=== PATIENT | male | born 1950 | race Caucasian/White ===

== ENCOUNTER → 2017-02-28 | Outpatient (CLI) | payer OTHER, MEDICARE | LOC: MW.CHPS 08:00 | PROVIDERS: ATTEND Physician Assistant | DX: G56.03 Carpal tunnel syndrome, bilateral upper limbs (principal); Z98.890 Other specified postprocedural states | CPT/HCPCS: G0463 ==

== ENCOUNTER 2017-12-06 16:01 | Inpatient (IN) | payer MEDICARE, OTHER ==
[2017-12-06] MEDS ORDERED: Sodium Chloride 0.9% 2.5 ML Syringe FLUSH PRN (16:11)
[2017-12-06] MEDS ORDERED: Sodium Chloride 0.9% 10 ML Syringe FLUSH PRN (16:11)
--- NOTE | 2017-12-06 16:16 | EDM.PDOC ---
ED HPI GENERAL MEDICAL PROBLEM - General Chief Complaint: Respiratory Problem Stated Complaint: SOB Time Seen by Provider: 12/06/17 16:10 Source of Information: Reports: Patient History Limitations: Reports: No Limitations - History of Present Illness INITIAL COMMENTS - FREE TEXT/NARRATIVE: HISTORY AND PHYSICAL: History of present illness: Patient is a 67-year-old male who is brought to the emergency room by EMS with complaints of shortness of breath x 4 days. States he has chronic shortness of breath but has been worse over the past 24 hours. He does not use home oxygen. Denies any chest pain, abdominal pain, nausea, vomiting or diarrhea. Denies any fever or chills. States he is eating and drinking without difficulty. Has no bowel or bladder concerns or complaints. Has not received the 2017 - 2018 influenza vaccine. Patient reports he has a history of diabetes and does assess his blood sugars routinely which have been running in the 200s. History of hypertension, elevated cholesterol, COPD, and sleep apnea. Review of systems: As per history of present illness and below otherwise all systems reviewed and negative. Past medical history: As per history of present illness and as reviewed below otherwise noncontributory. Surgical history: As per history of present illness and as reviewed below otherwise noncontributory. Social history: No reported history of drug or alcohol abuse. Family history: As per history of present illness and as reviewed below otherwise noncontributory. Physical exam: Gen.: Well-developed and well-nourished 67-year-old male. Alert and oriented. Able to speak in short sentences prior to becoming short of breath. Appears nontoxic and in no acute distress. HEENT: Atraumatic, normocephalic, pupils reactive, negative for conjunctival pallor or scleral icterus, mucous membranes moist, throat clear, neck supple, nontender, trachea midline. Lungs: Fine expiratory wheezing to the posterior bases bilaterally, breath sounds equal bilaterally, chest nontender. Does become short of breath when he came full sentences. Heart: S1S2, regular rate and rhythm Abdomen: Soft, obese, nondistended, nontender. Negative for masses or hepatosplenomegaly. Negative for costovertebral tenderness. Pelvis: Stable nontender. Genitourinary: Deferred. Rectal: Deferred. Extremities: Atraumatic, negative for cords or calf pain. +2 pitting edema to his lower extremities bilaterally. Neurovascular unremarkable. Neuro: Awake, alert, oriented. Cranial nerves II through XII unremarkable. Cerebellum unremarkable. Motor and sensory unremarkable throughout. Exam nonfocal. On interviewing the patient he does have a difficult time finding his words. Poor historian. He is unsure of which medications he takes. States he [facility]. He denies hitting his head or any loss of consciousness recently. Due to his current state they would like to get a head CT to rule out any intracranial findings. Labs and chest x- ray will be done at this time. I did inform the patient to anticipate possible admission as he does not appear well enough to go home. Patient is agreeable and voices understanding. Dr. Farias was consult on this case. He agreed to admit this patient as an inpatient with telemetry. He has been down to see the patient. Diagnostics: CBC, CMP, troponin, BNP and PT, influenza, head CT, chest x-ray, EKG, blood cultures Therapeutics: Levaquin Impression: #1 Dyspnea #2 Influenza A #3 hypoxemia Plan: Inpatient admission with telemetry Definitive disposition and diagnosis as appropriate pending reevaluation and review of above. Duration: Day(s): Location: Reports: Chest - Related Data Allergies Allergy/AdvReac Type Severity Reaction Status Date / Time colestipol Allergy Other Verified 12/06/17 16:01 fluvastatin Allergy Other Verified 12/06/17 16:01 ibuprofen Allergy Other Verified 12/06/17 16:01 lovastatin Allergy Other Verified 12/06/17 16:01 simvastatin Allergy Other Verified 12/06/17 16:01 Home Meds: Home Meds Amoxicillin 500 mg PO 02/20/16 [History] Enalapril Maleate 10 mg PO 02/20/16 [History] Ezetimibe [Zetia] 10 mg PO DAILY 02/20/16 [History] Furosemide 40 mg PO 02/20/16 [History] Gabapentin [Neurontin] 800 mg PO 02/20/16 [History] Insulin Glargine,Hum.Rec.Anlog [Lantus Solostar] 100 unit SQ 02/20/16 [History] Methocarbamol 500 mg PO 02/20/16 [History] glipiZIDE [Glucotrol] 10 mg PO 02/20/16 [History] metFORMIN [Glucophage XR] mg PO 02/20/16 [History] Past Medical History HEENT History: Reports: None Cardiovascular History: Reports: Hypertension Respiratory History: Reports: COPD, Sleep Apnea Gastrointestinal History: Reports: None Genitourinary History: Reports: Renal Disease Other Genitourinary History: Renal insufficiency Musculoskeletal History: Reports: None Neurological History: Reports: Neuropathy, Diabetic Psychiatric History: Reports: None Endocrine/Metabolic History: Reports: Diabetes, Type II, Obesity/BMI 30+ Hematologic History: Reports: None Immunologic History: Reports: None Oncologic (Cancer) History: Reports: None Dermatologic History: Reports: None - Past Surgical History Head Surgeries/Procedures: Reports: None HEENT Surgical History: Reports: None Cardiovascular Surgical History: Reports: None Respiratory Surgical History: Reports: None GI Surgical History: Reports: None Male Surgical History: Reports: None Neurological Surgical History: Reports: None Musculoskeletal Surgical History: Reports: None Oncologic Surgical History: Reports: None Dermatological Surgical History: Reports: None Social & Family History - Family History Family Medical History: Noncontributory - Tobacco Use Smoking Status *Q: Never Smoker - Caffeine Use Caffeine Use: Reports: None - Recreational Drug Use Recreational Drug Use: No ED ROS GENERAL - Review of Systems Review Of Systems: ROS reveals no pertinent complaints other than HPI. ED EXAM, GENERAL - Physical Exam Exam: See Below (See dictation) Course - Vital Signs Last Recorded V/S: Last Vital Signs Temp 99.2 F 12/06/17 16:02 Pulse 87 12/06/17 18:07 Resp 22 H 12/06/17 18:07 BP 133/61 12/06/17 18:07 Pulse Ox 95 12/06/17 18:07 - Orders/Labs/Meds Orders: Active Orders 24 hr Category Date Time Status Admission Status [Patient Status] [ADT] Stat ADT 12/06/17 19:00 Ordered EKG Documentation Completion [RC] STAT Care 12/06/17 16:11 Active Chest 2V [CR] Stat Exams 12/06/17 16:11 Taken Head wo Cont [CT] Stat Exams 12/06/17 16:16 Taken CULTURE BLOOD [BC] Stat Lab 12/06/17 16:55 Received CULTURE BLOOD [BC] Stat Lab 12/06/17 17:01 Received Levofloxacin/Dextrose 5%-Water [Levaquin in D5W 750 MG/ Med 12/06/17 18:44 Active 150 ML] 750 mg Premix Bag 1 bag IV ONETIME Sodium Chloride 0.9% [Saline Flush] Med 12/06/17 16:11 Active 10 ml FLUSH ASDIRECTED PRN Sodium Chloride 0.9% [Saline Flush] Med 12/06/17 16:11 Active 2.5 ml FLUSH ASDIRECTED PRN Blood Culture x2 Reflex Set [OM.PC] Stat Oth 12/06/17 16:22 Ordered Saline Lock Insert [OM.PC] Stat Oth 12/06/17 16:11 Ordered Medication Orders Levofloxacin/Dextrose 750 mg/ (Premix) 150 mls @ 100 mls/hr IV ONETIME ONE Stop: 12/06/17 20:13 Sodium Chloride (Saline Flush) 10 ml FLUSH ASDIRECTED PRN PRN Reason: Keep Vein Open Sodium Chloride (Saline Flush) 2.5 ml FLUSH ASDIRECTED PRN PRN Reason: Keep Vein Open Labs: Laboratory Tests 12/06/17 12/06/17 12/06/17 Range/Units 16:20 16:20 16:20 WBC 3.14 L (4.0-11.0) K/uL RBC 4.87 (4.50-5.90) M/uL Hgb 13.3 (13.0-17.0) g/dL Hct 40.1 (38.0-50.0) % MCV 82.3 (80.0-98.0) fL MCH 27.3 (27.0-32.0) pg MCHC 33.2 (31.0-37.0) g/dL RDW Std Deviation 46.0 (28.0-62.0) fl RDW Coeff of Rhea 15 (11.0-15.0) % Plt Count 99 L (150-400) K/uL MPV 10.90 (7.40-12.00) fL Neut % (Auto) 65.3 (48.0-80.0) % Lymph % (Auto) 24.5 (16.0-40.0) % [place] % (Auto) 10.2 (0.0-15.0) % Eos % (Auto) 0.0 (0.0-7.0) % Baso % (Auto) 0.0 (0.0-1.5) % Neut # (Auto) 2.1 (1.4-5.7) K/uL Lymph # (Auto) 0.8 (0.6-2.4) K/uL [place] # (Auto) 0.3 (0.0-0.8) K/uL Eos # (Auto) 0.0 (0.0-0.7) K/uL Baso # (Auto) 0.0 (0.0-0.1) K/uL Nucleated RBC % 0.0 /100WBC Nucleated RBCs # 0 K/uL ABG pH (7.35-7.45) ABG pCO2 (35-45) mmHG ABG pO2 (75-100) mmHG ABG HCO3 (22-26) mEq/L ABG Total CO2 ABG Base Excess (-2.0-2.0) Lactate (0.20-2.00) mmol/L Sodium 141 (136-146) mmol/L Potassium 4.0 (3.5-5.1) mmol/L Chloride 109 (98-110) mmol/L Carbon Dioxide 22 (21-31) mmol/L BUN 23 (6.0-23.0) mg/dL Creatinine 1.7 H (0.6-1.5) mg/dL Est Cr Clr Drug Dosing TNP Estimated GFR (MDRD) 40.2 ml/min Glucose 92 (60-110) mg/dL Calcium 9.1 (8.8-10.8) mg/dL Total Bilirubin 0.4 (0.1-1.5) mg/dL AST 22 (5-40) IU/L ALT 21 (8-54) IU/L Alkaline Phosphatase 40 (40-150) Troponin I < 0.10 (0.0-0.29) NG/ML B-Natriuretic Peptide 126 H (<100) PG/ML Total Protein 7.1 (6.0-8.0) g/dL Albumin 3.7 (3.4-4.8) g/dL Globulin 3.4 (2.0-3.5) g/dL Albumin/Globulin Ratio 1.1 L (1.3-2.8) 12/06/17 12/06/17 Range/Units 16:20 16:45 WBC (4.0-11.0) K/uL RBC (4.50-5.90) M/uL Hgb (13.0-17.0) g/dL Hct (38.0-50.0) % MCV (80.0-98.0) fL MCH (27.0-32.0) pg MCHC (31.0-37.0) g/dL RDW Std Deviation (28.0-62.0) fl RDW Coeff of Rhea (11.0-15.0) % Plt Count (150-400) K/uL MPV (7.40-12.00) fL Neut % (Auto) (48.0-80.0) % Lymph % (Auto) (16.0-40.0) % [place] % (Auto) (0.0-15.0) % Eos % (Auto) (0.0-7.0) % Baso % (Auto) (0.0-1.5) % Neut # (Auto) (1.4-5.7) K/uL Lymph # (Auto) (0.6-2.4) K/uL [place] # (Auto) (0.0-0.8) K/uL Eos # (Auto) (0.0-0.7) K/uL Baso # (Auto) (0.0-0.1) K/uL Nucleated RBC % /100WBC Nucleated RBCs # K/uL ABG pH 7.465 H (7.35-7.45) ABG pCO2 31 L (35-45) mmHG ABG pO2 56 L (75-100) mmHG ABG HCO3 22 (22-26) mEq/L ABG Total CO2 23 ABG Base Excess 0 (-2.0-2.0) Lactate 0.9 (0.20-2.00) mmol/L Sodium (136-146) mmol/L Potassium (3.5-5.1) mmol/L Chloride (98-110) mmol/L Carbon Dioxide (21-31) mmol/L BUN (6.0-23.0) mg/dL Creatinine (0.6-1.5) mg/dL Est Cr Clr Drug Dosing Estimated GFR (MDRD) ml/min Glucose (60-110) mg/dL Calcium (8.8-10.8) mg/dL Total Bilirubin (0.1-1.5) mg/dL AST (5-40) IU/L ALT (8-54) IU/L Alkaline Phosphatase (40-150) Troponin I (0.0-0.29) NG/ML B-Natriuretic Peptide (<100) PG/ML Total Protein (6.0-8.0) g/dL Albumin (3.4-4.8) g/dL Globulin (2.0-3.5) g/dL Albumin/Globulin Ratio (1.3-2.8) Meds: Medications Generic Name Dose Route Start Last Admin Trade Name Freq PRN Reason Stop Dose Admin Levofloxacin/Dextrose 750 mg/ 150 mls @ 100 mls/hr 12/06/17 18:44 Premix IV 12/06/17 20:13 ONETIME ONE Sodium Chloride 10 ml 12/06/17 16:11 Saline Flush FLUSH ASDIRECTED PRN Keep Vein Open Sodium Chloride 2.5 ml 12/06/17 16:11 Saline Flush FLUSH ASDIRECTED PRN Keep Vein Open Departure - Departure Time of Disposition: 19:02 Disposition: Admitted As Inpatient 64 Clinical Impression: Influenza A, Hypoxemia Dyspnea Qualifiers: Dyspnea type: shortness of breath Qualified Code(s): R06.02 - Shortness of breath; R06.00 - Dyspnea, unspecified; R06.01 - Orthopnea - Discharge Information Forms: ED Department Discharge - My Orders Last 24 Hours: My Active Orders 12/06/17 16:11 EKG Documentation Completion [RC] STAT Chest 2V [CR] Stat Sodium Chloride 0.9% [Saline Flush] 10 ml FLUSH ASDIRECTED PRN Sodium Chloride 0.9% [Saline Flush] 2.5 ml FLUSH ASDIRECTED PRN Saline Lock Insert [OM.PC] Stat 12/06/17 16:16 Head wo Cont [CT] Stat 12/06/17 16:22 Blood Culture x2 Reflex Set [OM.PC] Stat 12/06/17 16:55 CULTURE BLOOD [BC] Stat 12/06/17 17:01 CULTURE BLOOD [BC] Stat 12/06/17 18:44 Levofloxacin/Dextrose 5%-Water [Levaquin in D5W 750 MG/150 ML] 750 mg Premix Bag 1 bag IV ONETIME 12/06/17 19:00 Admission Status [Patient Status] [ADT] Stat - Assessment/Plan Last 24 Hours: My Active Orders 12/06/17 16:11 EKG Documentation Completion [RC] STAT Chest 2V [CR] Stat Sodium Chloride 0.9% [Saline Flush] 10 ml FLUSH ASDIRECTED PRN Sodium Chloride 0.9% [Saline Flush] 2.5 ml FLUSH ASDIRECTED PRN Saline Lock Insert [OM.PC] Stat 12/06/17 16:16 Head wo Cont [CT] Stat 12/06/17 16:22 Blood Culture x2 Reflex Set [OM.PC] Stat 12/06/17 16:55 CULTURE BLOOD [BC] Stat 12/06/17 17:01 CULTURE BLOOD [BC] Stat 12/06/17 18:44 Levofloxacin/Dextrose 5%-Water [Levaquin in D5W 750 MG/150 ML] 750 mg Premix Bag 1 bag IV ONETIME 12/06/17 19:00 Admission Status [Patient Status] [ADT] Stat
[2017-12-06 16:48] LABS: CHLORIDE,CL 109 mmol/L (98-110); SODIUM,NA 141 mmol/L (136-146)
[2017-12-06] MEDS ORDERED: Levofloxacin/Dextrose 5%-Water 750 MG in Premix Bag 1 BAG IV ONE (18:44)
[2017-12-06] MEDS ORDERED: Ondansetron 4 MG/2 ML SDV IVPUSH PRN (19:01)
--- NOTE | 2017-12-06 19:11 | PCM.HP ---
H&P History of Present Illness - General Admit Problem/Dx: Admission Diagnosis/Problem Admission Diagnosis/Problem Influenza due to influenza A virus - History of Present Illness Initial Comments - Free Text/Narative: 67 yo male with pmh of DM who presents with three day history of shortness of breath, productive cough, fevers, chills, and myalgias. CXR performed in ED showed no focal consolidation, He is positive for influenza A. - Related Data Allergies/Adverse Reactions: Allergies Allergy/AdvReac Type Severity Reaction Status Date / Time colestipol Allergy Other Verified 12/06/17 16:01 fluvastatin Allergy Other Verified 12/06/17 16:01 ibuprofen Allergy Other Verified 12/06/17 16:01 lovastatin Allergy Other Verified 12/06/17 16:01 simvastatin Allergy Other Verified 12/06/17 16:01 Home Medications: Home Meds Amoxicillin 500 mg PO 02/20/16 [History] Enalapril Maleate 10 mg PO 02/20/16 [History] Ezetimibe [Zetia] 10 mg PO DAILY 02/20/16 [History] Furosemide 40 mg PO 02/20/16 [History] Gabapentin [Neurontin] 800 mg PO 02/20/16 [History] Insulin Glargine,Hum.Rec.Anlog [Lantus Solostar] 100 unit SQ 02/20/16 [History] Methocarbamol 500 mg PO 02/20/16 [History] glipiZIDE [Glucotrol] 10 mg PO 02/20/16 [History] metFORMIN [Glucophage XR] mg PO 02/20/16 [History] Past Medical History HEENT History: Reports: None Cardiovascular History: Reports: Hypertension Respiratory History: Reports: COPD, Sleep Apnea Gastrointestinal History: Reports: None Genitourinary History: Reports: Renal Disease Other Genitourinary History: Renal insufficiency Musculoskeletal History: Reports: None Neurological History: Reports: Neuropathy, Diabetic Psychiatric History: Reports: None Endocrine/Metabolic History: Reports: Diabetes, Type II, Obesity/BMI 30+ Hematologic History: Reports: None Immunologic History: Reports: None Oncologic (Cancer) History: Reports: None Dermatologic History: Reports: None - Past Surgical History Head Surgeries/Procedures: Reports: None HEENT Surgical History: Reports: None Cardiovascular Surgical History: Reports: None Respiratory Surgical History: Reports: None GI Surgical History: Reports: None Male Surgical History: Reports: None Neurological Surgical History: Reports: None Musculoskeletal Surgical History: Reports: None Oncologic Surgical History: Reports: None Dermatological Surgical History: Reports: None Social & Family History - Family History Family Medical History: Noncontributory - Tobacco Use Smoking Status *Q: Never Smoker - Caffeine Use Caffeine Use: Reports: None - Recreational Drug Use Recreational Drug Use: No H&P Review of Systems - Review of Systems: Review Of Systems: ROS reveals no pertinent complaints other than HPI. Exam - Exam Exam: See Below - Vital Signs Vital Signs: Last Vital Signs Temp 37.3 C 12/06/17 16:02 Pulse 87 12/06/17 18:07 Resp 22 H 12/06/17 18:07 BP 133/61 12/06/17 18:07 Pulse Ox 95 12/06/17 18:07 Weight: 151.5 kg - Exam General: Alert, Oriented. No: Mild Distress HEENT: Mucosa Moist & [place] Neck: Supple Lungs: Normal Respiratory Effort, Rhonchi (bilateral). No: Crackles, Stridor, Wheezing Cardiovascular: Regular Rate, Regular Rhythm GI/Abdominal Exam: Soft, Non-Tender. No: Guarding, Rigid, Rebound Extremities: Non-Tender Skin: Warm, Dry, Intact Neurological: No: Focal Deficit - Patient Data Lab Results Last 24 hrs: Laboratory Results - last 24 hr 12/06/17 12/06/17 12/06/17 Range/Units 16:20 16:20 16:20 WBC 3.14 L (4.0-11.0) K/uL RBC 4.87 (4.50-5.90) M/uL Hgb 13.3 (13.0-17.0) g/dL Hct 40.1 (38.0-50.0) % MCV 82.3 (80.0-98.0) fL MCH 27.3 (27.0-32.0) pg MCHC 33.2 (31.0-37.0) g/dL RDW Std Deviation 46.0 (28.0-62.0) fl RDW Coeff of Rhea 15 (11.0-15.0) % Plt Count 99 L (150-400) K/uL MPV 10.90 (7.40-12.00) fL Neut % (Auto) 65.3 (48.0-80.0) % Lymph % (Auto) 24.5 (16.0-40.0) % [place] % (Auto) 10.2 (0.0-15.0) % Eos % (Auto) 0.0 (0.0-7.0) % Baso % (Auto) 0.0 (0.0-1.5) % Neut # (Auto) 2.1 (1.4-5.7) K/uL Lymph # (Auto) 0.8 (0.6-2.4) K/uL [place] # (Auto) 0.3 (0.0-0.8) K/uL Eos # (Auto) 0.0 (0.0-0.7) K/uL Baso # (Auto) 0.0 (0.0-0.1) K/uL Nucleated RBC % 0.0 /100WBC Nucleated RBCs # 0 K/uL ABG pH (7.35-7.45) ABG pCO2 (35-45) mmHG ABG pO2 (75-100) mmHG ABG HCO3 (22-26) mEq/L ABG Total CO2 ABG Base Excess (-2.0-2.0) Lactate (0.20-2.00) mmol/L Sodium 141 (136-146) mmol/L Potassium 4.0 (3.5-5.1) mmol/L Chloride 109 (98-110) mmol/L Carbon Dioxide 22 (21-31) mmol/L BUN 23 (6.0-23.0) mg/dL Creatinine 1.7 H (0.6-1.5) mg/dL Est Cr Clr Drug Dosing TNP Estimated GFR (MDRD) 40.2 ml/min Glucose 92 (60-110) mg/dL Calcium 9.1 (8.8-10.8) mg/dL Total Bilirubin 0.4 (0.1-1.5) mg/dL AST 22 (5-40) IU/L ALT 21 (8-54) IU/L Alkaline Phosphatase 40 (40-150) Troponin I < 0.10 (0.0-0.29) NG/ML B-Natriuretic Peptide 126 H (<100) PG/ML Total Protein 7.1 (6.0-8.0) g/dL Albumin 3.7 (3.4-4.8) g/dL Globulin 3.4 (2.0-3.5) g/dL Albumin/Globulin Ratio 1.1 L (1.3-2.8) 12/06/17 12/06/17 Range/Units 16:20 16:45 WBC (4.0-11.0) K/uL RBC (4.50-5.90) M/uL Hgb (13.0-17.0) g/dL Hct (38.0-50.0) % MCV (80.0-98.0) fL MCH (27.0-32.0) pg MCHC (31.0-37.0) g/dL RDW Std Deviation (28.0-62.0) fl RDW Coeff of Rhea (11.0-15.0) % Plt Count (150-400) K/uL MPV (7.40-12.00) fL Neut % (Auto) (48.0-80.0) % Lymph % (Auto) (16.0-40.0) % [place] % (Auto) (0.0-15.0) % Eos % (Auto) (0.0-7.0) % Baso % (Auto) (0.0-1.5) % Neut # (Auto) (1.4-5.7) K/uL Lymph # (Auto) (0.6-2.4) K/uL [place] # (Auto) (0.0-0.8) K/uL Eos # (Auto) (0.0-0.7) K/uL Baso # (Auto) (0.0-0.1) K/uL Nucleated RBC % /100WBC Nucleated RBCs # K/uL ABG pH 7.465 H (7.35-7.45) ABG pCO2 31 L (35-45) mmHG ABG pO2 56 L (75-100) mmHG ABG HCO3 22 (22-26) mEq/L ABG Total CO2 23 ABG Base Excess 0 (-2.0-2.0) Lactate 0.9 (0.20-2.00) mmol/L Sodium (136-146) mmol/L Potassium (3.5-5.1) mmol/L Chloride (98-110) mmol/L Carbon Dioxide (21-31) mmol/L BUN (6.0-23.0) mg/dL Creatinine (0.6-1.5) mg/dL Est Cr Clr Drug Dosing Estimated GFR (MDRD) ml/min Glucose (60-110) mg/dL Calcium (8.8-10.8) mg/dL Total Bilirubin (0.1-1.5) mg/dL AST (5-40) IU/L ALT (8-54) IU/L Alkaline Phosphatase (40-150) Troponin I (0.0-0.29) NG/ML B-Natriuretic Peptide (<100) PG/ML Total Protein (6.0-8.0) g/dL Albumin (3.4-4.8) g/dL Globulin (2.0-3.5) g/dL Albumin/Globulin Ratio (1.3-2.8) Result Diagrams: 12/06/17 16:20 12/06/17 16:20 Angus Results Last 24 hrs: Microbiology 12/06/17 16:30 Influenza Type A Antigen Screen - Final Nasopharyngeal Swab Positive Influenza A Ag Influenza Type B Antigen Screen - Final NEGATIVE INFLUENZA B VIRUS AG *Q Meaningful Use (ADM) - VTE *Q VTE Criteria *Q: - Stroke *Q Stroke Criteria *Q: - AMI *Q AMI Criteria *Q: Problem List Initiated/Reviewed/Updated: Yes Orders Last 24hrs: Active Orders 24 hr Category Date Time Status Admission Status [Patient Status] [ADT] Stat ADT 12/06/17 19:00 Ordered Antiembolic Devices [RC] PER UNIT ROUTINE Care 12/06/17 19:03 Ordered Blood Glucose Check, Bedside [RC] TIDMEALS Care 12/06/17 19:01 Ordered Cardiac Monitoring [RC] CONTINUOUS Care 12/06/17 19:02 Ordered EKG Documentation Completion [RC] STAT Care 12/06/17 16:11 Active Intake and Output [RC] QSHIFT Care 12/06/17 19:01 Ordered Oxygen Therapy [RC] PRN Care 12/06/17 19:01 Ordered Pulse Oximetry [RC] CONTINUOUS Care 12/06/17 19:02 Ordered RT Aerosol Therapy [RC] ASDIRECTED Care 12/06/17 19:03 Ordered Up ad Zenaida [RC] ASDIRECTED Care 12/06/17 19:01 Ordered VTE/DVT Education [RC] PER UNIT ROUTINE Care 12/06/17 19:01 Ordered Vital Signs [RC] Q4H Care 12/06/17 19:01 Ordered [employer] Diet [DIET] Diet 12/06/17 Breakfast Ordered Chest 2V [CR] Stat Exams 12/06/17 16:11 Taken Head wo Cont [CT] Stat Exams 12/06/17 16:16 Taken BASIC METABOLIC PANEL,BMP [CHEM] AM Lab 12/07/17 05:11 Ordered CBC WITH AUTO DIFF [HEME] AM Lab 12/07/17 05:11 Ordered CULTURE BLOOD [BC] Stat Lab 12/06/17 16:55 Received CULTURE BLOOD [BC] Stat Lab 12/06/17 17:01 Received CULTURE SPUTUM + SMEAR [RM] Stat Lab 12/06/17 19:01 Uncollected Acetaminophen [Tylenol] Med 12/06/17 19:01 Ordered 650 mg PO Q4H PRN Albuterol/Ipratropium [DuoNeb 3.0-0.5 MG/3 ML] Med 12/06/17 19:01 Ordered 3 ml NEB Q4HRRT PRN Enoxaparin [Lovenox] Med 12/07/17 09:00 Ordered 40 mg SUBCUT DAILY Insulin Glarg,Human.Rec.Analog [LantUS Solostar] Med 12/06/17 21:00 Ordered 70 units SUBCUT BEDTIME Levofloxacin/Dextrose 5%-Water [Levaquin in D5W 750 MG/ Med 12/06/17 18:44 Active 150 ML] 750 mg Premix Bag 1 bag IV ONETIME Levofloxacin/Dextrose 5%-Water [Levaquin in D5W 750 MG/ Med 12/07/17 19:15 Ordered 150 ML] 750 mg Premix Bag 1 bag IV Q24H Ondansetron [Zofran] Med 12/06/17 19:01 Ordered 4 mg IVPUSH Q4H PRN Oseltamivir [Tamiflu] Med 12/06/17 21:00 Ordered 30 mg PO BID Sodium Chloride 0.9% @ 125 MLS/HR (1,000ml) Med 12/06/17 19:15 Ordered Sodium Chloride 0.9% [Normal Saline] 1,000 ml IV ASDIRECTED Sodium Chloride 0.9% [Saline Flush] Med 12/06/17 16:11 Active 10 ml FLUSH ASDIRECTED PRN Sodium Chloride 0.9% [Saline Flush] Med 12/06/17 16:11 Active 2.5 ml FLUSH ASDIRECTED PRN Blood Culture x2 Reflex Set [OM.PC] Stat Oth 12/06/17 16:22 Ordered Saline Lock Insert [OM.PC] Stat Oth 12/06/17 16:11 Ordered Sequential Compression Device [OM.PC] Per Unit Routine Oth 12/06/17 19:02 Ordered Resuscitation Status Routine Resus Stat 12/06/17 19:01 Ordered Medication Orders Acetaminophen (Tylenol) 650 mg PO Q4H PRN PRN Reason: Pain (Mild 1-3)/fever Albuterol/Ipratropium (Duoneb 3.0-0.5 Mg/3 Ml) 3 ml NEB Q4HRRT PRN PRN Reason: Shortness Of Breath/wheezing Enoxaparin Sodium (Lovenox) 40 mg SUBCUT DAILY LULU Levofloxacin/Dextrose 750 mg/ (Premix) 150 mls @ 100 mls/hr IV ONETIME ONE Stop: 12/06/17 20:13 Levofloxacin/Dextrose 750 mg/ (Premix) 150 mls @ 100 mls/hr IV Q24H LULU Sodium Chloride (Normal Saline) 1,000 mls @ 125 mls/hr IV ASDIRECTED LULU Insulin Glargine (Lantus Solostar) 70 units SUBCUT BEDTIME LULU Ondansetron HCl (Zofran) 4 mg IVPUSH Q4H PRN PRN Reason: Nausea Oseltamivir Phosphate (Tamiflu) 30 mg PO BID LULU Sodium Chloride (Saline Flush) 10 ml FLUSH ASDIRECTED PRN PRN Reason: Keep Vein Open Sodium Chloride (Saline Flush) 2.5 ml FLUSH ASDIRECTED PRN PRN Reason: Keep Vein Open Assessment/Plan Comment:: 67 yo male admitted for influenza/pneumonia: Pneumonia: treating with levaquin and tamiflu, cultures pending, will place on pulse oximitry overnight. maintaining sats of 95% on 3 liters NC. DM: continue lantus 70 units qhs and ssi.
[2017-12-06] MEDS: Albuterol/Ipratropium 3.0-0.5 MG/3 ML Neb Soln NEB PRN (19:20)
[2017-12-06] MEDS: Insulin Glargine,Human Rec. Analog 100 Units/ML 3 ML Pen SUBCUT SCH (21:05)
[2017-12-06] MEDS: Oseltamivir 30 MG Cap PO SCH (21:05)
[2017-12-06] MEDS: Sodium Chloride 0.9% 1,000 ML IV SCH (21:06)
[2017-12-06] MEDS: Acetaminophen 325 MG Tab PO PRN (22:30)
[2017-12-07] MEDS: Acetaminophen 325 MG Tab PO PRN ×2 (02:30→20:32)
[2017-12-07] MEDS: Sodium Chloride 0.9% 1,000 ML IV SCH (06:17)
[2017-12-07] MEDS: Insulin Aspart 100 Units/ML 3 ML Pen SUBCUT SCH ×3 (06:33→16:44)
--- NOTE | 2017-12-07 08:09 | PCM.PN ---
- General Info Date of Service: 12/07/17 Admission Dx/Problem (Free Text): Admission Diagnosis/Problem Admission Diagnosis/Problem Influenza due to influenza A virus Subjective Update: Feeling a little improved today, but not much. Breathing is somewhat improving as well as generalized weakness and myalgias. No chest pain. Scant SOB. Coughing , but not very productive Off oxygen this morning. Starting to urinate, which he hadn't in over a day at home. drinking and eating ok. Functional Status: Reports: Pain Controlled, Tolerating Diet, Ambulating, Urinating - Review of Systems General: Reports: Weakness, Malaise. Denies: Fever HEENT: Reports: No Symptoms. Denies: Headaches, Sore Throat, Visual Changes Pulmonary: Reports: Shortness of Breath, Cough. Denies: Sputum, Wheezing Cardiovascular: Reports: No Symptoms. Denies: Chest Pain, Palpitations, Lightheadedness Gastrointestinal: Reports: No Symptoms. Denies: Abdominal Pain, Diarrhea, Melena, Nausea, Vomiting Genitourinary: Reports: No Symptoms. Denies: Dysuria, Frequency, Burning Musculoskeletal: Reports: No Symptoms. Denies: Neck Pain Neurological: Reports: No Symptoms. Denies: Confusion, Tremors Psychiatric: Reports: No Symptoms. Denies: Confusion - Patient Data Vitals - Most Recent: Last Vital Signs Temp 99.5 F 12/07/17 04:00 Pulse 72 12/07/17 04:00 Resp 20 12/07/17 04:00 BP 129/68 12/07/17 04:00 Pulse Ox 96 12/07/17 04:00 Weight - Most Recent: 151.5 kg I&O - Last 24 Hours: Intake & Output 12/06/17 12/07/17 12/07/17 22:59 06:59 14:59 Intake Total 1021 Output Total 250 Balance 771 Lab Results Last 24 Hours: Laboratory Results - last 24 hr 12/06/17 12/06/17 12/07/17 Range/Units 20:55 22:10 05:03 WBC 2.53 L (4.0-11.0) K/uL RBC 4.40 L (4.50-5.90) M/uL Hgb 11.9 L (13.0-17.0) g/dL Hct 36.3 L (38.0-50.0) % MCV 82.5 (80.0-98.0) fL MCH 27.0 (27.0-32.0) pg MCHC 32.8 (31.0-37.0) g/dL RDW Std Deviation 46.1 (28.0-62.0) fl RDW Coeff of Rhea 15 (11.0-15.0) % Plt Count 82 L (150-400) K/uL MPV 10.60 (7.40-12.00) fL Add Manual Diff YES Neutrophils % (Manual) 57 (48.0-80.0) % Lymphocytes % (Manual) 30 (16.0-40.0) % Monocytes % (Manual) 12 (0.0-15.0) % Basophils % (Manual) 1 (0.0-1.5) % Nucleated RBC % 0.0 /100WBC Absolute Seg Neuts 1.4 (1.4-5.7) Lymphocytes # (Manual) 0.8 (0.6-2.4) Monocytes # (Manual) 0.3 (0.0-0.8) Basophils # (Manual) 0.0 (0.0-0.1) Nucleated RBCs # 0 K/uL Lactate 0.6 (0.20-2.00) mmol/L Sodium (136-146) mmol/L Potassium (3.5-5.1) mmol/L Chloride (98-110) mmol/L Carbon Dioxide (21-31) mmol/L BUN (6.0-23.0) mg/dL Creatinine (0.6-1.5) mg/dL Est Cr Clr Drug Dosing mL/min Estimated GFR (MDRD) ml/min Glucose (60-110) mg/dL POC Glucose 106 (60-110) mg/dL Calcium (8.8-10.8) mg/dL 12/07/17 Range/Units 05:03 WBC (4.0-11.0) K/uL RBC (4.50-5.90) M/uL Hgb (13.0-17.0) g/dL Hct (38.0-50.0) % MCV (80.0-98.0) fL MCH (27.0-32.0) pg MCHC (31.0-37.0) g/dL RDW Std Deviation (28.0-62.0) fl RDW Coeff of Rhea (11.0-15.0) % Plt Count (150-400) K/uL MPV (7.40-12.00) fL Add Manual Diff Neutrophils % (Manual) (48.0-80.0) % Lymphocytes % (Manual) (16.0-40.0) % Monocytes % (Manual) (0.0-15.0) % Basophils % (Manual) (0.0-1.5) % Nucleated RBC % /100WBC Absolute Seg Neuts (1.4-5.7) Lymphocytes # (Manual) (0.6-2.4) Monocytes # (Manual) (0.0-0.8) Basophils # (Manual) (0.0-0.1) Nucleated RBCs # K/uL Lactate (0.20-2.00) mmol/L Sodium 141 (136-146) mmol/L Potassium 3.8 (3.5-5.1) mmol/L Chloride 111 H (98-110) mmol/L Carbon Dioxide 23 (21-31) mmol/L BUN 25 H (6.0-23.0) mg/dL Creatinine 1.6 H (0.6-1.5) mg/dL Est Cr Clr Drug Dosing 47.83 mL/min Estimated GFR (MDRD) 43.1 ml/min Glucose 126 H (60-110) mg/dL POC Glucose (60-110) mg/dL Calcium 7.9 L (8.8-10.8) mg/dL Med Orders - Current: Current Medications Acetaminophen (Tylenol) 650 mg PO Q4H PRN PRN Reason: Pain (Mild 1-3)/fever Last Admin: 12/07/17 02:30 Dose: 650 mg Albuterol/Ipratropium (Duoneb 3.0-0.5 Mg/3 Ml) 3 ml NEB Q4HRRT PRN PRN Reason: Shortness Of Breath/wheezing Last Admin: 12/06/17 19:20 Dose: 3 ml Enoxaparin Sodium (Lovenox) 40 mg SUBCUT DAILY [facility] Levofloxacin/Dextrose 750 mg/ (Premix) 150 mls @ 100 mls/hr IV Q24H [facility] Sodium Chloride (Normal Saline) 1,000 mls @ 125 mls/hr IV ASDIRECTED [facility] Last Admin: 12/07/17 06:17 Dose: 125 mls/hr Insulin Aspart (Novolog) 0 unit SUBCUT TIDAC [facility] PRN Reason: Protocol Last Admin: 12/07/17 06:33 Dose: Not Given Insulin Glargine (Lantus Solostar) 70 units SUBCUT BEDTIME [facility] Last Admin: 12/06/17 21:05 Dose: 70 units Ondansetron HCl (Zofran) 4 mg IVPUSH Q4H PRN PRN Reason: Nausea Oseltamivir Phosphate (Tamiflu) 30 mg PO BID [facility] Last Admin: 12/06/17 21:05 Dose: 30 mg Sodium Chloride (Saline Flush) 10 ml FLUSH ASDIRECTED PRN PRN Reason: Keep Vein Open Sodium Chloride (Saline Flush) 2.5 ml FLUSH ASDIRECTED PRN PRN Reason: Keep Vein Open Discontinued Medications Levofloxacin/Dextrose 750 mg/ (Premix) 150 mls @ 100 mls/hr IV ONETIME ONE Stop: 12/06/17 20:13 Last Admin: 12/06/17 19:10 Dose: 100 mls/hr - Exam General: Alert, Oriented, Cooperative, No Acute Distress Lungs: Rhonchi (throughout) Cardiovascular: Regular Rate, Regular Rhythm GI/Abdominal Exam: Normal Bowel Sounds, Soft, Non-Tender, No Organomegaly, No Distention, No Abnormal Bruit, No Mass, Pelvis Stable Extremities: Normal Inspection, Normal Range of Motion, Pedal Edema (+1 pitting edema to bilateral lower legs, reports they are at baseline.) Wound/Incisions: Other (old sebaceous cyst noted to back. No drainage, old crusty scab noted. No erythema or fluctuance.) Neurological: No New Focal Deficit Psy/Mental Status: Alert, Normal Affect, Normal Mood - Problem List & Annotations (1) Influenza A SNOMED Code(s): 539814667 Code(s): J10.1 - FLU DUE TO OTH IDENT INFLUENZA VIRUS W OTH RESP MANIFEST Status: Acute Current Visit: Yes (2) Dyspnea SNOMED Code(s): 587794582 Code(s): R06.00 - DYSPNEA, UNSPECIFIED Status: Acute Current Visit: Yes Qualifiers: Dyspnea type: shortness of breath Qualified Code(s): R06.02 - Shortness of breath; R06.00 - Dyspnea, unspecified; R06.01 - Orthopnea (3) Hypoxemia SNOMED Code(s): 141888161 Code(s): R09.02 - HYPOXEMIA Status: Acute Current Visit: Yes (4) Chest congestion SNOMED Code(s): 51895621 Code(s): R09.89 - OTH SYMPTOMS AND SIGNS INVOLVING THE CIRC AND RESP SYSTEMS Status: Acute Current Visit: No - Problem List Review Problem List Initiated/Reviewed/Updated: Yes - Plan Plan:: 67 yo male admitted for influenza/pneumonia: 1.Pneumonia/Influenza: Slight improvement. Continue Levaquin and Tamiflu. Blood cultures pending, Weaned off oxygen this morning. Has LAILA and uses CPAP at night. Thrombocytopenia noted, possibly due to influenza, will monitor closely. No bleeding. 2. DM: stable. continue Lantus 70 units qhs and Novolog ssi. Hold PO medications 3. HTN: Continue Metoprolol today. Hold Torsemide due to dehydration. 4. COPD: Continue Home inhalers. Duonebs PRN. 5. Sebaceous cyst to back: No infection noted. will monitor. Open and now scabbed and healing. VTE prophylaxis: Lovenox, monitor platelets.
[2017-12-07] MEDS: Enoxaparin 40 MG/0.4 ML Syringe SUBCUT SCH (08:10)
[2017-12-07] MEDS: Oseltamivir 30 MG Cap PO SCH ×2 (08:10→20:32)
[2017-12-07] MEDS ORDERED: METHOCARBAMOL 500 MG PO PRN (12:00)
[2017-12-07] MEDS: Metoprolol Tartrate 50 MG Tab PO SCH (12:22)
[2017-12-07] MEDS: Ezetimibe 10 MG Tab PO SCH (12:23)
[2017-12-07] MEDS: SYMBICORT 160/4.5 INH SCH ×2 (12:44→20:33)
--- NOTE | 2017-12-07 15:54 | CT ---
EXAM DATE: 12/06/17 PATIENT'S AGE: 67 Patient: VASILE SHAVER Facility: [place], [place] Site . Site : 1950 Study: CT Head [id number]/24/2018 5:38:13 PM Ordering Physician: Doctor Rawls Final Report: INDICATIONS: General pain. TECHNIQUE: CT head without contrast. COMPARISON: None FINDINGS: No mass effect or midline shift. No hydrocephalus. No CT evidence of acute hemorrhage or infarction. No abnormal extra-axial fluid collection. Intracranial atherosclerosis. Bone windows show no acute abnormality. Mucosal thickening and mild cortical thickening of the bilateral maxillary sinuses consistent with chronic sinusitis. Mild mucosal thickening of the ethmoid and sphenoid sinuses. Orbits are unremarkable. IMPRESSION: No acute intracranial abnormality. Chronic bilateral maxillary sinusitis. Dictated by Alberto Rivers MD @ 12/06/2017 6:24:48 PM Dictated by: Alberto Rivers MD @ 12/06/2017 18:25:00 (Electronic Signature) Report Signed by Proxy. BRITTANY
--- NOTE | 2017-12-07 15:56 | CR ---
EXAM DATE: 12/06/17 PATIENT'S AGE: 67 Patient: VASILE SHAVER Facility: [place], [place] Site . Site : 1950 Study: XRay Chest [id number]/24/2018 5:42:08 PM Ordering Physician: Doctor Rawls Final Report: INDICATION: Shortness of breath, chest pain TECHNIQUE: Chest radiograph 2 views COMPARISON: None FINDINGS: Study limited by patient body habitus. Lungs are grossly clear. Heart and mediastinal contours are within normal limits. No blunting of costophrenic sulci or pneumothorax. Bilateral AC joint degenerative changes. No acute displaced rib fracture deformity. Mild degree of multilevel thoracic spine degenerative disk disease. Mild compression abnormality mid thoracic spine, age indeterminate. IMPRESSION: 1. No acute cardiopulmonary disease is seen. 2. Mid thoracic spine compression abnormality, age indeterminate. Dictated by Kamari Estrada MD @ 12/06/2017 6:23:33 PM Dictated by: Kamari Estrada MD @ 12/06/2017 18:23:40 (Electronic Signature) Report Signed by Proxy. [facility]
[2017-12-07] MEDS ORDERED: Levofloxacin/Dextrose 5%-Water 750 MG in Premix Bag 1 BAG IV SCH (19:15)
[2017-12-07] MEDS: Insulin Glargine,Human Rec. Analog 100 Units/ML 3 ML Pen SUBCUT SCH (20:34)
[2017-12-07] MEDS: Albuterol/Ipratropium 3.0-0.5 MG/3 ML Neb Soln NEB PRN (20:43)
[2017-12-07] MEDS ORDERED: Gabapentin 800 MG Tab PO SCH (21:00)
[2017-12-07] MEDS ORDERED: PRAVASTATIN 10 MG PO SCH (21:00)
[2017-12-08] MEDS: Metoprolol Tartrate 50 MG Tab PO SCH (00:24)
[2017-12-08] MEDS: Insulin Aspart 100 Units/ML 3 ML Pen SUBCUT SCH (06:40)
[2017-12-08] MEDS ORDERED: Omeprazole 20 MG Cap.CR PO SCH (07:30)
[2017-12-08] MEDS ORDERED: Calcium Carbonate 500 MG Tab.Chew PO ONE (08:03)
[2017-12-08 08:42] VITALS: BP 139/44
[2017-12-08] MEDS: Enoxaparin 40 MG/0.4 ML Syringe SUBCUT SCH (08:56)
[2017-12-08] MEDS ORDERED: COENZYME Q10 PO SCH (09:00)
[2017-12-08] MEDS ORDERED: Calcitriol 0.25 MCG Cap PO SCH (09:00)
[2017-12-08] MEDS ORDERED: Fish Oil/Omega-3 Fatty Acids 1 Gm Cap PO SCH (09:00)
[2017-12-08] MEDS: Oseltamivir 30 MG Cap PO SCH (09:03)
[2017-12-08] MEDS: Ezetimibe 10 MG Tab PO SCH (09:03)
[2017-12-08] MEDS: SYMBICORT 160/4.5 INH SCH (09:05)
[2017-12-08] MEDS ORDERED: Levofloxacin 250 MG Tab PO ONE (11:00)
--- NOTE | 2017-12-08 11:23 | PCM.DCSUM1 ---
Discharge Summary - Hospital Course Brief History: 67 yo male with pmh of DM who presents with three day history of shortness of breath, productive cough, fevers, chills, and myalgias. CXR performed in ED showed no focal consolidation, He is positive for influenza A. - Discharge Data Discharge Date: 12/08/17 Discharge Disposition: Home, Self-Care 01 Condition: Good - Discharge Diagnosis/Problem(s) (1) Influenza A SNOMED Code(s): 008844872 ICD Code: J10.1 - FLU DUE TO OTH IDENT INFLUENZA VIRUS W OTH RESP MANIFEST Status: Acute (2) Dyspnea SNOMED Code(s): 623240050 ICD Code: R06.00 - DYSPNEA, UNSPECIFIED Status: Acute Qualifiers: Dyspnea type: shortness of breath Qualified Code(s): R06.02 - Shortness of breath; R06.00 - Dyspnea, unspecified; R06.01 - Orthopnea (3) Hypoxemia SNOMED Code(s): 066661975 ICD Code: R09.02 - HYPOXEMIA Status: Acute (4) Chest congestion SNOMED Code(s): 61326960 ICD Code: R09.89 - OTH SYMPTOMS AND SIGNS INVOLVING THE CIRC AND RESP SYSTEMS Status: Acute - Patient Instructions Diet: Heart Healthy Diet, Drink 8-10+ Glasses/Day, Diabetic Diet Activity: No Strenuous Activities, Rest and Relax Today Showering/Bathing: May Shower Notify Provider of: Fever, Increased Pain, Swelling and Redness, Drainage, Nausea and/or Vomiting - Discharge Plan Prescriptions/Med Rec: Levofloxacin [Levaquin] 750 mg PO DAILY #4 tab Oseltamivir [Tamiflu] 30 mg PO BID #7 cap Home Medications: Home Meds Ezetimibe [Zetia] 10 mg PO DAILY 02/20/16 [History] Gabapentin [Neurontin] 800 mg PO BEDTIME 02/20/16 [History] Insulin Glargine,Hum.Rec.Anlog [Lantus Solostar] 76 unit SQ BEDTIME 02/20/16 [ History] Methocarbamol 500 mg PO BEDTIME PRN 02/20/16 [History] glipiZIDE [Glucotrol] 20 mg PO DAILY 02/20/16 [History] Budesonide/Formoterol [Symbicort 160-4.5 MCG] 2 inh IH BID 01/25/18 [History] Calcitriol 0.25 mcg PO MOWEFR@0900 12/07/17 [History] Fish Oil/[place]-3 Fatty Acids [Fish Oil 1,000 MG] 400 mg PO DAILY 12/07/17 [ History] Metoprolol Tartrate [Lopressor] 50 mg PO Q12H 12/07/17 [History] Omeprazole 20 mg PO ACBREAKFAST 12/07/17 [History] Potassium Chloride [Klor-Con 10] 10 meq PO DAILY 12/07/17 [History] Pravastatin Sodium 5 mg PO BEDTIME 12/07/17 [History] Torsemide 20 mg PO DAILY 12/07/17 [History] Ubidecarenone [Coenzyme Q-10] 50 mg PO DAILY 12/07/17 [History] Levofloxacin [Levaquin] 750 mg PO DAILY #4 tab 12/08/17 [Rx] Oseltamivir [Tamiflu] 30 mg PO BID #7 cap 12/08/17 [Rx] Patient Handouts: Influenza, Adult, [id number], Oseltamivir capsules, Levofloxacin tablets Referrals: Donovan Doran MD [Ordering Only Provider] - 12/15/17 1:00 pm - Discharge Summary/Plan Comment DC Time >30 min.: No Discharge Summary/Plan Comment: Discharge Diagnoses: Pneumonia Influenza A DM type 2 HTN COPD Martínez was admitted and treated with Tamiflu and Influenza A, along with supportive care for symptoms. He was also treated for pneumonia with Levaquin due to his Hx COPD and cough. He did well over his 2 night stay. Today he is feeling much stronger and is up per self in his room. He continues to have cough and sinus congestion, but reports things are loosening up and he is feeling much better and ready to go home. He is eager to go home because his is also sick. He is to continue Levaquin and Tamiflu for 4 more days. He was encouraged to stay out of the public until after the weekend. He is to stay up on fluids and eating to keep his strength. He verbalizes understanding. He is to return to ED or clinic if concerns should arise. He will be scheduled to see PCP in 1 week for follow up. - General Info Date of Service: 12/08/17 Admission Dx/Problem (Free Text: Admission Diagnosis/Problem Admission Diagnosis/Problem Influenza due to influenza A virus Subjective Update: Sitting up in chair, feeling better today. No chest pain, scnat SOB. sinus congestion and coughing intermittently. Reports he wants to go home,"the boss lady needs me there." Functional Status: Reports: Pain Controlled, Tolerating Diet, Ambulating, Urinating - Review of Systems General: Denies: Fever HEENT: Reports: Sinus Congestion. Denies: Headaches, Sore Throat Pulmonary: Reports: Shortness of Breath (intermittently), Cough. Denies: Sputum , Wheezing Cardiovascular: Reports: No Symptoms. Denies: Chest Pain, Palpitations, Lightheadedness Gastrointestinal: Reports: No Symptoms. Denies: Abdominal Pain, Nausea, Vomiting Genitourinary: Reports: No Symptoms. Denies: Dysuria, Frequency, Burning Neurological: Reports: No Symptoms. Denies: Confusion Psychiatric: Reports: No Symptoms. Denies: Confusion - Patient Data Vitals - Most Recent: Last Vital Signs Temp 97.6 F 12/08/17 08:00 Pulse 60 12/08/17 08:00 Resp 20 12/08/17 08:00 BP 139/44 L 12/08/17 08:00 Pulse Ox 96 12/08/17 08:00 Weight - Most Recent: 150 kg I&O - Last 24 hours: Intake & Output 12/07/17 12/08/17 12/08/17 22:59 06:59 14:59 Intake Total 950 600 Output Total 600 350 Balance 350 250 Lab Results - Last 24 hrs: Laboratory Results - last 24 hr 12/07/17 12/07/17 12/08/17 Range/Units 16:30 20:20 04:16 WBC 2.34 L (4.0-11.0) K/uL RBC 4.57 (4.50-5.90) M/uL Hgb 12.5 L (13.0-17.0) g/dL Hct 37.7 L (38.0-50.0) % MCV 82.5 (80.0-98.0) fL MCH 27.4 (27.0-32.0) pg MCHC 33.2 (31.0-37.0) g/dL RDW Std Deviation 46.3 (28.0-62.0) fl RDW Coeff of Rhea 15 (11.0-15.0) % Plt Count 86 L (150-400) K/uL MPV 10.90 (7.40-12.00) fL Add Manual Diff YES Neutrophils % (Manual) 37 L (48.0-80.0) % Lymphocytes % (Manual) 40 (16.0-40.0) % Monocytes % (Manual) 21 H (0.0-15.0) % Eosinophils % (Manual) 1 (0.0-7.0) % Basophils % (Manual) 1 (0.0-1.5) % Nucleated RBC % 0.0 /100WBC Absolute Seg Neuts 0.9 L (1.4-5.7) Lymphocytes # (Manual) 0.9 (0.6-2.4) Monocytes # (Manual) 0.5 (0.0-0.8) Eosinophils # (Manual) 0.0 (0.0-0.7) Basophils # (Manual) 0.0 (0.0-0.1) Nucleated RBCs # 0 K/uL Sodium (136-146) mmol/L Potassium (3.5-5.1) mmol/L Chloride (98-110) mmol/L Carbon Dioxide (21-31) mmol/L BUN (6.0-23.0) mg/dL Creatinine (0.6-1.5) mg/dL Est Cr Clr Drug Dosing mL/min Estimated GFR (MDRD) ml/min Glucose (60-110) mg/dL POC Glucose 121 H 162 H (60-110) mg/dL Calcium (8.8-10.8) mg/dL 12/08/17 12/08/17 Range/Units 04:16 06:26 WBC (4.0-11.0) K/uL RBC (4.50-5.90) M/uL Hgb (13.0-17.0) g/dL Hct (38.0-50.0) % MCV (80.0-98.0) fL MCH (27.0-32.0) pg MCHC (31.0-37.0) g/dL RDW Std Deviation (28.0-62.0) fl RDW Coeff of Rhea (11.0-15.0) % Plt Count (150-400) K/uL MPV (7.40-12.00) fL Add Manual Diff Neutrophils % (Manual) (48.0-80.0) % Lymphocytes % (Manual) (16.0-40.0) % Monocytes % (Manual) (0.0-15.0) % Eosinophils % (Manual) (0.0-7.0) % Basophils % (Manual) (0.0-1.5) % Nucleated RBC % /100WBC Absolute Seg Neuts (1.4-5.7) Lymphocytes # (Manual) (0.6-2.4) Monocytes # (Manual) (0.0-0.8) Eosinophils # (Manual) (0.0-0.7) Basophils # (Manual) (0.0-0.1) Nucleated RBCs # K/uL Sodium 142 (136-146) mmol/L Potassium 4.2 (3.5-5.1) mmol/L Chloride 111 H (98-110) mmol/L Carbon Dioxide 24 (21-31) mmol/L BUN 28 H (6.0-23.0) mg/dL Creatinine 1.4 (0.6-1.5) mg/dL Est Cr Clr Drug Dosing 54.66 mL/min Estimated GFR (MDRD) 50.2 ml/min Glucose 136 H (60-110) mg/dL POC Glucose 201 H (60-110) mg/dL Calcium 7.9 L (8.8-10.8) mg/dL Med Orders - Current: Current Medications Discontinued Medications Acetaminophen (Tylenol) 650 mg PO Q4H PRN PRN Reason: Pain (Mild 1-3)/fever Last Admin: 12/07/17 20:32 Dose: 650 mg Albuterol/Ipratropium (Duoneb 3.0-0.5 Mg/3 Ml) 3 ml NEB Q4HRRT PRN PRN Reason: Shortness Of Breath/wheezing Last Admin: 12/07/17 20:43 Dose: 3 ml Calcitriol (Rocaltrol) 0.25 mcg PO MOWEFR@0900 [facility] Last Admin: 12/08/17 09:03 Dose: 0.25 mcg Calcium Carbonate/Glycine (Tums) 1,000 mg PO ONETIME ONE Stop: 12/08/17 08:04 Last Admin: 12/08/17 09:03 Dose: 1,000 mg Ezetimibe (Zetia) 10 mg PO DAILY [facility] Last Admin: 12/08/17 09:03 Dose: 10 mg Enoxaparin Sodium (Lovenox) 40 mg SUBCUT DAILY [facility] Last Admin: 12/08/17 08:56 Dose: Not Given Fish Oil (Fish Oil) 1 gm PO DAILY [facility] Last Admin: 12/08/17 09:03 Dose: 1 gm Gabapentin (Neurontin) 800 mg PO BEDTIME [facility] Last Admin: 12/07/17 20:32 Dose: 800 mg Levofloxacin/Dextrose 750 mg/ (Premix) 150 mls @ 100 mls/hr IV ONETIME ONE Stop: 12/06/17 20:13 Last Admin: 12/06/17 19:10 Dose: 100 mls/hr Levofloxacin/Dextrose 750 mg/ (Premix) 150 mls @ 100 mls/hr IV Q24H [facility] Last Infusion: 12/07/17 20:05 Dose: Infused Sodium Chloride (Normal Saline) 1,000 mls @ 125 mls/hr IV ASDIRECTED [facility] Last Admin: 12/07/17 06:17 Dose: 125 mls/hr Insulin Aspart (Novolog) 0 unit SUBCUT TIDAC [facility] PRN Reason: Protocol Last Admin: 12/08/17 06:40 Dose: 2 units Insulin Glargine (Lantus Solostar) 70 units SUBCUT BEDTIME [facility] Last Admin: 12/07/17 20:34 Dose: 70 units Levofloxacin (Levaquin) 750 mg PO ONETIME ONE Stop: 12/08/17 11:01 Last Admin: 12/08/17 10:30 Dose: 750 mg Metoprolol Tartrate (Lopressor) 50 mg PO Q12H [facility] Last Admin: 12/08/17 00:24 Dose: 50 mg Omeprazole (Omeprazole) 20 mg PO ACBREAKFAST [facility] Last Admin: 12/08/17 06:40 Dose: 20 mg Ondansetron HCl (Zofran) 4 mg IVPUSH Q4H PRN PRN Reason: Nausea Oseltamivir Phosphate (Tamiflu) 30 mg PO BID [facility] Last Admin: 12/08/17 09:03 Dose: 30 mg Symbicort 160/4.5 2 each INH BID [facility] Last Admin: 12/08/17 09:05 Dose: Not Given Methocarbamol 500 Mg 1 each PO BEDTIME PRN PRN Reason: MUSCLE RELAXANT Pravastatin 10 Mg 0.5 each PO BEDTIME [facility] Last Admin: 12/07/17 20:38 Dose: Not Given Coenzyme Q10 1 each PO DAILY [facility] Last Admin: 12/08/17 09:05 Dose: Not Given Sodium Chloride (Saline Flush) 10 ml FLUSH ASDIRECTED PRN PRN Reason: Keep Vein Open Sodium Chloride (Saline Flush) 2.5 ml FLUSH ASDIRECTED PRN PRN Reason: Keep Vein Open - Exam General: Reports: Alert, Oriented, Cooperative, No Acute Distress Lungs: Reports: Normal Respiratory Effort, Rhonchi (scattered but improved with cough. ) Cardiovascular: Reports: Regular Rhythm GI/Abdominal Exam: Normal Bowel Sounds, Soft, Non-Tender, No Organomegaly, No Distention, No Abnormal Bruit, No Mass, Pelvis Stable Back Exam: Reports: Normal Inspection, Full Range of Motion Extremities: Pedal Edema (+1 pitting, reports this is baseline.) Skin: Reports: Other (helaing scabbed sebaceous cyst. no drainage or erythema) Wound/Incisions: Reports: Healing Well. Denies: Erythema Neurological: Reports: No New Focal Deficit Psy/Mental Status: Reports: Alert, Normal Affect, Normal Mood *Q Meaningful Use (DIS) - VTE *Q VTE Criteria *Q: - Stroke *Q Stroke Criteria *Q: - AMI *Q AMI Criteria *Q:
== END 2017-12-08 10:55 | disposition home or self-care (01) | DRG 195 ==
LOC: MW.ED 16:01 → MW.MS 19:17
PROVIDERS: ADMIT Internal Medicine; ATTEND Internal Medicine
DX: J09.X2 Influenza due to identified novel influenza A virus with other respiratory manifestations (principal); J09.X1 Influenza due to identified novel influenza A virus with pneumonia; R06.00 Dyspnea, unspecified; R06.01 Orthopnea; R09.02 Hypoxemia; R09.89 Other specified symptoms and signs involving the circulatory and respiratory systems; E78.00 Pure hypercholesterolemia, unspecified; E11.40 Type 2 diabetes mellitus with diabetic neuropathy, unspecified; I10 Essential (primary) hypertension; J44.9 Chronic obstructive pulmonary disease, unspecified; L72.3 Sebaceous cyst; Z88.8 Allergy status to other drugs, medicaments and biological substances; Z79.899 Other long term (current) drug therapy; Z79.4 Long term (current) use of insulin
CPT/HCPCS: 36415; 36600; 70450; 71046; 80053; 82803; 83605; 83880; 84484; 85025; 87040 ×2; 87804 ×2; 96365; 99285; J1956; 80048; 82962; 93005; 94640; 99284; A9270-GY; J1815-GY; J7040

== ENCOUNTER 2019-01-04 14:53 | Emergency (ER) | payer OTHER ==
[2019-01-04] MEDS ORDERED: Sodium Chloride 0.9% 10 ML Syringe FLUSH PRN (14:55)
[2019-01-04] MEDS ORDERED: Sodium Chloride 0.9% 2.5 ML Syringe FLUSH PRN (14:55)
--- NOTE | 2019-01-04 15:23 | EDM.PDOC ---
ED HPI GENERAL MEDICAL PROBLEM - General Chief Complaint: Skin Complaint Stated Complaint: swollen leg Time Seen by Provider: 01/04/19 15:19 Source of Information: Reports: Patient History Limitations: Reports: No Limitations - History of Present Illness INITIAL COMMENTS - FREE TEXT/NARRATIVE: HISTORY AND PHYSICAL: History of present illness: Patient is a 68-year-old male who presents to the ED today from the [place] [facility] for right leg swelling and erythema. Patient did have a venous Doppler ultrasound performed on December 24, 2018 which showed no evidence of DVT. Since then, patient has been treated for cellulitis first with Bactrim for 8 days without improvement and switch to clindamycin and continues to become more swollen and erythematous. Patient states the past few days blisters have started to form and weep. Patient denies any trauma or injury to the area. He states he is able to feel the whole leg but it feels painful and swollen. Patient does have a history of type 2 diabetes, COPD, congestive heart failure, chronic kidney disease (subjective end stage), obstructive sleep apnea. Review of systems: As per history of present illness and below otherwise all systems reviewed and negative. Past medical history: As per history of present illness and as reviewed below otherwise noncontributory. Surgical history: As per history of present illness and as reviewed below otherwise noncontributory. Social history: See social history for further information Family history: As per history of present illness and as reviewed below otherwise noncontributory. Physical exam: General: Patient is alert, oriented, and in no acute distress. He is sitting comfortably on exam table. HEENT: Atraumatic, normocephalic, pupils equal and reactive bilaterally, negative for conjunctival pallor or scleral icterus, mucous membranes moist, TMs normal bilaterally, throat clear, neck supple, nontender, trachea midline. No drooling or trismus noted. No meningeal signs. No hot potato voice noted. Lungs: Clear to auscultation, breath sounds equal bilaterally, chest nontender. Heart: S1S2, regular rate and rhythm without overt murmur Abdomen: Morbidly obese, soft, nondistended, nontender. Negative for masses or hepatosplenomegaly. Negative for costovertebral tenderness. Pelvis: Stable nontender. Genitourinary: Deferred. Rectal: Deferred. Skin: Intact, warm, dry. No lesions or rashes noted. Extremities: 3+ pitting edema of the left leg to the knee. 4+ pitting edema of the right leg to the knee. There is a generalized erythema of the right foot calf and up to the knee. There is a marked off area with a marker of the redness. Patient does have a blister on the right pena which is weeping. Dorsalis pedis and posterior tibial pulses were found using a Doppler. Patient does have full range of motion of extremities bilaterally. Patient does have full sensation bilaterally patient is able to move his toes bilaterally. Otherwise, atraumatic. Neurovascular unremarkable. Neuro: Awake, alert, oriented. Cranial nerves II through XII unremarkable. Cerebellum unremarkable. Motor and sensory unremarkable throughout. Exam nonfocal. Notes: Lab work is unremarkable with the exception of a slightly elevated BUN at 33, creatinine at 2.0 Venous duplex ultrasound shows no somnolent graphic evidence of DVT in the right lower extremity but study was limited due to body habitus. Our facility is currently at maximum capacity and unable to take any patients at this time. Dr Kamari Alfonso at [facility] was consulted on this patient and is agreeable to accepting this patient. He feels it may be appropriate if the patient does want to arrive via private vehicle. Patient is aware of this option and is discussing this amongst them selves. No antibiotics have been initated at this time, as he wants to drive himself. The family is agreeable to arriving at [facility] by private vehicle. A copy of reports was given to patient to transfer. Supportive care measures were reviewed and discussed. is driving and they offer no further questions or concerns at this time. Diagnostics: CBC, CMP, blood cultures 2, venous Doppler ultrasound right leg Therapeutics: None Impression: Failed outpatient treatment of cellulitis in a diabetic patient Plan: 1. Please go directly to [facility] ER for admission. Dr Kamari Alfonso, ER physician, has accepted U and is aware of your case. 2. If at any time your symptoms worsen or new symptoms develop, please present to the nearest emergency room for reevaluation. Definitive disposition and diagnosis as appropriate pending reevaluation and review of above. Right foot/calf Pain Score (Numeric/FACES): 8 - Related Data Allergies Allergy/AdvReac Type Severity Reaction Status Date / Time colestipol Allergy Other Verified 01/04/19 15:26 fluvastatin Allergy Other Verified 01/04/19 15:26 ibuprofen Allergy Other Verified 01/04/19 15:26 lovastatin Allergy Other Verified 01/04/19 15:26 simvastatin Allergy Other Verified 01/04/19 15:26 Home Meds: Home Meds Ezetimibe [Zetia] 10 mg PO DAILY 02/20/16 [History] Gabapentin [Neurontin] 800 mg PO BEDTIME 02/20/16 [History] Insulin Glargine,Hum.Rec.Anlog [Lantus Solostar] 76 unit SQ BEDTIME 02/20/16 [ History] Methocarbamol 500 mg PO BEDTIME PRN 02/20/16 [History] glipiZIDE [Glucotrol] 20 mg PO DAILY 02/20/16 [History] Calcitriol 0.25 mcg PO MOWEFR@0900 12/07/17 [History] Fish Oil/[place]-3 Fatty Acids [Fish Oil 1,000 MG] 400 mg PO DAILY 12/07/17 [ History] Metoprolol Tartrate [Lopressor] 50 mg PO Q12H 12/07/17 [History] Omeprazole 20 mg PO ACBREAKFAST 12/07/17 [History] Potassium Chloride [Klor-Con 10] 10 meq PO DAILY 12/07/17 [History] Pravastatin Sodium 5 mg PO BEDTIME 12/07/17 [History] levoFLOXacin [Levaquin] 750 mg PO DAILY #4 tab 12/08/17 [Rx] Past Medical History HEENT History: Reports: None Cardiovascular History: Reports: Heart Failure, Hypertension Respiratory History: Reports: COPD, Sleep Apnea Gastrointestinal History: Reports: None Genitourinary History: Reports: Renal Disease Other Genitourinary History: Renal insufficiency Musculoskeletal History: Reports: None Neurological History: Reports: Neuropathy, Diabetic Psychiatric History: Reports: None Endocrine/Metabolic History: Reports: Diabetes, Type II, Obesity/BMI 30+ Hematologic History: Reports: None Immunologic History: Reports: None Oncologic (Cancer) History: Reports: None Dermatologic History: Reports: None - Infectious Disease History Infectious Disease History: Reports: Influenza - Past Surgical History Head Surgeries/Procedures: Reports: None HEENT Surgical History: Reports: None Cardiovascular Surgical History: Reports: None Respiratory Surgical History: Reports: None GI Surgical History: Reports: None Male Surgical History: Reports: None Neurological Surgical History: Reports: None Musculoskeletal Surgical History: Reports: Carpal Tunnel Oncologic Surgical History: Reports: None Dermatological Surgical History: Reports: None Social & Family History - Family History Family Medical History: Noncontributory - Caffeine Use Caffeine Use: Reports: None ED ROS GENERAL - Review of Systems Review Of Systems: ROS reveals no pertinent complaints other than HPI. ED EXAM, SKIN/RASH Exam: See Below (See dictation) Course - Vital Signs Last Recorded V/S: Last Vital Signs Temp 97.6 F 01/04/19 17:34 Pulse 70 01/04/19 17:34 Resp 17 01/04/19 17:34 BP 114/40 L 01/04/19 17:34 Pulse Ox 95 01/04/19 17:34 - Orders/Labs/Meds Orders: Active Orders 24 hr Category Date Time Status Tibia Fibula Rt [CR] Stat Exams 01/04/19 15:48 Taken CULTURE BLOOD [BC] Stat Lab 01/04/19 15:08 Received CULTURE BLOOD [BC] Stat Lab 01/04/19 15:08 Received Sodium Chloride 0.9% [Saline Flush] Med 01/04/19 14:55 Active 10 ml FLUSH ASDIRECTED PRN Sodium Chloride 0.9% [Saline Flush] Med 01/04/19 14:55 Active 2.5 ml FLUSH ASDIRECTED PRN Blood Culture x2 Reflex Set [OM.PC] Stat Oth 01/04/19 14:55 Ordered Saline Lock Insert [OM.PC] Stat Oth 01/04/19 14:55 Ordered Medication Orders Sodium Chloride (Saline Flush) 10 ml FLUSH ASDIRECTED PRN PRN Reason: Keep Vein Open Sodium Chloride (Saline Flush) 2.5 ml FLUSH ASDIRECTED PRN PRN Reason: Keep Vein Open Labs: Laboratory Tests 01/04/19 01/04/19 Range/Units 15:08 15:08 WBC 5.62 (4.0-11.0) K/uL RBC 4.54 (4.50-5.90) M/uL Hgb 12.6 L (13.0-17.0) g/dL Hct 37.8 L (38.0-50.0) % MCV 83.3 (80.0-98.0) fL MCH 27.8 (27.0-32.0) pg MCHC 33.3 (31.0-37.0) g/dL RDW Std Deviation 42.0 (28.0-62.0) fl RDW Coeff of Rhea 14 (11.0-15.0) % Plt Count 202 (150-400) K/uL MPV 10.00 (7.40-12.00) fL Neut % (Auto) 46.8 L (48.0-80.0) % Lymph % (Auto) 41.5 H (16.0-40.0) % [place] % (Auto) 9.4 (0.0-15.0) % Eos % (Auto) 1.8 (0.0-7.0) % Baso % (Auto) 0.5 (0.0-1.5) % Neut # (Auto) 2.6 (1.4-5.7) K/uL Lymph # (Auto) 2.3 (0.6-2.4) K/uL [place] # (Auto) 0.5 (0.0-0.8) K/uL Eos # (Auto) 0.1 (0.0-0.7) K/uL Baso # (Auto) 0.0 (0.0-0.1) K/uL Nucleated RBC % 0.0 /100WBC Nucleated RBCs # 0 K/uL Sodium 137 (136-148) mmol/L Potassium 4.2 (3.5-5.1) mmol/L Chloride 100 (98-107) mmol/L Carbon Dioxide 29.8 (21.0-32.0) mmol/L BUN 33 H (7.0-18.0) mg/dL Creatinine 2.0 H (0.8-1.3) mg/dL Est Cr Clr Drug Dosing 35.49 mL/min Estimated GFR (MDRD) 33.2 ml/min Glucose 197 H (74-106) mg/dL Calcium 9.0 (8.5-10.1) mg/dL Total Bilirubin 0.2 (0.2-1.0) mg/dL AST 17 (15-37) IU/L ALT 19 (14-63) IU/L Alkaline Phosphatase 62 (46-116) U/L Total Protein 7.8 (6.4-8.2) g/dL Albumin 3.1 L (3.4-5.0) g/dL Globulin 4.7 H (2.6-4.0) g/dL Albumin/Globulin Ratio 0.7 L (0.9-1.6) Meds: Medications Generic Name Dose Route Start Last Admin Trade Name Sylvainq PRN Reason Stop Dose Admin Sodium Chloride 10 ml 01/04/19 14:55 Saline Flush FLUSH ASDIRECTED PRN Keep Vein Open Sodium Chloride 2.5 ml 01/04/19 14:55 Saline Flush FLUSH ASDIRECTED PRN Keep Vein Open Departure - Departure Time of Disposition: 17:47 Disposition: DC/Tfer to [facility] 02 Clinical Impression: Cellulitis Qualifiers: Site of cellulitis: extremity Site of cellulitis of extremity: lower extremity Laterality: right Qualified Code(s): L03.115 - Cellulitis of right lower limb - Discharge Information Referrals: PCP,Unknown [Primary Care Provider] - Forms: ED Department Discharge Additional Instructions: The following information is given to patients seen in the emergency department who are being discharged to home. This information is to outline your options for follow-up care. We provide all patients seen in our emergency department with a follow-up referral. The need for follow-up, as well as the timing and circumstances, are variable depending upon the specifics of your emergency department visit. If you don't have a primary care physician on staff, we will provide you with a referral. We always advise you to contact your personal physician following an emergency department visit to inform them of the circumstance of the visit and for follow-up with them and/or the need for any referrals to a consulting specialist. The emergency department will also refer you to a specialist when appropriate. This referral assures that you have the opportunity for follow-up care with a specialist. All of these measure are taken in an effort to provide you with optimal care, which includes your follow-up. Under all circumstances we always encourage you to contact your private physician who remains a resource for coordinating your care. When calling for follow-up care, please make the office aware that this follow-up is from your recent emergency room visit. If for any reason you are refused follow-up, please contact the [facility] Emergency Department at and asked to speak to the emergency department charge nurse. [facility] Primary [facility] [address] [place] [phone] [address] [id number] 1. Please go directly to [facility] in [place] ER for admission. Dr Kamari Alfonso, ER physician, has accepted U and is aware of your case. 2. If at any time your symptoms worsen or new symptoms develop, please present to the nearest emergency room for reevaluation. - My Orders Last 24 Hours: My Active Orders 01/04/19 14:55 Sodium Chloride 0.9% [Saline Flush] 10 ml FLUSH ASDIRECTED PRN Sodium Chloride 0.9% [Saline Flush] 2.5 ml FLUSH ASDIRECTED PRN Blood Culture x2 Reflex Set [OM.PC] Stat Saline Lock Insert [OM.PC] Stat 01/04/19 15:08 CULTURE BLOOD [BC] Stat CULTURE BLOOD [BC] Stat 01/04/19 15:48 Tibia Fibula Rt [CR] Stat - Assessment/Plan Last 24 Hours: My Active Orders 01/04/19 14:55 Sodium Chloride 0.9% [Saline Flush] 10 ml FLUSH ASDIRECTED PRN Sodium Chloride 0.9% [Saline Flush] 2.5 ml FLUSH ASDIRECTED PRN Blood Culture x2 Reflex Set [OM.PC] Stat Saline Lock Insert [OM.PC] Stat 01/04/19 15:08 CULTURE BLOOD [BC] Stat CULTURE BLOOD [BC] Stat 01/04/19 15:48 Tibia Fibula Rt [CR] Stat
--- NOTE | 2019-01-04 17:32 | US ---
INDICATION: Right calf swelling and redness TECHNIQUE: Ultrasound venous duplex lower right extremity. Compression venous exam was performed using avalos-scale, color Doppler, and spectral Doppler imaging. COMPARISON: 12/24/18 FINDINGS: The study is limited due to patient`s body habitus. There is limited grayscale visualization and evaluation of some of the venous structures. The visualized portions of the right common femoral vein, superficial femoral vein and popliteal vein are patent, appear compressible, demonstrating color flow, flow variability and augmentation. Evaluation of the posterior tibial and peroneal veins is limited, however the visualized portions of the veins appear patent on color Doppler evaluation. There is soft tissue edema in the right calf. IMPRESSION: Limited study. No definite sonographic evidence of a deep venous thrombosis in the right lower extremity. Dictated by Nico Pratt MD @ 01/04/2019 5:25:43 PM Dictated by: Nico Pratt MD @ 01/04/2019 17:30:18 (Electronically Signed)
[2019-01-04 17:35] VITALS: BP 114/40
--- NOTE | 2019-01-04 18:23 | CR ---
Indication: Red and swollen. No known injury. Technique: Two views of the right lower leg were obtained Comparison: None Findings: Soft tissue swelling is identified. No acute fracture or subluxation is identified. Mild degenerative changes are identified at the level of the knee and ankle. Impression: No acute fracture. Dictated by Cely Atwood MD @ Jan 04 2019 5:13PM Signed by Dr. Cely Atwood @ Jan 04 2019 6:22PM
== END 2019-01-04 18:18 ==
LOC: MW.ED 14:53
DX: L03.115 Cellulitis of right lower limb (principal); E11.9 Type 2 diabetes mellitus without complications; I11.0 Hypertensive heart disease with heart failure; I50.9 Heart failure, unspecified; Z88.8 Allergy status to other drugs, medicaments and biological substances; Z79.4 Long term (current) use of insulin; Z79.899 Other long term (current) drug therapy; J44.9 Chronic obstructive pulmonary disease, unspecified
CPT/HCPCS: 36415; 73590-26-RT; 73590-RT; 80053; 85025; 87040; 93971-26-RT; 93971-RT; 99285; 99285-25

== ENCOUNTER 2019-01-16 15:56 | Inpatient (IN) | payer OTHER, MEDICARE ==
[2019-01-16] MEDS ORDERED: Sodium Chloride 0.9% 2.5 ML Syringe FLUSH PRN ×2 (16:22→17:48)
[2019-01-16] MEDS ORDERED: Sodium Chloride 0.9% 10 ML Syringe FLUSH PRN ×2 (16:22→17:48)
[2019-01-16] MEDS ORDERED: Morphine 10 MG/ML Syringe IVPUSH PRN (17:48)
[2019-01-16] MEDS ORDERED: Ondansetron 4 MG/2 ML SDV IVPUSH PRN (17:48)
[2019-01-16] MEDS ORDERED: Sodium Chloride 0.9% 10 ML SDV IV PRN (17:48)
[2019-01-16] MEDS ORDERED: Vancomycin 2 GM in Sodium Chloride 0.9% 500 ML IV ONE (18:00)
--- NOTE | 2019-01-16 18:07 | PCM.HP ---
H&P History of Present Illness - General Date of Service: 01/16/19 Admit Problem/Dx: Admission Diagnosis/Problem Admission Diagnosis/Problem Cellulitis Source of Information: Patient, Significant Other History Limitations: Reports: No Limitations - History of Present Illness Initial Comments - Free Text/Narative: This is a 68-year-old male that is presenting with left lower extremity cellulitis. Patient was recently discharged from [place] secondary to cellulitis of his right foot. Patient states that while in [place] he was placed on IV antibiotics for about 4-5 days and then was subsequently discharged home with 10 days of oral antibiotics. He still had a total of 3 days of oral antibiotics left. He however started to notice over the course of the past couple of days that his left foot on the medial side started to become red and erythematous and progressively the erythema progressed and started to notice lower leg edema as well. Patient became concerned as he had just had the infection on his right side came into the ER for reassessment due to failure of outpatient therapy on oral antibiotics. Patient states that he did have some chills overnight. Patient has a significant past medical history for type 2 diabetes and hypertension which the patient states is under adequate control. Patient is denying any other symptoms. Patient denies any nausea/vomiting, diarrhea, constipation, fevers, shortness of breath, chest discomfort/pain. left elbow, left foot Pain Score (Numeric/FACES): 8 - Related Data Allergies/Adverse Reactions: Allergies Allergy/AdvReac Type Severity Reaction Status Date / Time colestipol Allergy Other Verified 01/16/19 16:19 fluvastatin Allergy Other Verified 01/16/19 16:19 ibuprofen Allergy Other Verified 01/16/19 16:19 lovastatin Allergy Other Verified 01/16/19 16:19 simvastatin Allergy Other Verified 01/16/19 16:19 Home Medications: Home Meds Ezetimibe [Zetia] 10 mg PO DAILY 02/20/16 [History] Gabapentin [Neurontin] 400 mg PO BID 02/20/16 [History] Insulin Glargine,Hum.Rec.Anlog [Lantus Solostar] 65 unit SQ BEDTIME 02/20/16 [ History] glipiZIDE [Glucotrol] 20 mg PO DAILY 02/20/16 [History] Calcitriol 0.25 mcg PO MOWEFR@0900 12/07/17 [History] Metoprolol Tartrate [Lopressor] 50 mg PO BID 12/07/17 [History] Omeprazole 20 mg PO ACBREAKFAST 12/07/17 [History] Potassium Chloride [Klor-Con 10] 10 meq PO DAILY 12/07/17 [History] Amoxicillin/Potassium Clav [Augmentin 875-125 Tablet] 1 tab PO BID 01/16/19 [ History] Diclofenac Gel 1 applic TOP 01/16/19 [History] Doxycycline [Vibramycin] 100 mg PO BID 01/16/19 [History] Torsemide 40 mg PO BID 01/16/19 [History] Past Medical History HEENT History: Reports: None Cardiovascular History: Reports: High Cholesterol, Hypertension Respiratory History: Reports: COPD, Sleep Apnea Gastrointestinal History: Reports: None Genitourinary History: Reports: Renal Disease Other Genitourinary History: Renal insufficiency Musculoskeletal History: Reports: Arthritis Neurological History: Reports: Neuropathy, Diabetic Psychiatric History: Reports: None Endocrine/Metabolic History: Reports: Diabetes, Type II, Obesity/BMI 30+ Hematologic History: Reports: None Immunologic History: Reports: None Oncologic (Cancer) History: Reports: None Dermatologic History: Reports: None - Infectious Disease History Infectious Disease History: Reports: Measles, Mumps - Past Surgical History Head Surgeries/Procedures: Reports: None HEENT Surgical History: Reports: None Cardiovascular Surgical History: Reports: None Respiratory Surgical History: Reports: None GI Surgical History: Reports: None Male Surgical History: Reports: None Neurological Surgical History: Reports: None Musculoskeletal Surgical History: Reports: Carpal Tunnel, Hip Replacement Oncologic Surgical History: Reports: None Dermatological Surgical History: Reports: None Social & Family History - Family History Family Medical History: Noncontributory - Tobacco Use Smoking Status *Q: Never Smoker Second Hand Smoke Exposure: No - Caffeine Use Caffeine Use: Reports: Coffee, Tea - Recreational Drug Use Recreational Drug Use: No H&P Review of Systems - Review of Systems: Review Of Systems: ROS reveals no pertinent complaints other than HPI. Exam - Exam Exam: See Below - Vital Signs Vital Signs: Last Vital Signs Temp 37.0 C 01/16/19 16:16 Pulse 86 01/16/19 16:16 Resp 20 01/16/19 16:16 BP 152/79 H 01/16/19 16:16 Pulse Ox 96 01/16/19 16:16 Weight: 149.685 kg - Exam General: Alert, Oriented, Cooperative Lungs: Clear to Auscultation, Normal Respiratory Effort Cardiovascular: Regular Rate, Regular Rhythm GI/Abdominal Exam: Normal Bowel Sounds, Soft, Non-Tender Extremities: Other (Left foot is indurated with erythema without any signs of bruising or abscess formation. There is pitting edema of the bilateral extremities extending upwards up to about the mid tibia, pain on palpation of the left foot over the site of the cellulitic infection) - Patient Data Lab Results Last 24 hrs: Laboratory Results - last 24 hr 01/16/19 Range/Units 13:10 Sodium 140 (136-148) mmol/L Potassium 3.7 (3.5-5.1) mmol/L Chloride 103 (98-107) mmol/L Carbon Dioxide 31.1 (21.0-32.0) mmol/L BUN 31 H (7.0-18.0) mg/dL Creatinine 1.8 H (0.8-1.3) mg/dL Est Cr Clr Drug Dosing 39.43 mL/min Estimated GFR (MDRD) 37.5 ml/min Glucose 202 H (74-106) mg/dL Calcium 8.9 (8.5-10.1) mg/dL Total Bilirubin 0.6 (0.2-1.0) mg/dL AST 17 (15-37) IU/L ALT 26 (14-63) IU/L Alkaline Phosphatase 51 (46-116) U/L Total Protein 7.3 (6.4-8.2) g/dL Albumin 3.3 L (3.4-5.0) g/dL Globulin 4.0 (2.6-4.0) g/dL Albumin/Globulin Ratio 0.8 L (0.9-1.6) Result Diagrams: 01/16/19 13:10 Problem List Initiated/Reviewed/Updated: Yes Orders Last 24hrs: Active Orders 24 hr Category Date Time Status Patient Status [ADT] Stat ADT 01/16/19 16:30 Active Blood Glucose Check, Bedside [] QIDACANDBED Care 01/16/19 17:48 Ordered Height and Weight [RC] DAILY Care 01/16/19 17:48 Ordered Intake and Output [RC] QSHIFT Care 01/16/19 17:49 Ordered Oxygen Therapy [RC] PRN Care 01/16/19 17:48 Ordered Telemetry Monitoring [Cardiac Monitoring] [RC] . Care 01/16/19 17:59 Ordered DIRECTED Up With Assistance [RC] ASDIRECTED Care 01/16/19 17:48 Ordered VTE/DVT Education [RC] PER UNIT ROUTINE Care 01/16/19 17:48 Ordered Vital Signs [RC] Q4H Care 01/16/19 17:48 Ordered PT Evaluation and Treatment [CONS] Routine Cons 01/16/19 17:48 Ordered ADA Diabetic [[place] [employer] Diet] [DIET Diet 01/16/19 Dinner Active ] B-TYPE NATRIURETIC PEPTIDE,BNP [CHEM] Routine Lab 01/16/19 17:48 Ordered C-REACTIVE PROTEIN [CHEM] AM Lab 01/17/19 05:11 Ordered C-REACTIVE PROTEIN [CHEM] AM Lab 01/18/19 05:11 Ordered C-REACTIVE PROTEIN [CHEM] AM Lab 01/19/19 05:11 Ordered CBC WITH AUTO DIFF [HEME] AM Lab 01/17/19 05:11 Ordered COMPREHENSIVE METABOLIC PN,CMP [CHEM] AM Lab 01/17/19 05:11 Ordered CULTURE BLOOD [BC] Stat Lab 01/16/19 17:51 Ordered CULTURE BLOOD [BC] Stat Lab 01/16/19 17:51 Ordered GLYCOSYLATED HEMOGLOBIN,HGBA1C [CHEM] Routine Lab 01/16/19 17:48 Ordered LACTIC ACID,WHOLE BLOOD [BG] Stat Lab 01/16/19 17:53 Ordered TROPONIN I [CHEM] Routine Lab 01/16/19 17:48 Ordered TSH [CHEM] Stat Lab 01/16/19 17:54 Ordered UA W/MICROSCOPIC [URIN] Routine Lab 01/16/19 17:48 Ordered Heparin Sodium Med 01/16/19 18:00 Ordered 5,000 units SUBCUT Q8H Insulin Aspart [NovoLOG] Med 01/17/19 07:30 Ordered See Protocol SUBCUT TIDAC Morphine Med 01/16/19 17:48 Ordered 2 mg IVPUSH Q2H PRN Ondansetron [Zofran] Med 01/16/19 17:48 Ordered 4 mg IVPUSH Q4H PRN Pharmacy to Dose - Vancomycin Med 01/16/19 18:00 Ordered 1 dose .XX ASDIRECTED Piperacillin/Tazobactam [Piperacil-Tazobact] 3.375 gm Med 01/16/19 18:00 Ordered Sodium Chloride 0.9% [Normal Saline] 50 ml IV Q6H Sodium Chloride 0.9% [Normal Saline] Med 01/16/19 17:48 Ordered 10 ml IV ASDIRECTED PRN Sodium Chloride 0.9% [Saline Flush] Med 01/16/19 16:22 Active 10 ml FLUSH ASDIRECTED PRN Sodium Chloride 0.9% [Saline Flush] Med 01/16/19 17:48 Ordered 10 ml FLUSH ASDIRECTED PRN Sodium Chloride 0.9% [Saline Flush] Med 01/16/19 16:22 Active 2.5 ml FLUSH ASDIRECTED PRN Sodium Chloride 0.9% [Saline Flush] Med 01/16/19 17:48 Ordered 2.5 ml FLUSH ASDIRECTED PRN Blood Culture x2 Reflex Set [OM.PC] Stat Ot 01/16/19 17:48 Ordered Peripheral IV Insertion Adult [OM.PC] Routine Ot 01/16/19 17:48 Ordered Saline Lock Insert [OM.PC] Routine Ot 01/16/19 17:48 Ordered Saline Lock Insert [OM.PC] Stat Ot 01/16/19 16:22 Ordered Medication Orders Heparin Sodium (Porcine) (Heparin Sodium) 5,000 units SUBCUT Q8H [facility] Piperacillin Sod/Tazobactam (Sod 3.375 gm/ Sodium Chloride) 50 mls @ 100 mls/ hr IV Q6H [facility] Insulin Aspart (Novolog) 0 unit SUBCUT TIDAC [facility]; Protocol Morphine Sulfate (Morphine) 2 mg IVPUSH Q2H PRN PRN Reason: Pain (severe 7-10) Stop: 01/17/19 17:49 Ondansetron HCl (Zofran) 4 mg IVPUSH Q4H PRN PRN Reason: Nausea/Vomiting Sodium Chloride (Saline Flush) 10 ml FLUSH ASDIRECTED PRN PRN Reason: Keep Vein Open Sodium Chloride (Saline Flush) 2.5 ml FLUSH ASDIRECTED PRN PRN Reason: Keep Vein Open Sodium Chloride (Saline Flush) 10 ml FLUSH ASDIRECTED PRN PRN Reason: Keep Vein Open Sodium Chloride (Saline Flush) 2.5 ml FLUSH ASDIRECTED PRN PRN Reason: Keep Vein Open Sodium Chloride (Normal Saline) 10 ml IV ASDIRECTED PRN PRN Reason: IV Use Vancomycin HCl (Pharmacy To Dose - Vancomycin) 1 dose .XX ASDIRECTED [facility] Assessment/Plan Comment:: This is a 68-year-old male that was recently admitted for IV antibiotics of the right foot cellulitis, patient was on oral antibiotics for outpatient therapy however has now developed cellulitic-type infection of the left foot as such the patient has failed outpatient therapy and is being admitted for IV antibiotics. -Patient to be placed on IV Zosyn and vancomycin renally dosed. -Patient does not appear to have a leukocytosis, does have an elevated CRP. Shall get CRP trended to ensure that they are appropriately coming down, shall continue to monitor for leukocytosis, shall get a lactic acid level as well. -Patient also had blood cultures drawn. -Due to bilateral lower lower extremity edema, as well as the clinical history of hypertension and type 2 diabetes shall obtain a BNP and a troponin as well as place the patient on telemetry. -If it does not appear that the patient is fluid retaining then shall start the patient as well on maintenance IV fluids. -Patient's creatinine is mildly elevated at 1.8 previous creatinines have been lower, this however may be an acute kidney injury in nature versus chronic kidney disease. Continue to monitor the patient's creatinine. If the patient does not appear to be fluid retaining or if the patient has an elevated lactic acid level shall be more aggressive with the IV fluids. -For the patient's type 2 diabetes-patient on insulin sliding scale with 4 times a day glucose checks and diabetic diet. FEN: Currently patient is not on any IV fluids, sodium and potassium are within normal limits, patient is currently on an [place] diabetic Association diet DVT prophylaxis with heparin 5000 Units q8hrs
[2019-01-16 18:29] LABS: HEMOGLOBIN A1C 7.7 % (4.5-6.2)
[2019-01-16] MEDS: Heparin Sodium 5,000 Units/ML Vial SUBCUT SCH (18:33)
[2019-01-16] MEDS: Piperacillin/Tazobactam 3.375 GM in Sodium Chloride 0.9% 50 ML IV SCH ×2 (18:34→23:57)
[2019-01-16] MEDS: Sodium Chloride 0.9% 1,000 ML IV SCH (20:12)
[2019-01-17] MEDS: Heparin Sodium 5,000 Units/ML Vial SUBCUT SCH ×3 (01:25→17:43)
[2019-01-17] MEDS: Piperacillin/Tazobactam 3.375 GM in Sodium Chloride 0.9% 50 ML IV SCH ×3 (05:07→17:35)
[2019-01-17] MEDS: Vancomycin 1.5 GM in Sodium Chloride 0.9% 500 ML IV SCH ×2 (06:09→18:24)
[2019-01-17] MEDS: Insulin Aspart 100 Units/ML 3 ML Pen SUBCUT SCH ×4 (08:49→22:02)
[2019-01-17] MEDS: Potassium Chloride 20 MEQ Tab.ER PO SCH ×2 (09:56→20:34)
--- NOTE | 2019-01-17 11:36 | PCM.PN ---
- General Info Date of Service: 01/17/19 Subjective Update: Patient is feeling better today than on admission, pain has improved and the cellulitis infection does appear to be improving as well. - Patient Data Vitals - Most Recent: Last Vital Signs Temp 36.4 C 01/17/19 08:00 Pulse 68 01/17/19 08:00 Resp 17 01/17/19 08:00 BP 130/63 01/17/19 08:00 Pulse Ox 97 01/17/19 08:00 Weight - Most Recent: 149.685 kg I&O - Last 24 Hours: Intake & Output 01/16/19 01/17/19 01/17/19 22:59 06:59 14:59 Intake Total 50 600 Output Total 550 Balance 50 50 Lab Results Last 24 Hours: Laboratory Results - last 24 hr 01/16/19 01/16/19 01/16/19 Range/Units 13:10 13:10 13:10 WBC (4.0-11.0) K/uL RBC (4.50-5.90) M/uL Hgb (13.0-17.0) g/dL Hct (38.0-50.0) % MCV (80.0-98.0) fL MCH (27.0-32.0) pg MCHC (31.0-37.0) g/dL RDW Std Deviation (28.0-62.0) fl RDW Coeff of Rhea (11.0-15.0) % Plt Count (150-400) K/uL MPV (7.40-12.00) fL Add Manual Diff Neutrophils % (Manual) (48.0-80.0) % Lymphocytes % (Manual) (16.0-40.0) % Monocytes % (Manual) (0.0-15.0) % Eosinophils % (Manual) (0.0-7.0) % Nucleated RBC % /100WBC Absolute Seg Neuts (1.4-5.7) Lymphocytes # (Manual) (0.6-2.4) Monocytes # (Manual) (0.0-0.8) Eosinophils # (Manual) (0.0-0.7) Nucleated RBCs # K/uL Lactate (0.20-2.00) mmol/L Sodium 140 (136-148) mmol/L Potassium 3.7 (3.5-5.1) mmol/L Chloride 103 (98-107) mmol/L Carbon Dioxide 31.1 (21.0-32.0) mmol/L BUN 31 H (7.0-18.0) mg/dL Creatinine 1.8 H (0.8-1.3) mg/dL Est Cr Clr Drug Dosing 39.43 mL/min Estimated GFR (MDRD) 37.5 ml/min Glucose 202 H (74-106) mg/dL POC Glucose (60-110) mg/dL Hemoglobin A1c (4.5-6.2) % Calcium 8.9 (8.5-10.1) mg/dL Magnesium (1.8-2.4) mg/dL Total Bilirubin 0.6 (0.2-1.0) mg/dL AST 17 (15-37) IU/L ALT 26 (14-63) IU/L Alkaline Phosphatase 51 (46-116) U/L Troponin I < 0.050 (0.000-0.056) ng/mL C-Reactive Protein (0.00-0.90) mg/dL B-Natriuretic Peptide 72 (<100) PG/ML Total Protein 7.3 (6.4-8.2) g/dL Albumin 3.3 L (3.4-5.0) g/dL Globulin 4.0 (2.6-4.0) g/dL Albumin/Globulin Ratio 0.8 L (0.9-1.6) Free T4 (0.76-1.46) ng/dL TSH 3rd Generation 5.13 H (0.36-3.74) uIU/mL Urine Color Urine Appearance Urine pH (5.0-8.0) Ur Specific Barnum (1.001-1.035) Urine Protein (NEGATIVE) mg/dL Urine Glucose (UA) (NEGATIVE) mg/dL Urine Ketones (NEGATIVE) mg/dL Urine Occult Blood (NEGATIVE) Urine Nitrite (NEGATIVE) Urine Bilirubin (NEGATIVE) Urine Urobilinogen (<2.0) EU/dL Ur Leukocyte Esterase (NEGATIVE) Urine RBC (0-2/HPF) Urine WBC (0-5/HPF) Ur Epithelial Cells (NONE-FEW) Urine Bacteria (NEGATIVE) 01/16/19 01/16/19 01/16/19 Range/Units 13:10 18:05 18:44 WBC (4.0-11.0) K/uL RBC (4.50-5.90) M/uL Hgb (13.0-17.0) g/dL Hct (38.0-50.0) % MCV (80.0-98.0) fL MCH (27.0-32.0) pg MCHC (31.0-37.0) g/dL RDW Std Deviation (28.0-62.0) fl RDW Coeff of Rhea (11.0-15.0) % Plt Count (150-400) K/uL MPV (7.40-12.00) fL Add Manual Diff Neutrophils % (Manual) (48.0-80.0) % Lymphocytes % (Manual) (16.0-40.0) % Monocytes % (Manual) (0.0-15.0) % Eosinophils % (Manual) (0.0-7.0) % Nucleated RBC % /100WBC Absolute Seg Neuts (1.4-5.7) Lymphocytes # (Manual) (0.6-2.4) Monocytes # (Manual) (0.0-0.8) Eosinophils # (Manual) (0.0-0.7) Nucleated RBCs # K/uL Lactate 0.9 (0.20-2.00) mmol/L Sodium (136-148) mmol/L Potassium (3.5-5.1) mmol/L Chloride (98-107) mmol/L Carbon Dioxide (21.0-32.0) mmol/L BUN (7.0-18.0) mg/dL Creatinine (0.8-1.3) mg/dL Est Cr Clr Drug Dosing mL/min Estimated GFR (MDRD) ml/min Glucose (74-106) mg/dL POC Glucose (60-110) mg/dL Hemoglobin A1c 7.7 H (4.5-6.2) % Calcium (8.5-10.1) mg/dL Magnesium (1.8-2.4) mg/dL Total Bilirubin (0.2-1.0) mg/dL AST (15-37) IU/L ALT (14-63) IU/L Alkaline Phosphatase (46-116) U/L Troponin I (0.000-0.056) ng/mL C-Reactive Protein (0.00-0.90) mg/dL B-Natriuretic Peptide (<100) PG/ML Total Protein (6.4-8.2) g/dL Albumin (3.4-5.0) g/dL Globulin (2.6-4.0) g/dL Albumin/Globulin Ratio (0.9-1.6) Free T4 (0.76-1.46) ng/dL TSH 3rd Generation (0.36-3.74) uIU/mL Urine Color YELLOW Urine Appearance CLEAR Urine pH 6.5 (5.0-8.0) Ur Specific Barnum 1.010 (1.001-1.035) Urine Protein TRACE H (NEGATIVE) mg/dL Urine Glucose (UA) NEGATIVE (NEGATIVE) mg/dL Urine Ketones NEGATIVE (NEGATIVE) mg/dL Urine Occult Blood TRACE-INTACT H (NEGATIVE) Urine Nitrite NEGATIVE (NEGATIVE) Urine Bilirubin NEGATIVE (NEGATIVE) Urine Urobilinogen 0.2 (<2.0) EU/dL Ur Leukocyte Esterase NEGATIVE (NEGATIVE) Urine RBC 0-2 (0-2/HPF) Urine WBC 0-1 (0-5/HPF) Ur Epithelial Cells RARE (NONE-FEW) Urine Bacteria RARE (NEGATIVE) 01/16/19 01/17/19 01/17/19 Range/Units 21:28 05:18 05:18 WBC 3.58 L (4.0-11.0) K/uL RBC 3.86 L (4.50-5.90) M/uL Hgb 10.6 L (13.0-17.0) g/dL Hct 32.1 L (38.0-50.0) % MCV 83.2 (80.0-98.0) fL MCH 27.5 (27.0-32.0) pg MCHC 33.0 (31.0-37.0) g/dL RDW Std Deviation 43.4 (28.0-62.0) fl RDW Coeff of Rhea 14 (11.0-15.0) % Plt Count 100 L (150-400) K/uL MPV 10.80 (7.40-12.00) fL Add Manual Diff YES Neutrophils % (Manual) 59 (48.0-80.0) % Lymphocytes % (Manual) 29 (16.0-40.0) % Monocytes % (Manual) 11 (0.0-15.0) % Eosinophils % (Manual) 1 (0.0-7.0) % Nucleated RBC % 0.0 /100WBC Absolute Seg Neuts 2.1 (1.4-5.7) Lymphocytes # (Manual) 1.0 (0.6-2.4) Monocytes # (Manual) 0.4 (0.0-0.8) Eosinophils # (Manual) 0.0 (0.0-0.7) Nucleated RBCs # 0 K/uL Lactate (0.20-2.00) mmol/L Sodium 141 (136-148) mmol/L Potassium 3.2 L (3.5-5.1) mmol/L Chloride 106 (98-107) mmol/L Carbon Dioxide 30.4 (21.0-32.0) mmol/L BUN 27 H (7.0-18.0) mg/dL Creatinine 1.7 H (0.8-1.3) mg/dL Est Cr Clr Drug Dosing 41.75 mL/min Estimated GFR (MDRD) 40.0 ml/min Glucose 205 H (74-106) mg/dL POC Glucose 232 H (60-110) mg/dL Hemoglobin A1c (4.5-6.2) % Calcium 8.5 (8.5-10.1) mg/dL Magnesium (1.8-2.4) mg/dL Total Bilirubin 0.6 (0.2-1.0) mg/dL AST 13 L (15-37) IU/L ALT 20 (14-63) IU/L Alkaline Phosphatase 46 (46-116) U/L Troponin I (0.000-0.056) ng/mL C-Reactive Protein 16.10 H (0.00-0.90) mg/dL B-Natriuretic Peptide (<100) PG/ML Total Protein 6.5 (6.4-8.2) g/dL Albumin 2.4 L (3.4-5.0) g/dL Globulin 4.1 H (2.6-4.0) g/dL Albumin/Globulin Ratio 0.6 L (0.9-1.6) Free T4 1.02 (0.76-1.46) ng/dL TSH 3rd Generation (0.36-3.74) uIU/mL Urine Color Urine Appearance Urine pH (5.0-8.0) Ur Specific Barnum (1.001-1.035) Urine Protein (NEGATIVE) mg/dL Urine Glucose (UA) (NEGATIVE) mg/dL Urine Ketones (NEGATIVE) mg/dL Urine Occult Blood (NEGATIVE) Urine Nitrite (NEGATIVE) Urine Bilirubin (NEGATIVE) Urine Urobilinogen (<2.0) EU/dL Ur Leukocyte Esterase (NEGATIVE) Urine RBC (0-2/HPF) Urine WBC (0-5/HPF) Ur Epithelial Cells (NONE-FEW) Urine Bacteria (NEGATIVE) 01/17/19 01/17/19 Range/Units 05:43 06:08 WBC (4.0-11.0) K/uL RBC (4.50-5.90) M/uL Hgb (13.0-17.0) g/dL Hct (38.0-50.0) % MCV (80.0-98.0) fL MCH (27.0-32.0) pg MCHC (31.0-37.0) g/dL RDW Std Deviation (28.0-62.0) fl RDW Coeff of Rhea (11.0-15.0) % Plt Count (150-400) K/uL MPV (7.40-12.00) fL Add Manual Diff Neutrophils % (Manual) (48.0-80.0) % Lymphocytes % (Manual) (16.0-40.0) % Monocytes % (Manual) (0.0-15.0) % Eosinophils % (Manual) (0.0-7.0) % Nucleated RBC % /100WBC Absolute Seg Neuts (1.4-5.7) Lymphocytes # (Manual) (0.6-2.4) Monocytes # (Manual) (0.0-0.8) Eosinophils # (Manual) (0.0-0.7) Nucleated RBCs # K/uL Lactate (0.20-2.00) mmol/L Sodium (136-148) mmol/L Potassium (3.5-5.1) mmol/L Chloride (98-107) mmol/L Carbon Dioxide (21.0-32.0) mmol/L BUN (7.0-18.0) mg/dL Creatinine (0.8-1.3) mg/dL Est Cr Clr Drug Dosing mL/min Estimated GFR (MDRD) ml/min Glucose (74-106) mg/dL POC Glucose 207 H (60-110) mg/dL Hemoglobin A1c (4.5-6.2) % Calcium (8.5-10.1) mg/dL Magnesium 2.2 (1.8-2.4) mg/dL Total Bilirubin (0.2-1.0) mg/dL AST (15-37) IU/L ALT (14-63) IU/L Alkaline Phosphatase (46-116) U/L Troponin I (0.000-0.056) ng/mL C-Reactive Protein (0.00-0.90) mg/dL B-Natriuretic Peptide (<100) PG/ML Total Protein (6.4-8.2) g/dL Albumin (3.4-5.0) g/dL Globulin (2.6-4.0) g/dL Albumin/Globulin Ratio (0.9-1.6) Free T4 (0.76-1.46) ng/dL TSH 3rd Generation (0.36-3.74) uIU/mL Urine Color Urine Appearance Urine pH (5.0-8.0) Ur Specific Barnum (1.001-1.035) Urine Protein (NEGATIVE) mg/dL Urine Glucose (UA) (NEGATIVE) mg/dL Urine Ketones (NEGATIVE) mg/dL Urine Occult Blood (NEGATIVE) Urine Nitrite (NEGATIVE) Urine Bilirubin (NEGATIVE) Urine Urobilinogen (<2.0) EU/dL Ur Leukocyte Esterase (NEGATIVE) Urine RBC (0-2/HPF) Urine WBC (0-5/HPF) Ur Epithelial Cells (NONE-FEW) Urine Bacteria (NEGATIVE) Med Orders - Current: Current Medications Heparin Sodium (Porcine) (Heparin Sodium) 5,000 units SUBCUT Q8H [facility] Last Admin: 01/17/19 10:37 Dose: 5,000 units Piperacillin Sod/Tazobactam (Sod 3.375 gm/ Sodium Chloride) 50 mls @ 100 mls/ hr IV Q6H [facility] Last Admin: 01/17/19 05:07 Dose: 100 mls/hr Vancomycin HCl 1.5 gm/ Sodium (Chloride) 500 mls @ 333.333 mls/hr IV Q12H [facility] Last Admin: 01/17/19 06:09 Dose: 333.333 mls/hr Sodium Chloride (Normal Saline) 1,000 mls @ 75 mls/hr IV ASDIRECTED [facility] Last Admin: 01/16/19 20:12 Dose: 75 mls/hr Insulin Aspart (Novolog) 0 unit SUBCUT TIDAC [facility]; Protocol Last Admin: 01/17/19 08:49 Dose: 2 units Morphine Sulfate (Morphine) 2 mg IVPUSH Q2H PRN PRN Reason: Pain (severe 7-10) Stop: 01/17/19 17:49 Ondansetron HCl (Zofran) 4 mg IVPUSH Q4H PRN PRN Reason: Nausea/Vomiting Potassium Chloride (Klor-Con M20) 40 meq PO BID [facility] Last Admin: 01/17/19 09:56 Dose: 40 meq Sodium Chloride (Saline Flush) 10 ml FLUSH ASDIRECTED PRN PRN Reason: Keep Vein Open Sodium Chloride (Saline Flush) 2.5 ml FLUSH ASDIRECTED PRN PRN Reason: Keep Vein Open Sodium Chloride (Saline Flush) 10 ml FLUSH ASDIRECTED PRN PRN Reason: Keep Vein Open Sodium Chloride (Saline Flush) 2.5 ml FLUSH ASDIRECTED PRN PRN Reason: Keep Vein Open Sodium Chloride (Normal Saline) 10 ml IV ASDIRECTED PRN PRN Reason: IV Use Vancomycin HCl (Pharmacy To Dose - Vancomycin) 1 dose .XX ASDIRECTED [facility] Discontinued Medications Vancomycin HCl 2 gm/ Sodium (Chloride) 500 mls @ 333.333 mls/hr IV ONETIME ONE Stop: 01/16/19 19:29 Last Admin: 01/16/19 20:11 Dose: 333.333 mls/hr - Exam General: Alert, Oriented, Cooperative Lungs: Clear to Auscultation, Normal Respiratory Effort Cardiovascular: Regular Rate, Regular Rhythm Extremities: Pedal Edema, Leg Pain, Increased Warmth, Redness - Problem List Review Problem List Initiated/Reviewed/Updated: Yes - My Orders Last 24 Hours: My Active Orders 01/16/19 17:48 Blood Glucose Check, Bedside [RC] QIDACANDBED Height and Weight [RC] DAILY Oxygen Therapy [RC] PRN Up With Assistance [RC] ASDIRECTED VTE/DVT Education [RC] PER UNIT ROUTINE Vital Signs [RC] Q4H PT Evaluation and Treatment [CONS] Routine Morphine 2 mg IVPUSH Q2H PRN Ondansetron [Zofran] 4 mg IVPUSH Q4H PRN Sodium Chloride 0.9% [Normal Saline] 10 ml IV ASDIRECTED PRN Sodium Chloride 0.9% [Saline Flush] 10 ml FLUSH ASDIRECTED PRN Sodium Chloride 0.9% [Saline Flush] 2.5 ml FLUSH ASDIRECTED PRN Blood Culture x2 Reflex Set [OM.PC] Stat Peripheral IV Insertion Adult [OM.PC] Routine Saline Lock Insert [OM.PC] Routine 01/16/19 17:49 Intake and Output [RC] Q12H 01/16/19 17:59 Telemetry Monitoring [Cardiac Monitoring] [RC] Q8H 01/16/19 18:00 Heparin Sodium 5,000 units SUBCUT Q8H Pharmacy to Dose - Vancomycin 1 dose .XX ASDIRECTED Piperacillin/Tazobactam [Piperacil-Tazobact] 3.375 gm Sodium Chloride 0.9% [ Normal Saline] 50 ml IV Q6H 01/16/19 18:31 CULTURE BLOOD [BC] Stat 01/16/19 18:44 CULTURE BLOOD [BC] Stat 01/16/19 19:15 Sodium Chloride 0.9% [Normal Saline] 1,000 ml IV ASDIRECTED 01/16/19 Dinner ADA Diabetic [[employer] Diet] [DIET] 01/17/19 07:30 Insulin Aspart [NovoLOG] See Protocol SUBCUT TIDAC 01/17/19 09:00 Potassium Chloride [Klor-Con M20] 40 meq PO BID 01/18/19 05:11 C-REACTIVE PROTEIN [CHEM] AM 01/19/19 05:11 C-REACTIVE PROTEIN [CHEM] AM - Plan Plan:: This is a 68-year-old male that was recently admitted for IV antibiotics of the right foot cellulitis, patient was on oral antibiotics for outpatient therapy however has now developed cellulitic-type infection of the left foot as such the patient has failed outpatient therapy and is being admitted for IV antibiotics. -Patient to be placed on IV Zosyn and vancomycin renally dosed. -Patient continues to not have a leukocytosis, does have an elevated CRP. -Patient also had blood cultures drawn. -Due to bilateral lower lower extremity edema, shall get bilateral venous Dopplers to ensure no DVT -Patient's creatinine is mildly is mildly improved -For the patient's type 2 diabetes-patient on insulin sliding scale with 4 times a day glucose checks and diabetic diet. FEN: Currently patient is on 75cc/hr normal saline IV fluids, potassium was mildly low and has been replaced , patient is currently on an [employer] diet DVT prophylaxis with heparin 5000 Units q8hrs
--- NOTE | 2019-01-17 12:49 | US ---
INDICATION: Bilateral edema COMPARISON: Right lower extremity ultrasound January 04, 2019 TECHNIQUE: A compression venous ultrasound exam was performed of both lower extremities using avalos scale imaging, color Doppler and spectral Doppler analysis. FINDINGS: Sonographic imaging of the lower extremities demonstrates normal compressibility and color Doppler venous blood flow within the common femoral, deep femoral, and proximal greater saphenous veins. Within the thighs the femoral veins are patent and compressible. At a lower level the popliteal and posterior tibial veins also show normal compressibility and color Doppler venous blood flow. IMPRESSION: Normal venous ultrasound exam. No evidence of deep vein thrombosis within either the left or right lower extremity. Dictated by Murphy Laura MD @ Jan 17 2019 12:46PM Signed by Dr. Murphy Laura @ Jan 17 2019 12:48PM
[2019-01-17] MEDS: Sodium Chloride 0.9% 1,000 ML IV SCH (16:38)
[2019-01-17] MEDS ORDERED: Morphine 2 MG/ML Syringe IVPUSH PRN (20:08)
[2019-01-18] MEDS: Piperacillin/Tazobactam 3.375 GM in Sodium Chloride 0.9% 50 ML IV SCH ×4 (00:20→17:23)
[2019-01-18] MEDS: Heparin Sodium 5,000 Units/ML Vial SUBCUT SCH ×3 (02:15→17:23)
[2019-01-18] MEDS: Vancomycin 1.5 GM in Sodium Chloride 0.9% 500 ML IV SCH ×2 (06:12→18:53)
[2019-01-18] MEDS: Insulin Aspart 100 Units/ML 3 ML Pen SUBCUT SCH ×4 (07:27→21:15)
[2019-01-18] MEDS: Potassium Chloride 20 MEQ Tab.ER PO SCH ×2 (08:51→21:14)
[2019-01-18] MEDS ORDERED: Torsemide 20 MG Tab PO SCH (10:15)
[2019-01-18] MEDS: Metoprolol Tartrate 50 MG Tab PO SCH ×2 (10:54→17:24)
--- NOTE | 2019-01-18 12:19 | PCM.PN ---
- General Info Date of Service: 01/18/19 Subjective Update: Patient's cellulitis appears to be improving, pain is also improving. Patient was upset by overnight nursing staff who stated that patient was not taking his oral antibiotics when he was outpatient and that is why he was in the hospital rather than the fact that he simply failed his outpatient antibiotic treatment. - Patient Data Vitals - Most Recent: Last Vital Signs Temp 36.3 C 01/18/19 11:29 Pulse 72 01/18/19 11:29 Resp 16 01/18/19 11:29 BP 129/59 L 01/18/19 11:29 Pulse Ox 98 01/18/19 11:29 Weight - Most Recent: 154.3 kg I&O - Last 24 Hours: Intake & Output 01/17/19 01/18/19 01/18/19 22:59 06:59 14:59 Intake Total 3109 2270 Output Total 450 1100 Balance 2659 1170 Lab Results Last 24 Hours: Laboratory Results - last 24 hr 01/17/19 01/17/19 01/17/19 Range/Units 12:13 17:41 21:26 WBC (4.0-11.0) K/uL RBC (4.50-5.90) M/uL Hgb (13.0-17.0) g/dL Hct (38.0-50.0) % MCV (80.0-98.0) fL MCH (27.0-32.0) pg MCHC (31.0-37.0) g/dL RDW Std Deviation (28.0-62.0) fl RDW Coeff of Rhea (11.0-15.0) % Plt Count (150-400) K/uL MPV (7.40-12.00) fL Neut % (Auto) (48.0-80.0) % Lymph % (Auto) (16.0-40.0) % [place] % (Auto) (0.0-15.0) % Eos % (Auto) (0.0-7.0) % Baso % (Auto) (0.0-1.5) % Neut # (Auto) (1.4-5.7) K/uL Lymph # (Auto) (0.6-2.4) K/uL [place] # (Auto) (0.0-0.8) K/uL Eos # (Auto) (0.0-0.7) K/uL Baso # (Auto) (0.0-0.1) K/uL Nucleated RBC % /100WBC Nucleated RBCs # K/uL Sodium (136-148) mmol/L Potassium (3.5-5.1) mmol/L Chloride (98-107) mmol/L Carbon Dioxide (21.0-32.0) mmol/L BUN (7.0-18.0) mg/dL Creatinine (0.8-1.3) mg/dL Est Cr Clr Drug Dosing mL/min Estimated GFR (MDRD) ml/min Glucose (74-106) mg/dL POC Glucose 187 H 164 H 199 H (60-110) mg/dL Calcium (8.5-10.1) mg/dL C-Reactive Protein (0.00-0.90) mg/dL 01/18/19 01/18/19 01/18/19 Range/Units 05:43 06:00 09:14 WBC 3.09 L (4.0-11.0) K/uL RBC 4.05 L (4.50-5.90) M/uL Hgb 11.0 L (13.0-17.0) g/dL Hct 33.8 L (38.0-50.0) % MCV 83.5 (80.0-98.0) fL MCH 27.2 (27.0-32.0) pg MCHC 32.5 (31.0-37.0) g/dL RDW Std Deviation 42.9 (28.0-62.0) fl RDW Coeff of Rhea 14 (11.0-15.0) % Plt Count 109 L (150-400) K/uL MPV 10.50 (7.40-12.00) fL Neut % (Auto) 47.0 L (48.0-80.0) % Lymph % (Auto) 37.2 (16.0-40.0) % [place] % (Auto) 13.3 (0.0-15.0) % Eos % (Auto) 1.9 (0.0-7.0) % Baso % (Auto) 0.6 (0.0-1.5) % Neut # (Auto) 1.5 (1.4-5.7) K/uL Lymph # (Auto) 1.2 (0.6-2.4) K/uL [place] # (Auto) 0.4 (0.0-0.8) K/uL Eos # (Auto) 0.1 (0.0-0.7) K/uL Baso # (Auto) 0.0 (0.0-0.1) K/uL Nucleated RBC % 0.0 /100WBC Nucleated RBCs # 0 K/uL Sodium (136-148) mmol/L Potassium (3.5-5.1) mmol/L Chloride (98-107) mmol/L Carbon Dioxide (21.0-32.0) mmol/L BUN (7.0-18.0) mg/dL Creatinine (0.8-1.3) mg/dL Est Cr Clr Drug Dosing mL/min Estimated GFR (MDRD) ml/min Glucose (74-106) mg/dL POC Glucose 187 H (60-110) mg/dL Calcium (8.5-10.1) mg/dL C-Reactive Protein 11.50 H (0.00-0.90) mg/dL 01/18/19 Range/Units 09:14 WBC (4.0-11.0) K/uL RBC (4.50-5.90) M/uL Hgb (13.0-17.0) g/dL Hct (38.0-50.0) % MCV (80.0-98.0) fL MCH (27.0-32.0) pg MCHC (31.0-37.0) g/dL RDW Std Deviation (28.0-62.0) fl RDW Coeff of Rhea (11.0-15.0) % Plt Count (150-400) K/uL MPV (7.40-12.00) fL Neut % (Auto) (48.0-80.0) % Lymph % (Auto) (16.0-40.0) % [place] % (Auto) (0.0-15.0) % Eos % (Auto) (0.0-7.0) % Baso % (Auto) (0.0-1.5) % Neut # (Auto) (1.4-5.7) K/uL Lymph # (Auto) (0.6-2.4) K/uL [place] # (Auto) (0.0-0.8) K/uL Eos # (Auto) (0.0-0.7) K/uL Baso # (Auto) (0.0-0.1) K/uL Nucleated RBC % /100WBC Nucleated RBCs # K/uL Sodium 143 (136-148) mmol/L Potassium 4.4 (3.5-5.1) mmol/L Chloride 108 H (98-107) mmol/L Carbon Dioxide 26.5 (21.0-32.0) mmol/L BUN 21 H (7.0-18.0) mg/dL Creatinine 1.6 H (0.8-1.3) mg/dL Est Cr Clr Drug Dosing 44.36 mL/min Estimated GFR (MDRD) 42.9 ml/min Glucose 239 H (74-106) mg/dL POC Glucose (60-110) mg/dL Calcium 8.3 L (8.5-10.1) mg/dL C-Reactive Protein (0.00-0.90) mg/dL Angus Results Last 24 Hours: Microbiology 01/16/19 18:44 Aerobic Blood Culture - Preliminary Blood - Venous - Lab Draw NO GROWTH AFTER 1 DAY Anaerobic Blood Culture - Preliminary NO GROWTH AFTER 1 DAY 01/16/19 18:31 Aerobic Blood Culture - Preliminary Blood - Venous NO GROWTH AFTER 1 DAY Anaerobic Blood Culture - Preliminary NO GROWTH AFTER 1 DAY Med Orders - Current: Current Medications Gabapentin (Neurontin) 400 mg PO BID [facility] Heparin Sodium (Porcine) (Heparin Sodium) 5,000 units SUBCUT Q8H [facility] Last Admin: 01/18/19 10:56 Dose: 5,000 units Piperacillin Sod/Tazobactam (Sod 3.375 gm/ Sodium Chloride) 50 mls @ 100 mls/ hr IV Q6H [facility] Last Admin: 01/18/19 11:16 Dose: 100 mls/hr Vancomycin HCl 1.5 gm/ Sodium (Chloride) 500 mls @ 333.333 mls/hr IV Q12H [facility] Last Admin: 01/18/19 06:12 Dose: 333.333 mls/hr Sodium Chloride (Normal Saline) 1,000 mls @ 75 mls/hr IV ASDIRECTED [facility] Last Admin: 01/17/19 16:38 Dose: 75 mls/hr Insulin Aspart (Novolog) 0 unit SUBCUT QIDACANDBED [facility]; Protocol Last Admin: 01/18/19 07:27 Dose: 1 unit Insulin Glargine (Lantus Solostar) 15 units SUBCUT BEDTIME [facility] Metoprolol Tartrate (Lopressor) 50 mg PO BIDMEALS [facility] Last Admin: 01/18/19 10:54 Dose: 50 mg Morphine Sulfate (Morphine) 2 mg IVPUSH Q2H PRN PRN Reason: Severe Pain (7-10) Last Admin: 01/17/19 20:34 Dose: 2 mg Ondansetron HCl (Zofran) 4 mg IVPUSH Q4H PRN PRN Reason: Nausea/Vomiting Potassium Chloride (Klor-Con M20) 40 meq PO BID [facility] Last Admin: 01/18/19 08:51 Dose: 40 meq Sodium Chloride (Saline Flush) 10 ml FLUSH ASDIRECTED PRN PRN Reason: Keep Vein Open Sodium Chloride (Saline Flush) 2.5 ml FLUSH ASDIRECTED PRN PRN Reason: Keep Vein Open Sodium Chloride (Saline Flush) 10 ml FLUSH ASDIRECTED PRN PRN Reason: Keep Vein Open Sodium Chloride (Saline Flush) 2.5 ml FLUSH ASDIRECTED PRN PRN Reason: Keep Vein Open Sodium Chloride (Normal Saline) 10 ml IV ASDIRECTED PRN PRN Reason: IV Use Torsemide (Demadex) 40 mg PO BID [facility] Last Admin: 01/18/19 10:54 Dose: 40 mg Vancomycin HCl (Pharmacy To Dose - Vancomycin) 1 dose .XX ASDIRECTED [facility] Discontinued Medications Vancomycin HCl 2 gm/ Sodium (Chloride) 500 mls @ 333.333 mls/hr IV ONETIME ONE Stop: 01/16/19 19:29 Last Admin: 01/16/19 20:11 Dose: 333.333 mls/hr Insulin Aspart (Novolog) 0 unit SUBCUT TIDAC [facility]; Protocol Last Admin: 01/17/19 17:49 Dose: 1 units Morphine Sulfate (Morphine) 2 mg IVPUSH Q2H PRN PRN Reason: Pain (severe 7-10) Stop: 01/17/19 17:49 - Exam General: Alert, Oriented, Cooperative Lungs: Normal Respiratory Effort Cardiovascular: Regular Rate, Regular Rhythm Extremities: Other (The cellulitic infection does appear to be improving, less erythema, less edema of the bilateral lower extremities.) - Problem List Review Problem List Initiated/Reviewed/Updated: Yes - My Orders Last 24 Hours: My Active Orders 01/18/19 10:15 Metoprolol Tartrate [Lopressor] 50 mg PO BIDMEALS Torsemide [Demadex] 40 mg PO BID 01/18/19 21:00 Gabapentin [Neurontin] 400 mg PO BID Insulin Glarg,Human.Rec.Analog [LantUS Solostar] 15 units SUBCUT BEDTIME 01/19/19 05:11 C-REACTIVE PROTEIN [CHEM] AM - Plan Plan:: This is a 68-year-old male that was recently admitted for IV antibiotics of the right foot cellulitis, patient was on oral antibiotics for outpatient therapy however has now developed cellulitic-type infection of the left foot as such the patient has failed outpatient therapy and is being admitted for IV antibiotics. -Patient to be placed on IV Zosyn and vancomycin renally dosed. -Patient continues to not have a leukocytosis, does have an elevated CRP which currently is trending downwards. -Patient also had blood cultures drawn. -Due to bilateral lower lower extremity edema, shall get bilateral venous Dopplers to ensure no DVT -Patient's creatinine continues to improve -For the patient's type 2 diabetes-patient on insulin sliding scale with 4 times a day glucose checks and diabetic diet. Levemir 15 units at bedtime FEN: Currently patient is not on any IV fluids, potassium has been replaced , patient is currently on an [employer] diet DVT prophylaxis with heparin 5000 Units q8hrs
[2019-01-18] MEDS: Torsemide 20 MG Tab PO SCH (18:23)
[2019-01-18] MEDS: Insulin Glargine,Human Rec. Analog 100 Units/ML 3 ML Pen SUBCUT SCH (21:17)
[2019-01-18] MEDS: Gabapentin 800 MG Tab PO SCH (21:19)
[2019-01-19] MEDS: Piperacillin/Tazobactam 3.375 GM in Sodium Chloride 0.9% 50 ML IV SCH ×5 (00:10→23:06)
[2019-01-19] MEDS: Heparin Sodium 5,000 Units/ML Vial SUBCUT SCH ×3 (01:56→17:04)
[2019-01-19] MEDS: Torsemide 20 MG Tab PO SCH (06:47)
[2019-01-19] MEDS: Vancomycin 1.5 GM in Sodium Chloride 0.9% 500 ML IV SCH (06:50)
[2019-01-19] MEDS: Insulin Aspart 100 Units/ML 3 ML Pen SUBCUT SCH ×4 (08:28→21:04)
[2019-01-19] MEDS: Metoprolol Tartrate 50 MG Tab PO SCH ×2 (08:30→17:04)
[2019-01-19] MEDS: Gabapentin 800 MG Tab PO SCH ×2 (08:30→21:02)
[2019-01-19] MEDS: Potassium Chloride 20 MEQ Tab.ER PO SCH ×2 (08:31→21:02)
--- NOTE | 2019-01-19 12:21 | PCM.PN ---
- General Info Date of Service: 01/19/19 - Review of Systems Systems Review Comment:: feeling better, swelling has improved - Patient Data Vitals - Most Recent: Last Vital Signs Temp 36.1 C 01/19/19 08:00 Pulse 60 01/19/19 08:30 Resp 18 01/19/19 08:00 BP 126/59 L 01/19/19 08:30 Pulse Ox 98 01/19/19 08:00 Weight - Most Recent: 150.774 kg I&O - Last 24 Hours: Intake & Output 01/18/19 01/19/19 01/19/19 22:59 06:59 14:59 Intake Total 500 870 50 Output Total 2655 Balance 500 -1785 50 Lab Results Last 24 Hours: Laboratory Results - last 24 hr 01/18/19 01/18/19 01/18/19 Range/Units 17:02 17:57 21:04 WBC (4.0-11.0) K/uL RBC (4.50-5.90) M/uL Hgb (13.0-17.0) g/dL Hct (38.0-50.0) % MCV (80.0-98.0) fL MCH (27.0-32.0) pg MCHC (31.0-37.0) g/dL RDW Std Deviation (28.0-62.0) fl RDW Coeff of Rhea (11.0-15.0) % Plt Count (150-400) K/uL MPV (7.40-12.00) fL Neut % (Auto) (48.0-80.0) % Lymph % (Auto) (16.0-40.0) % [place] % (Auto) (0.0-15.0) % Eos % (Auto) (0.0-7.0) % Baso % (Auto) (0.0-1.5) % Neut # (Auto) (1.4-5.7) K/uL Lymph # (Auto) (0.6-2.4) K/uL [place] # (Auto) (0.0-0.8) K/uL Eos # (Auto) (0.0-0.7) K/uL Baso # (Auto) (0.0-0.1) K/uL Nucleated RBC % /100WBC Nucleated RBCs # K/uL Sodium (136-148) mmol/L Potassium (3.5-5.1) mmol/L Chloride (98-107) mmol/L Carbon Dioxide (21.0-32.0) mmol/L BUN (7.0-18.0) mg/dL Creatinine (0.8-1.3) mg/dL Est Cr Clr Drug Dosing mL/min Estimated GFR (MDRD) ml/min Glucose (74-106) mg/dL POC Glucose 166 H 205 H (60-110) mg/dL Calcium (8.5-10.1) mg/dL Total Bilirubin (0.2-1.0) mg/dL AST (15-37) IU/L ALT (14-63) IU/L Alkaline Phosphatase (46-116) U/L C-Reactive Protein (0.00-0.90) mg/dL Total Protein (6.4-8.2) g/dL Albumin (3.4-5.0) g/dL Globulin (2.6-4.0) g/dL Albumin/Globulin Ratio (0.9-1.6) Vancomycin Trough 19.3 H (5.0-10.0) ug/mL 01/19/19 01/19/19 01/19/19 Range/Units 05:19 05:19 05:19 WBC 3.91 L (4.0-11.0) K/uL RBC 3.94 L (4.50-5.90) M/uL Hgb 10.8 L (13.0-17.0) g/dL Hct 32.7 L (38.0-50.0) % MCV 83.0 (80.0-98.0) fL MCH 27.4 (27.0-32.0) pg MCHC 33.0 (31.0-37.0) g/dL RDW Std Deviation 42.9 (28.0-62.0) fl RDW Coeff of Rhea 14 (11.0-15.0) % Plt Count 129 L (150-400) K/uL MPV 11.70 (7.40-12.00) fL Neut % (Auto) 38.7 L (48.0-80.0) % Lymph % (Auto) 44.2 H (16.0-40.0) % [place] % (Auto) 14.3 (0.0-15.0) % Eos % (Auto) 2.3 (0.0-7.0) % Baso % (Auto) 0.5 (0.0-1.5) % Neut # (Auto) 1.5 (1.4-5.7) K/uL Lymph # (Auto) 1.7 (0.6-2.4) K/uL [place] # (Auto) 0.6 (0.0-0.8) K/uL Eos # (Auto) 0.1 (0.0-0.7) K/uL Baso # (Auto) 0.0 (0.0-0.1) K/uL Nucleated RBC % 0.0 /100WBC Nucleated RBCs # 0 K/uL Sodium 142 (136-148) mmol/L Potassium 4.1 (3.5-5.1) mmol/L Chloride 106 (98-107) mmol/L Carbon Dioxide 27.0 (21.0-32.0) mmol/L BUN 25 H (7.0-18.0) mg/dL Creatinine 2.0 H (0.8-1.3) mg/dL Est Cr Clr Drug Dosing 35.49 mL/min Estimated GFR (MDRD) 33.2 ml/min Glucose 198 H (74-106) mg/dL POC Glucose (60-110) mg/dL Calcium 8.9 (8.5-10.1) mg/dL Total Bilirubin 0.3 (0.2-1.0) mg/dL AST 18 (15-37) IU/L ALT 25 (14-63) IU/L Alkaline Phosphatase 46 (46-116) U/L C-Reactive Protein 6.70 H (0.00-0.90) mg/dL Total Protein 6.9 (6.4-8.2) g/dL Albumin 2.6 L (3.4-5.0) g/dL Globulin 4.3 H (2.6-4.0) g/dL Albumin/Globulin Ratio 0.6 L (0.9-1.6) Vancomycin Trough (5.0-10.0) ug/mL 01/19/19 01/19/19 Range/Units 06:29 11:44 WBC (4.0-11.0) K/uL RBC (4.50-5.90) M/uL Hgb (13.0-17.0) g/dL Hct (38.0-50.0) % MCV (80.0-98.0) fL MCH (27.0-32.0) pg MCHC (31.0-37.0) g/dL RDW Std Deviation (28.0-62.0) fl RDW Coeff of Rhea (11.0-15.0) % Plt Count (150-400) K/uL MPV (7.40-12.00) fL Neut % (Auto) (48.0-80.0) % Lymph % (Auto) (16.0-40.0) % [place] % (Auto) (0.0-15.0) % Eos % (Auto) (0.0-7.0) % Baso % (Auto) (0.0-1.5) % Neut # (Auto) (1.4-5.7) K/uL Lymph # (Auto) (0.6-2.4) K/uL [place] # (Auto) (0.0-0.8) K/uL Eos # (Auto) (0.0-0.7) K/uL Baso # (Auto) (0.0-0.1) K/uL Nucleated RBC % /100WBC Nucleated RBCs # K/uL Sodium (136-148) mmol/L Potassium (3.5-5.1) mmol/L Chloride (98-107) mmol/L Carbon Dioxide (21.0-32.0) mmol/L BUN (7.0-18.0) mg/dL Creatinine (0.8-1.3) mg/dL Est Cr Clr Drug Dosing mL/min Estimated GFR (MDRD) ml/min Glucose (74-106) mg/dL POC Glucose 169 H 180 H (60-110) mg/dL Calcium (8.5-10.1) mg/dL Total Bilirubin (0.2-1.0) mg/dL AST (15-37) IU/L ALT (14-63) IU/L Alkaline Phosphatase (46-116) U/L C-Reactive Protein (0.00-0.90) mg/dL Total Protein (6.4-8.2) g/dL Albumin (3.4-5.0) g/dL Globulin (2.6-4.0) g/dL Albumin/Globulin Ratio (0.9-1.6) Vancomycin Trough (5.0-10.0) ug/mL Angus Results Last 24 Hours: Microbiology 01/16/19 18:44 Aerobic Blood Culture - Preliminary Blood - Venous - Lab Draw NO GROWTH AFTER 2 DAYS Anaerobic Blood Culture - Preliminary NO GROWTH AFTER 2 DAYS 01/16/19 18:31 Aerobic Blood Culture - Preliminary Blood - Venous NO GROWTH AFTER 2 DAYS Anaerobic Blood Culture - Preliminary NO GROWTH AFTER 2 DAYS Med Orders - Current: Current Medications Gabapentin (Neurontin) 400 mg PO BID [facility] Last Admin: 01/19/19 08:30 Dose: 400 mg Heparin Sodium (Porcine) (Heparin Sodium) 5,000 units SUBCUT Q8H [facility] Last Admin: 01/19/19 10:22 Dose: 5,000 units Piperacillin Sod/Tazobactam (Sod 3.375 gm/ Sodium Chloride) 50 mls @ 100 mls/ hr IV Q6H [facility] Last Admin: 01/19/19 12:05 Dose: 100 mls/hr Vancomycin HCl 2 gm/ Sodium (Chloride) 500 mls @ 250 mls/hr IV Q24H [facility] Insulin Aspart (Novolog) 0 unit SUBCUT QIDACANDBED [facility]; Protocol Last Admin: 01/19/19 08:28 Dose: 1 unit Insulin Glargine (Lantus Solostar) 15 units SUBCUT BEDTIME [facility] Last Admin: 01/18/19 21:17 Dose: 15 units Metoprolol Tartrate (Lopressor) 50 mg PO BIDMEALS [facility] Last Admin: 01/19/19 08:30 Dose: 50 mg Morphine Sulfate (Morphine) 2 mg IVPUSH Q2H PRN PRN Reason: Severe Pain (7-10) Last Admin: 01/17/19 20:34 Dose: 2 mg Ondansetron HCl (Zofran) 4 mg IVPUSH Q4H PRN PRN Reason: Nausea/Vomiting Potassium Chloride (Klor-Con M20) 40 meq PO BID [facility] Last Admin: 01/19/19 08:31 Dose: 40 meq Sodium Chloride (Saline Flush) 10 ml FLUSH ASDIRECTED PRN PRN Reason: Keep Vein Open Sodium Chloride (Saline Flush) 2.5 ml FLUSH ASDIRECTED PRN PRN Reason: Keep Vein Open Sodium Chloride (Saline Flush) 10 ml FLUSH ASDIRECTED PRN PRN Reason: Keep Vein Open Sodium Chloride (Saline Flush) 2.5 ml FLUSH ASDIRECTED PRN PRN Reason: Keep Vein Open Sodium Chloride (Normal Saline) 10 ml IV ASDIRECTED PRN PRN Reason: IV Use Torsemide (Demadex) 40 mg PO DAILY [facility] Vancomycin HCl (Pharmacy To Dose - Vancomycin) 1 dose .XX ASDIRECTED [facility] Discontinued Medications Vancomycin HCl 2 gm/ Sodium (Chloride) 500 mls @ 333.333 mls/hr IV ONETIME ONE Stop: 01/16/19 19:29 Last Admin: 01/16/19 20:11 Dose: 333.333 mls/hr Vancomycin HCl 1.5 gm/ Sodium (Chloride) 500 mls @ 333.333 mls/hr IV Q12H [facility] Last Admin: 01/19/19 06:50 Dose: 333.333 mls/hr Sodium Chloride (Normal Saline) 1,000 mls @ 75 mls/hr IV ASDIRECTED [facility] Last Admin: 01/17/19 16:38 Dose: 75 mls/hr Insulin Aspart (Novolog) 0 unit SUBCUT TIDAC [facility]; Protocol Last Admin: 01/17/19 17:49 Dose: 1 units Morphine Sulfate (Morphine) 2 mg IVPUSH Q2H PRN PRN Reason: Pain (severe 7-10) Stop: 01/17/19 17:49 Torsemide (Demadex) 40 mg PO BID [facility] Last Admin: 01/18/19 10:54 Dose: 40 mg Torsemide (Demadex) 40 mg PO BID@0700,1500 [facility] Last Admin: 01/19/19 06:47 Dose: 40 mg - Exam General: Alert, Oriented Lungs: Clear to Auscultation, Normal Respiratory Effort Cardiovascular: Regular Rate, Regular Rhythm GI/Abdominal Exam: Soft, Non-Tender Extremities: Pedal Edema (+2 with patchy erythema of legs and feet bilaterally that have improved) - Problem List Review Problem List Initiated/Reviewed/Updated: Yes - My Orders Last 24 Hours: My Active Orders 01/20/19 05:11 BASIC METABOLIC PANEL,BMP [CHEM] AM CBC WITH AUTO DIFF [HEME] AM 01/20/19 07:00 Vancomycin 2 gm Sodium Chloride 0.9% [Normal Saline] 500 ml IV Q24H 01/20/19 09:00 Torsemide [Demadex] 40 mg PO DAILY 01/22/19 06:00 VANCOMYCIN TROUGH [CHEM] Routine - Plan Plan:: This is a 68-year-old male admitted for bilateral leg cellulitiss. Will continue Zosyn and vancomycin. DM: on lantus 15 units and ssi which is a decrease from his home regiment Leg edema: his home does of torsemide was restarted yesterday, Creatinine has increased so will decrease diuretics to daily dosing.
[2019-01-19] MEDS: Insulin Glargine,Human Rec. Analog 100 Units/ML 3 ML Pen SUBCUT SCH (21:03)
[2019-01-20] MEDS: Heparin Sodium 5,000 Units/ML Vial SUBCUT SCH ×3 (01:27→17:40)
[2019-01-20] MEDS: Piperacillin/Tazobactam 3.375 GM in Sodium Chloride 0.9% 50 ML IV SCH ×4 (05:33→23:25)
[2019-01-20] MEDS: Vancomycin 2 GM in Sodium Chloride 0.9% 500 ML IV SCH (06:08)
[2019-01-20] MEDS: Insulin Aspart 100 Units/ML 3 ML Pen SUBCUT SCH ×4 (06:49→21:12)
[2019-01-20] MEDS ORDERED: Vancomycin 2 GM in Sodium Chloride 0.9% 500 ML IV SCH (08:00)
[2019-01-20] MEDS: Torsemide 20 MG Tab PO SCH (08:46)
[2019-01-20] MEDS: Gabapentin 800 MG Tab PO SCH ×2 (08:46→21:08)
[2019-01-20] MEDS: Potassium Chloride 20 MEQ Tab.ER PO SCH ×2 (08:46→21:09)
[2019-01-20] MEDS: Metoprolol Tartrate 50 MG Tab PO SCH ×2 (08:47→16:23)
--- NOTE | 2019-01-20 10:41 | PCM.PN ---
- General Info Date of Service: 01/20/19 - Review of Systems Systems Review Comment:: leg swelling and redness improving - Patient Data Vitals - Most Recent: Last Vital Signs Temp 36.4 C 01/20/19 08:00 Pulse 60 01/20/19 08:47 Resp 17 01/20/19 08:00 BP 148/67 H 01/20/19 08:47 Pulse Ox 96 01/20/19 08:00 Weight - Most Recent: 150.593 kg I&O - Last 24 Hours: Intake & Output 01/19/19 01/20/19 01/20/19 21:59 06:59 14:59 Intake Total Output Total Balance Lab Results Last 24 Hours: Laboratory Results - last 24 hr 01/19/19 01/19/19 01/19/19 Range/Units 05:19 05:19 11:44 WBC 3.91 L (4.0-11.0) K/uL RBC 3.94 L (4.50-5.90) M/uL Hgb 10.8 L (13.0-17.0) g/dL Hct 32.7 L (38.0-50.0) % MCV 83.0 (80.0-98.0) fL MCH 27.4 (27.0-32.0) pg MCHC 33.0 (31.0-37.0) g/dL RDW Std Deviation 42.9 (28.0-62.0) fl RDW Coeff of Rhea 14 (11.0-15.0) % Plt Count 129 L (150-400) K/uL MPV 11.70 (7.40-12.00) fL Neut % (Auto) 38.7 L (48.0-80.0) % Lymph % (Auto) 44.2 H (16.0-40.0) % [place] % (Auto) 14.3 (0.0-15.0) % Eos % (Auto) 2.3 (0.0-7.0) % Baso % (Auto) 0.5 (0.0-1.5) % Neut # (Auto) 1.5 (1.4-5.7) K/uL Lymph # (Auto) 1.7 (0.6-2.4) K/uL [place] # (Auto) 0.6 (0.0-0.8) K/uL Eos # (Auto) 0.1 (0.0-0.7) K/uL Baso # (Auto) 0.0 (0.0-0.1) K/uL Nucleated RBC % 0.0 /100WBC Nucleated RBCs # 0 K/uL Sodium 142 (136-148) mmol/L Potassium 4.1 (3.5-5.1) mmol/L Chloride 106 (98-107) mmol/L Carbon Dioxide 27.0 (21.0-32.0) mmol/L BUN 25 H (7.0-18.0) mg/dL Creatinine 2.0 H (0.8-1.3) mg/dL Est Cr Clr Drug Dosing 35.49 mL/min Estimated GFR (MDRD) 33.2 ml/min Glucose 198 H (74-106) mg/dL POC Glucose 180 H (60-110) mg/dL Calcium 8.9 (8.5-10.1) mg/dL Total Bilirubin 0.3 (0.2-1.0) mg/dL AST 18 (15-37) IU/L ALT 25 (14-63) IU/L Alkaline Phosphatase 46 (46-116) U/L Total Protein 6.9 (6.4-8.2) g/dL Albumin 2.6 L (3.4-5.0) g/dL Globulin 4.3 H (2.6-4.0) g/dL Albumin/Globulin Ratio 0.6 L (0.9-1.6) 01/19/19 01/19/19 01/20/19 Range/Units 16:53 21:02 05:12 WBC 3.87 L (4.0-11.0) K/uL RBC 3.91 L (4.50-5.90) M/uL Hgb 10.8 L (13.0-17.0) g/dL Hct 32.3 L (38.0-50.0) % MCV 82.6 (80.0-98.0) fL MCH 27.6 (27.0-32.0) pg MCHC 33.4 (31.0-37.0) g/dL RDW Std Deviation 42.4 (28.0-62.0) fl RDW Coeff of Rhea 14 (11.0-15.0) % Plt Count 129 L (150-400) K/uL MPV 10.70 (7.40-12.00) fL Neut % (Auto) 39.7 L (48.0-80.0) % Lymph % (Auto) 46.8 H (16.0-40.0) % [place] % (Auto) 10.1 (0.0-15.0) % Eos % (Auto) 3.1 (0.0-7.0) % Baso % (Auto) 0.3 (0.0-1.5) % Neut # (Auto) 1.5 (1.4-5.7) K/uL Lymph # (Auto) 1.8 (0.6-2.4) K/uL [place] # (Auto) 0.4 (0.0-0.8) K/uL Eos # (Auto) 0.1 (0.0-0.7) K/uL Baso # (Auto) 0.0 (0.0-0.1) K/uL Nucleated RBC % 0.0 /100WBC Nucleated RBCs # 0 K/uL Sodium (136-148) mmol/L Potassium (3.5-5.1) mmol/L Chloride (98-107) mmol/L Carbon Dioxide (21.0-32.0) mmol/L BUN (7.0-18.0) mg/dL Creatinine (0.8-1.3) mg/dL Est Cr Clr Drug Dosing mL/min Estimated GFR (MDRD) ml/min Glucose (74-106) mg/dL POC Glucose 211 H 220 H (60-110) mg/dL Calcium (8.5-10.1) mg/dL Total Bilirubin (0.2-1.0) mg/dL AST (15-37) IU/L ALT (14-63) IU/L Alkaline Phosphatase (46-116) U/L Total Protein (6.4-8.2) g/dL Albumin (3.4-5.0) g/dL Globulin (2.6-4.0) g/dL Albumin/Globulin Ratio (0.9-1.6) 01/20/19 01/20/19 Range/Units 05:12 05:13 WBC (4.0-11.0) K/uL RBC (4.50-5.90) M/uL Hgb (13.0-17.0) g/dL Hct (38.0-50.0) % MCV (80.0-98.0) fL MCH (27.0-32.0) pg MCHC (31.0-37.0) g/dL RDW Std Deviation (28.0-62.0) fl RDW Coeff of Rhea (11.0-15.0) % Plt Count (150-400) K/uL MPV (7.40-12.00) fL Neut % (Auto) (48.0-80.0) % Lymph % (Auto) (16.0-40.0) % [place] % (Auto) (0.0-15.0) % Eos % (Auto) (0.0-7.0) % Baso % (Auto) (0.0-1.5) % Neut # (Auto) (1.4-5.7) K/uL Lymph # (Auto) (0.6-2.4) K/uL [place] # (Auto) (0.0-0.8) K/uL Eos # (Auto) (0.0-0.7) K/uL Baso # (Auto) (0.0-0.1) K/uL Nucleated RBC % /100WBC Nucleated RBCs # K/uL Sodium 140 (136-148) mmol/L Potassium 4.1 (3.5-5.1) mmol/L Chloride 106 (98-107) mmol/L Carbon Dioxide 26.8 (21.0-32.0) mmol/L BUN 28 H (7.0-18.0) mg/dL Creatinine 1.9 H (0.8-1.3) mg/dL Est Cr Clr Drug Dosing 37.35 mL/min Estimated GFR (MDRD) 35.2 ml/min Glucose 205 H (74-106) mg/dL POC Glucose 184 H (60-110) mg/dL Calcium 8.8 (8.5-10.1) mg/dL Total Bilirubin (0.2-1.0) mg/dL AST (15-37) IU/L ALT (14-63) IU/L Alkaline Phosphatase (46-116) U/L Total Protein (6.4-8.2) g/dL Albumin (3.4-5.0) g/dL Globulin (2.6-4.0) g/dL Albumin/Globulin Ratio (0.9-1.6) Angus Results Last 24 Hours: Microbiology 01/16/19 18:44 Aerobic Blood Culture - Preliminary Blood - Venous - Lab Draw NO GROWTH AFTER 3 DAYS Anaerobic Blood Culture - Preliminary NO GROWTH AFTER 3 DAYS 01/16/19 18:31 Aerobic Blood Culture - Preliminary Blood - Venous NO GROWTH AFTER 3 DAYS Anaerobic Blood Culture - Preliminary NO GROWTH AFTER 3 DAYS Med Orders - Current: Current Medications Gabapentin (Neurontin) 400 mg PO BID [facility] Last Admin: 01/20/19 08:46 Dose: 400 mg Heparin Sodium (Porcine) (Heparin Sodium) 5,000 units SUBCUT Q8H [facility] Last Admin: 01/20/19 01:27 Dose: 5,000 units Piperacillin Sod/Tazobactam (Sod 3.375 gm/ Sodium Chloride) 50 mls @ 100 mls/ hr IV Q6H [facility] Last Admin: 01/20/19 05:33 Dose: 100 mls/hr Vancomycin HCl 2 gm/ Sodium (Chloride) 500 mls @ 250 mls/hr IV Q24H [facility] Last Admin: 01/20/19 06:08 Dose: 250 mls/hr Insulin Aspart (Novolog) 0 unit SUBCUT QIDACANDBED [facility]; Protocol Last Admin: 01/20/19 06:49 Dose: 1 unit Insulin Glargine (Lantus Solostar) 15 units SUBCUT BEDTIME [facility] Last Admin: 01/19/19 21:03 Dose: 15 units Metoprolol Tartrate (Lopressor) 50 mg PO BIDMEALS [facility] Last Admin: 01/20/19 08:47 Dose: 50 mg Morphine Sulfate (Morphine) 2 mg IVPUSH Q2H PRN PRN Reason: Severe Pain (7-10) Last Admin: 01/17/19 20:34 Dose: 2 mg Ondansetron HCl (Zofran) 4 mg IVPUSH Q4H PRN PRN Reason: Nausea/Vomiting Potassium Chloride (Klor-Con M20) 40 meq PO BID [facility] Last Admin: 01/20/19 08:46 Dose: 40 meq Sodium Chloride (Saline Flush) 10 ml FLUSH ASDIRECTED PRN PRN Reason: Keep Vein Open Sodium Chloride (Saline Flush) 2.5 ml FLUSH ASDIRECTED PRN PRN Reason: Keep Vein Open Sodium Chloride (Saline Flush) 10 ml FLUSH ASDIRECTED PRN PRN Reason: Keep Vein Open Sodium Chloride (Saline Flush) 2.5 ml FLUSH ASDIRECTED PRN PRN Reason: Keep Vein Open Sodium Chloride (Normal Saline) 10 ml IV ASDIRECTED PRN PRN Reason: IV Use Torsemide (Demadex) 40 mg PO DAILY [facility] Last Admin: 01/20/19 08:46 Dose: 40 mg Vancomycin HCl (Pharmacy To Dose - Vancomycin) 1 dose .XX ASDIRECTED [facility] Discontinued Medications Vancomycin HCl 2 gm/ Sodium (Chloride) 500 mls @ 333.333 mls/hr IV ONETIME ONE Stop: 01/16/19 19:29 Last Admin: 01/16/19 20:11 Dose: 333.333 mls/hr Vancomycin HCl 1.5 gm/ Sodium (Chloride) 500 mls @ 333.333 mls/hr IV Q12H [facility] Last Admin: 01/19/19 06:50 Dose: 333.333 mls/hr Sodium Chloride (Normal Saline) 1,000 mls @ 75 mls/hr IV ASDIRECTED [facility] Last Admin: 01/17/19 16:38 Dose: 75 mls/hr Insulin Aspart (Novolog) 0 unit SUBCUT TIDAC [facility]; Protocol Last Admin: 01/17/19 17:49 Dose: 1 units Morphine Sulfate (Morphine) 2 mg IVPUSH Q2H PRN PRN Reason: Pain (severe 7-10) Stop: 01/17/19 17:49 Torsemide (Demadex) 40 mg PO BID [facility] Last Admin: 01/18/19 10:54 Dose: 40 mg Torsemide (Demadex) 40 mg PO BID@0700,1500 [facility] Last Admin: 01/19/19 06:47 Dose: 40 mg - Exam General: Alert, Oriented Neck: Supple Lungs: Clear to Auscultation, Normal Respiratory Effort Cardiovascular: Regular Rate, Regular Rhythm GI/Abdominal Exam: Soft, Non-Tender Extremities: Non-Tender, Other (+2 edema, patchy erythema over dorsum of left fot and shins bilaterally) - Problem List Review Problem List Initiated/Reviewed/Updated: Yes - My Orders Last 24 Hours: My Active Orders 01/20/19 07:00 Vancomycin 2 gm Sodium Chloride 0.9% [Normal Saline] 500 ml IV Q24H 01/20/19 09:00 Torsemide [Demadex] 40 mg PO DAILY 01/20/19 10:14 Communication Order [RC] ROUTINE 01/22/19 06:00 VANCOMYCIN TROUGH [CHEM] Routine - Plan Plan:: This is a 68-year-old male admitted for bilateral leg cellulitis. Will continue Zosyn and vancomycin. DM: on lantus 15 units and ssi which is a decrease from his home regiment Leg edema: on daily torsemide Dispo: likely discharge home tomorrow.
[2019-01-20] MEDS: Insulin Glargine,Human Rec. Analog 100 Units/ML 3 ML Pen SUBCUT SCH (21:11)
[2019-01-21] MEDS: Heparin Sodium 5,000 Units/ML Vial SUBCUT SCH ×2 (01:47→10:35)
[2019-01-21] MEDS: Piperacillin/Tazobactam 3.375 GM in Sodium Chloride 0.9% 50 ML IV SCH (05:12)
[2019-01-21] MEDS: Vancomycin 2 GM in Sodium Chloride 0.9% 500 ML IV SCH (06:34)
[2019-01-21] MEDS: Insulin Aspart 100 Units/ML 3 ML Pen SUBCUT SCH (06:35)
[2019-01-21] MEDS: Metoprolol Tartrate 50 MG Tab PO SCH (07:10)
[2019-01-21 07:59] VITALS: BP 134/62
[2019-01-21] MEDS: Torsemide 20 MG Tab PO SCH (08:11)
[2019-01-21] MEDS: Potassium Chloride 20 MEQ Tab.ER PO SCH (08:12)
[2019-01-21] MEDS: Gabapentin 800 MG Tab PO SCH (08:12)
--- NOTE | 2019-01-21 10:13 | PCM.DCSUM1 ---
Discharge Summary - Hospital Course Brief History: This is a 68-year-old male that is presenting with left lower extremity cellulitis. Patient was recently discharged from [facility] secondary to cellulitis of his right foot. Patient states that while in [place] he was placed on IV antibiotics for about 4-5 days and then was subsequently discharged home with 10 days of oral antibiotics. He still had a total of 3 days of oral antibiotics left. He however started to notice over the course of the past couple of days that his left foot on the medial side started to become red and erythematous and progressively the erythema progressed and started to notice lower leg edema as well. Patient became concerned as he had just had the infection on his right side came into the ER for reassessment due to failure of outpatient therapy on oral antibiotics. Patient states that he did have some chills overnight. Patient has a significant past medical history for type 2 diabetes and hypertension which the patient states is under adequate control. Patient is denying any other symptoms. Patient denies any nausea/vomiting, diarrhea, constipation, fevers, shortness of breath, chest discomfort/pain. Diagnosis: Stroke: No - Discharge Data Discharge Date: 01/21/19 Discharge Disposition: Home, Self-Care 01 Condition: Stable - Patient Summary/Data Consults: Consultations 01/16/19 17:48 PT Evaluation and Treatment [CONS] Routine - Patient Instructions Diet: Diabetic Diet Activity: As Tolerated, Elevate Extremity, Rest and Relax Today Showering/Bathing: May Shower Notify Provider of: Fever, Increased Pain, Swelling and Redness, Drainage, Nausea and/or Vomiting - Discharge Plan *PRESCRIPTION DRUG MONITORING PROGRAM REVIEWED*: Not Applicable *COPY OF PRESCRIPTION DRUG MONITORING REPORT IN PATIENT AICHA: Not Applicable Prescriptions/Med Rec: Sulfamethoxazole/Trimethoprim [Bactrim Ds Tablet] 1 each PO BID #10 tablet Home Medications: Home Meds Ezetimibe [Zetia] 10 mg PO BEDTIME 02/20/16 [History] Gabapentin [Neurontin] 400 mg PO BID 02/20/16 [History] Insulin Glargine,Hum.Rec.Anlog [Lantus Solostar] 65 unit SQ BEDTIME 02/20/16 [ History] glipiZIDE [Glucotrol] 20 mg PO DAILY 02/20/16 [History] Calcitriol 0.25 mcg PO MOWEFR@0900 12/07/17 [History] Metoprolol Tartrate [Lopressor] 50 mg PO BID 12/07/17 [History] Omeprazole 20 mg PO ACBREAKFAST 12/07/17 [History] Potassium Chloride [Klor-Con 10] 10 meq PO DAILY 12/07/17 [History] Aspirin 81 mg PO BID 01/16/19 [History] Diclofenac Gel 1 applic TOP 01/16/19 [History] Methocarbamol 500 mg PO BEDTIME PRN 01/16/19 [History] Torsemide 40 mg PO BID 01/16/19 [History] Sulfamethoxazole/Trimethoprim [Bactrim Ds Tablet] 1 each PO BID #10 tablet 01/21 [Rx] Oxygen Therapy Mode: Room Air Patient Handouts: Cellulitis, Adult, [id number], Sulfamethoxazole; Trimethoprim, [id number] tablets Referrals: [facility] [Outside] Murphy Suarez MD [Primary Care Provider] - 01/29/19 2:00 pm - Discharge Summary/Plan Comment DC Time >30 min.: No Discharge Summary/Plan Comment: Discharge Diagnoses: Left Lower leg cellulitis DM Type 2 Obesity Murphy was admitted for left lower leg cellulitis that failed inpatient and outpatient management. He was recently discharged from [facility] in [place] with Doxycycline and Augmentin. He returned to us with what he reports is worsening redness. He was placed on Vancomycin and Zosyn. He was never febrile and no leukocytosis. He improved and will be discharged today. Some erythema and color changes could be due to venous stasis changes. He is to follow up with PCP, the [facility] in the next week. he will be discharged home on Bactrim DS twice daily for another 5 days. he is to return to the ED or clinic if concerns should arise. - General Info Date of Service: 01/21/19 Admission Dx/Problem (Free Text: Admission Diagnosis/Problem Admission Diagnosis/Problem Cellulitis Subjective Update: Sitting on edge of bed, feeling better. redness continues to improve. No chest pain or SOB. Functional Status: Reports: Pain Controlled, Tolerating Diet, Ambulating, Urinating - Review of Systems General: Reports: No Symptoms. Denies: Fever, Weakness, Fatigue HEENT: Reports: No Symptoms. Denies: Headaches, Sinus Congestion, Visual Changes Pulmonary: Reports: No Symptoms. Denies: Shortness of Breath, Cough Cardiovascular: Reports: No Symptoms. Denies: Chest Pain Genitourinary: Reports: No Symptoms. Denies: Dysuria, Frequency Musculoskeletal: Reports: No Symptoms Skin: Reports: Other (smal amouht of erythema to L lower leg.) Neurological: Reports: No Symptoms. Denies: Confusion, Gait Disturbance - Patient Data Vitals - Most Recent: Last Vital Signs Temp 98.2 F 01/21/19 07:10 Pulse 57 L 01/21/19 07:10 Resp 14 01/21/19 07:10 BP 134/62 01/21/19 07:10 Pulse Ox 98 01/21/19 07:10 Weight - Most Recent: 152.77 kg I&O - Last 24 hours: Intake & Output 01/20/19 01/21/19 01/21/19 22:59 06:59 14:59 Intake Total 1190 500 Output Total 2200 950 Balance -1010 -450 Lab Results - Last 24 hrs: Laboratory Results - last 24 hr 01/20/19 01/20/19 01/20/19 Range/Units 10:43 15:28 20:04 WBC (4.0-11.0) K/uL RBC (4.50-5.90) M/uL Hgb (13.0-17.0) g/dL Hct (38.0-50.0) % MCV (80.0-98.0) fL MCH (27.0-32.0) pg MCHC (31.0-37.0) g/dL RDW Std Deviation (28.0-62.0) fl RDW Coeff of Rhea (11.0-15.0) % Plt Count (150-400) K/uL MPV (7.40-12.00) fL Neut % (Auto) (48.0-80.0) % Lymph % (Auto) (16.0-40.0) % [place] % (Auto) (0.0-15.0) % Eos % (Auto) (0.0-7.0) % Baso % (Auto) (0.0-1.5) % Neut # (Auto) (1.4-5.7) K/uL Lymph # (Auto) (0.6-2.4) K/uL [place] # (Auto) (0.0-0.8) K/uL Eos # (Auto) (0.0-0.7) K/uL Baso # (Auto) (0.0-0.1) K/uL Nucleated RBC % /100WBC Nucleated RBCs # K/uL Sodium (136-148) mmol/L Potassium (3.5-5.1) mmol/L Chloride (98-107) mmol/L Carbon Dioxide (21.0-32.0) mmol/L BUN (7.0-18.0) mg/dL Creatinine (0.8-1.3) mg/dL Est Cr Clr Drug Dosing mL/min Estimated GFR (MDRD) ml/min Glucose (74-106) mg/dL POC Glucose 212 H 200 H 184 H (60-110) mg/dL Calcium (8.5-10.1) mg/dL 01/21/19 01/21/19 01/21/19 Range/Units 06:14 08:23 08:23 WBC 3.74 L (4.0-11.0) K/uL RBC 4.30 L (4.50-5.90) M/uL Hgb 11.9 L (13.0-17.0) g/dL Hct 35.8 L (38.0-50.0) % MCV 83.3 (80.0-98.0) fL MCH 27.7 (27.0-32.0) pg MCHC 33.2 (31.0-37.0) g/dL RDW Std Deviation 42.4 (28.0-62.0) fl RDW Coeff of Rhea 14 (11.0-15.0) % Plt Count 143 L (150-400) K/uL MPV 10.40 (7.40-12.00) fL Neut % (Auto) 43.1 L (48.0-80.0) % Lymph % (Auto) 44.1 H (16.0-40.0) % [place] % (Auto) 9.4 (0.0-15.0) % Eos % (Auto) 2.9 (0.0-7.0) % Baso % (Auto) 0.5 (0.0-1.5) % Neut # (Auto) 1.6 (1.4-5.7) K/uL Lymph # (Auto) 1.7 (0.6-2.4) K/uL [place] # (Auto) 0.4 (0.0-0.8) K/uL Eos # (Auto) 0.1 (0.0-0.7) K/uL Baso # (Auto) 0.0 (0.0-0.1) K/uL Nucleated RBC % 0.0 /100WBC Nucleated RBCs # 0 K/uL Sodium 139 (136-148) mmol/L Potassium 4.8 (3.5-5.1) mmol/L Chloride 106 (98-107) mmol/L Carbon Dioxide 25.9 (21.0-32.0) mmol/L BUN 29 H (7.0-18.0) mg/dL Creatinine 1.9 H (0.8-1.3) mg/dL Est Cr Clr Drug Dosing 37.35 mL/min Estimated GFR (MDRD) 35.2 ml/min Glucose 229 H (74-106) mg/dL POC Glucose 262 H (60-110) mg/dL Calcium 9.5 (8.5-10.1) mg/dL CORINE Results - Last 24 hrs: Microbiology 01/16/19 18:44 Aerobic Blood Culture - Preliminary Blood - Venous - Lab Draw NO GROWTH AFTER 4 DAYS Anaerobic Blood Culture - Preliminary NO GROWTH AFTER 4 DAYS 01/16/19 18:31 Aerobic Blood Culture - Preliminary Blood - Venous NO GROWTH AFTER 4 DAYS Anaerobic Blood Culture - Preliminary NO GROWTH AFTER 4 DAYS Med Orders - Current: Current Medications Gabapentin (Neurontin) 400 mg PO BID [facility] Last Admin: 01/21/19 08:12 Dose: 400 mg Heparin Sodium (Porcine) (Heparin Sodium) 5,000 units SUBCUT Q8H [facility] Last Admin: 01/21/19 01:47 Dose: 5,000 units Piperacillin Sod/Tazobactam (Sod 3.375 gm/ Sodium Chloride) 50 mls @ 100 mls/ hr IV Q6H [facility] Last Admin: 01/21/19 05:12 Dose: 100 mls/hr Vancomycin HCl 2 gm/ Sodium (Chloride) 500 mls @ 250 mls/hr IV Q24H [facility] Last Admin: 01/21/19 06:34 Dose: 250 mls/hr Insulin Aspart (Novolog) 0 unit SUBCUT QIDACANDBED [facility]; Protocol Last Admin: 01/21/19 06:35 Dose: 3 unit Insulin Glargine (Lantus Solostar) 15 units SUBCUT BEDTIME [facility] Last Admin: 01/20/19 21:11 Dose: 15 units Metoprolol Tartrate (Lopressor) 50 mg PO BIDMEALS [facility] Last Admin: 01/21/19 07:10 Dose: 50 mg Morphine Sulfate (Morphine) 2 mg IVPUSH Q2H PRN PRN Reason: Severe Pain (7-10) Last Admin: 01/17/19 20:34 Dose: 2 mg Ondansetron HCl (Zofran) 4 mg IVPUSH Q4H PRN PRN Reason: Nausea/Vomiting Potassium Chloride (Klor-Con M20) 40 meq PO BID [facility] Last Admin: 01/21/19 08:12 Dose: 40 meq Sodium Chloride (Saline Flush) 10 ml FLUSH ASDIRECTED PRN PRN Reason: Keep Vein Open Sodium Chloride (Saline Flush) 2.5 ml FLUSH ASDIRECTED PRN PRN Reason: Keep Vein Open Sodium Chloride (Saline Flush) 10 ml FLUSH ASDIRECTED PRN PRN Reason: Keep Vein Open Sodium Chloride (Saline Flush) 2.5 ml FLUSH ASDIRECTED PRN PRN Reason: Keep Vein Open Sodium Chloride (Normal Saline) 10 ml IV ASDIRECTED PRN PRN Reason: IV Use Torsemide (Demadex) 40 mg PO DAILY [facility] Last Admin: 01/21/19 08:11 Dose: 40 mg Vancomycin HCl (Pharmacy To Dose - Vancomycin) 1 dose .XX ASDIRECTED [facility] Discontinued Medications Vancomycin HCl 2 gm/ Sodium (Chloride) 500 mls @ 333.333 mls/hr IV ONETIME ONE Stop: 01/16/19 19:29 Last Admin: 01/16/19 20:11 Dose: 333.333 mls/hr Vancomycin HCl 1.5 gm/ Sodium (Chloride) 500 mls @ 333.333 mls/hr IV Q12H [facility] Last Admin: 01/19/19 06:50 Dose: 333.333 mls/hr Sodium Chloride (Normal Saline) 1,000 mls @ 75 mls/hr IV ASDIRECTED [facility] Last Admin: 01/17/19 16:38 Dose: 75 mls/hr Insulin Aspart (Novolog) 0 unit SUBCUT TIDAC [facility]; Protocol Last Admin: 01/17/19 17:49 Dose: 1 units Morphine Sulfate (Morphine) 2 mg IVPUSH Q2H PRN PRN Reason: Pain (severe 7-10) Stop: 01/17/19 17:49 Torsemide (Demadex) 40 mg PO BID [facility] Last Admin: 01/18/19 10:54 Dose: 40 mg Torsemide (Demadex) 40 mg PO BID@0700,1500 [facility] Last Admin: 01/19/19 06:47 Dose: 40 mg - Exam General: Reports: Alert, Oriented, Cooperative Neck: Reports: Supple Lungs: Reports: Clear to Auscultation, Normal Respiratory Effort Cardiovascular: Reports: Regular Rate, Regular Rhythm GI/Abdominal Exam: Normal Bowel Sounds, Soft, Non-Tender Extremities: Normal Inspection, Normal Range of Motion, Non-Tender, Pedal Edema (+1 pitting to LLE) Wound/Incisions: Reports: No Drainage, Erythema Improving Neurological: Reports: No New Focal Deficit Psy/Mental Status: Reports: Alert, Normal Affect, Normal Mood
== END 2019-01-21 11:25 | disposition home or self-care (01) | DRG 603 ==
LOC: MW.ED 15:56 → MW.MS 17:21 → UNDODISIN 01-21 11:25
PROVIDERS: ADMIT Internal Medicine; ATTEND Internal Medicine
DX: L03.116 Cellulitis of left lower limb (principal); Z68.42 Body mass index [BMI] 45.0-49.9, adult; N17.9 Acute kidney failure, unspecified; E11.9 Type 2 diabetes mellitus without complications; I10 Essential (primary) hypertension; E66.9 Obesity, unspecified; I87.8 Other specified disorders of veins; E78.00 Pure hypercholesterolemia, unspecified; J44.9 Chronic obstructive pulmonary disease, unspecified; G47.30 Sleep apnea, unspecified; M19.90 Unspecified osteoarthritis, unspecified site; E11.40 Type 2 diabetes mellitus with diabetic neuropathy, unspecified; L03.115 Cellulitis of right lower limb; R60.0 Localized edema; Z96.649 Presence of unspecified artificial hip joint; Z79.82 Long term (current) use of aspirin; Z79.4 Long term (current) use of insulin; Z88.8 Allergy status to other drugs, medicaments and biological substances; Z79.899 Other long term (current) drug therapy
CPT/HCPCS: 36415; 80048; 80053; 80202; 81001; 82962; 83036; 83605; 83735; 83880; 84439; 84443; 84484; 85025; 86140; 87040; 93970; 93970-26; 97161-GP; 97530-GP; 99284; A9270-GY; J1644; J1815-GY; J2270; J2543; J3370; J7040; J7050

== ENCOUNTER 2019-11-11 15:40 | Emergency (ER) | payer MEDICARE, OTHER ==
--- NOTE | 2019-11-11 16:32 | EDM.PDOC ---
ED HPI GENERAL MEDICAL PROBLEM - General Chief Complaint: Lower Extremity Injury/Pain Stated Complaint: LFT FOOT SWELLING Time Seen by Provider: 11/11/19 15:41 Source of Information: Reports: Patient History Limitations: Reports: No Limitations - History of Present Illness INITIAL COMMENTS - FREE TEXT/NARRATIVE: HISTORY AND PHYSICAL: History of present illness: Patient is a 69-year-old male who presents to the ED today with concern of left foot swelling and pain x5 days. Patient states that starting yesterday it became more painful to walk on the foot so has been limited on walking. Patient denies any trauma or injury to the foot. Patient states he does have lower leg swelling at his baseline in which she wears compression stockings which does help. Patient states that the compression stockings have not been helping his left foot which is continued to be swollen. Patient states he has a history of hypertension, diabetes on insulin, obesity, and hyperlipidemia. Patient denies fever, chills, chest pain, shortness of breath, or cough. Denies headache, neck stiff ness, change in vision, syncope, or near syncope. Denies nausea, vomiting, abdominal pain, diarrhea, constipation, or dysuria. Has not noted any blood in urine or stool. Patient has been eating and drinking appropriately. Review of systems: As per history of present illness and below otherwise all systems reviewed and negative. Past medical history: As per history of present illness and as reviewed below otherwise noncontributory. Surgical history: As per history of present illness and as reviewed below otherwise noncontributory. Social history: See social history for further information Family history: As per history of present illness and as reviewed below otherwise noncontributory. Physical exam: Physical exam is limited due to body habitus. General: Patient is alert, oriented, and in no acute distress. Patient sitting comfortably on exam table. HEENT: Atraumatic, normocephalic, pupils equal and reactive bilaterally, negative for conjunctival pallor or scleral icterus, mucous membranes moist, TMs normal bilaterally, throat clear, neck supple, nontender, trachea midline. No drooling or trismus noted. No meningeal signs. No hot potato voice noted. Lungs: Clear to auscultation, breath sounds equal bilaterally, chest nontender. Heart: S1S2, regular rate and rhythm without overt murmur Abdomen: Obese, Soft, nondistended, nontender. Negative for masses or hepatosplenomegaly. Negative for costovertebral tenderness. Pelvis: Stable nontender. Genitourinary: Deferred. Rectal: Deferred. Skin: Intact, warm, dry. No lesions or rashes noted. Extremities: Atraumatic, negative for cords or calf pain. Neurovascular unremarkable. Bilateral 2+ pitting edema of lower extremities to the knees. Patient does have mild to moderate pain with palpation over the generalized dorsum of the left foot with mild/slight erythema over the dorsum of the foot without warmth of the extremity. Dorsalis pedis and posterior tibial pulses are intact Via Doppler of the LLE. Neuro: Awake, alert, oriented. Cranial nerves II through XII unremarkable. Cerebellum unremarkable. Motor and sensory unremarkable throughout. Exam nonfocal. Notes: Discussed importance for follow-up with primary care provider. Voices understanding and is agreeable to plan of care. Denies any further questions or concerns at this time. Diagnostics: CBC, CMP, UA, foot x-ray, lower extremity venous ultrasound, CXR, BNP, EKG Therapeutics: Rocephin Prescription: Bactrim DS Impression: Cellulitis, left foot Plan: 1. Take medication as prescribed. Use Tylenol as directed for pain and discomfort. Monitor for signs of spreading infection as discussed. Return to the ED in 24-48 hours for reevaluation as discussed. 2. Follow-up with your primary care provider as discussed. Return to the ED as needed and as discussed. Definitive disposition and diagnosis as appropriate pending reevaluation and review of above. L foot Pain Score (Numeric/FACES): 8 - Related Data Allergies Allergy/AdvReac Type Severity Reaction Status Date / Time colestipol Allergy Other Verified 11/11/19 16:05 fluvastatin Allergy Other Verified 11/11/19 16:05 ibuprofen Allergy Other Verified 11/11/19 16:05 lovastatin Allergy Other Verified 11/11/19 16:05 simvastatin Allergy Other Verified 11/11/19 16:05 Home Meds: Home Meds Ezetimibe [Zetia] 10 mg PO BEDTIME 02/20/16 [History] Gabapentin [Neurontin] 400 mg PO BID 02/20/16 [History] Insulin Glargine,Hum.Rec.Anlog [Lantus Solostar] 65 unit SQ BEDTIME 02/20/16 [ History] glipiZIDE [Glucotrol] 20 mg PO DAILY 02/20/16 [History] Metoprolol Tartrate [Lopressor] 50 mg PO BID 12/07/17 [History] Omeprazole 20 mg PO ACBREAKFAST 12/07/17 [History] Potassium Chloride [Klor-Con 10] 10 meq PO DAILY 12/07/17 [History] calcitrioL [Calcitriol] 0.25 mcg PO MOWEFR@0900 12/07/17 [History] Aspirin 81 mg PO BID 01/16/19 [History] Diclofenac Gel 1 applic TOP ASDIRECTED 01/16/19 [History] Methocarbamol 500 mg PO BEDTIME PRN 01/16/19 [History] Torsemide 40 mg PO BID 01/16/19 [History] Sulfamethoxazole/Trimethoprim [Bactrim Ds Tablet] 1 each PO BID #10 tablet 01/21 [Rx] Past Medical History HEENT History: Reports: None Cardiovascular History: Reports: High Cholesterol, Hypertension Respiratory History: Reports: COPD, Sleep Apnea Gastrointestinal History: Reports: None Genitourinary History: Reports: Renal Disease Other Genitourinary History: Renal insufficiency Musculoskeletal History: Reports: Arthritis Neurological History: Reports: Neuropathy, Diabetic Psychiatric History: Reports: None Endocrine/Metabolic History: Reports: Diabetes, Type II, Obesity/BMI 30+ Hematologic History: Reports: None Immunologic History: Reports: None Oncologic (Cancer) History: Reports: None Dermatologic History: Reports: None - Infectious Disease History Infectious Disease History: Reports: Chicken Pox, Measles, Mumps - Past Surgical History Head Surgeries/Procedures: Reports: None HEENT Surgical History: Reports: None Cardiovascular Surgical History: Reports: None Respiratory Surgical History: Reports: None GI Surgical History: Reports: None Male Surgical History: Reports: None Neurological Surgical History: Reports: None Musculoskeletal Surgical History: Reports: Carpal Tunnel, Hip Replacement Oncologic Surgical History: Reports: None Dermatological Surgical History: Reports: None Social & Family History - Family History Family Medical History: Noncontributory - Tobacco Use Smoking Status *Q: Never Smoker Second Hand Smoke Exposure: No - Caffeine Use Caffeine Use: Reports: Coffee - Recreational Drug Use Recreational Drug Use: No Review of Systems - Review of Systems Review Of Systems: Comprehensive ROS is negative, except as noted in HPI. ED EXAM, GENERAL - Physical Exam Exam: See Below (see dictation) Course - Vital Signs Last Recorded V/S: Last Vital Signs Temp 96.4 F 11/11/19 16:06 Pulse 75 11/11/19 16:06 Resp 18 11/11/19 16:06 BP 147/68 H 11/11/19 16:06 Pulse Ox 98 11/11/19 16:06 - Orders/Labs/Meds Orders: Active Orders 24 hr Category Date Time Status Communication Order [RC] STAT Care 11/11/19 16:30 Active EKG Documentation Completion [RC] STAT Care 11/11/19 16:20 Active cefTRIAXone [Rocephin] Med 11/11/19 18:06 Once 1 gm IM ONETIME ONE Labs: Laboratory Tests 11/11/19 11/11/19 11/11/19 Range/Units 17:00 17:00 17:00 WBC 6.15 (4.0-11.0) K/uL RBC 4.74 (4.50-5.90) M/uL Hgb 13.0 (13.0-17.0) g/dL Hct 39.2 (38.0-50.0) % MCV 82.7 (80.0-98.0) fL MCH 27.4 (27.0-32.0) pg MCHC 33.2 (31.0-37.0) g/dL RDW Std Deviation 44.9 (28.0-62.0) fl RDW Coeff of Rhea 15 (11.0-15.0) % Plt Count 135 L (150-400) K/uL MPV 10.90 (7.40-12.00) fL Neut % (Auto) 62.1 (48.0-80.0) % Lymph % (Auto) 18.5 (16.0-40.0) % [place] % (Auto) 18.4 H (0.0-15.0) % Eos % (Auto) 0.8 (0.0-7.0) % Baso % (Auto) 0.2 (0.0-1.5) % Neut # (Auto) 3.8 (1.4-5.7) K/uL Lymph # (Auto) 1.1 (0.6-2.4) K/uL [place] # (Auto) 1.1 H (0.0-0.8) K/uL Eos # (Auto) 0.1 (0.0-0.7) K/uL Baso # (Auto) 0.0 (0.0-0.1) K/uL Nucleated RBC % 0.0 /100WBC Nucleated RBCs # 0 K/uL Sodium 141 (136-148) mmol/L Potassium 3.9 (3.5-5.1) mmol/L Chloride 105 (98-107) mmol/L Carbon Dioxide 30.4 (21.0-32.0) mmol/L BUN 21 H (7.0-18.0) mg/dL Creatinine 1.7 H (0.8-1.3) mg/dL Est Cr Clr Drug Dosing 41.15 mL/min Estimated GFR (MDRD) 39.9 ml/min Glucose 172 H (74-106) mg/dL Uric Acid 8.8 H (2.6-7.2) mg/dL Calcium 8.9 (8.5-10.1) mg/dL Total Bilirubin 0.6 (0.2-1.0) mg/dL AST 17 (15-37) IU/L ALT 25 (14-63) IU/L Alkaline Phosphatase 51 (46-116) U/L B-Natriuretic Peptide 65 (<100) PG/ML Total Protein 8.1 (6.4-8.2) g/dL Albumin 3.5 (3.4-5.0) g/dL Globulin 4.6 H (2.6-4.0) g/dL Albumin/Globulin Ratio 0.8 L (0.9-1.6) Urine Color Urine Appearance Urine pH (5.0-8.0) Ur Specific [place] (1.001-1.035) Urine Protein (NEGATIVE) mg/dL Urine Glucose (UA) (NEGATIVE) mg/dL Urine Ketones (NEGATIVE) mg/dL Urine Occult Blood (NEGATIVE) Urine Nitrite (NEGATIVE) Urine Bilirubin (NEGATIVE) Urine Urobilinogen (<2.0) EU/dL Ur Leukocyte Esterase (NEGATIVE) Urine RBC (0-2/HPF) Urine WBC (0-5/HPF) Ur Epithelial Cells (NONE-FEW) Urine Bacteria (NEGATIVE) 11/11/19 Range/Units 17:05 WBC (4.0-11.0) K/uL RBC (4.50-5.90) M/uL Hgb (13.0-17.0) g/dL Hct (38.0-50.0) % MCV (80.0-98.0) fL MCH (27.0-32.0) pg MCHC (31.0-37.0) g/dL RDW Std Deviation (28.0-62.0) fl RDW Coeff of Rhea (11.0-15.0) % Plt Count (150-400) K/uL MPV (7.40-12.00) fL Neut % (Auto) (48.0-80.0) % Lymph % (Auto) (16.0-40.0) % [place] % (Auto) (0.0-15.0) % Eos % (Auto) (0.0-7.0) % Baso % (Auto) (0.0-1.5) % Neut # (Auto) (1.4-5.7) K/uL Lymph # (Auto) (0.6-2.4) K/uL [place] # (Auto) (0.0-0.8) K/uL Eos # (Auto) (0.0-0.7) K/uL Baso # (Auto) (0.0-0.1) K/uL Nucleated RBC % /100WBC Nucleated RBCs # K/uL Sodium (136-148) mmol/L Potassium (3.5-5.1) mmol/L Chloride (98-107) mmol/L Carbon Dioxide (21.0-32.0) mmol/L BUN (7.0-18.0) mg/dL Creatinine (0.8-1.3) mg/dL Est Cr Clr Drug Dosing mL/min Estimated GFR (MDRD) ml/min Glucose (74-106) mg/dL Uric Acid (2.6-7.2) mg/dL Calcium (8.5-10.1) mg/dL Total Bilirubin (0.2-1.0) mg/dL AST (15-37) IU/L ALT (14-63) IU/L Alkaline Phosphatase (46-116) U/L B-Natriuretic Peptide (<100) PG/ML Total Protein (6.4-8.2) g/dL Albumin (3.4-5.0) g/dL Globulin (2.6-4.0) g/dL Albumin/Globulin Ratio (0.9-1.6) Urine Color YELLOW Urine Appearance CLEAR Urine pH 5.5 (5.0-8.0) Ur Specific [place] 1.010 (1.001-1.035) Urine Protein NEGATIVE (NEGATIVE) mg/dL Urine Glucose (UA) NEGATIVE (NEGATIVE) mg/dL Urine Ketones NEGATIVE (NEGATIVE) mg/dL Urine Occult Blood TRACE-INTACT H (NEGATIVE) Urine Nitrite NEGATIVE (NEGATIVE) Urine Bilirubin NEGATIVE (NEGATIVE) Urine Urobilinogen 0.2 (<2.0) EU/dL Ur Leukocyte Esterase NEGATIVE (NEGATIVE) Urine RBC 1-2 (0-2/HPF) Urine WBC 0-1 (0-5/HPF) Ur Epithelial Cells NOT SEEN (NONE-FEW) Urine Bacteria RARE (NEGATIVE) Departure - Departure Time of Disposition: 18:11 Disposition: Home, Self-Care 01 Clinical Impression: Cellulitis of foot - Discharge Information Referrals: Donovan Doran MD [Primary Care Provider] - Forms: ED Department Discharge Additional Instructions: The following information is given to patients seen in the emergency department who are being discharged to home. This information is to outline your options for follow-up care. We provide all patients seen in our emergency department with a follow-up referral. The need for follow-up, as well as the timing and circumstances, are variable depending upon the specifics of your emergency department visit. If you don't have a primary care physician on staff, we will provide you with a referral. We always advise you to contact your personal physician following an emergency department visit to inform them of the circumstance of the visit and for follow-up with them and/or the need for any referrals to a consulting specialist. The emergency department will also refer you to a specialist when appropriate. This referral assures that you have the opportunity for follow-up care with a specialist. All of these measure are taken in an effort to provide you with optimal care, which includes your follow-up. Under all circumstances we always encourage you to contact your private physician who remains a resource for coordinating your care. When calling for follow-up care, please make the office aware that this follow-up is from your recent emergency room visit. If for any reason you are refused follow-up, please contact the [facility] Emergency Department at and asked to speak to the emergency department charge nurse. [facility] [address] [place] [address] [facility] [address] [place] [address] 1. Take medication as prescribed. Use Tylenol as directed for pain and discomfort. Monitor for signs of spreading infection as discussed. Return to the ED in 24-48 hours for reevaluation as discussed. 2. Follow-up with your primary care provider as discussed. Return to the ED as needed and as discussed. Sepsis Event Note - Evaluation Sepsis Screening Result: No Definite Risk - Focused Exam Vital Signs: Vital Signs Temp Pulse Resp BP Pulse Ox 11/11/19 16:06 96.4 F 75 18 147/68 H 98 Date Exam was Performed: 11/11/19 Time Exam was Performed: 18:07 - My Orders Last 24 Hours: My Active Orders 11/11/19 16:20 EKG Documentation Completion [RC] STAT 11/11/19 16:30 Communication Order [RC] STAT 11/11/19 18:06 cefTRIAXone [Rocephin] 1 gm IM ONETIME ONE - Assessment/Plan Last 24 Hours: My Active Orders 11/11/19 16:20 EKG Documentation Completion [RC] STAT 11/11/19 16:30 Communication Order [RC] STAT 11/11/19 18:06 cefTRIAXone [Rocephin] 1 gm IM ONETIME ONE
--- NOTE | 2019-11-11 17:02 | US ---
INDICATION: Pain in the left foot. COMPARISON: Ultrasound of the both lower extremities from 01/17/2019. FINDINGS: Ultrasound of the venous drainage of the left lower extremity shows no evidence of deep venous thrombosis. There is normal antegrade flow from the posterior tibial and popliteal veins superiorly through the common femoral vein. There is normal augmentation and compressibility of these veins. There has been no interval change. IMPRESSION: No evidence of deep venous thrombosis on ultrasound examination of the left lower extremity. Dictated by Tiago Cooper MD @ Nov 11 2019 4:57PM Signed by Dr. Tiago Cooper @ Nov 11 2019 5:01PM
--- NOTE | 2019-11-11 17:07 | CR ---
Indication: Lower extremity edema. Technique: A single AP portable view of the chest. Comparison: December 06, 2017. Findings: The heart is enlarged. The lungs are clear. No infiltrate, pleural effusion, or pneumothorax is identified. Impression: Stable cardiomegaly Dictated by Cely Atwood MD @ Nov 11 2019 5:05PM Signed by Dr. Cely Atwood @ Nov 11 2019 5:05PM
--- NOTE | 2019-11-11 17:20 | CR ---
INDICATION: Pain, lower extremity edema TECHNIQUE: Two views left foot COMPARISON: None FINDINGS: Bones: Alignment is normal. No acute fractures. Dorsal calcaneal spur. Remote healed mid 2nd metatarsal fracture. Joint spaces: Unremarkable. Soft tissues: Diffuse soft tissue edema. IMPRESSION: Diffuse soft tissue edema. Dorsal calcaneal spur. Dictated by Murphy Pradhan MD @ 11/11/2019 5:17:40 PM Dictated by: Murphy Pradhan MD @ 11/11/2019 17:17:47 (Electronically Signed)
[2019-11-11 17:55] LABS: CARBON DIOXIDE,CO2 30.4 mmol/L (21.0-32.0); POTASSIUM,K 3.9 mmol/L (3.5-5.1)
[2019-11-11] MEDS: cefTRIAXone 1 GM Vial IM ONE (18:16)
[2019-11-11] MEDS: Lidocaine 1% PF 2 ML SDV INJECT ONE (18:16)
[2019-11-11 19:51] VITALS: BP 159/68; PULSE 80
== END 2019-11-11 18:45 | disposition home or self-care (01) ==
LOC: MW.ED 15:40
DX: L03.116 Cellulitis of left lower limb (principal); I10 Essential (primary) hypertension; E11.40 Type 2 diabetes mellitus with diabetic neuropathy, unspecified; E78.00 Pure hypercholesterolemia, unspecified; J44.9 Chronic obstructive pulmonary disease, unspecified; M19.90 Unspecified osteoarthritis, unspecified site; E66.9 Obesity, unspecified; Z68.42 Body mass index [BMI] 45.0-49.9, adult; Z88.8 Allergy status to other drugs, medicaments and biological substances; Z79.4 Long term (current) use of insulin; Z79.82 Long term (current) use of aspirin; Z79.899 Other long term (current) drug therapy
CPT/HCPCS: 36415; 71045; 73620; 80053; 81001; 83880; 84550; 85025; 93005; 93971; 96372; 99283; J0696; J2001; 99284

== ENCOUNTER 2019-11-17 12:22 | Emergency (ER) | payer OTHER, MEDICARE ==
--- NOTE | 2019-11-17 14:33 | EDM.PDOC ---
ED HPI GENERAL MEDICAL PROBLEM - General Chief Complaint: General Stated Complaint: CELLULITIS Time Seen by Provider: 11/17/19 14:28 Source of Information: Reports: Patient History Limitations: Reports: No Limitations - History of Present Illness INITIAL COMMENTS - FREE TEXT/NARRATIVE: Patient is a 69-year-old male who was recently seen here and started on Bactrim approximately a week ago for a left foot cellulitis. Patient states this is improved somewhat but now is complaining of having pain on his left elbow and wrist area which is swollen red and very sensitive to light touch. Injury has not had similar symptoms in the past. Patient has no history of gout but on my assessment that is what this appears to be. Patient is on oxycodone for back pain and took 2 of these this morning. He has no cough or any chest pain or respiratory symptoms. Has not been nauseous or vomiting. Onset: Gradual Duration: Getting Worse Location: Reports: Upper Extremity, Left, Lower Extremity, Left Quality: Reports: Ache, Throbbing Severity: Severe Improves with: Reports: None Worsens with: Reports: Movement Associated Symptoms: Reports: No Other Symptoms. Denies: Fever/Chills l HAND Pain Score (Numeric/FACES): 8 - Related Data Allergies Allergy/AdvReac Type Severity Reaction Status Date / Time colestipol Allergy Other Verified 11/17/19 14:02 fluvastatin Allergy Other Verified 11/17/19 14:02 ibuprofen Allergy Other Verified 11/17/19 14:02 lovastatin Allergy Other Verified 11/17/19 14:02 simvastatin Allergy Other Verified 11/17/19 14:02 Home Meds: Home Meds Ezetimibe [Zetia] 10 mg PO BEDTIME 02/20/16 [History] Gabapentin [Neurontin] 400 mg PO BID 02/20/16 [History] Insulin Glargine,Hum.Rec.Anlog [Lantus Solostar] 65 unit SQ BEDTIME 02/20/16 [ History] glipiZIDE [Glucotrol] 20 mg PO DAILY 02/20/16 [History] Metoprolol Tartrate [Lopressor] 50 mg PO BID 12/07/17 [History] Omeprazole 20 mg PO ACBREAKFAST 12/07/17 [History] Potassium Chloride [Klor-Con 10] 10 meq PO DAILY 12/07/17 [History] calcitrioL [Calcitriol] 0.25 mcg PO MOWEFR@0900 12/07/17 [History] Aspirin 81 mg PO BID 01/16/19 [History] Diclofenac Gel 1 applic TOP ASDIRECTED 01/16/19 [History] Methocarbamol 500 mg PO BEDTIME PRN 01/16/19 [History] Torsemide 40 mg PO BID 01/16/19 [History] Sulfamethoxazole/Trimethoprim [Bactrim Ds Tablet] 1 each PO BID #10 tablet 01/21 [Rx] cephALEXin [Keflex] 500 mg PO Q8H 10 Days #30 cap 11/11/19 [Rx] Past Medical History HEENT History: Reports: None Cardiovascular History: Reports: High Cholesterol, Hypertension Respiratory History: Reports: COPD, Sleep Apnea Gastrointestinal History: Reports: None Genitourinary History: Reports: Renal Disease Other Genitourinary History: Renal insufficiency Musculoskeletal History: Reports: Arthritis Neurological History: Reports: Neuropathy, Diabetic Psychiatric History: Reports: None Endocrine/Metabolic History: Reports: Diabetes, Type II, Obesity/BMI 30+ Hematologic History: Reports: None Immunologic History: Reports: None Oncologic (Cancer) History: Reports: None Dermatologic History: Reports: None - Infectious Disease History Infectious Disease History: Reports: Chicken Pox, Measles, Mumps - Past Surgical History Head Surgeries/Procedures: Reports: None HEENT Surgical History: Reports: None Cardiovascular Surgical History: Reports: None Respiratory Surgical History: Reports: None GI Surgical History: Reports: None Male Surgical History: Reports: None Neurological Surgical History: Reports: None Musculoskeletal Surgical History: Reports: Carpal Tunnel, Hip Replacement Oncologic Surgical History: Reports: None Dermatological Surgical History: Reports: None Social & Family History - Family History Family Medical History: Noncontributory - Tobacco Use Smoking Status *Q: Never Smoker Second Hand Smoke Exposure: No - Caffeine Use Caffeine Use: Reports: None - Recreational Drug Use Recreational Drug Use: No ED ROS GENERAL - Review of Systems Review Of Systems: Comprehensive ROS is negative, except as noted in HPI. ED EXAM, GENERAL - Physical Exam Exam: See Below Exam Limited By: No Limitations General Appearance: Alert, No Apparent Distress Head: Atraumatic Neck: Normal Inspection Respiratory/Chest: No Respiratory Distress, Lungs Clear, Normal Breath Sounds Cardiovascular: Regular Rate, Rhythm, No JVD GI/Abdominal: Normal Bowel Sounds, Soft, Non-Tender Extremities: Increased Warmth, Redness Neurological: Alert, Oriented Psychiatric: Normal Affect Skin Exam: Warm, Dry Lymphatic: No Adenopathy Course - Vital Signs Last Recorded V/S: Last Vital Signs Temp 37.0 C 11/17/19 16:44 Pulse 85 11/17/19 16:44 Resp 30 H 11/17/19 16:44 BP 134/61 11/17/19 16:44 Pulse Ox 96 11/17/19 16:44 - Orders/Labs/Meds Orders: Active Orders 24 hr Category Date Time Status CRP, HIGH SENSITIVITY [REF] Stat Lab 11/17/19 14:56 Received LYME, TOTAL AB TEST/REFLEX [REF] Stat Lab 11/17/19 14:56 Received Labs: Laboratory Tests 11/17/19 11/17/19 11/17/19 Range/Units 14:56 14:56 14:56 WBC 4.84 (4.0-11.0) K/uL RBC 4.55 (4.50-5.90) M/uL Hgb 12.4 L (13.0-17.0) g/dL Hct 36.9 L (38.0-50.0) % MCV 81.1 (80.0-98.0) fL MCH 27.3 (27.0-32.0) pg MCHC 33.6 (31.0-37.0) g/dL RDW Std Deviation 41.6 (28.0-62.0) fl RDW Coeff of Rhea 14 (11.0-15.0) % Plt Count 176 (150-400) K/uL MPV 10.10 (7.40-12.00) fL Neut % (Auto) 56.4 (48.0-80.0) % Lymph % (Auto) 23.6 (16.0-40.0) % [place] % (Auto) 18.6 H (0.0-15.0) % Eos % (Auto) 1.2 (0.0-7.0) % Baso % (Auto) 0.2 (0.0-1.5) % Neut # (Auto) 2.7 (1.4-5.7) K/uL Lymph # (Auto) 1.1 (0.6-2.4) K/uL [place] # (Auto) 0.9 H (0.0-0.8) K/uL Eos # (Auto) 0.1 (0.0-0.7) K/uL Baso # (Auto) 0.0 (0.0-0.1) K/uL Nucleated RBC % 0.0 /100WBC Nucleated RBCs # 0 K/uL ESR 82 H (0-19) mm/hr Sodium 140 (136-148) mmol/L Potassium 3.1 L (3.5-5.1) mmol/L Chloride 100 (98-107) mmol/L Carbon Dioxide 31.7 (21.0-32.0) mmol/L BUN 21 H (7.0-18.0) mg/dL Creatinine 1.6 H (0.8-1.3) mg/dL Est Cr Clr Drug Dosing 43.72 mL/min Estimated GFR (MDRD) 42.8 ml/min Glucose 117 H (74-106) mg/dL Uric Acid 9.8 H (2.6-7.2) mg/dL Calcium 9.0 (8.5-10.1) mg/dL Total Bilirubin 0.3 (0.2-1.0) mg/dL AST 24 (15-37) IU/L ALT 42 (14-63) IU/L Alkaline Phosphatase 59 (46-116) U/L Total Protein 8.1 (6.4-8.2) g/dL Albumin 2.9 L (3.4-5.0) g/dL Globulin 5.2 H (2.6-4.0) g/dL Albumin/Globulin Ratio 0.6 L (0.9-1.6) Meds: Medications Discontinued Medications Generic Name Dose Route Start Last Admin Trade Name Rosalie PRN Reason Stop Dose Admin Indomethacin 25 mg 11/17/19 17:22 11/17/19 17:44 Indocin PO 11/17/19 17:23 25 mg ONETIME ONE Administration - Re-Assessments/Exams Free Text/Narrative Re-Assessment/Exam: 11/17/19 18:08 Patient's white blood cell count is unremarkable. His uric acid level is elevated as is his sed rate. I believe his symptoms on his left upper extremity are secondary to gout and have started him on indomethacin. Patient is given dietary recommendations by me. I am recommending follow-up with his PCP this week for recheck. He may return to ER anytime if he is doing worse. Patient's left lower extremity looks better and is only mildly tender and I am not impressed with its being cellulitis. Departure - Departure Time of Disposition: 18:10 Disposition: Home, Self-Care 01 Condition: Good Clinical Impression: Gout attack - Discharge Information Referrals: PCP,Not In Area [Primary Care Provider] - Forms: ED Department Discharge Additional Instructions: Indomethacin with meals. Follow-up with PCP this week for recheck return to ER if worse. The following information is given to patients seen in the emergency department who are being discharged to home. This information is to outline your options for follow-up care. We provide all patients seen in our emergency department with a follow-up referral. The need for follow-up, as well as the timing and circumstances, are variable depending upon the specifics of your emergency department visit. If you don't have a primary care physician on staff, we will provide you with a referral. We always advise you to contact your personal physician following an emergency department visit to inform them of the circumstance of the visit and for follow-up with them and/or the need for any referrals to a consulting specialist. The emergency department will also refer you to a specialist when appropriate. This referral assures that you have the opportunity for follow-up care with a specialist. All of these measure are taken in an effort to provide you with optimal care, which includes your follow-up. Under all circumstances we always encourage you to contact your private physician who remains a resource for coordinating your care. When calling for follow-up care, please make the office aware that this follow-up is from your recent emergency room visit. If for any reason you are refused follow-up, please contact the [facility] Emergency Department at and asked to speak to the emergency department charge nurse. Sepsis Event Note - Evaluation Sepsis Screening Result: No Definite Risk - Focused Exam Vital Signs: Vital Signs Temp Pulse Resp BP Pulse Ox 11/17/19 16:44 37.0 C 85 30 H 134/61 96 11/17/19 14:58 76 15 126/68 96 11/17/19 14:03 37.9 C 92 18 145/66 H 96 11/17/19 13:43 37.3 C 96 145/66 H 95 Date Exam was Performed: 11/17/19 Time Exam was Performed: 18:05 - My Orders Last 24 Hours: My Active Orders 11/17/19 14:56 CRP, HIGH SENSITIVITY [REF] Stat LYME, TOTAL AB TEST/REFLEX [REF] Stat - Assessment/Plan Last 24 Hours: My Active Orders 11/17/19 14:56 CRP, HIGH SENSITIVITY [REF] Stat LYME, TOTAL AB TEST/REFLEX [REF] Stat
[2019-11-17 15:34] LABS: CARBON DIOXIDE,CO2 31.7 mmol/L (21.0-32.0); POTASSIUM,K 3.1 mmol/L (3.5-5.1)
[2019-11-17] MEDS ORDERED: Indomethacin 25 MG Cap PO ONE (17:22)
[2019-11-17 18:25] VITALS: BP 144/62; PULSE 68
== END 2019-11-17 18:26 | disposition home or self-care (01) ==
LOC: MW.ED 12:22
DX: M10.9 Gout, unspecified (principal); I10 Essential (primary) hypertension; E78.00 Pure hypercholesterolemia, unspecified; J44.9 Chronic obstructive pulmonary disease, unspecified; E11.40 Type 2 diabetes mellitus with diabetic neuropathy, unspecified; E66.9 Obesity, unspecified; Z68.41 Body mass index [BMI] 40.0-44.9, adult; Z88.6 Allergy status to analgesic agent; Z88.8 Allergy status to other drugs, medicaments and biological substances; Z79.4 Long term (current) use of insulin; Z79.82 Long term (current) use of aspirin; Z79.899 Other long term (current) drug therapy
CPT/HCPCS: 80053; 84550; 85025; 85652; 86141; 86618; 99283; A9270; 36415

== ENCOUNTER 2020-01-06 13:35 | Emergency (ER) | payer OTHER, MEDICARE ==
[2020-01-06] MEDS ORDERED: Cephalexin 500 MG Cap PO ONE (15:25)
--- NOTE | 2020-01-06 15:26 | EDM.PDOC ---
ED HPI GENERAL MEDICAL PROBLEM - General Chief Complaint: Skin Complaint Stated Complaint: CELLULITIS Time Seen by Provider: 01/06/20 14:57 - History of Present Illness INITIAL COMMENTS - FREE TEXT/NARRATIVE: 69-year-old male history of diabetes hypertension from home, to ED for left foot pain. The pain is similar to previous episode of cellulitis. Denies fever. Some pain when bearing weight. Pain located in the dorsum of the foot. denies Calf and denies digit pain. No chest pain no shortness of breath. No other associated symptoms. Left Foot Pain Score (Numeric/FACES): 6 - Related Data Allergies Allergy/AdvReac Type Severity Reaction Status Date / Time colestipol Allergy Other Verified 01/06/20 14:24 fluvastatin Allergy Other Verified 01/06/20 14:24 ibuprofen Allergy Other Verified 01/06/20 14:24 lovastatin Allergy Other Verified 01/06/20 14:24 simvastatin Allergy Other Verified 01/06/20 14:24 Home Meds: Home Meds Ezetimibe [Zetia] 10 mg PO BEDTIME 02/20/16 [History] Gabapentin [Neurontin] 400 mg PO BID 02/20/16 [History] Insulin Glargine,Hum.Rec.Anlog [Lantus Solostar] 60 unit SQ BEDTIME 02/20/16 [ History] Metoprolol Tartrate [Lopressor] 50 mg PO BID 12/07/17 [History] Omeprazole 20 mg PO ACBREAKFAST 12/07/17 [History] Potassium Chloride [Klor-Con 10] 10 meq PO DAILY 12/07/17 [History] calcitrioL [Calcitriol] 0.25 mcg PO MOWEFR@0900 12/07/17 [History] Aspirin 81 mg PO BID 01/16/19 [History] Torsemide 20 mg PO TID PRN 01/16/19 [History] methocarbamoL [Methocarbamol] 500 mg PO BEDTIME PRN 01/16/19 [History] Liraglutide [Victoza] 2.8 mg SQ DAILY 01/06/20 [History] Pravastatin Sodium 5 mg PO ASDIRECTED 01/06/20 [History] cephALEXin [Keflex] 500 mg PO Q8H 7 Days #28 cap 01/06/20 [Rx] Past Medical History HEENT History: Reports: None, Impaired Vision Cardiovascular History: Reports: High Cholesterol, Hypertension Respiratory History: Reports: COPD, Sleep Apnea Gastrointestinal History: Reports: None Genitourinary History: Reports: Renal Disease Other Genitourinary History: Renal insufficiency Musculoskeletal History: Reports: Arthritis Neurological History: Reports: Neuropathy, Diabetic Psychiatric History: Reports: None Endocrine/Metabolic History: Reports: Diabetes, Type II, Obesity/BMI 30+ Hematologic History: Reports: None Immunologic History: Reports: None Oncologic (Cancer) History: Reports: None Dermatologic History: Reports: Cellulitis - Infectious Disease History Infectious Disease History: Reports: Chicken Pox, Measles, Mumps - Past Surgical History Head Surgeries/Procedures: Reports: None HEENT Surgical History: Reports: None Cardiovascular Surgical History: Reports: None Respiratory Surgical History: Reports: None GI Surgical History: Reports: None Male Surgical History: Reports: None Neurological Surgical History: Reports: None Musculoskeletal Surgical History: Reports: Carpal Tunnel, Hip Replacement Oncologic Surgical History: Reports: None Dermatological Surgical History: Reports: None Social & Family History - Family History Family Medical History: Noncontributory - Tobacco Use Smoking Status *Q: Never Smoker Second Hand Smoke Exposure: No - Caffeine Use Caffeine Use: Reports: Coffee - Recreational Drug Use Recreational Drug Use: No ED ROS GENERAL - Review of Systems Review Of Systems: See Below Constitutional: Reports: No Symptoms HEENT: Reports: No Symptoms Respiratory: Reports: No Symptoms Cardiovascular: Reports: No Symptoms Endocrine: Reports: No Symptoms GI/Abdominal: Reports: No Symptoms : Reports: No Symptoms Musculoskeletal: Reports: Foot Pain Skin: Reports: No Symptoms Neurological: Reports: No Symptoms Psychiatric: Reports: No Symptoms Hematologic/Lymphatic: Reports: No Symptoms Immunologic: Reports: No Symptoms ED EXAM, SKIN/RASH Exam: See Below Text/Narrative:: Small area of erythema in the dorsum of the left foot. Perhaps 3 to 4 cm in diameter, tenderness to palpation no fluctuance. Patient of bilateral feet did not reveal any other areas of erythema. His calves were nontender. No swelling was noted. Exam Limited By: No Limitations General Appearance: Alert, WD/WN Neck: Normal Inspection Respiratory/Chest: No Respiratory Distress Cardiovascular: Regular Rate, Rhythm Peripheral Pulses: 2+: Dorsalis Pedis (L), Dorsalis Pedis (R), 4+: Posterior Tibial (R) GI/Abdominal: Normal Bowel Sounds, Soft, Non-Tender Course - Vital Signs Last Recorded V/S: Last Vital Signs Temp 97.5 F 01/06/20 14:36 Pulse 81 01/06/20 14:36 Resp 18 01/06/20 14:36 BP 100/67 01/06/20 14:36 Pulse Ox 95 01/06/20 14:36 - Orders/Labs/Meds Orders: Active Orders 24 hr Category Date Time Status Blood Glucose Check, Bedside [RC] ONETIME Care 01/06/20 15:12 Active Labs: Laboratory Tests 01/06/20 Range/Units 15:22 POC Glucose 137 H (60-110) mg/dL Meds: Medications Discontinued Medications Generic Name Dose Route Start Last Admin Trade Name Freq PRN Reason Stop Dose Admin Cephalexin 500 mg 01/06/20 15:25 Keflex PO 01/06/20 15:26 ONETIME ONE - Re-Assessments/Exams Free Text/Narrative Re-Assessment/Exam: 01/06/20 15:31 Appears to be simple cellulitis. No signs of systemic involvement. Small area. I discussed return precautions with the patient. We will try Keflex and he will follow-up with his regular doctor. Departure - Departure Time of Disposition: 15:33 Disposition: Home, Self-Care 01 Clinical Impression: Cellulitis Qualifiers: Site of cellulitis: extremity Site of cellulitis of extremity: lower extremity Laterality: right Qualified Code(s): L03.115 - Cellulitis of right lower limb - Discharge Information *PRESCRIPTION DRUG MONITORING PROGRAM REVIEWED*: Not Applicable *COPY OF PRESCRIPTION DRUG MONITORING REPORT IN PATIENT AICHA: Not Applicable Prescriptions: cephALEXin [Keflex] 500 mg PO Q8H 7 Days #28 cap Instructions: Cellulitis, Adult, [id number] Referrals: [facility] [Primary Care Provider] - Forms: ED Department Discharge Additional Instructions: Follow-up with your regular doctor return to ER if you develop worsening redness worsening fever worsening pain or any concerns. The following information is given to patients seen in the emergency department who are being discharged to home. This information is to outline your options for follow-up care. We provide all patients seen in our emergency department with a follow-up referral. The need for follow-up, as well as the timing and circumstances, are variable depending upon the specifics of your emergency department visit. If you don't have a primary care physician on staff, we will provide you with a referral. We always advise you to contact your personal physician following an emergency department visit to inform them of the circumstance of the visit and for follow-up with them and/or the need for any referrals to a consulting specialist. The emergency department will also refer you to a specialist when appropriate. This referral assures that you have the opportunity for follow-up care with a specialist. All of these measure are taken in an effort to provide you with optimal care, which includes your follow-up. Under all circumstances we always encourage you to contact your private physician who remains a resource for coordinating your care. When calling for follow-up care, please make the office aware that this follow-up is from your recent emergency room visit. If for any reason you are refused follow-up, please contact the [facility] Emergency Department at and asked to speak to the emergency department charge nurse. Sepsis Event Note - Evaluation Sepsis Screening Result: No Definite Risk - Focused Exam Vital Signs: Vital Signs Temp Pulse Resp BP Pulse Ox 01/06/20 14:36 97.5 F 81 18 100/67 95 Date Exam was Performed: 01/06/20 Time Exam was Performed: 15:33 - My Orders Last 24 Hours: My Active Orders 01/06/20 15:12 Blood Glucose Check, Bedside [RC] ONETIME - Assessment/Plan Last 24 Hours: My Active Orders 01/06/20 15:12 Blood Glucose Check, Bedside [RC] ONETIME
[2020-01-06 15:54] VITALS: BP 141/61; PULSE 78
== END 2020-01-06 15:53 | disposition home or self-care (01) ==
LOC: MW.ED 13:35
DX: L03.116 Cellulitis of left lower limb (principal); I10 Essential (primary) hypertension; E11.40 Type 2 diabetes mellitus with diabetic neuropathy, unspecified; E78.00 Pure hypercholesterolemia, unspecified; J44.9 Chronic obstructive pulmonary disease, unspecified; M19.90 Unspecified osteoarthritis, unspecified site; E66.9 Obesity, unspecified; Z68.41 Body mass index [BMI] 40.0-44.9, adult; Z88.8 Allergy status to other drugs, medicaments and biological substances; Z79.899 Other long term (current) drug therapy; Z79.82 Long term (current) use of aspirin; Z79.4 Long term (current) use of insulin
CPT/HCPCS: 82962; 99283; A9270

== ENCOUNTER 2021-01-17 19:50 | Observation (INO) | payer MEDICARE ==
[2021-01-17] MEDS ORDERED: Sodium Chloride 0.9% 10 ML Syringe FLUSH PRN (20:04)
[2021-01-17] MEDS ORDERED: Sodium Chloride 0.9% 2.5 ML Syringe FLUSH PRN (20:04)
--- NOTE | 2021-01-17 20:09 | EDM.PDOC ---
<Michael Betancourt - Last Filed: 01/18/21 05:55> ED HPI GENERAL MEDICAL PROBLEM - General Chief Complaint: Abdominal Pain Stated Complaint: STLOWER LT ABDOMINAL PAIN Time Seen by Provider: 01/17/21 20:08 - History of Present Illness INITIAL COMMENTS - FREE TEXT/NARRATIVE: Patient was signed out to me by Kia Castellanos pending CT results at 10 PM I did reevaluate the patient and patient was requiring assist with 2 person for movement. The patient did urinate on himself given the weakness. On my evaluation the patient was normotensive and not hypoxic and was complaining of left lower quadrant abdominal pain. He states that he has been weak since receiving the second Covid shot approximately 1 week ago. He denies any fevers, chills, chest pain, shortness of breath, nausea or vomiting. On my exam the patient had clear lung sounds and mild tenderness to palpation throughout the abdomen. No rebound or guarding. Labs reviewed CBC was unremarkable. CMP reveals mild elevation in creatinine of 1.8 and BUN of 30 which is unchanged from prior. Hyperglycemia at 138. Hypoalbuminemia at 3.1. Urinalysis was negative. Covid was negative. The radiological images were viewed by myself along with reading the report from the radiologist. CT abdomen pelvis with IV contrast does not reveal any acute intra-abdominal pathology. Given that the patient's labs all appear normal and his abdomen CT does not reveal any abnormalities. There was some suggestion of left pleural effusion. Given the patient's history of heart failure I will obtain a BNP and a troponin. He is not complaining of any shortness of breath, exertional dyspnea, orthopnea or chest pain however his weakness is unexplained. Laboratory: Troponin is negative. BNP is not elevated. At this time it is uncertain as to what is causing the patient's weakness however this could be deconditioning secondary to second Covid shot. Given the patient is unable to ambulate without assistance and given that his is walking with a cane I do not believe the patient is safe for discharge. Therefore I did discuss with him at this time admission for physical therapy and Occupational Therapy evaluation for debility. They were amenable to this plan. I contacted Dr. Treviño who accepted the patient. Time: 2022 Twelve-lead EKG interpreted by myself. Normal sinus rhythm at a rate of 91beats per minute. Left axis. DC interval is 206 ms. QRS duration is [address] segments are normal without elevations or depressions. No T wave inversions there are Q waves in leads III, aVF. Hypertrophy not noted. No changes demonstrated from prior EKG dated 11/11/2019. Interpretation: Sinus rhythm Time: 014 Twelve-lead EKG interpreted by myself. Normal sinus rhythm at a rate of 87 beats per minute. Left axis. DC interval is 213 ms. QRS duration is [address] segments are normal without elevations or depressions. No T wave inversions Q waves in leads III, DEBRA F. Hypertrophy not noted. No changes demonstrated from prior EKG dated 11/11/2019. Interpretation: Normal sinus rhythm DISPOSITION: The patient was admitted to the hospital in stable condition CONDITION: Fair PROCEDURES: None FINAL IMPRESSION(S)/DIAGNOSES: 01. acute debility 2. Acute abdominal pain, unknown etiology Michael Betancourt M.D. - Related Data Allergies Allergy/AdvReac Type Severity Reaction Status Date / Time colestipol Allergy Other Verified 01/17/21 20:17 fluvastatin Allergy Other Verified 01/17/21 20:17 ibuprofen Allergy Other Verified 01/17/21 20:17 lovastatin Allergy Other Verified 01/17/21 20:17 simvastatin Allergy Other Verified 01/17/21 20:17 Home Meds: Home Meds Insulin Glargine,Hum.Rec.Anlog [Lantus Solostar] 30 unit SQ BEDTIME 02/20/16 [History] Metoprolol Tartrate [Lopressor] 50 mg PO BID 12/07/17 [History] Potassium Chloride [Klor-Con 10] 10 meq PO DAILY 12/07/17 [History] calcitrioL [Calcitriol] 0.25 mcg PO MOWEFR@0900 12/07/17 [History] Aspirin 81 mg PO BID 01/16/19 [History] Torsemide 20 - 40 mg PO DAILY 01/16/19 [History] Pravastatin Sodium 5 mg PO Q2D 01/06/20 [History] Diclofenac Sodium [Voltaren 1% Gel] 4 gm TOP QID PRN 01/19/21 [History] Ezetimibe [Zetia] 10 mg PO DAILY 01/19/21 [History] Gabapentin [Neurontin] 800 mg PO BEDTIME 01/19/21 [History] Pantoprazole [ProTONIX] 40 mg PO DAILY 01/19/21 [History] Semaglutide [Ozempic] 0.5 mg SQ WEEKLY 01/19/21 [History] ED ROS GENERAL - Review of Systems Review Of Systems: See Below ED EXAM, GI/ABD - Physical Exam Exam: See Below Departure - Departure Time of Disposition: 02:51 Disposition: Refer to Observation Condition: Fair Clinical Impression: Abdominal pain - Discharge Information <Aretha Castellanos Sukhdev - Last Filed: 01/20/21 19:51> ED HPI GENERAL MEDICAL PROBLEM - General Source of Information: Reports: Patient History Limitations: Reports: No Limitations - History of Present Illness INITIAL COMMENTS - FREE TEXT/NARRATIVE: HISTORY AND PHYSICAL: History of present illness: Patient is a 70-year-old male who presents to the emergency room with complaints of left lower abdominal pain x 1 week. He states he has some leftover oxycodone and has been taking this for the pain but has not seemed to help. He does feel slightly constipated although he did have a bowel movement 2 days ago. Past medical history of type 2 diabetes, hypertension, CKD, and COPD. Patient denies any fever, chills, headache, change in vision, syncope or near syncope. Denies any chest pain, back pain, shortness of breath or cough. Denies any abdominal pain, nausea, vomiting, diarrhea, dysuria, or blood in urine or stool. He denies any testicular pain, redness or swelling. Patient has been eating and drinking appropriately. Review of systems: As per history of present illness and below otherwise all systems reviewed and negative. Past medical history: As per history of present illness and as reviewed below otherwise n oncontributory. Surgical history: As per history of present illness and as reviewed below otherwise noncontributory. Social history: See social history for further information Family history: As per history of present illness and as reviewed below otherwise noncontributory. Physical exam: General: Well developed and well nourished 70 year old male. Alert and orientated x 3. Nontoxic in appearance and in no acute distress. Vital signs are stable and have been reviewed by me. Nursing notes were reviewed. Accompanied by . HEENT: Atraumatic, normocephalic, pupils equal and reactive bilaterally, negative for conjunctival pallor or scleral icterus, mucous membranes moist, neck supple, nontender, trachea midline. No drooling or trismus noted. No meningeal signs. No hot potato voice noted. Lungs: Clear to auscultation bilaterally. No wheezes, rales, or rhonchi. Chest nontender. Normal work of breathing, no accessory muscles used. Heart: S1S2, regular rate and rhythm without overt murmur, gallops, or rubs. No JVD. Abdomen: Soft, obese, RUQ hernia, LUQ/LLQ tenderness with palpation. Healing midline scar noted through umbilicus. Normoactive bowel sounds. Negative for costovertebral tenderness. Pelvis: Stable nontender. Skin: Intact, warm, dry. No lesions or rashes noted. Hematologic: No petechiae or purpra. Mucosa appropriate color and normal nail bed color and refill. Extremities: Atraumatic, moves all extremities per self without difficulty or deficits, negative for cords or calf pain. +1 pitting edema bilateral lower extremities. Neurovascular unremarkable. Neuro: Awake, alert, oriented. Cranial nerves II through XII unremarkable. Cerebellum unremarkable. Motor and sensory unremarkable throughout. Exam nonfocal. Psychiatric: Mood and affect are appropriate. Normal thought process. Answering questions appropriately. Notes: *This patient was seen and evaluated during the 2019 SARS-CoV-2 novel coronavirus pandemic period. Community viral transmission is ongoing at time of this encounter and the emergency department is operating under pandemic response procedures. Patient does have a large right upper quadrant hernia which he is aware of and does plan on getting surgically repaired, although this is not set up yet. States the pain to the left lower quadrant and somewhat left upper quadrant is new and has been ongoing for approximately 1 week. Does have a history of diabetes and states this has been well managed and has no concerns. Labs/Imagining results pending. Report given to Dr Betancourt, will disposition/treat patient accordingly. Patient currently in stable condition. Diagnostics: CBC, CMP, Lipase, UA, CT abdomen and pelvis Therapeutics: IV fluid Definitive disposition and diagnosis as appropriate pending reevaluation and review of above. Left Upper Abdomen Pain Score (Numeric/FACES): 5 Left Lower Abdomen Pain Score (Numeric/FACES): 0 Past Medical History HEENT History: Reports: None, Impaired Vision Cardiovascular History: Reports: High Cholesterol, Hypertension Respiratory History: Reports: COPD, Sleep Apnea Gastrointestinal History: Reports: None Genitourinary History: Reports: Renal Disease Other Genitourinary History: Renal insufficiency Musculoskeletal History: Reports: Arthritis Neurological History: Reports: Neuropathy, Diabetic Psychiatric History: Reports: None Endocrine/Metabolic History: Reports: Diabetes, Type II, Obesity/BMI 30+ Hematologic History: Reports: None Immunologic History: Reports: None Oncologic (Cancer) History: Reports: None Dermatologic History: Reports: Cellulitis - Infectious Disease History Infectious Disease History: Reports: Chicken Pox, Measles, Mumps - Past Surgical History Head Surgeries/Procedures: Reports: None HEENT Surgical History: Reports: None Cardiovascular Surgical History: Reports: None Respiratory Surgical History: Reports: None GI Surgical History: Reports: None Male Surgical History: Reports: None Neurological Surgical History: Reports: None Musculoskeletal Surgical History: Reports: Carpal Tunnel, Hip Replacement Oncologic Surgical History: Reports: None Dermatological Surgical History: Reports: None Social & Family History - Family History Family Medical History: No Pertinent Family History - Caffeine Use Caffeine Use: Reports: Coffee Course - Vital Signs Last Recorded V/S: Last Vital Signs Temp 97.3 F 01/20/21 11:08 Pulse 76 01/20/21 11:08 Resp 18 01/20/21 11:08 BP 143/71 H 01/20/21 11:08 Pulse Ox 97 01/20/21 11:08 - Orders/Labs/Meds Orders: Medication Orders Acetaminophen (Tylenol) 650 mg PO Q6H PRN PRN Reason: Pain Last Admin: 01/18/21 19:43 Dose: 650 mg Documented by: Admin: 01/18/21 10:49 Dose: 650 mg Documented by: ZAMZAM Albuterol/Ipratropium (Duoneb 3.0-0.5 Mg/3 Ml) 3 ml NEB Q4HRRT PRN PRN Reason: SOB/wheezing Bismuth Subsalicylate (Pepto Bismol) 30 ml PO Q4H PRN PRN Reason: Indigestion, Abdominal Pain Last Admin: 01/19/21 15:56 Dose: 30 ml Documented by: Admin: 01/19/21 12:17 Dose: 30 ml Documented by: KATIA Cosigned by: ZAMZAM Dextrose/Water (Dextrose 50% In Water) 50 ml IV ASDIRECTED PRN PRN Reason: Hypoglycemia Enoxaparin Sodium (Enoxaparin 40 Mg/0.4 Ml Syringe) 40 mg SUBCUT Q24H [facility] Last Admin: 01/19/21 12:22 Dose: 40 mg Documented by: KATIA Cosigned by: ZAMZAM Glucagon (Glucagen) 1 mg IM ASDIRECTED PRN PRN Reason: Hypoglycemia Insulin Aspart (Novolog) 0 unit SUBCUT TIDAC [facility]; Protocol Last Admin: 01/20/21 08:28 Dose: Not Given Documented by: Admin: 01/19/21 17:21 Dose: Not Given Documented by: Admin: 01/19/21 12:16 Dose: Not Given Documented by: Admin: 01/19/21 08:13 Dose: Not Given Documented by: Admin: 01/18/21 19:35 Dose: Not Given Documented by: Admin: 01/18/21 11:44 Dose: Not Given Documented by: ZAMZAM Insulin Glargine (Lantus Solostar) 60 units SUBCUT BEDTIME [facility] Last Admin: 01/18/21 23:16 Dose: 40 units Documented by: JORGE Metoprolol Tartrate (Metoprolol Tartrate 50 Mg Tab) 50 mg PO BID [facility] Last Admin: 01/20/21 09:28 Dose: 50 mg Documented by: JESSICA Cosigned by: RUEL Admin: 01/19/21 21:34 Dose: 50 mg Documented by: Admin: 01/19/21 08:12 Dose: 50 mg Documented by: KATIA Cosigned by: ZAMZAM Admin: 01/18/21 22:01 Dose: 50 mg Documented by: Admin: 01/18/21 08:29 Dose: 50 mg Documented by: ZAMZAM Omeprazole (Omeprazole 20 Mg Cap.Cr) 20 mg PO ACBREAKFAST [facility] Last Admin: 01/19/21 08:14 Dose: 20 mg Documented by: KATIA Cosigned by: ZAMZAM Methocarbamol 500 Mg 1 each PO BEDTIME PRN PRN Reason: Muscle Spasm Polyethylene Glycol (Miralax) 17 gm PO BEDTIME [facility] Last Admin: 01/19/21 21:34 Dose: 17 gm Documented by: Admin: 01/18/21 22:00 Dose: 17 gm Documented by: JORGE Potassium Chloride (Klor-Con 10) 10 meq PO BEDTIME [facility] Last Admin: 01/19/21 21:34 Dose: 10 meq Documented by: Admin: 01/18/21 22:01 Dose: 10 meq Documented by: JORGE Sodium Chloride (Saline Flush) 10 ml FLUSH ASDIRECTED PRN PRN Reason: Keep Vein Open Sodium Chloride (Saline Flush) 2.5 ml FLUSH ASDIRECTED PRN PRN Reason: Keep Vein Open Torsemide (Demadex) 20 mg PO TID PRN PRN Reason: Edema Last Admin: 01/18/21 10:49 Dose: 20 mg Documented by: ZAMZAM Labs: Laboratory Tests 01/17/21 01/17/21 01/17/21 Range/Units 21:00 21:00 21:50 WBC 6.30 (4.0-11.0) K/uL RBC 4.77 (4.50-5.90) M/uL Hgb 13.0 (13.0-17.0) g/dL Hct 38.2 (38.0-50.0) % MCV 80.1 (80.0-98.0) fL MCH 27.3 (27.0-32.0) pg MCHC 34.0 (31.0-37.0) g/dL RDW Std Deviation 42.0 (28.0-62.0) fl RDW Coeff of Rhea 14 (11.0-15.0) % Plt Count 105 L (150-400) K/uL MPV 11.40 (7.40-12.00) fL Add Manual Diff YES Neutrophils % (Manual) 50 (48.0-80.0) % Lymphocytes % (Manual) 30 (16.0-40.0) % Monocytes % (Manual) 20 H (0.0-15.0) % Nucleated RBC % 0.0 /100WBC Absolute Seg Neuts 3.2 (1.4-5.7) Lymphocytes # (Manual) 1.9 (0.6-2.4) Monocytes # (Manual) 1.3 H (0.0-0.8) Nucleated RBCs # 0 K/uL Sodium 139 (136-148) mmol/L Potassium 3.6 (3.5-5.1) mmol/L Chloride 102 (98-107) mmol/L Carbon Dioxide 29.9 (21.0-32.0) mmol/L BUN 30 H (7.0-18.0) mg/dL Creatinine 1.8 H (0.8-1.3) mg/dL Est Cr Clr Drug Dosing 38.30 mL/min Estimated GFR (MDRD) 37.3 ml/min Glucose 138 H (74-106) mg/dL POC Glucose (60-110) mg/dL Calcium 9.5 (8.5-10.1) mg/dL Total Bilirubin 0.8 (0.2-1.0) mg/dL AST 22 (15-37) IU/L ALT 45 (14-63) IU/L Alkaline Phosphatase 50 (46-116) U/L Troponin I (0.000-0.056) ng/mL B-Natriuretic Peptide (<100) PG/ML Total Protein 8.1 (6.4-8.2) g/dL Albumin 3.1 L (3.4-5.0) g/dL Globulin 5.0 H (2.6-4.0) g/dL Albumin/Globulin Ratio 0.6 L (0.9-1.6) Lipase 147 (73-393) U/L Urine Color YELLOW Urine Appearance CLEAR Urine pH 5.0 (5.0-8.0) Ur Specific [place] 1.015 (1.001-1.035) Urine Protein NEGATIVE (NEGATIVE) mg/dL Urine Glucose (UA) NEGATIVE (NEGATIVE) mg/dL Urine Ketones NEGATIVE (NEGATIVE) mg/dL Urine Occult Blood NEGATIVE (NEGATIVE) Urine Nitrite NEGATIVE (NEGATIVE) Urine Bilirubin NEGATIVE (NEGATIVE) Urine Urobilinogen 0.2 (<2.0) EU/dL Ur Leukocyte Esterase NEGATIVE (NEGATIVE) SARS-CoV-2 RNA (YONNY) (NEGATIVE) 01/18/21 01/18/21 01/18/21 Range/Units 01:25 01:27 01:42 WBC (4.0-11.0) K/uL RBC (4.50-5.90) M/uL Hgb (13.0-17.0) g/dL Hct (38.0-50.0) % MCV (80.0-98.0) fL MCH (27.0-32.0) pg MCHC (31.0-37.0) g/dL RDW Std Deviation (28.0-62.0) fl RDW Coeff of Rhea (11.0-15.0) % Plt Count (150-400) K/uL MPV (7.40-12.00) fL Add Manual Diff Neutrophils % (Manual) (48.0-80.0) % Lymphocytes % (Manual) (16.0-40.0) % Monocytes % (Manual) (0.0-15.0) % Nucleated RBC % /100WBC Absolute Seg Neuts (1.4-5.7) Lymphocytes # (Manual) (0.6-2.4) Monocytes # (Manual) (0.0-0.8) Nucleated RBCs # K/uL Sodium (136-148) mmol/L Potassium (3.5-5.1) mmol/L Chloride (98-107) mmol/L Carbon Dioxide (21.0-32.0) mmol/L BUN (7.0-18.0) mg/dL Creatinine (0.8-1.3) mg/dL Est Cr Clr Drug Dosing mL/min Estimated GFR (MDRD) ml/min Glucose (74-106) mg/dL POC Glucose 100 (60-110) mg/dL Calcium (8.5-10.1) mg/dL Total Bilirubin (0.2-1.0) mg/dL AST (15-37) IU/L ALT (14-63) IU/L Alkaline Phosphatase (46-116) U/L Troponin I < 0.050 (0.000-0.056) ng/mL B-Natriuretic Peptide (<100) PG/ML Total Protein (6.4-8.2) g/dL Albumin (3.4-5.0) g/dL Globulin (2.6-4.0) g/dL Albumin/Globulin Ratio (0.9-1.6) Lipase (73-393) U/L Urine Color Urine Appearance Urine pH (5.0-8.0) Ur Specific [place] (1.001-1.035) Urine Protein (NEGATIVE) mg/dL Urine Glucose (UA) (NEGATIVE) mg/dL Urine Ketones (NEGATIVE) mg/dL Urine Occult Blood (NEGATIVE) Urine Nitrite (NEGATIVE) Urine Bilirubin (NEGATIVE) Urine Urobilinogen (<2.0) EU/dL Ur Leukocyte Esterase (NEGATIVE) SARS-CoV-2 RNA (YONNY) NEGATIVE (NEGATIVE) 01/18/21 Range/Units 01:42 WBC (4.0-11.0) K/uL RBC (4.50-5.90) M/uL Hgb (13.0-17.0) g/dL Hct (38.0-50.0) % MCV (80.0-98.0) fL MCH (27.0-32.0) pg MCHC (31.0-37.0) g/dL RDW Std Deviation (28.0-62.0) fl RDW Coeff of Rhea (11.0-15.0) % Plt Count (150-400) K/uL MPV (7.40-12.00) fL Add Manual Diff Neutrophils % (Manual) (48.0-80.0) % Lymphocytes % (Manual) (16.0-40.0) % Monocytes % (Manual) (0.0-15.0) % Nucleated RBC % /100WBC Absolute Seg Neuts (1.4-5.7) Lymphocytes # (Manual) (0.6-2.4) Monocytes # (Manual) (0.0-0.8) Nucleated RBCs # K/uL Sodium (136-148) mmol/L Potassium (3.5-5.1) mmol/L Chloride (98-107) mmol/L Carbon Dioxide (21.0-32.0) mmol/L BUN (7.0-18.0) mg/dL Creatinine (0.8-1.3) mg/dL Est Cr Clr Drug Dosing mL/min Estimated GFR (MDRD) ml/min Glucose (74-106) mg/dL POC Glucose (60-110) mg/dL Calcium (8.5-10.1) mg/dL Total Bilirubin (0.2-1.0) mg/dL AST (15-37) IU/L ALT (14-63) IU/L Alkaline Phosphatase (46-116) U/L Troponin I (0.000-0.056) ng/mL B-Natriuretic Peptide 59 (<100) PG/ML Total Protein (6.4-8.2) g/dL Albumin (3.4-5.0) g/dL Globulin (2.6-4.0) g/dL Albumin/Globulin Ratio (0.9-1.6) Lipase (73-393) U/L Urine Color Urine Appearance Urine pH (5.0-8.0) Ur Specific [place] (1.001-1.035) Urine Protein (NEGATIVE) mg/dL Urine Glucose (UA) (NEGATIVE) mg/dL Urine Ketones (NEGATIVE) mg/dL Urine Occult Blood (NEGATIVE) Urine Nitrite (NEGATIVE) Urine Bilirubin (NEGATIVE) Urine Urobilinogen (<2.0) EU/dL Ur Leukocyte Esterase (NEGATIVE) SARS-CoV-2 RNA (YONNY) (NEGATIVE) Meds: Medications Generic Name Dose Route Start Last Admin Trade Name Freq PRN Reason Stop Dose Admin Acetaminophen 650 mg 01/18/21 04:45 01/18/21 19:43 Tylenol PO 650 mg Q6H PRN Administration Pain Albuterol/Ipratropium 3 ml 01/18/21 09:45 Duoneb 3.0-0.5 Mg/3 Ml NEB Q4HRRT PRN SOB/wheezing Bismuth Subsalicylate 30 ml 01/18/21 20:46 01/19/21 15:56 Pepto Bismol PO 30 ml Q4H PRN Administration Indigestion, Abdominal Pain Dextrose/Water 50 ml 01/18/21 09:43 Dextrose 50% In Water IV ASDIRECTED PRN Hypoglycemia Enoxaparin Sodium 40 mg 01/19/21 11:30 01/19/21 12:22 Enoxaparin 40 Mg/0.4 Ml Syringe SUBCUT 40 mg Q24H [facility] Administration Glucagon 1 mg 01/18/21 09:43 Glucagen IM ASDIRECTED PRN Hypoglycemia Insulin Aspart 0 unit 01/18/21 11:30 01/20/21 08:28 Novolog SUBCUT Not Given TIDAC [facility] Protocol Insulin Glargine 60 units 01/18/21 21:00 01/18/21 23:16 Lantus Solostar SUBCUT 40 units BEDTIME [facility] Administration Metoprolol Tartrate 50 mg 01/18/21 09:00 01/20/21 09:28 Metoprolol Tartrate 50 Mg Tab PO 50 mg BID [facility] Administration Omeprazole 20 mg 01/19/21 07:30 01/19/21 08:14 Omeprazole 20 Mg Cap.Cr PO 20 mg ACBREAKFAST [facility] Administration Methocarbamol 500 Mg 1 each 01/18/21 21:00 PO BEDTIME PRN Muscle Spasm Polyethylene Glycol 17 gm 01/18/21 21:00 01/19/21 21:34 Miralax PO 17 gm BEDTIME [facility] Administration Potassium Chloride 10 meq 01/18/21 21:00 01/19/21 21:34 Klor-Con 10 PO 10 meq BEDTIME [facility] Administration Sodium Chloride 10 ml 01/17/21 20:04 Saline Flush FLUSH ASDIRECTED PRN Keep Vein Open Sodium Chloride 2.5 ml 01/17/21 20:04 Saline Flush FLUSH ASDIRECTED PRN Keep Vein Open Torsemide 20 mg 01/18/21 08:00 01/18/21 10:49 Demadex PO 20 mg TID PRN Administration Edema Discontinued Medications Generic Name Dose Route Start Last Admin Trade Name Freq PRN Reason Stop Dose Admin Aspirin 81 mg 01/18/21 21:00 01/18/21 22:03 Aspirin 81 Mg Tab.Chew PO 81 mg BID [facility] Administration Calcium Carbonate/Glycine 1,000 mg 01/18/21 21:00 01/18/21 22:08 Tums PO 01/18/21 21:01 1,000 mg ONETIME ONE Administration Enoxaparin Sodium 30 mg 01/18/21 08:00 Lovenox SUBCUT Q24H [facility] Sodium Chloride 1,000 mls @ 100 mls/hr 01/17/21 21:09 01/17/21 23:05 Normal Saline IV 01/18/21 07:08 999 mls/hr STAT ONE Infusion Magnesium Sulfate 2 gm in 50 mls @ 50 mls/hr 01/18/21 08:02 01/18/21 08:29 Magnesium Sulfate In Water 2 Gm/50 Ml IV 01/18/21 09:01 50 mls/hr ONETIME ONE Administration Sodium Chloride 1,000 mls @ 999 mls/hr 01/18/21 11:49 01/18/21 12:15 Normal Saline IV 01/18/21 12:49 999 mls/hr .Bolus ONE Administration Iopamidol 50 ml 01/17/21 23:56 01/17/21 23:57 Isovue-300 (61%) IVPUSH 01/17/21 23:57 50 ml ONETIME STA Administration Morphine Sulfate 4 mg 01/18/21 02:11 01/18/21 03:28 Morphine IVPUSH 01/18/21 02:12 Not Given ONETIME ONE Ondansetron HCl 4 mg 01/18/21 18:57 01/18/21 19:43 Zofran IVPUSH 01/18/21 18:58 4 mg ONETIME ONE Administration Potassium Chloride 40 meq 01/18/21 08:04 01/18/21 08:29 Klor-Con M20 PO 01/18/21 08:05 40 meq ONETIME ONE Administration Potassium Chloride 40 meq 01/19/21 08:06 01/19/21 08:19 Potassium Chloride 20 Meq Tab.Er PO 01/19/21 08:07 40 meq ONETIME ONE Administration
[2021-01-17] MEDS ORDERED: Sodium Chloride 0.9% 1,000 ML IV ONE (21:09)
[2021-01-17 21:27] LABS: CARBON DIOXIDE,CO2 29.9 mmol/L (21.0-32.0); POTASSIUM,K 3.6 mmol/L (3.5-5.1)
[2021-01-17] MEDS ORDERED: Iopamidol 612 MG/ML 50 ML SDV IVPUSH STA (23:56)
--- NOTE | 2021-01-18 01:04 | CT ---
INDICATION: Left-sided abdominal pain. CT ABDOMEN AND PELVIS WITH CONTRAST TECHNIQUE: Multidetector CT imaging was performed through the abdomen and pelvis following intravenous contrast administration using 50 mL Isovue 300. Coronal and sagittal reconstructions were generated. COMPARISON: None. FINDINGS: Lower chest: Small left pleural effusion. Atelectasis and/or infiltrate in the left lung base, most pronounced in the left lower lobe. Pneumonia is not excluded. Liver: Unremarkable aside from a small cyst in the anterior liver on image 37 of series 201. Gallbladder and bile ducts: No gallbladder wall thickening or calcified gallstones. No biliary dilation identified. Pancreas: Unremarkable. Spleen: Borderline splenic enlargement. Adrenals: No nodules or masses. Kidneys, ureters, and urinary bladder: No renal masses or hydronephrosis. No bladder mass or definite wall thickening. Gastrointestinal tract: Postoperative changes involving the proximal stomach. Normal caliber bowel without wall thickening. The appendix is normal. Abdominal wall: Wide-mouthed epigastric ventral hernia to the right of midline containing small bowel without strangulation or obstruction. Small umbilical hernia containing fat and a small amount of fluid. Vascular structures: Normal caliber abdominal aorta with mild atherosclerotic calcifications. Peritoneum: No free air, abscess, or significant free fluid. Lymph nodes: No pathologically enlarged nodes identified. Reproductive organs: Mild prostatomegaly. Bones: Advanced multilevel spondylosis. Bilateral hip prostheses. IMPRESSION: 1. No acute abnormality identified. No cause for the patient`s symptoms is demonstrated. 2. Nonacute findings as detailed above. VASILE THORNTON MD [employer] Dictated by Martínez Thornton MD @ 01/18/2021 1:01:36 AM Dictated by: Martínez Thornton MD @ 01/18/2021 01:02:59 (Electronically Signed)
[2021-01-18] MEDS ORDERED: Morphine 4 MG/ML Syringe IVPUSH ONE (02:11)
[2021-01-18 06:46] LABS: CARBON DIOXIDE,CO2 26.7 mmol/L (21.0-32.0)
[2021-01-18] MEDS ORDERED: PRAVASTATIN SODIUM 5 MG PO SCH (08:00)
[2021-01-18] MEDS ORDERED: Enoxaparin 30 MG/0.3 ML Syringe SUBCUT SCH (08:00)
[2021-01-18] MEDS ORDERED: Torsemide 20 MG Tab PO PRN (08:00)
[2021-01-18] MEDS ORDERED: Magnesium Sulfate/Water 2 GM/50 ML BAG IV ONE (08:02)
[2021-01-18] MEDS ORDERED: Potassium Chloride 20 MEQ Tab.ER PO ONE (08:04)
--- NOTE | 2021-01-18 08:06 | PCM.HP.2 ---
<Cuca Goodt - Last Filed: 01/18/21 21:02> H&P History of Present Illness - General Date of Service: 01/18/21 Admit Problem/Dx: Admission Diagnosis/Problem Admission Diagnosis/Problem Debility - History of Present Illness Initial Comments - Free Text/Narative: 70-year-old male with past medical history of diabetes, hypertension, CKD, COPD, right upper quadrant hernia admitted for left lower abdominal pain, generalized fatigue for 1 week. Prior to admission patient attempted to treat the pain with some leftover oxycodone which did not resolve symptoms. Patient has a past medical history of type 2 diabetes, hypertension, CKD, and COPD. Patient states that all the symptoms started after he received a second Covid vaccination which was on January 11. Patient states prior to Covid vaccinations he had no symptoms. Examination patient denied fever, chills, nausea, vomiting, chest pain, shortness of breath. Still has left lower quadrant abdominal pain which has improved since presentation in the ED. patient states he has been eating and drinking normally and has no recent changes to medications. CT abdomen/pelvis was negative, troponin negative, ALT 28, AST 17, alk phos 45, BNP 59, UA negative. Potassium low at 3.0, magnesium low 1.5, creatinine elevated 1.7, platelet low at 88. Potassium magnesium replaced, fluids given for elevated creatinine, CBC monitored for any further changes in hemoglobin or platelet counts. Left Upper Abdomen Pain Score (Numeric/FACES): 5 - Related Data Allergies/Adverse Reactions: Allergies Allergy/AdvReac Type Severity Reaction Status Date / Time colestipol Allergy Other Verified 01/17/21 20:17 fluvastatin Allergy Other Verified 01/17/21 20:17 ibuprofen Allergy Other Verified 01/17/21 20:17 lovastatin Allergy Other Verified 01/17/21 20:17 simvastatin Allergy Other Verified 01/17/21 20:17 Home Medications: Home Meds Insulin Glargine,Hum.Rec.Anlog [Lantus Solostar] 30 unit SQ BEDTIME 02/20/16 [History] Metoprolol Tartrate [Lopressor] 50 mg PO BID 12/07/17 [History] Potassium Chloride [Klor-Con 10] 10 meq PO DAILY 12/07/17 [History] calcitrioL [Calcitriol] 0.25 mcg PO MOWEFR@0900 12/07/17 [History] Aspirin 81 mg PO BID 01/16/19 [History] Torsemide 20 - 40 mg PO DAILY 01/16/19 [History] Pravastatin Sodium 5 mg PO Q2D 01/06/20 [History] Diclofenac Sodium [Voltaren 1% Gel] 4 gm TOP QID PRN 01/19/21 [History] Ezetimibe [Zetia] 10 mg PO DAILY 01/19/21 [History] Gabapentin [Neurontin] 800 mg PO BEDTIME 01/19/21 [History] Pantoprazole [ProTONIX] 40 mg PO DAILY 01/19/21 [History] Semaglutide [Ozempic] 0.5 mg SQ WEEKLY 01/19/21 [History] Past Medical History HEENT History: Reports: None, Impaired Vision Cardiovascular History: Reports: High Cholesterol, Hypertension Respiratory History: Reports: COPD, Sleep Apnea Gastrointestinal History: Reports: None Genitourinary History: Reports: Renal Disease Other Genitourinary History: Renal insufficiency Musculoskeletal History: Reports: Arthritis Neurological History: Reports: Neuropathy, Diabetic Psychiatric History: Reports: None Endocrine/Metabolic History: Reports: Diabetes, Type II, Obesity/BMI 30+ Hematologic History: Reports: None Immunologic History: Reports: None Oncologic (Cancer) History: Reports: None Dermatologic History: Reports: Cellulitis - Infectious Disease History Infectious Disease History: Reports: Chicken Pox, Measles, Mumps - Past Surgical History Head Surgeries/Procedures: Reports: None HEENT Surgical History: Reports: None Cardiovascular Surgical History: Reports: None Respiratory Surgical History: Reports: None GI Surgical History: Reports: None Male Surgical History: Reports: None Neurological Surgical History: Reports: None Musculoskeletal Surgical History: Reports: Carpal Tunnel, Hip Replacement Oncologic Surgical History: Reports: None Dermatological Surgical History: Reports: None Social & Family History - Family History Family Medical History: No Pertinent Family History - Tobacco Use Tobacco Use Status *Q: Never Tobacco User - Caffeine Use Caffeine Use: Reports: None - Recreational Drug Use Recreational Drug Use: No H&P Review of Systems - Review of Systems: Review Of Systems: See Below General: Denies: Fever, Chills Cardiovascular: Denies: Chest Pain, Palpitations Gastrointestinal: Reports: Abdominal Pain, Nausea. Denies: Vomiting Neurological: Denies: Confusion, Dizziness Exam - Exam Exam: See Below - Vital Signs Vital Signs: Last Vital Signs Temp 98.6 F 01/18/21 04:00 Pulse 85 01/18/21 04:00 Resp 18 01/18/21 04:00 BP 162/73 H 01/18/21 04:00 Pulse Ox 96 01/18/21 04:43 Weight: 125.01 kg - Exam Quality Assessment: No: Supplemental Oxygen General: Alert, Oriented Lungs: Clear to Auscultation, Normal Respiratory Effort Cardiovascular: Regular Rate GI/Abdominal Exam: Normal Bowel Sounds, Soft Psychiatric: Alert - Patient Data Lab Results Last 24 hrs: Laboratory Results - last 24 hr 01/17/21 01/17/21 01/17/21 Range/Units 21:00 21:00 21:50 WBC 6.30 (4.0-11.0) K/uL RBC 4.77 (4.50-5.90) M/uL Hgb 13.0 (13.0-17.0) g/dL Hct 38.2 (38.0-50.0) % MCV 80.1 (80.0-98.0) fL MCH 27.3 (27.0-32.0) pg MCHC 34.0 (31.0-37.0) g/dL RDW Std Deviation 42.0 (28.0-62.0) fl RDW Coeff of Rhea 14 (11.0-15.0) % Plt Count 105 L (150-400) K/uL MPV 11.40 (7.40-12.00) fL Add Manual Diff YES Neutrophils % (Manual) 50 (48.0-80.0) % Lymphocytes % (Manual) 30 (16.0-40.0) % Monocytes % (Manual) 20 H (0.0-15.0) % Nucleated RBC % 0.0 /100WBC Absolute Seg Neuts 3.2 (1.4-5.7) Lymphocytes # (Manual) 1.9 (0.6-2.4) Monocytes # (Manual) 1.3 H (0.0-0.8) Nucleated RBCs # 0 K/uL Sodium 139 (136-148) mmol/L Potassium 3.6 (3.5-5.1) mmol/L Chloride 102 (98-107) mmol/L Carbon Dioxide 29.9 (21.0-32.0) mmol/L BUN 30 H (7.0-18.0) mg/dL Creatinine 1.8 H (0.8-1.3) mg/dL Est Cr Clr Drug Dosing 38.30 mL/min Estimated GFR (MDRD) 37.3 ml/min Glucose 138 H (74-106) mg/dL POC Glucose (60-110) mg/dL Calcium 9.5 (8.5-10.1) mg/dL Phosphorus (2.6-4.7) mg/dL Magnesium (1.8-2.4) mg/dL Total Bilirubin 0.8 (0.2-1.0) mg/dL AST 22 (15-37) IU/L ALT 45 (14-63) IU/L Alkaline Phosphatase 50 (46-116) U/L Creatine Kinase (26-308) U/L Troponin I (0.000-0.056) ng/mL B-Natriuretic Peptide (<100) PG/ML Total Protein 8.1 (6.4-8.2) g/dL Albumin 3.1 L (3.4-5.0) g/dL Globulin 5.0 H (2.6-4.0) g/dL Albumin/Globulin Ratio 0.6 L (0.9-1.6) Lipase 147 (73-393) U/L Urine Color YELLOW Urine Appearance CLEAR Urine pH 5.0 (5.0-8.0) Ur Specific [place] 1.015 (1.001-1.035) Urine Protein NEGATIVE (NEGATIVE) mg/dL Urine Glucose (UA) NEGATIVE (NEGATIVE) mg/dL Urine Ketones NEGATIVE (NEGATIVE) mg/dL Urine Occult Blood NEGATIVE (NEGATIVE) Urine Nitrite NEGATIVE (NEGATIVE) Urine Bilirubin NEGATIVE (NEGATIVE) Urine Urobilinogen 0.2 (<2.0) EU/dL Ur Leukocyte Esterase NEGATIVE (NEGATIVE) SARS-CoV-2 RNA (YONNY) (NEGATIVE) 01/18/21 01/18/21 01/18/21 Range/Units 01:25 01:27 01:42 WBC (4.0-11.0) K/uL RBC (4.50-5.90) M/uL Hgb (13.0-17.0) g/dL Hct (38.0-50.0) % MCV (80.0-98.0) fL MCH (27.0-32.0) pg MCHC (31.0-37.0) g/dL RDW Std Deviation (28.0-62.0) fl RDW Coeff of Rhea (11.0-15.0) % Plt Count (150-400) K/uL MPV (7.40-12.00) fL Add Manual Diff Neutrophils % (Manual) (48.0-80.0) % Lymphocytes % (Manual) (16.0-40.0) % Monocytes % (Manual) (0.0-15.0) % Nucleated RBC % /100WBC Absolute Seg Neuts (1.4-5.7) Lymphocytes # (Manual) (0.6-2.4) Monocytes # (Manual) (0.0-0.8) Nucleated RBCs # K/uL Sodium (136-148) mmol/L Potassium (3.5-5.1) mmol/L Chloride (98-107) mmol/L Carbon Dioxide (21.0-32.0) mmol/L BUN (7.0-18.0) mg/dL Creatinine (0.8-1.3) mg/dL Est Cr Clr Drug Dosing mL/min Estimated GFR (MDRD) ml/min Glucose (74-106) mg/dL POC Glucose 100 (60-110) mg/dL Calcium (8.5-10.1) mg/dL Phosphorus (2.6-4.7) mg/dL Magnesium (1.8-2.4) mg/dL Total Bilirubin (0.2-1.0) mg/dL AST (15-37) IU/L ALT (14-63) IU/L Alkaline Phosphatase (46-116) U/L Creatine Kinase (26-308) U/L Troponin I < 0.050 (0.000-0.056) ng/mL B-Natriuretic Peptide (<100) PG/ML Total Protein (6.4-8.2) g/dL Albumin (3.4-5.0) g/dL Globulin (2.6-4.0) g/dL Albumin/Globulin Ratio (0.9-1.6) Lipase (73-393) U/L Urine Color Urine Appearance Urine pH (5.0-8.0) Ur Specific [place] (1.001-1.035) Urine Protein (NEGATIVE) mg/dL Urine Glucose (UA) (NEGATIVE) mg/dL Urine Ketones (NEGATIVE) mg/dL Urine Occult Blood (NEGATIVE) Urine Nitrite (NEGATIVE) Urine Bilirubin (NEGATIVE) Urine Urobilinogen (<2.0) EU/dL Ur Leukocyte Esterase (NEGATIVE) SARS-CoV-2 RNA (YONNY) NEGATIVE (NEGATIVE) 01/18/21 01/18/21 01/18/21 Range/Units 01:42 06:05 06:05 WBC 5.98 (4.0-11.0) K/uL RBC 4.34 L (4.50-5.90) M/uL Hgb 11.5 L (13.0-17.0) g/dL Hct 34.8 L (38.0-50.0) % MCV 80.2 (80.0-98.0) fL MCH 26.5 L (27.0-32.0) pg MCHC 33.0 (31.0-37.0) g/dL RDW Std Deviation 42.4 (28.0-62.0) fl RDW Coeff of Rhea 14 (11.0-15.0) % Plt Count 88 L (150-400) K/uL MPV 10.60 (7.40-12.00) fL Add Manual Diff YES Neutrophils % (Manual) 40 L (48.0-80.0) % Lymphocytes % (Manual) 26 (16.0-40.0) % Monocytes % (Manual) 34 H (0.0-15.0) % Nucleated RBC % 0.0 /100WBC Absolute Seg Neuts 2.4 (1.4-5.7) Lymphocytes # (Manual) 1.6 (0.6-2.4) Monocytes # (Manual) 2.0 H (0.0-0.8) Nucleated RBCs # 0 K/uL Sodium 140 (136-148) mmol/L Potassium 3.0 L (3.5-5.1) mmol/L Chloride 104 (98-107) mmol/L Carbon Dioxide 26.7 (21.0-32.0) mmol/L BUN 29 H (7.0-18.0) mg/dL Creatinine 1.7 H (0.8-1.3) mg/dL Est Cr Clr Drug Dosing 40.56 mL/min Estimated GFR (MDRD) 39.8 ml/min Glucose 125 H (74-106) mg/dL POC Glucose (60-110) mg/dL Calcium 8.9 (8.5-10.1) mg/dL Phosphorus 3.6 (2.6-4.7) mg/dL Magnesium 1.5 L (1.8-2.4) mg/dL Total Bilirubin 0.8 (0.2-1.0) mg/dL AST 17 (15-37) IU/L ALT 28 (14-63) IU/L Alkaline Phosphatase 45 L (46-116) U/L Creatine Kinase 53 (26-308) U/L Troponin I (0.000-0.056) ng/mL B-Natriuretic Peptide 59 (<100) PG/ML Total Protein 6.9 (6.4-8.2) g/dL Albumin 2.5 L (3.4-5.0) g/dL Globulin 4.4 H (2.6-4.0) g/dL Albumin/Globulin Ratio 0.6 L (0.9-1.6) Lipase (73-393) U/L Urine Color Urine Appearance Urine pH (5.0-8.0) Ur Specific [place] (1.001-1.035) Urine Protein (NEGATIVE) mg/dL Urine Glucose (UA) (NEGATIVE) mg/dL Urine Ketones (NEGATIVE) mg/dL Urine Occult Blood (NEGATIVE) Urine Nitrite (NEGATIVE) Urine Bilirubin (NEGATIVE) Urine Urobilinogen (<2.0) EU/dL Ur Leukocyte Esterase (NEGATIVE) SARS-CoV-2 RNA (YNONY) (NEGATIVE) 01/18/21 Range/Units 06:16 WBC (4.0-11.0) K/uL RBC (4.50-5.90) M/uL Hgb (13.0-17.0) g/dL Hct (38.0-50.0) % MCV (80.0-98.0) fL MCH (27.0-32.0) pg MCHC (31.0-37.0) g/dL RDW Std Deviation (28.0-62.0) fl RDW Coeff of Rhea (11.0-15.0) % Plt Count (150-400) K/uL MPV (7.40-12.00) fL Add Manual Diff Neutrophils % (Manual) (48.0-80.0) % Lymphocytes % (Manual) (16.0-40.0) % Monocytes % (Manual) (0.0-15.0) % Nucleated RBC % /100WBC Absolute Seg Neuts (1.4-5.7) Lymphocytes # (Manual) (0.6-2.4) Monocytes # (Manual) (0.0-0.8) Nucleated RBCs # K/uL Sodium (136-148) mmol/L Potassium (3.5-5.1) mmol/L Chloride (98-107) mmol/L Carbon Dioxide (21.0-32.0) mmol/L BUN (7.0-18.0) mg/dL Creatinine (0.8-1.3) mg/dL Est Cr Clr Drug Dosing mL/min Estimated GFR (MDRD) ml/min Glucose (74-106) mg/dL POC Glucose 124 H (60-110) mg/dL Calcium (8.5-10.1) mg/dL Phosphorus (2.6-4.7) mg/dL Magnesium (1.8-2.4) mg/dL Total Bilirubin (0.2-1.0) mg/dL AST (15-37) IU/L ALT (14-63) IU/L Alkaline Phosphatase (46-116) U/L Creatine Kinase (26-308) U/L Troponin I (0.000-0.056) ng/mL B-Natriuretic Peptide (<100) PG/ML Total Protein (6.4-8.2) g/dL Albumin (3.4-5.0) g/dL Globulin (2.6-4.0) g/dL Albumin/Globulin Ratio (0.9-1.6) Lipase (73-393) U/L Urine Color Urine Appearance Urine pH (5.0-8.0) Ur Specific [place] (1.001-1.035) Urine Protein (NEGATIVE) mg/dL Urine Glucose (UA) (NEGATIVE) mg/dL Urine Ketones (NEGATIVE) mg/dL Urine Occult Blood (NEGATIVE) Urine Nitrite (NEGATIVE) Urine Bilirubin (NEGATIVE) Urine Urobilinogen (<2.0) EU/dL Ur Leukocyte Esterase (NEGATIVE) SARS-CoV-2 RNA (YONNY) (NEGATIVE) Result Diagrams: 01/18/21 06:05 01/18/21 06:05 Sepsis Event Note - Evaluation Sepsis Screening Result: No Definite Risk - Focused Exam Vital Signs: Vital Signs Temp Pulse Resp BP Pulse Ox Pulse Ox 01/18/21 04:43 96 01/18/21 04:00 98.6 F 85 18 162/73 H 96 01/18/21 03:25 98.3 F 82 18 129/58 L 98 01/18/21 02:00 81 18 123/63 96 01/18/21 00:30 98.7 F 84 18 121/48 L 96 01/17/21 23:00 89 18 116/50 L 97 01/17/21 20:17 98 F 91 20 129/60 96 - Problem List (1) Weakness generalized SNOMED Code(s): 37468397 ICD Code: R53.1 - WEAKNESS Status: Acute Current Visit: Yes (2) Hypertension SNOMED Code(s): 34316440 ICD Code: I10 - ESSENTIAL (PRIMARY) HYPERTENSION Status: Acute Current Visit: Yes (3) Abdominal pain SNOMED Code(s): 58746484 ICD Code: R10.9 - UNSPECIFIED ABDOMINAL PAIN Status: Acute Current Visit: Yes Problem List Initiated/Reviewed/Updated: Yes Orders Last 24hrs: Active Orders 24 hr Category Date Time Status Admission Status [Patient Status] [ADT] Stat ADT 01/18/21 02:51 Active Antiembolic Devices [RC] PER UNIT ROUTINE Care 01/18/21 04:44 Active Blood Glucose Check, Bedside [RC] TIDAC Care 01/18/21 06:00 Active EKG 12 Lead [EKG Documentation Completion] [RC] STAT Care 01/18/21 01:30 Active EKG Documentation Completion [RC] STAT Care 01/17/21 20:30 Active Oxygen Therapy Adult [Oxygen Therapy] [RC] ASDIRECTED Care 01/18/21 04:43 Active Vital Signs [RC] Q4H Care 01/18/21 08:00 Active PT Evaluation and Treatment [CONS] Routine Cons 01/18/21 04:45 Active Heart Healthy Diet [DIET] Diet 01/18/21 Breakfast Active Acetaminophen [TylenoL] Med 01/18/21 04:45 Active 650 mg PO Q6H PRN Magnesium Sulfate 2 GM ONETIME Med 01/18/21 08:02 Ordered Magnesium Sulfate/Water [Magnesium Sulfate in Water 2 GM/50 ML] 2 gm in 50 ml IV ONETIME Methocarbamol Med 01/18/21 08:00 Ordered 500 mg PO BEDTIME PRN Metoprolol Tartrate [Lopressor] Med 01/18/21 09:00 Ordered 50 mg PO BID Potassium Chloride [Klor-Con 10] Med 01/18/21 09:00 Ordered 10 meq PO DAILY Potassium Chloride [Klor-Con M20] Med 01/18/21 08:04 Once 40 meq PO ONETIME ONE Pravastatin Sodium [Pravastatin Sodium] Med 01/18/21 08:00 Ordered 5 mg PO ASDIRECTED Sodium Chloride 0.9% [Saline Flush] Med 01/17/21 20:04 Active 10 ml FLUSH ASDIRECTED PRN Sodium Chloride 0.9% [Saline Flush] Med 01/17/21 20:04 Active 2.5 ml FLUSH ASDIRECTED PRN Torsemide [Demadex] Med 01/18/21 08:00 Ordered 20 mg PO TID PRN Saline Lock Insert [OM.PC] Stat Oth 01/17/21 20:04 Ordered Sequential Compression Device [OM.PC] Routine Oth 01/18/21 04:44 Ordered Medication Orders Acetaminophen (Tylenol) 650 mg PO Q6H PRN PRN Reason: Pain Magnesium Sulfate (Magnesium Sulfate In Water 2 Gm/50 Ml) 2 gm in 50 mls @ 50 mls/hr IV ONETIME ONE Stop: 01/18/21 09:01 Metoprolol Tartrate (Lopressor) 50 mg PO BID LULU Non-Formulary Medication (Methocarbamol) 500 mg PO BEDTIME PRN PRN Reason: Muscle Spasm Non-Formulary Medication (Pravastatin Sodium [Pravastatin Sodium]) 5 mg PO ASDIRECTED LULU Potassium Chloride (Klor-Con 10) 10 meq PO DAILY LULU Potassium Chloride (Klor-Con M20) 40 meq PO ONETIME ONE Stop: 01/18/21 08:05 Sodium Chloride (Saline Flush) 10 ml FLUSH ASDIRECTED PRN PRN Reason: Keep Vein Open Sodium Chloride (Saline Flush) 2.5 ml FLUSH ASDIRECTED PRN PRN Reason: Keep Vein Open Torsemide (Demadex) 20 mg PO TID PRN PRN Reason: Edema Assessment/Plan Comment:: Abdominal pain CT abdomen pelvis was negative, liver enzymes normal limit, negative troponin, UA negative, BNP 59. Will monitor patient for any increasing signs of abdominal pain. Patient does state that this morning his abdominal pa in is better than when on admission. Patient also started on 20 mg omeprazole, Pepto-Bismol as needed, as patient states history of heartburn, indigestion, bloating. MiraLAX scheduled nightly as patient has not had a bowel movement in over 3 days. Generalized weakness PT evaluation (patient able to walk comfortably with the assistance of a walker, PT will continue working with patient for ambulation and strengthening.) Patient weakness may also be secondary to mild dehydration and/or electrolyte depletion. IV fluids given, potassium and magnesium replaced. Heart healthy diet, antiembolic devices. <Osiel Treviño - Last Filed: 01/20/21 13:14> H&P History of Present Illness - General Admit Problem/Dx: Admission Diagnosis/Problem Admission Diagnosis/Problem Debility Exam - Vital Signs Vital Signs: Last Vital Signs Temp 36.3 C 01/20/21 11:08 Pulse 76 01/20/21 11:08 Resp 18 01/20/21 11:08 BP 143/71 H 01/20/21 11:08 Pulse Ox 97 01/20/21 11:08 - Patient Data Lab Results Last 24 hrs: Laboratory Results - last 24 hr 01/19/21 01/19/21 01/20/21 Range/Units 17:07 21:30 04:44 WBC 5.74 (4.0-11.0) K/uL RBC 3.82 L (4.50-5.90) M/uL Hgb 10.3 L (13.0-17.0) g/dL Hct 30.7 L (38.0-50.0) % MCV 80.4 (80.0-98.0) fL MCH 27.0 (27.0-32.0) pg MCHC 33.6 (31.0-37.0) g/dL RDW Std Deviation 42.4 (28.0-62.0) fl RDW Coeff of Rhea 14 (11.0-15.0) % Plt Count 144 L (150-400) K/uL MPV 10.70 (7.40-12.00) fL Neut % (Auto) 48.6 (48.0-80.0) % Lymph % (Auto) 26.7 (16.0-40.0) % [place] % (Auto) 24.2 H (0.0-15.0) % Eos % (Auto) 0.3 (0.0-7.0) % Baso % (Auto) 0.2 (0.0-1.5) % Neut # (Auto) 2.8 (1.4-5.7) K/uL Lymph # (Auto) 1.5 (0.6-2.4) K/uL [place] # (Auto) 1.4 H (0.0-0.8) K/uL Eos # (Auto) 0.0 (0.0-0.7) K/uL Baso # (Auto) 0.0 (0.0-0.1) K/uL Nucleated RBC % 0.0 /100WBC Nucleated RBCs # 0 K/uL Smear Path Review Sodium (136-148) mmol/L Potassium (3.5-5.1) mmol/L Chloride (98-107) mmol/L Carbon Dioxide (21.0-32.0) mmol/L BUN (7.0-18.0) mg/dL Creatinine (0.8-1.3) mg/dL Est Cr Clr Drug Dosing mL/min Estimated GFR (MDRD) ml/min Glucose (74-106) mg/dL POC Glucose 94 143 H (60-110) mg/dL Calcium (8.5-10.1) mg/dL Magnesium (1.8-2.4) mg/dL Iron (50-175) ug/dL TIBC (250-450) ug/dL % Saturation (20-55) % Transferrin Ferritin (26-388) ng/mL 01/20/21 01/20/21 01/20/21 Range/Units 04:44 04:44 06:18 WBC (4.0-11.0) K/uL RBC (4.50-5.90) M/uL Hgb (13.0-17.0) g/dL Hct (38.0-50.0) % MCV (80.0-98.0) fL MCH (27.0-32.0) pg MCHC (31.0-37.0) g/dL RDW Std Deviation (28.0-62.0) fl RDW Coeff of Rhea (11.0-15.0) % Plt Count (150-400) K/uL MPV (7.40-12.00) fL Neut % (Auto) (48.0-80.0) % Lymph % (Auto) (16.0-40.0) % [place] % (Auto) (0.0-15.0) % Eos % (Auto) (0.0-7.0) % Baso % (Auto) (0.0-1.5) % Neut # (Auto) (1.4-5.7) K/uL Lymph # (Auto) (0.6-2.4) K/uL [place] # (Auto) (0.0-0.8) K/uL Eos # (Auto) (0.0-0.7) K/uL Baso # (Auto) (0.0-0.1) K/uL Nucleated RBC % /100WBC Nucleated RBCs # K/uL Smear Path Review SENT TO PATHOLOGY Sodium 137 (136-148) mmol/L Potassium 3.1 L (3.5-5.1) mmol/L Chloride 103 (98-107) mmol/L Carbon Dioxide 26.5 (21.0-32.0) mmol/L BUN 24 H (7.0-18.0) mg/dL Creatinine 1.6 H (0.8-1.3) mg/dL Est Cr Clr Drug Dosing 43.09 mL/min Estimated GFR (MDRD) 42.7 ml/min Glucose 133 H (74-106) mg/dL POC Glucose 118 H (60-110) mg/dL Calcium 8.2 L (8.5-10.1) mg/dL Magnesium 2.0 (1.8-2.4) mg/dL Iron (50-175) ug/dL TIBC (250-450) ug/dL % Saturation (20-55) % Transferrin Ferritin (26-388) ng/mL 01/20/21 Range/Units 08:07 WBC (4.0-11.0) K/uL RBC (4.50-5.90) M/uL Hgb (13.0-17.0) g/dL Hct (38.0-50.0) % MCV (80.0-98.0) fL MCH (27.0-32.0) pg MCHC (31.0-37.0) g/dL RDW Std Deviation (28.0-62.0) fl RDW Coeff of Rhea (11.0-15.0) % Plt Count (150-400) K/uL MPV (7.40-12.00) fL Neut % (Auto) (48.0-80.0) % Lymph % (Auto) (16.0-40.0) % [place] % (Auto) (0.0-15.0) % Eos % (Auto) (0.0-7.0) % Baso % (Auto) (0.0-1.5) % Neut # (Auto) (1.4-5.7) K/uL Lymph # (Auto) (0.6-2.4) K/uL [place] # (Auto) (0.0-0.8) K/uL Eos # (Auto) (0.0-0.7) K/uL Baso # (Auto) (0.0-0.1) K/uL Nucleated RBC % /100WBC Nucleated RBCs # K/uL Smear Path Review Sodium (136-148) mmol/L Potassium (3.5-5.1) mmol/L Chloride (98-107) mmol/L Carbon Dioxide (21.0-32.0) mmol/L BUN (7.0-18.0) mg/dL Creatinine (0.8-1.3) mg/dL Est Cr Clr Drug Dosing mL/min Estimated GFR (MDRD) ml/min Glucose (74-106) mg/dL POC Glucose (60-110) mg/dL Calcium (8.5-10.1) mg/dL Magnesium (1.8-2.4) mg/dL Iron 23 L (50-175) ug/dL TIBC 122 L (250-450) ug/dL % Saturation 18.85 L (20-55) % Transferrin 85.4 Ferritin 709 H (26-388) ng/mL Result Diagrams: 01/20/21 04:44 01/20/21 04:44 Sepsis Event Note - Focused Exam Vital Signs: Vital Signs Temp Pulse Pulse Resp BP BP Pulse Ox 01/20/21 11:08 36.3 C 76 18 143/71 H 97 01/20/21 09:28 76 131/61 01/20/21 08:01 36.7 C 76 18 131/61 96 01/20/21 04:59 36.7 C 68 18 143/67 H 95 - Problem List (1) Abdominal pain SNOMED Code(s): 87157272 ICD Code: R10.9 - UNSPECIFIED ABDOMINAL PAIN Status: Acute Current Visit: Yes (2) Diabetes type 2, controlled SNOMED Code(s): 68978914, 492503021 ICD Code: E11.9 - TYPE 2 DIABETES MELLITUS WITHOUT COMPLICATIONS Status: Acute Current Visit: Yes (3) Hypertension SNOMED Code(s): 35257634 ICD Code: I10 - ESSENTIAL (PRIMARY) HYPERTENSION Status: Acute Current Visit: Yes (4) Weakness generalized SNOMED Code(s): 06602312 ICD Code: R53.1 - WEAKNESS Status: Acute Current Visit: Yes Orders Last 24hrs: Active Orders 24 hr Category Date Time Status Ready for Discharge [RC] PER UNIT ROUTINE Care 01/20/21 10:25 Active Occult Blood Diagnostic GI [OCCULT BLOOD DIAGNOSTIC] [ Lab 01/20/21 08:52 Received OP] Routine Calcium Carbonate [Tums] Med 01/19/21 18:35 Active 1,000 mg PO Q6H PRN Dextrose 50% in Water Med 01/19/21 17:20 Active 50 ml IV ASDIRECTED PRN Glucagon,Human Recombinant [GlucaGen] Med 01/19/21 17:20 Active 1 mg IM ASDIRECTED PRN Insulin Glarg,Human.Rec.Analog [LantUS Solostar] Med 01/19/21 21:00 Active 30 units SUBCUT BEDTIME Pantoprazole [ProTONIX] Med 01/20/21 09:00 Active 40 mg PO DAILY Medication Orders Acetaminophen (Tylenol) 650 mg PO Q6H PRN PRN Reason: Pain Last Admin: 01/18/21 19:43 Dose: 650 mg Documented by: Admin: 01/18/21 10:49 Dose: 650 mg Documented by: ZAMZAM Albuterol/Ipratropium (Duoneb 3.0-0.5 Mg/3 Ml) 3 ml NEB Q4HRRT PRN PRN Reason: SOB/wheezing Bismuth Subsalicylate (Pepto Bismol) 30 ml PO Q4H PRN PRN Reason: Indigestion, Abdominal Pain Last Admin: 01/19/21 15:56 Dose: 30 ml Documented by: Admin: 01/19/21 12:17 Dose: 30 ml Documented by: KATIA Cosigned by: ZAMZAM Dextrose/Water (Dextrose 50% In Water) 50 ml IV ASDIRECTED PRN PRN Reason: Hypoglycemia Enoxaparin Sodium (Enoxaparin 40 Mg/0.4 Ml Syringe) 40 mg SUBCUT Q24H [facility] Last Admin: 01/19/21 12:22 Dose: 40 mg Documented by: KATIA Cosigned by: ZAMZAM Glucagon (Glucagen) 1 mg IM ASDIRECTED PRN PRN Reason: Hypoglycemia Insulin Aspart (Novolog) 0 unit SUBCUT TIDAC [facility]; Protocol Last Admin: 01/20/21 08:28 Dose: Not Given Documented by: Admin: 01/19/21 17:21 Dose: Not Given Documented by: Admin: 01/19/21 12:16 Dose: Not Given Documented by: Admin: 01/19/21 08:13 Dose: Not Given Documented by: Admin: 01/18/21 19:35 Dose: Not Given Documented by: Admin: 01/18/21 11:44 Dose: Not Given Documented by: ZAMZAM Insulin Glargine (Lantus Solostar) 60 units SUBCUT BEDTIME [facility] Last Admin: 01/18/21 23:16 Dose: 40 units Documented by: JORGE Metoprolol Tartrate (Metoprolol Tartrate 50 Mg Tab) 50 mg PO BID [facility] Last Admin: 01/20/21 09:28 Dose: 50 mg Documented by: JESSICA Cosigned by: RUEL Admin: 01/19/21 21:34 Dose: 50 mg Documented by: Admin: 01/19/21 08:12 Dose: 50 mg Documented by: KATIA Cosigned by: ZAMZAM Admin: 01/18/21 22:01 Dose: 50 mg Documented by: Admin: 01/18/21 08:29 Dose: 50 mg Documented by: ZAMZAM Omeprazole (Omeprazole 20 Mg Cap.Cr) 20 mg PO ACBREAKFAST [facility] Last Admin: 01/19/21 08:14 Dose: 20 mg Documented by: KATIA Cosigned by: ZAMZAM Methocarbamol 500 Mg 1 each PO BEDTIME PRN PRN Reason: Muscle Spasm Polyethylene Glycol (Miralax) 17 gm PO BEDTIME [facility] Last Admin: 01/19/21 21:34 Dose: 17 gm Documented by: Admin: 01/18/21 22:00 Dose: 17 gm Documented by: JORGE Potassium Chloride (Klor-Con 10) 10 meq PO BEDTIME [facility] Last Admin: 01/19/21 21:34 Dose: 10 meq Documented by: Admin: 01/18/21 22:01 Dose: 10 meq Documented by: JORGE Sodium Chloride (Saline Flush) 10 ml FLUSH ASDIRECTED PRN PRN Reason: Keep Vein Open Sodium Chloride (Saline Flush) 2.5 ml FLUSH ASDIRECTED PRN PRN Reason: Keep Vein Open Torsemide (Demadex) 20 mg PO TID PRN PRN Reason: Edema Last Admin: 01/18/21 10:49 Dose: 20 mg Documented by: ZAMZAM Assessment/Plan Comment:: I performed a history and physical exam of the patient and discussed management with resident. I have reviewed the residents note and agree with documented findings and plan unless otherwise specified in my note.'
[2021-01-18] MEDS: Metoprolol Tartrate 50 MG Tab PO SCH ×2 (08:29→22:01)
[2021-01-18] MEDS ORDERED: 50% Dextrose in Water 50 ML Syringe IV PRN (09:43)
[2021-01-18] MEDS ORDERED: Glucagon,Human Recombinant 1 MG Vial IM PRN (09:43)
[2021-01-18] MEDS ORDERED: Albuterol/Ipratropium 3.0-0.5 MG/3 ML Neb Soln NEB PRN (09:45)
[2021-01-18] MEDS: Acetaminophen 325 MG Tab PO PRN ×2 (10:49→19:43)
[2021-01-18] MEDS: Insulin Aspart 100 Units/ML 3 ML Pen SUBCUT SCH ×2 (11:44→19:35)
[2021-01-18] MEDS ORDERED: Sodium Chloride 0.9% 1,000 ML IV ONE (11:49)
[2021-01-18] MEDS ORDERED: Ondansetron 4 MG/2 ML SDV IVPUSH ONE (18:57)
[2021-01-18] MEDS ORDERED: Calcium Carbonate 500 MG Tab.Chew PO ONE (21:00)
[2021-01-18] MEDS ORDERED: Insulin Glargine,Human Rec. Analog 100 Units/ML 3 ML Pen SUBCUT SCH (21:00)
[2021-01-18] MEDS ORDERED: Aspirin 81 MG Tab.Chew PO SCH (21:00)
[2021-01-18] MEDS: Polyethylene Glycol 3350 Powder 17 GM Packet PO SCH (22:00)
[2021-01-18] MEDS: Potassium Chloride 10 MEQ Tab.ER PO SCH (22:01)
[2021-01-19 07:16] LABS: CARBON DIOXIDE,CO2 25.9 mmol/L (21.0-32.0)
[2021-01-19] MEDS ORDERED: Omeprazole 20 MG Cap.CR PO SCH (07:30)
[2021-01-19] MEDS ORDERED: Potassium Chloride 20 MEQ Tab.ER PO ONE (08:06)
[2021-01-19] MEDS: Metoprolol Tartrate 50 MG Tab PO SCH ×2 (08:12→21:34)
[2021-01-19] MEDS: Insulin Aspart 100 Units/ML 3 ML Pen SUBCUT SCH ×3 (08:13→17:21)
[2021-01-19] MEDS ORDERED: Enoxaparin 40 MG/0.4 ML Syringe SUBCUT SCH (11:30)
[2021-01-19] MEDS: Bismuth Subsalicylate 262 MG/15 ML Susp 236 ML Bottle PO PRN ×2 (12:17→15:56)
--- NOTE | 2021-01-19 17:11 | PCM.PN ---
- General Info Date of Service: 01/19/21 Subjective Update: Patient states abdominal pain is significantly better after bowel movement. Patient also states that he gets relief with Tums and Pepto-Bismol for indigestion. Patient states less fatigue, increase strength with ambulation, denies fever, chills not, nausea, vomiting, chest pain, shortness of breath. - Review of Systems General: Denies: Fever Pulmonary: Denies: Shortness of Breath Cardiovascular: Denies: Chest Pain Gastrointestinal: Denies: Abdominal Pain, Nausea, Vomiting Psychiatric: Denies: Confusion - Patient Data Vitals - Most Recent: Last Vital Signs Temp 98 F 01/19/21 12:00 Pulse 84 01/19/21 12:00 Resp 16 01/19/21 12:00 BP 116/46 L 01/19/21 12:00 Pulse Ox 97 01/19/21 12:00 Weight - Most Recent: 275 lb 9.6 oz I&O - Last 24 Hours: Intake & Output 01/19/21 01/19/21 01/19/21 06:59 14:59 22:59 Intake Total 600 Output Total 550 Balance 50 Lab Results Last 24 Hours: Laboratory Results - last 24 hr 01/18/21 01/18/21 01/19/21 Range/Units 18:24 21:37 05:00 WBC 7.01 (4.0-11.0) K/uL RBC 4.03 L (4.50-5.90) M/uL Hgb 10.8 L (13.0-17.0) g/dL Hct 32.3 L (38.0-50.0) % MCV 80.1 (80.0-98.0) fL MCH 26.8 L (27.0-32.0) pg MCHC 33.4 (31.0-37.0) g/dL RDW Std Deviation 42.4 (28.0-62.0) fl RDW Coeff of Rhea 14 (11.0-15.0) % Plt Count 118 L (150-400) K/uL MPV 10.80 (7.40-12.00) fL Add Manual Diff YES Neutrophils % (Manual) 51 (48.0-80.0) % Lymphocytes % (Manual) 36 (16.0-40.0) % Monocytes % (Manual) 13 (0.0-15.0) % Nucleated RBC % 0.0 /100WBC Absolute Seg Neuts 3.6 (1.4-5.7) Lymphocytes # (Manual) 2.5 H (0.6-2.4) Monocytes # (Manual) 0.9 H (0.0-0.8) Nucleated RBCs # 0 K/uL Sodium (136-148) mmol/L Potassium (3.5-5.1) mmol/L Chloride (98-107) mmol/L Carbon Dioxide (21.0-32.0) mmol/L BUN (7.0-18.0) mg/dL Creatinine (0.8-1.3) mg/dL Est Cr Clr Drug Dosing mL/min Estimated GFR (MDRD) ml/min Glucose (74-106) mg/dL POC Glucose 111 H 128 H (60-110) mg/dL Calcium (8.5-10.1) mg/dL Magnesium (1.8-2.4) mg/dL Total Bilirubin (0.2-1.0) mg/dL AST (15-37) IU/L ALT (14-63) IU/L Alkaline Phosphatase (46-116) U/L Total Protein (6.4-8.2) g/dL Albumin (3.4-5.0) g/dL Globulin (2.6-4.0) g/dL Albumin/Globulin Ratio (0.9-1.6) 01/19/21 01/19/21 01/19/21 Range/Units 05:00 05:00 06:30 WBC (4.0-11.0) K/uL RBC (4.50-5.90) M/uL Hgb (13.0-17.0) g/dL Hct (38.0-50.0) % MCV (80.0-98.0) fL MCH (27.0-32.0) pg MCHC (31.0-37.0) g/dL RDW Std Deviation (28.0-62.0) fl RDW Coeff of Rhea (11.0-15.0) % Plt Count (150-400) K/uL MPV (7.40-12.00) fL Add Manual Diff Neutrophils % (Manual) (48.0-80.0) % Lymphocytes % (Manual) (16.0-40.0) % Monocytes % (Manual) (0.0-15.0) % Nucleated RBC % /100WBC Absolute Seg Neuts (1.4-5.7) Lymphocytes # (Manual) (0.6-2.4) Monocytes # (Manual) (0.0-0.8) Nucleated RBCs # K/uL Sodium 139 (136-148) mmol/L Potassium 3.0 L (3.5-5.1) mmol/L Chloride 103 (98-107) mmol/L Carbon Dioxide 25.9 (21.0-32.0) mmol/L BUN 26 H (7.0-18.0) mg/dL Creatinine 1.8 H (0.8-1.3) mg/dL Est Cr Clr Drug Dosing 38.30 mL/min Estimated GFR (MDRD) 37.3 ml/min Glucose 98 (74-106) mg/dL POC Glucose 97 (60-110) mg/dL Calcium 8.3 L (8.5-10.1) mg/dL Magnesium 1.9 (1.8-2.4) mg/dL Total Bilirubin 0.8 (0.2-1.0) mg/dL AST 19 (15-37) IU/L ALT 28 (14-63) IU/L Alkaline Phosphatase 53 (46-116) U/L Total Protein 6.8 (6.4-8.2) g/dL Albumin 2.3 L (3.4-5.0) g/dL Globulin 4.5 H (2.6-4.0) g/dL Albumin/Globulin Ratio 0.5 L (0.9-1.6) 01/19/21 Range/Units 11:56 WBC (4.0-11.0) K/uL RBC (4.50-5.90) M/uL Hgb (13.0-17.0) g/dL Hct (38.0-50.0) % MCV (80.0-98.0) fL MCH (27.0-32.0) pg MCHC (31.0-37.0) g/dL RDW Std Deviation (28.0-62.0) fl RDW Coeff of Rhea (11.0-15.0) % Plt Count (150-400) K/uL MPV (7.40-12.00) fL Add Manual Diff Neutrophils % (Manual) (48.0-80.0) % Lymphocytes % (Manual) (16.0-40.0) % Monocytes % (Manual) (0.0-15.0) % Nucleated RBC % /100WBC Absolute Seg Neuts (1.4-5.7) Lymphocytes # (Manual) (0.6-2.4) Monocytes # (Manual) (0.0-0.8) Nucleated RBCs # K/uL Sodium (136-148) mmol/L Potassium (3.5-5.1) mmol/L Chloride (98-107) mmol/L Carbon Dioxide (21.0-32.0) mmol/L BUN (7.0-18.0) mg/dL Creatinine (0.8-1.3) mg/dL Est Cr Clr Drug Dosing mL/min Estimated GFR (MDRD) ml/min Glucose (74-106) mg/dL POC Glucose 136 H (60-110) mg/dL Calcium (8.5-10.1) mg/dL Magnesium (1.8-2.4) mg/dL Total Bilirubin (0.2-1.0) mg/dL AST (15-37) IU/L ALT (14-63) IU/L Alkaline Phosphatase (46-116) U/L Total Protein (6.4-8.2) g/dL Albumin (3.4-5.0) g/dL Globulin (2.6-4.0) g/dL Albumin/Globulin Ratio (0.9-1.6) Med Orders - Current: Current Medications Acetaminophen (Tylenol) 650 mg PO Q6H PRN PRN Reason: Pain Last Admin: 01/18/21 19:43 Dose: 650 mg Documented by: Albuterol/Ipratropium (Duoneb 3.0-0.5 Mg/3 Ml) 3 ml NEB Q4HRRT PRN PRN Reason: SOB/wheezing Aspirin (Aspirin) 81 mg PO BID [facility] Last Admin: 01/18/21 22:03 Dose: 81 mg Documented by: Bismuth Subsalicylate (Pepto Bismol) 30 ml PO Q4H PRN PRN Reason: Indigestion, Abdominal Pain Last Admin: 01/19/21 15:56 Dose: 30 ml Documented by: Dextrose/Water (Dextrose 50% In Water) 50 ml IV ASDIRECTED PRN PRN Reason: Hypoglycemia Glucagon (Glucagen) 1 mg IM ASDIRECTED PRN PRN Reason: Hypoglycemia Insulin Aspart (Novolog) 0 unit SUBCUT TIDAC [facility]; Protocol Last Admin: 01/19/21 12:16 Dose: Not Given Documented by: Insulin Glargine (Lantus Solostar) 60 units SUBCUT BEDTIME [facility] Last Admin: 01/18/21 23:16 Dose: 40 units Documented by: Metoprolol Tartrate (Lopressor) 50 mg PO BID [facility] Last Admin: 01/19/21 08:12 Dose: 50 mg Documented by: Omeprazole (Omeprazole) 20 mg PO ACBREAKFAST [facility] Last Admin: 01/19/21 08:14 Dose: 20 mg Documented by: Methocarbamol 500 Mg 1 each PO BEDTIME PRN PRN Reason: Muscle Spasm Polyethylene Glycol (Miralax) 17 gm PO BEDTIME [facility] Last Admin: 01/18/21 22:00 Dose: 17 gm Documented by: Potassium Chloride (Klor-Con 10) 10 meq PO BEDTIME [facility] Last Admin: 01/18/21 22:01 Dose: 10 meq Documented by: Sodium Chloride (Saline Flush) 10 ml FLUSH ASDIRECTED PRN PRN Reason: Keep Vein Open Sodium Chloride (Saline Flush) 2.5 ml FLUSH ASDIRECTED PRN PRN Reason: Keep Vein Open Torsemide (Demadex) 20 mg PO TID PRN PRN Reason: Edema Last Admin: 01/18/21 10:49 Dose: 20 mg Documented by: Discontinued Medications Calcium Carbonate/Glycine (Tums) 1,000 mg PO ONETIME ONE Stop: 01/18/21 21:01 Last Admin: 01/18/21 22:08 Dose: 1,000 mg Documented by: Enoxaparin Sodium (Lovenox) 30 mg SUBCUT Q24H [facility] Sodium Chloride (Normal Saline) 1,000 mls @ 100 mls/hr IV STAT ONE Stop: 01/18/21 07:08 Last Infusion: 01/17/21 23:05 Dose: 999 mls/hr Documented by: Magnesium Sulfate (Magnesium Sulfate In Water 2 Gm/50 Ml) 2 gm in 50 mls @ 50 mls/hr IV ONETIME ONE Stop: 01/18/21 09:01 Last Admin: 01/18/21 08:29 Dose: 50 mls/hr Documented by: Sodium Chloride (Normal Saline) 1,000 mls @ 999 mls/hr IV .Bolus ONE Stop: 01/18/21 12:49 Last Admin: 01/18/21 12:15 Dose: 999 mls/hr Documented by: Iopamidol (Isovue-300 (61%)) 50 ml IVPUSH ONETIME STA Stop: 01/17/21 23:57 Last Admin: 01/17/21 23:57 Dose: 50 ml Documented by: Morphine Sulfate (Morphine) 4 mg IVPUSH ONETIME ONE Stop: 01/18/21 02:12 Last Admin: 01/18/21 03:28 Dose: Not Given Documented by: Ondansetron HCl (Zofran) 4 mg IVPUSH ONETIME ONE Stop: 01/18/21 18:58 Last Admin: 01/18/21 19:43 Dose: 4 mg Documented by: Potassium Chloride (Klor-Con M20) 40 meq PO ONETIME ONE Stop: 01/18/21 08:05 Last Admin: 01/18/21 08:29 Dose: 40 meq Documented by: - Exam Quality Assessment: No: Supplemental Oxygen General: Alert, Oriented Lungs: Clear to Auscultation, Normal Respiratory Effort Cardiovascular: Regular Rate GI/Abdominal Exam: Soft, Non-Tender Psy/Mental Status: Alert - Patient Data Lab Results Last 24 hrs: Laboratory Results - last 24 hr 01/18/21 01/18/21 01/19/21 Range/Units 18:24 21:37 05:00 WBC 7.01 (4.0-11.0) K/uL RBC 4.03 L (4.50-5.90) M/uL Hgb 10.8 L (13.0-17.0) g/dL Hct 32.3 L (38.0-50.0) % MCV 80.1 (80.0-98.0) fL MCH 26.8 L (27.0-32.0) pg MCHC 33.4 (31.0-37.0) g/dL RDW Std Deviation 42.4 (28.0-62.0) fl RDW Coeff of Rhea 14 (11.0-15.0) % Plt Count 118 L (150-400) K/uL MPV 10.80 (7.40-12.00) fL Add Manual Diff YES Neutrophils % (Manual) 51 (48.0-80.0) % Lymphocytes % (Manual) 36 (16.0-40.0) % Monocytes % (Manual) 13 (0.0-15.0) % Nucleated RBC % 0.0 /100WBC Absolute Seg Neuts 3.6 (1.4-5.7) Lymphocytes # (Manual) 2.5 H (0.6-2.4) Monocytes # (Manual) 0.9 H (0.0-0.8) Nucleated RBCs # 0 K/uL Sodium (136-148) mmol/L Potassium (3.5-5.1) mmol/L Chloride (98-107) mmol/L Carbon Dioxide (21.0-32.0) mmol/L BUN (7.0-18.0) mg/dL Creatinine (0.8-1.3) mg/dL Est Cr Clr Drug Dosing mL/min Estimated GFR (MDRD) ml/min Glucose (74-106) mg/dL POC Glucose 111 H 128 H (60-110) mg/dL Calcium (8.5-10.1) mg/dL Magnesium (1.8-2.4) mg/dL Total Bilirubin (0.2-1.0) mg/dL AST (15-37) IU/L ALT (14-63) IU/L Alkaline Phosphatase (46-116) U/L Total Protein (6.4-8.2) g/dL Albumin (3.4-5.0) g/dL Globulin (2.6-4.0) g/dL Albumin/Globulin Ratio (0.9-1.6) 01/19/21 01/19/21 01/19/21 Range/Units 05:00 05:00 06:30 WBC (4.0-11.0) K/uL RBC (4.50-5.90) M/uL Hgb (13.0-17.0) g/dL Hct (38.0-50.0) % MCV (80.0-98.0) fL MCH (27.0-32.0) pg MCHC (31.0-37.0) g/dL RDW Std Deviation (28.0-62.0) fl RDW Coeff of Rhea (11.0-15.0) % Plt Count (150-400) K/uL MPV (7.40-12.00) fL Add Manual Diff Neutrophils % (Manual) (48.0-80.0) % Lymphocytes % (Manual) (16.0-40.0) % Monocytes % (Manual) (0.0-15.0) % Nucleated RBC % /100WBC Absolute Seg Neuts (1.4-5.7) Lymphocytes # (Manual) (0.6-2.4) Monocytes # (Manual) (0.0-0.8) Nucleated RBCs # K/uL Sodium 139 (136-148) mmol/L Potassium 3.0 L (3.5-5.1) mmol/L Chloride 103 (98-107) mmol/L Carbon Dioxide 25.9 (21.0-32.0) mmol/L BUN 26 H (7.0-18.0) mg/dL Creatinine 1.8 H (0.8-1.3) mg/dL Est Cr Clr Drug Dosing 38.30 mL/min Estimated GFR (MDRD) 37.3 ml/min Glucose 98 (74-106) mg/dL POC Glucose 97 (60-110) mg/dL Calcium 8.3 L (8.5-10.1) mg/dL Magnesium 1.9 (1.8-2.4) mg/dL Total Bilirubin 0.8 (0.2-1.0) mg/dL AST 19 (15-37) IU/L ALT 28 (14-63) IU/L Alkaline Phosphatase 53 (46-116) U/L Total Protein 6.8 (6.4-8.2) g/dL Albumin 2.3 L (3.4-5.0) g/dL Globulin 4.5 H (2.6-4.0) g/dL Albumin/Globulin Ratio 0.5 L (0.9-1.6) 01/19/21 Range/Units 11:56 WBC (4.0-11.0) K/uL RBC (4.50-5.90) M/uL Hgb (13.0-17.0) g/dL Hct (38.0-50.0) % MCV (80.0-98.0) fL MCH (27.0-32.0) pg MCHC (31.0-37.0) g/dL RDW Std Deviation (28.0-62.0) fl RDW Coeff of Rhea (11.0-15.0) % Plt Count (150-400) K/uL MPV (7.40-12.00) fL Add Manual Diff Neutrophils % (Manual) (48.0-80.0) % Lymphocytes % (Manual) (16.0-40.0) % Monocytes % (Manual) (0.0-15.0) % Nucleated RBC % /100WBC Absolute Seg Neuts (1.4-5.7) Lymphocytes # (Manual) (0.6-2.4) Monocytes # (Manual) (0.0-0.8) Nucleated RBCs # K/uL Sodium (136-148) mmol/L Potassium (3.5-5.1) mmol/L Chloride (98-107) mmol/L Carbon Dioxide (21.0-32.0) mmol/L BUN (7.0-18.0) mg/dL Creatinine (0.8-1.3) mg/dL Est Cr Clr Drug Dosing mL/min Estimated GFR (MDRD) ml/min Glucose (74-106) mg/dL POC Glucose 136 H (60-110) mg/dL Calcium (8.5-10.1) mg/dL Magnesium (1.8-2.4) mg/dL Total Bilirubin (0.2-1.0) mg/dL AST (15-37) IU/L ALT (14-63) IU/L Alkaline Phosphatase (46-116) U/L Total Protein (6.4-8.2) g/dL Albumin (3.4-5.0) g/dL Globulin (2.6-4.0) g/dL Albumin/Globulin Ratio (0.9-1.6) Result Diagrams: 01/19/21 05:00 01/19/21 05:00 Sepsis Event Note - Evaluation Sepsis Screening Result: No Definite Risk - Focused Exam Vital Signs: Vital Signs Temp Pulse Pulse Resp BP BP Pulse Ox 01/19/21 12:00 98 F 84 16 116/46 L 97 01/19/21 08:12 80 130/70 01/19/21 08:00 98.4 F 80 16 130/72 96 - Problem List & Annotations (1) Weakness generalized SNOMED Code(s): 56929586 Code(s): R53.1 - WEAKNESS Status: Acute Current Visit: Yes (2) Hypertension SNOMED Code(s): 80788227 Code(s): I10 - ESSENTIAL (PRIMARY) HYPERTENSION Status: Acute Current Visit: Yes (3) Abdominal pain SNOMED Code(s): 78196252 Code(s): R10.9 - UNSPECIFIED ABDOMINAL PAIN Status: Acute Current Visit: Yes - Problem List Review Problem List Initiated/Reviewed/Updated: Yes - My Orders Last 24 Hours: My Active Orders 01/18/21 20:46 Bismuth Subsalicylate [Pepto Bismol] 30 ml PO Q4H PRN 01/18/21 21:00 Patient's Own Medication [Ptom] 1 each PO BEDTIME PRN Potassium Chloride [Klor-Con 10] 10 meq PO BEDTIME polyethylene glycoL 3350 [MiraLAX] 17 gm PO BEDTIME 01/19/21 11:30 Enoxaparin [Lovenox] 40 mg SUBCUT Q24H 01/19/21 11:36 Occult Blood Diagnostic GI [OCCULT BLOOD DIAGNOSTIC] [OP] Routine 01/20/21 05:11 BASIC METABOLIC PANEL,BMP [CHEM] AM CBC WITH AUTO DIFF [HEME] AM MAGNESIUM [CHEM] AM 01/20/21 09:00 Pantoprazole [ProTONIX] 40 mg PO DAILY - Plan Plan:: Abdominal pain CT abdomen pelvis was negative, liver enzymes normal limit, negative troponin, UA negative, BNP 59. Patient states abdominal pain is better after bowel movement, Tums, and Pepto-Bismol as needed. Resume home dose of Protonix 40 mg, Pepto-Bismol as needed, as patient states history of heartburn, indigestion, bloating. MiraLAX scheduled nightly. Generalized weakness PT evaluation (patient close to baseline, would benefit from the assistance of a front wheel walker on discharge.) Monitor electrolytes and fluid status. Hemoglobin 10.8, no obvious source of bleeding. Occult blood lab ordered. [id number] Sunil p.o, nightly in addition to 40 mEq one time this morning. Recheck BMP in the morning. Heart healthy diet, antiembolic devices.
[2021-01-19] MEDS ORDERED: Glucagon,Human Recombinant 1 MG Vial IM PRN (17:20)
[2021-01-19] MEDS ORDERED: 50% Dextrose in Water 50 ML Syringe IV PRN (17:20)
[2021-01-19] MEDS ORDERED: Calcium Carbonate 500 MG Tab.Chew PO PRN (18:35)
[2021-01-19] MEDS ORDERED: Insulin Glargine,Human Rec. Analog 100 Units/ML 3 ML Pen SUBCUT SCH (21:00)
[2021-01-19] MEDS: Polyethylene Glycol 3350 Powder 17 GM Packet PO SCH (21:34)
[2021-01-19] MEDS: Potassium Chloride 10 MEQ Tab.ER PO SCH (21:34)
[2021-01-20 05:53] LABS: CARBON DIOXIDE,CO2 26.5 mmol/L (21.0-32.0); POTASSIUM,K 3.1 mmol/L (3.5-5.1)
[2021-01-20] MEDS ORDERED: Potassium Chloride 20 MEQ Tab.ER PO ONE (07:34)
[2021-01-20 08:05] VITALS: PULSE 76
[2021-01-20] MEDS: Insulin Aspart 100 Units/ML 3 ML Pen SUBCUT SCH (08:28)
--- NOTE | 2021-01-20 08:48 | PCM.DCSUM1 ---
<Jac Good - Last Filed: 01/20/21 11:34> Discharge Summary - Hospital Course Free Text/Narrative:: 70-year-old male with past medical history of diabetes, hypertension, CKD, COPD, right upper quadrant hernia admitted for left lower abdominal pain, generalized fatigue for 1 week. Prior to admission patient attempted to treat the pain with some leftover oxycodone which did not resolve symptoms. Patient states that all the symptoms started after he received a second Covid vaccination which was on January 11. Patient states prior to Covid vaccinations he had no symptoms. Admission examination patient denied fever, chills, nausea, vomiting, chest pain, shortness of breath. Patient's abdominal pain resolved significantly during the course of admission which was improved with regular bowel movements using MiraLAX, treatment of indigestion with PPI and Pepto-Bismol. Patient was noted to have low potassium during admission with K+ ranges between 3.03.1 while on 50 mEq oral potassium daily. Patient was seen by physical therapy and was noted to have strength comparable to baseline. Patient stated upon discharge that he felt significantly better with improved strength. Physical therapy has advised patient to use front wheel walker at home. I have asked the patient numerous times and patient states that he would not like to use a walker at home due to space restrictions. He is more comfortably using a cane but states that he will obtain a FWW if needed. Patient understands and acknowledges PT recommendations but still denies FWW usage at discharge. Patient to resume all home medications upon discharge, follow-up with primary care provider and discuss low potassium and potassium dosage regimen. Patient understands directions and acknowledges. - Discharge Data Discharge Date: 01/20/21 Discharge Disposition: Home, Self-Care 01 Condition: Stable - Referral to Home Health Primary Care Physician: PCP Not In Area - Discharge Diagnosis/Problem(s) (1) Weakness generalized SNOMED Code(s): 52159462 ICD Code: R53.1 - WEAKNESS Status: Acute (2) Hypertension SNOMED Code(s): 38811681 ICD Code: I10 - ESSENTIAL (PRIMARY) HYPERTENSION Status: Acute (3) Abdominal pain SNOMED Code(s): 41760602 ICD Code: R10.9 - UNSPECIFIED ABDOMINAL PAIN Status: Acute (4) Diabetes type 2, controlled SNOMED Code(s): 34118527, 128948964 ICD Code: E11.9 - TYPE 2 DIABETES MELLITUS WITHOUT COMPLICATIONS Status: Acute - Patient Summary/Data Consults: Consultations 01/18/21 04:45 PT Evaluation and Treatment [CONS] Routine - Discharge Plan Home Medications: Home Meds Insulin Glargine,Hum.Rec.Anlog [Lantus Solostar] 30 unit SQ BEDTIME 02/20/16 [History] Metoprolol Tartrate [Lopressor] 50 mg PO BID 12/07/17 [History] Potassium Chloride [Klor-Con 10] 10 meq PO DAILY 12/07/17 [History] calcitrioL [Calcitriol] 0.25 mcg PO MOWEFR@0900 12/07/17 [History] Aspirin 81 mg PO BID 01/16/19 [History] Torsemide 20 - 40 mg PO DAILY 01/16/19 [History] Pravastatin Sodium 5 mg PO Q2D 01/06/20 [History] Diclofenac Sodium [Voltaren 1% Gel] 4 gm TOP QID PRN 01/19/21 [History] Ezetimibe [Zetia] 10 mg PO DAILY 01/19/21 [History] Gabapentin [Neurontin] 800 mg PO BEDTIME 01/19/21 [History] Pantoprazole [ProTONIX] 40 mg PO DAILY 01/19/21 [History] Semaglutide [Ozempic] 0.5 mg SQ WEEKLY 01/19/21 [History] Patient Handouts: Weakness, Eywm-[id number] Forms: ED Department Discharge Referrals: Donovan Doran MD [Ordering Only Provider] - 01/28/21 12:00 pm (We understand that this is quite a trip for you, but it is important that you are seen by a provider 1-2 weeks after your hospitalization. Any questions or concerns please call the clinic. ) Home,Health Care [Ordering Only Provider] - - Discharge Summary/Plan Comment DC Time >30 min.: Yes - General Info Date of Service: 01/20/21 Subjective Update: Patient states significantly reduced abdominal pain and states that he feels better with increased energy. Patient denies fever, chills, nausea, vomiting, abdominal pain, chest pain, shortness of breath. Patient states he is ready to go home. - Review of Systems General: Denies: Fever Pulmonary: Denies: Shortness of Breath Cardiovascular: Denies: Chest Pain Gastrointestinal: Denies: Abdominal Pain, Nausea, Vomiting Neurological: Denies: Confusion Psychiatric: Denies: Confusion - Patient Data Vitals - Most Recent: Last Vital Signs Temp 98.1 F 01/20/21 08:01 Pulse 76 01/20/21 08:01 Resp 18 01/20/21 08:01 BP 131/61 01/20/21 08:01 Pulse Ox 96 01/20/21 08:01 Weight - Most Recent: 125.01 kg I&O - Last 24 hours: Intake & Output 01/19/21 01/20/21 01/20/21 22:59 06:59 14:59 Intake Total 1190 450 Output Total 550 350 Balance 640 100 Lab Results - Last 24 hrs: Laboratory Results - last 24 hr 01/19/21 01/19/21 01/19/21 Range/Units 11:56 17:07 21:30 WBC (4.0-11.0) K/uL RBC (4.50-5.90) M/uL Hgb (13.0-17.0) g/dL Hct (38.0-50.0) % MCV (80.0-98.0) fL MCH (27.0-32.0) pg MCHC (31.0-37.0) g/dL RDW Std Deviation (28.0-62.0) fl RDW Coeff of Rhea (11.0-15.0) % Plt Count (150-400) K/uL MPV (7.40-12.00) fL Neut % (Auto) (48.0-80.0) % Lymph % (Auto) (16.0-40.0) % Leon % (Auto) (0.0-15.0) % Eos % (Auto) (0.0-7.0) % Baso % (Auto) (0.0-1.5) % Neut # (Auto) (1.4-5.7) K/uL Lymph # (Auto) (0.6-2.4) K/uL Leon # (Auto) (0.0-0.8) K/uL Eos # (Auto) (0.0-0.7) K/uL Baso # (Auto) (0.0-0.1) K/uL Nucleated RBC % /100WBC Nucleated RBCs # K/uL Smear Path Review Sodium (136-148) mmol/L Potassium (3.5-5.1) mmol/L Chloride (98-107) mmol/L Carbon Dioxide (21.0-32.0) mmol/L BUN (7.0-18.0) mg/dL Creatinine (0.8-1.3) mg/dL Est Cr Clr Drug Dosing mL/min Estimated GFR (MDRD) ml/min Glucose (74-106) mg/dL POC Glucose 136 H 94 143 H (60-110) mg/dL Calcium (8.5-10.1) mg/dL Magnesium (1.8-2.4) mg/dL Iron (50-175) ug/dL TIBC (250-450) ug/dL % Saturation (20-55) % Transferrin Ferritin (26-388) ng/mL 01/20/21 01/20/21 01/20/21 Range/Units 04:44 04:44 04:44 WBC 5.74 (4.0-11.0) K/uL RBC 3.82 L (4.50-5.90) M/uL Hgb 10.3 L (13.0-17.0) g/dL Hct 30.7 L (38.0-50.0) % MCV 80.4 (80.0-98.0) fL MCH 27.0 (27.0-32.0) pg MCHC 33.6 (31.0-37.0) g/dL RDW Std Deviation 42.4 (28.0-62.0) fl RDW Coeff of Rhea 14 (11.0-15.0) % Plt Count 144 L (150-400) K/uL MPV 10.70 (7.40-12.00) fL Neut % (Auto) 48.6 (48.0-80.0) % Lymph % (Auto) 26.7 (16.0-40.0) % Leon % (Auto) 24.2 H (0.0-15.0) % Eos % (Auto) 0.3 (0.0-7.0) % Baso % (Auto) 0.2 (0.0-1.5) % Neut # (Auto) 2.8 (1.4-5.7) K/uL Lymph # (Auto) 1.5 (0.6-2.4) K/uL Leon # (Auto) 1.4 H (0.0-0.8) K/uL Eos # (Auto) 0.0 (0.0-0.7) K/uL Baso # (Auto) 0.0 (0.0-0.1) K/uL Nucleated RBC % 0.0 /100WBC Nucleated RBCs # 0 K/uL Smear Path Review SENT TO PATHOLOGY Sodium 137 (136-148) mmol/L Potassium 3.1 L (3.5-5.1) mmol/L Chloride 103 (98-107) mmol/L Carbon Dioxide 26.5 (21.0-32.0) mmol/L BUN 24 H (7.0-18.0) mg/dL Creatinine 1.6 H (0.8-1.3) mg/dL Est Cr Clr Drug Dosing 43.09 mL/min Estimated GFR (MDRD) 42.7 ml/min Glucose 133 H (74-106) mg/dL POC Glucose (60-110) mg/dL Calcium 8.2 L (8.5-10.1) mg/dL Magnesium 2.0 (1.8-2.4) mg/dL Iron (50-175) ug/dL TIBC (250-450) ug/dL % Saturation (20-55) % Transferrin Ferritin (26-388) ng/mL 01/20/21 01/20/21 Range/Units 06:18 08:07 WBC (4.0-11.0) K/uL RBC (4.50-5.90) M/uL Hgb (13.0-17.0) g/dL Hct (38.0-50.0) % MCV (80.0-98.0) fL MCH (27.0-32.0) pg MCHC (31.0-37.0) g/dL RDW Std Deviation (28.0-62.0) fl RDW Coeff of Rhea (11.0-15.0) % Plt Count (150-400) K/uL MPV (7.40-12.00) fL Neut % (Auto) (48.0-80.0) % Lymph % (Auto) (16.0-40.0) % Leon % (Auto) (0.0-15.0) % Eos % (Auto) (0.0-7.0) % Baso % (Auto) (0.0-1.5) % Neut # (Auto) (1.4-5.7) K/uL Lymph # (Auto) (0.6-2.4) K/uL Leon # (Auto) (0.0-0.8) K/uL Eos # (Auto) (0.0-0.7) K/uL Baso # (Auto) (0.0-0.1) K/uL Nucleated RBC % /100WBC Nucleated RBCs # K/uL Smear Path Review Sodium (136-148) mmol/L Potassium (3.5-5.1) mmol/L Chloride (98-107) mmol/L Carbon Dioxide (21.0-32.0) mmol/L BUN (7.0-18.0) mg/dL Creatinine (0.8-1.3) mg/dL Est Cr Clr Drug Dosing mL/min Estimated GFR (MDRD) ml/min Glucose (74-106) mg/dL POC Glucose 118 H (60-110) mg/dL Calcium (8.5-10.1) mg/dL Magnesium (1.8-2.4) mg/dL Iron 23 L (50-175) ug/dL TIBC 122 L (250-450) ug/dL % Saturation 18.85 L (20-55) % Transferrin 85.4 Ferritin 709 H (26-388) ng/mL Med Orders - Current: Current Medications Acetaminophen (Tylenol) 650 mg PO Q6H PRN PRN Reason: Pain Last Admin: 01/18/21 19:43 Dose: 650 mg Documented by: Albuterol/Ipratropium (Duoneb 3.0-0.5 Mg/3 Ml) 3 ml NEB Q4HRRT PRN PRN Reason: SOB/wheezing Bismuth Subsalicylate (Pepto Bismol) 30 ml PO Q4H PRN PRN Reason: Indigestion, Abdominal Pain Last Admin: 01/19/21 15:56 Dose: 30 ml Documented by: Dextrose/Water (Dextrose 50% In Water) 50 ml IV ASDIRECTED PRN PRN Reason: Hypoglycemia Enoxaparin Sodium (Enoxaparin 40 Mg/0.4 Ml Syringe) 40 mg SUBCUT Q24H [facility] Last Admin: 01/19/21 12:22 Dose: 40 mg Documented by: Glucagon (Glucagen) 1 mg IM ASDIRECTED PRN PRN Reason: Hypoglycemia Insulin Aspart (Novolog) 0 unit SUBCUT TIDAC [facility]; Protocol Last Admin: 01/20/21 08:28 Dose: Not Given Documented by: Insulin Glargine (Lantus Solostar) 60 units SUBCUT BEDTIME [facility] Last Admin: 01/18/21 23:16 Dose: 40 units Documented by: Metoprolol Tartrate (Metoprolol Tartrate 50 Mg Tab) 50 mg PO BID [facility] Last Admin: 01/19/21 21:34 Dose: 50 mg Documented by: Omeprazole (Omeprazole 20 Mg Cap.Cr) 20 mg PO ACBREAKFAST [facility] Last Admin: 01/19/21 08:14 Dose: 20 mg Documented by: Methocarbamol 500 Mg 1 each PO BEDTIME PRN PRN Reason: Muscle Spasm Polyethylene Glycol (Miralax) 17 gm PO BEDTIME [facility] Last Admin: 01/19/21 21:34 Dose: 17 gm Documented by: Potassium Chloride (Klor-Con 10) 10 meq PO BEDTIME [facility] Last Admin: 01/19/21 21:34 Dose: 10 meq Documented by: Sodium Chloride (Saline Flush) 10 ml FLUSH ASDIRECTED PRN PRN Reason: Keep Vein Open Sodium Chloride (Saline Flush) 2.5 ml FLUSH ASDIRECTED PRN PRN Reason: Keep Vein Open Torsemide (Demadex) 20 mg PO TID PRN PRN Reason: Edema Last Admin: 01/18/21 10:49 Dose: 20 mg Documented by: Discontinued Medications Aspirin (Aspirin 81 Mg Tab.Chew) 81 mg PO BID [facility] Last Admin: 01/18/21 22:03 Dose: 81 mg Documented by: Calcium Carbonate/Glycine (Tums) 1,000 mg PO ONETIME ONE Stop: 01/18/21 21:01 Last Admin: 01/18/21 22:08 Dose: 1,000 mg Documented by: Enoxaparin Sodium (Lovenox) 30 mg SUBCUT Q24H [facility] Sodium Chloride (Normal Saline) 1,000 mls @ 100 mls/hr IV STAT ONE Stop: 01/18/21 07:08 Last Infusion: 01/17/21 23:05 Dose: 999 mls/hr Documented by: Magnesium Sulfate (Magnesium Sulfate In Water 2 Gm/50 Ml) 2 gm in 50 mls @ 50 mls/hr IV ONETIME ONE Stop: 01/18/21 09:01 Last Admin: 01/18/21 08:29 Dose: 50 mls/hr Documented by: Sodium Chloride (Normal Saline) 1,000 mls @ 999 mls/hr IV .Bolus ONE Stop: 01/18/21 12:49 Last Admin: 01/18/21 12:15 Dose: 999 mls/hr Documented by: Iopamidol (Isovue-300 (61%)) 50 ml IVPUSH ONETIME STA Stop: 01/17/21 23:57 Last Admin: 01/17/21 23:57 Dose: 50 ml Documented by: Morphine Sulfate (Morphine) 4 mg IVPUSH ONETIME ONE Stop: 01/18/21 02:12 Last Admin: 01/18/21 03:28 Dose: Not Given Documented by: Ondansetron HCl (Zofran) 4 mg IVPUSH ONETIME ONE Stop: 01/18/21 18:58 Last Admin: 01/18/21 19:43 Dose: 4 mg Documented by: Potassium Chloride (Klor-Con M20) 40 meq PO ONETIME ONE Stop: 01/18/21 08:05 Last Admin: 01/18/21 08:29 Dose: 40 meq Documented by: Potassium Chloride (Potassium Chloride 20 Meq Tab.Er) 40 meq PO ONETIME ONE Stop: 01/19/21 08:07 Last Admin: 01/19/21 08:19 Dose: 40 meq Documented by: - Exam General: Reports: Alert, Oriented Lungs: Reports: Clear to Auscultation, Normal Respiratory Effort Cardiovascular: Reports: Regular Rate GI/Abdominal Exam: Normal Bowel Sounds, Soft Psy/Mental Status: Reports: Alert <Vincent Farias - Last Filed: 01/23/21 20:26> Discharge Summary - Referral to Home Health Primary Care Physician: PCP Not In Area - Patient Summary/Data Consults: Consultations 01/18/21 04:45 PT Evaluation and Treatment [CONS] Routine - Patient Data Vitals - Most Recent: Last Vital Signs Temp 36.3 C 01/20/21 11:08 Pulse 76 01/20/21 11:08 Resp 18 01/20/21 11:08 BP 143/71 H 01/20/21 11:08 Pulse Ox 97 01/20/21 11:08 Med Orders - Current: Current Medications Discontinued Medications Acetaminophen (Acetaminophen 325 Mg Tab) 650 mg PO Q6H PRN PRN Reason: Pain Last Admin: 01/18/21 19:43 Dose: 650 mg Documented by: Albuterol/Ipratropium (Albuterol/Ipratropium 3.0-0.5 Mg/3 Ml Neb Soln) 3 ml NEB Q4HRRT PRN PRN Reason: SOB/wheezing Aspirin (Aspirin 81 Mg Tab.Chew) 81 mg PO BID [facility] Last Admin: 01/18/21 22:03 Dose: 81 mg Documented by: Bismuth Subsalicylate (Bismuth Subsalicylate 262 Mg/15 Ml Susp 236 Ml Bottle) 30 ml PO Q4H PRN PRN Reason: Indigestion, Abdominal Pain Last Admin: 01/19/21 15:56 Dose: 30 ml Documented by: Calcium Carbonate/Glycine (Tums) 1,000 mg PO ONETIME ONE Stop: 01/18/21 21:01 Last Admin: 01/18/21 22:08 Dose: 1,000 mg Documented by: Calcium Carbonate/Glycine (Calcium Carbonate 500 Mg Tab.Chew) 1,000 mg PO Q6H PRN PRN Reason: Indigestion Dextrose/Water (50% Dextrose In Water 50 Ml Syringe) 50 ml IV ASDIRECTED PRN PRN Reason: Hypoglycemia Dextrose/Water (50% Dextrose In Water 50 Ml Syringe) 50 ml IV ASDIRECTED PRN PRN Reason: Hypoglycemia Enoxaparin Sodium (Lovenox) 30 mg SUBCUT Q24H [facility] Enoxaparin Sodium (Enoxaparin 40 Mg/0.4 Ml Syringe) 40 mg SUBCUT Q24H [facility] Last Admin: 01/19/21 12:22 Dose: 40 mg Documented by: Glucagon (Glucagon,Human Recombinant 1 Mg Vial) 1 mg IM ASDIRECTED PRN PRN Reason: Hypoglycemia Glucagon (Glucagon,Human Recombinant 1 Mg Vial) 1 mg IM ASDIRECTED PRN PRN Reason: Hypoglycemia Sodium Chloride (Normal Saline) 1,000 mls @ 100 mls/hr IV STAT ONE Stop: 01/18/21 07:08 Last Infusion: 01/17/21 23:05 Dose: 999 mls/hr Documented by: Magnesium Sulfate (Magnesium Sulfate In Water 2 Gm/50 Ml) 2 gm in 50 mls @ 50 mls/hr IV ONETIME ONE Stop: 01/18/21 09:01 Last Admin: 01/18/21 08:29 Dose: 50 mls/hr Documented by: Sodium Chloride (Normal Saline) 1,000 mls @ 999 mls/hr IV .Bolus ONE Stop: 01/18/21 12:49 Last Admin: 01/18/21 12:15 Dose: 999 mls/hr Documented by: Insulin Aspart (Insulin Aspart 100 Units/Ml 3 Ml Pen) 0 unit SUBCUT TIDAC [facility]; Protocol Last Admin: 01/20/21 08:28 Dose: Not Given Documented by: Insulin Glargine (Insulin Glargine,Human Rec. Analog 100 Units/Ml 3 Ml Pen) 60 units SUBCUT BEDTIME [facility] Last Admin: 01/18/21 23:16 Dose: 40 units Documented by: Insulin Glargine (Insulin Glargine,Human Rec. Analog 100 Units/Ml 3 Ml Pen) 30 units SUBCUT BEDTIME [facility] Last Admin: 01/19/21 21:35 Dose: 30 units Documented by: Iopamidol (Isovue-300 (61%)) 50 ml IVPUSH ONETIME STA Stop: 01/17/21 23:57 Last Admin: 01/17/21 23:57 Dose: 50 ml Documented by: Metoprolol Tartrate (Metoprolol Tartrate 50 Mg Tab) 50 mg PO BID [facility] Last Admin: 01/20/21 09:28 Dose: 50 mg Documented by: Morphine Sulfate (Morphine) 4 mg IVPUSH ONETIME ONE Stop: 01/18/21 02:12 Last Admin: 01/18/21 03:28 Dose: Not Given Documented by: Omeprazole (Omeprazole 20 Mg Cap.Cr) 20 mg PO ACBREAKFAST [facility] Last Admin: 01/19/21 08:14 Dose: 20 mg Documented by: Ondansetron HCl (Zofran) 4 mg IVPUSH ONETIME ONE Stop: 01/18/21 18:58 Last Admin: 01/18/21 19:43 Dose: 4 mg Documented by: Pantoprazole Sodium (Pantoprazole 40 Mg Tab.Cr) 40 mg PO DAILY [facility] Last Admin: 01/20/21 09:29 Dose: 40 mg Documented by: Methocarbamol 500 Mg 1 each PO BEDTIME PRN PRN Reason: Muscle Spasm Polyethylene Glycol (Polyethylene Glycol 3350 Powder 17 Gm Packet) 17 gm PO BEDTIME [facility] Last Admin: 01/19/21 21:34 Dose: 17 gm Documented by: Potassium Chloride (Potassium Chloride 10 Meq Tab.Er) 10 meq PO BEDTIME [facility] Last Admin: 01/19/21 21:34 Dose: 10 meq Documented by: Potassium Chloride (Klor-Con M20) 40 meq PO ONETIME ONE Stop: 01/18/21 08:05 Last Admin: 01/18/21 08:29 Dose: 40 meq Documented by: Potassium Chloride (Potassium Chloride 20 Meq Tab.Er) 40 meq PO ONETIME ONE Stop: 01/19/21 08:07 Last Admin: 01/19/21 08:19 Dose: 40 meq Documented by: Potassium Chloride (Potassium Chloride 20 Meq Tab.Er) 40 meq PO ONETIME ONE Stop: 01/20/21 07:35 Last Admin: 01/20/21 08:30 Dose: 40 meq Documented by: Sodium Chloride (Sodium Chloride 0.9% 10 Ml Syringe) 10 ml FLUSH ASDIRECTED PRN PRN Reason: Keep Vein Open Sodium Chloride (Sodium Chloride 0.9% 2.5 Ml Syringe) 2.5 ml FLUSH ASDIRECTED PRN PRN Reason: Keep Vein Open Torsemide (Torsemide 20 Mg Tab) 20 mg PO TID PRN PRN Reason: Edema Last Admin: 01/18/21 10:49 Dose: 20 mg Documented by: - Free Text/Narrative Note: I have seen and evaluated the patient with the resident. I discussed findings and treatment plan with the resident. I agree with the assessment and plan outlined in the resident's note.
[2021-01-20] MEDS ORDERED: Pantoprazole 40 MG Tab.CR PO SCH (09:00)
[2021-01-20] MEDS: Metoprolol Tartrate 50 MG Tab PO SCH (09:28)
[2021-01-20 11:11] VITALS: BP 143/71
== END 2021-01-20 12:30 | disposition home or self-care (01) ==
LOC: MW.ED 19:50 → MW.MS 01-18 02:51
PROVIDERS: ADMIT Student in an Organized Health Care Education/Training Program; ATTEND Student in an Organized Health Care Education/Training Program
DX: R10.32 Left lower quadrant pain (principal); R53.1 Weakness; I12.9 Hypertensive chronic kidney disease with stage 1 through stage 4 chronic kidney disease, or unspecified chronic kidney disease; E11.22 Type 2 diabetes mellitus with diabetic chronic kidney disease; N18.9 Chronic kidney disease, unspecified; E78.00 Pure hypercholesterolemia, unspecified; J44.9 Chronic obstructive pulmonary disease, unspecified; K43.9 Ventral hernia without obstruction or gangrene; K42.9 Umbilical hernia without obstruction or gangrene; E87.6 Hypokalemia; E11.40 Type 2 diabetes mellitus with diabetic neuropathy, unspecified; E66.9 Obesity, unspecified; Z68.39 Body mass index [BMI] 39.0-39.9, adult; G47.30 Sleep apnea, unspecified; Z20.822 Contact with and (suspected) exposure to COVID-19; Z88.8 Allergy status to other drugs, medicaments and biological substances; Z79.4 Long term (current) use of insulin; Z79.82 Long term (current) use of aspirin; Z79.899 Other long term (current) drug therapy; Z98.890 Other specified postprocedural states
CPT/HCPCS: 36415; 74177; 80048; 80053; 81003; 82272; 82550; 82728; 82962; 83550; 83690; 83735; 83880; 84100; 84484; 85025; 88104; 93005; 96372; 96374; 96375; 97116; 97161; 97530; 99285; A9270; G0378; J1650; J1815; J2405; J3475; J7030; Q9967; U0002; 93010; 99284

== ENCOUNTER 2021-05-31 17:05 | Emergency (ER) | payer OTHER, MEDICARE ==
[2021-05-31] MEDS ORDERED: Colchicine 0.6 MG Tab PO ONE (18:06)
--- NOTE | 2021-05-31 18:11 | EDM.PDOC ---
ED HPI GENERAL MEDICAL PROBLEM - General Chief Complaint: Upper Extremity Injury/Pain Stated Complaint: GOUT IN HAND Time Seen by Provider: 05/31/21 17:15 - History of Present Illness INITIAL COMMENTS - FREE TEXT/NARRATIVE: History of present illness: [] The patient has a flareup of his gout. It is in his left hand. Started 2 or 3 days ago usually takes colchicine it works really well. The patient has not had any other medicine that really helped as well. He is out of colchicine and therefore he is here for presentation he has no systemic signs of infection. Review of systems: As per history of present illness and below otherwise all systems reviewed and negative. Past medical history: As per history of present illness and as reviewed below otherwise noncontributory. Surgical history: As per history of present illness and as reviewed below otherwise noncontributory. Social history: No reported history of drug or alcohol abuse. Family history: As per history of present illness and as reviewed below otherwise noncontributory. Physical exam: Constitutional - well developed, well-nourished and in no acute distress HEENT - normocephalic, no evidence of trauma - external nose and mouth normal - no mass in neck and no JVD - mucosae moist EYES - full EOM, PERRL, no icterus - no evidence of inflammation, injection, or drainage Respiratory - no respiratory distress, equal bilateral expansion Musculoskeletal erythema and pain with range of motion the MPJ number one of the left upper chimney minimal tenderness of the ulnar side of the wrist and the metacarpal area of digits 1 2 and 3. No gross deformity of long bones or joints - no tenderness, swelling or edema Neurologic - Alert and oriented times four - CN II-XII grossly intact - motor sensory and coordination symmetrically normal Psychiatric - appropriate mood and affect with normal thought content Hematologic - No petechiae or purpura - mucosa appropriate color and sclera not pale - normal nail bed color and refill Integument - no rash or evidence of trauma - normal turgor Diagnostics: [] Therapeutics: [] Impression: [] Plan: [] Definitive disposition and diagnosis as appropriate pending reevaluation and review of above. - Related Data Allergies Allergy/AdvReac Type Severity Reaction Status Date / Time colestipol Allergy Other Verified 01/17/21 20:17 fluvastatin Allergy Other Verified 01/17/21 20:17 ibuprofen Allergy Other Verified 01/17/21 20:17 lovastatin Allergy Other Verified 01/17/21 20:17 simvastatin Allergy Other Verified 01/17/21 20:17 Home Meds: Home Meds Insulin Glargine,Hum.Rec.Anlog [Lantus Solostar] 30 unit SQ BEDTIME 02/20/16 [History] Metoprolol Tartrate [Lopressor] 50 mg PO BID 12/07/17 [History] Potassium Chloride [Klor-Con 10] 10 meq PO DAILY 12/07/17 [History] calcitrioL [Calcitriol] 0.25 mcg PO MOWEFR@0900 12/07/17 [History] Aspirin 81 mg PO BID 01/16/19 [History] Torsemide 20 - 40 mg PO DAILY 01/16/19 [History] Pravastatin Sodium 5 mg PO Q2D 01/06/20 [History] Diclofenac Sodium [Voltaren 1% Gel] 4 gm TOP QID PRN 01/19/21 [History] Ezetimibe [Zetia] 10 mg PO DAILY 01/19/21 [History] Gabapentin [Neurontin] 800 mg PO BEDTIME 01/19/21 [History] Pantoprazole [ProTONIX] 40 mg PO DAILY 01/19/21 [History] Semaglutide [Ozempic] 0.5 mg SQ WEEKLY 01/19/21 [History] Colchicine 0.6 mg PO Q1H PRN #12 capsule 05/31/21 [Rx] Past Medical History HEENT History: Reports: None, Impaired Vision Cardiovascular History: Reports: High Cholesterol, Hypertension Respiratory History: Reports: COPD, Sleep Apnea Gastrointestinal History: Reports: None Genitourinary History: Reports: Renal Disease Other Genitourinary History: Renal insufficiency Musculoskeletal History: Reports: Arthritis Neurological History: Reports: Neuropathy, Diabetic Psychiatric History: Reports: None Endocrine/Metabolic History: Reports: Diabetes, Type II, Obesity/BMI 30+ Hematologic History: Reports: None Immunologic History: Reports: None Oncologic (Cancer) History: Reports: None Dermatologic History: Reports: Cellulitis - Infectious Disease History Infectious Disease History: Reports: Chicken Pox, Measles, Mumps - Past Surgical History Head Surgeries/Procedures: Reports: None HEENT Surgical History: Reports: None Cardiovascular Surgical History: Reports: None Respiratory Surgical History: Reports: None GI Surgical History: Reports: None Male Surgical History: Reports: None Neurological Surgical History: Reports: None Musculoskeletal Surgical History: Reports: Carpal Tunnel, Hip Replacement Oncologic Surgical History: Reports: None Dermatological Surgical History: Reports: None Social & Family History - Family History Family Medical History: No Pertinent Family History - Caffeine Use Caffeine Use: Reports: None Review of Systems - Review of Systems Review Of Systems: Comprehensive ROS is negative, except as noted in HPI. ED EXAM, GENERAL - Physical Exam Exam: See Below Free Text/Narrative:: My physical exam is in the HPI Course - Orders/Labs/Meds Meds: Medications Discontinued Medications Generic Name Dose Route Start Last Admin Trade Name Freq PRN Reason Stop Dose Admin Colchicine 1.2 mg 05/31/21 18:06 Colchicine 0.6 Mg Tab PO 05/31/21 18:07 ONETIME ONE Departure - Departure Time of Disposition: 18:09 Disposition: Home, Self-Care 01 Condition: Good Clinical Impression: Acute gout - Discharge Information Prescriptions: Colchicine 0.6 mg PO Q1H PRN #12 capsule PRN Reason: Pain (Moderate 4-6) Instructions: Calcium Pyrophosphate Deposition Referrals: PCP,None [Primary Care Provider] - Additional Instructions: Warm compresses. If you feel improved let your doctor reevaluate we may have the wrong diagnosis this time. [facility] - Primary Care [address] [place] [address] [place] [address] The following information is given to patients seen in the emergency department who are being discharged to home. This information is to outline your options for follow-up care. We provide all patients seen in our emergency department with a follow-up referral. The need for follow-up, as well as the timing and circumstances, are variable depending upon the specifics of your emergency department visit. If you don't have a primary care physician on staff, we will provide you with a referral. We always advise you to contact your personal physician following an emergency department visit to inform them of the circumstance of the visit and for follow-up with them and/or the need for any referrals to a consulting specialist. The emergency department will also refer you to a specialist when appropriate. This referral assures that you have the opportunity for follow-up care with a specialist. All of these measure are taken in an effort to provide you with optimal care, which includes your follow-up. Under all circumstances we always encourage you to contact your private physician who remains a resource for coordinating your care. When calling for follow-up care, please make the office aware that this follow-up is from your recent emergency room visit. If for any reason you are refused follow-up, please contact the [facility] Emergency Department at and asked to speak to the emergency department charge nurse.
[2021-05-31 19:16] VITALS: BP 130/84; PULSE 77
== END 2021-05-31 19:17 | disposition home or self-care (01) ==
LOC: MW.ED 17:05
DX: M10.9 Gout, unspecified (principal); E78.00 Pure hypercholesterolemia, unspecified; I10 Essential (primary) hypertension; J44.9 Chronic obstructive pulmonary disease, unspecified; E11.40 Type 2 diabetes mellitus with diabetic neuropathy, unspecified; E66.9 Obesity, unspecified; Z68.36 Body mass index [BMI] 36.0-36.9, adult; Z88.8 Allergy status to other drugs, medicaments and biological substances; Z79.82 Long term (current) use of aspirin; Z79.899 Other long term (current) drug therapy
CPT/HCPCS: 99283; A9270

== ENCOUNTER 2021-09-16 13:26 | Emergency (ER) | payer OTHER, MEDICARE ==
[2021-09-16 13:52] VITALS: BP 155/90; PULSE 94
[2021-09-16] MEDS ORDERED: Colchicine 0.6 MG Tab PO ONE (14:15)
[2021-09-16] MEDS ORDERED: Cephalexin 500 MG Cap PO ONE (14:17)
--- NOTE | 2021-09-16 14:23 | EDM.PDOC ---
ED HPI GENERAL MEDICAL PROBLEM - General Chief Complaint: Lower Extremity Injury/Pain Stated Complaint: GOUT RIGHT FOOT Time Seen by Provider: 09/16/21 13:38 Source of Information: Reports: Patient History Limitations: Reports: No Limitations - History of Present Illness INITIAL COMMENTS - FREE TEXT/NARRATIVE: HISTORY AND PHYSICAL: History of present illness: Patient is a 71-year-old male who presents to the emergency room with complaints of right pena, ankle, and great toe pain. Patient states he is pretty sure it is gout as he has had this in the past. He states he is out of his allopurinol and believes that is why he is having the pain. He denies any injury, trauma or falls. Patient denies any fever, chills, headache, change in vision, syncope or near syncope. Denies any chest pain, back pain, shortness of breath or cough. Denies any abdominal pain, nausea, vomiting, diarrhea, constipation or dysuria. Has not noted any blood in urine or stool. Patient has been eating and drinking appropriately. No recent travel or sick contacts. Review of systems: As per history of present illness and below otherwise all systems reviewed and negative. Past medical history: As per history of present illness and as reviewed below otherwise noncontributory. Surgical history: As per history of present illness and as reviewed below otherwise noncontributory. Social history: See social history for further information Family history: As per history of present illness and as reviewed below otherwise noncontributory. Physical exam: General: Well developed and well nourished. Alert and orientated x 3. Nontoxic in appearance and in no acute distress. Vital signs are stable and have been reviewed by me. Nursing notes were reviewed. HEENT: Atraumatic, normocephalic, pupils equal and reactive bilaterally, negative for conjunctival pallor or scleral icterus, mucous membranes moist, TMs normal bilaterally, throat clear, neck supple, nontender, trachea midline. No drooling or trismus noted. No meningeal signs. No hot potato voice noted. Lungs: Clear to auscultation bilaterally. No wheezes, rales, or rhonchi. Chest nontender. Normal work of breathing, no accessory muscles used. Heart: S1S2, regular rate and rhythm without overt murmur, gallops, or rubs. No JVD. No peripheral edema Abdomen: Soft, nondistended, nontender. Normoactive bowel sounds. Negative for masses or costovertebral tenderness. Skin: Diffuse redness to the right anterior pena with mild warmth to touch. Remaining skin is intact, warm, dry. No lesions or rashes noted. Hematologic: No petechiae or purpra. Mucosa appropriate color and normal nail bed color and refill. Extremities: Atraumatic, moves all extremities per self without difficulty or deficits, no bony tenderness, strong pedal and pretibial pulses bilaterally, negative for cords or calf pain. Neurovascular unremarkable. Neuro: Awake, alert, oriented. Cranial nerves II through XII unremarkable. Cerebellum unremarkable. Motor and sensory unremarkable throughout. Exam nonfocal. Psychiatric: Mood and affect are appropriate. Normal thought process. Answering questions appropriately. Please note that the patient was seen and evaluated during the 2019 SARS-CoV-2 novel coronavirus pandemic period. Community viral transmission is ongoing at time of this encounter and the emergency department is operating under pandemic response procedures. Medical Decision Making: Patient appears to have an early cellulitis of the right anterior pena. I did outline the area with a surgical marker and gave him strong education on return precautions. Will place on Keflex. He does have pain to the right great toe which is spared by the cellulitis. We will give him the colchicine, states he did have this at home but ran out as well. Patient is requesting his allopurinol be refilled, will give him a limited supply until he follows up with his PCP. I have talked with the patient about today's findings, in addition to providing specific details for plan of care. Reassessment at the time of disposition demonstrates that the patient is in no acute distress. The patient is stable for discharge, counseling was provided and we discussed in great detail signs and symptoms that would prompt them to return to the Emergency Department. Medication, follow up and supportive care measures were reviewed and discussed. Voices understanding and is agreeable to plan of care. Denies any further questions or concerns at this time. Diagnostics: None Therapeutics: Colchicine, Keflex Prescription: Keflex Impression: Cellulitis Gout Plan: 1. You were evaluated today on an emergent basis. Your skin appears to have an infection. Please continue to monitor closely. Take the antibiotic as directed. If your redness, swelling, pain worsens - you need to return for further care and possible IV antibiotics. 2. You can alternate Tylenol and ibuprofen as needed for pain and fever management. 3. We encourage you to follow up with your primary care provider and/or recommended specialist in the next few days for re-evaluation and further care/management. 4. If your symptoms should worsen, new symptoms develop or any of the signs and symptoms we discussed should arise please return to the emergency room or call 911 (if needed). Definitive disposition and diagnosis as appropriate pending reevaluation and review of above. right foot Pain Score (Numeric/FACES): 8 - Related Data Allergies Allergy/AdvReac Type Severity Reaction Status Date / Time colestipol Allergy Other Verified 09/16/21 13:48 fluvastatin Allergy Other Verified 09/16/21 13:48 ibuprofen Allergy Other Verified 09/16/21 13:48 lovastatin Allergy Other Verified 09/16/21 13:48 simvastatin Allergy Other Verified 09/16/21 13:48 Home Meds: Home Meds Insulin Glargine,Hum.Rec.Anlog [Lantus Solostar] 30 unit SQ BEDTIME 02/20/16 [History] Metoprolol Tartrate [Lopressor] 50 mg PO BID 12/07/17 [History] Potassium Chloride [Klor-Con 10] 10 meq PO DAILY 12/07/17 [History] calcitrioL [Calcitriol] 0.25 mcg PO MOWEFR@0900 12/07/17 [History] Aspirin 81 mg PO BID 01/16/19 [History] Torsemide 20 - 40 mg PO DAILY 01/16/19 [History] Pravastatin Sodium 5 mg PO Q2D 01/06/20 [History] Diclofenac Sodium [Voltaren 1% Gel] 4 gm TOP QID PRN 01/19/21 [History] Ezetimibe [Zetia] 10 mg PO DAILY 01/19/21 [History] Gabapentin [Neurontin] 800 mg PO BEDTIME 01/19/21 [History] Pantoprazole [ProTONIX] 40 mg PO DAILY 01/19/21 [History] Semaglutide [Ozempic] 0.5 mg SQ WEEKLY 01/19/21 [History] Colchicine 0.6 mg PO Q1H PRN #12 capsule 05/31/21 [Rx] allopurinoL [Zyloprim] 100 mg PO DAILY #30 tab 09/16/21 [Rx] cephALEXin [Keflex] 500 mg PO TID 5 Days #15 cap 09/16/21 [Rx] Past Medical History HEENT History: Reports: Impaired Vision Cardiovascular History: Reports: High Cholesterol, Hypertension Respiratory History: Reports: COPD, Sleep Apnea Gastrointestinal History: Reports: None Genitourinary History: Reports: Renal Disease Other Genitourinary History: Renal insufficiency Musculoskeletal History: Reports: Arthritis Neurological History: Reports: Neuropathy, Diabetic Psychiatric History: Reports: None Endocrine/Metabolic History: Reports: Diabetes, Type II, Obesity/BMI 30+ Hematologic History: Reports: None Immunologic History: Reports: None Oncologic (Cancer) History: Reports: None Dermatologic History: Reports: Cellulitis - Infectious Disease History Infectious Disease History: Reports: Chicken Pox, Measles, Mumps - Past Surgical History Head Surgeries/Procedures: Reports: None HEENT Surgical History: Reports: None Cardiovascular Surgical History: Reports: None Respiratory Surgical History: Reports: None GI Surgical History: Reports: None Male Surgical History: Reports: None Neurological Surgical History: Reports: None Musculoskeletal Surgical History: Reports: Carpal Tunnel, Hip Replacement Oncologic Surgical History: Reports: None Dermatological Surgical History: Reports: None Social & Family History - Family History Family Medical History: No Pertinent Family History - Tobacco Use Tobacco Use Status *Q: Never Tobacco User Second Hand Smoke Exposure: No - Caffeine Use Caffeine Use: Reports: None - Recreational Drug Use Recreational Drug Use: No Review of Systems - Review of Systems Review Of Systems: Comprehensive ROS is negative, except as noted in HPI. ED EXAM, GENERAL - Physical Exam Exam: See Below (See dictation) Course - Vital Signs Last Recorded V/S: Last Vital Signs Temp 98.1 F 09/16/21 13:48 Pulse 94 09/16/21 13:48 Resp 18 09/16/21 13:48 BP 155/90 H 09/16/21 13:48 Pulse Ox 96 09/16/21 13:48 - Orders/Labs/Meds Meds: Medications Discontinued Medications Generic Name Dose Route Start Last Admin Trade Name Rosalie PRN Reason Stop Dose Admin Cephalexin 500 mg 09/16/21 14:17 09/16/21 14:30 Cephalexin 500 Mg Cap PO 09/16/21 14:18 500 mg ONETIME ONE Administration Colchicine 1.8 mg 09/16/21 14:15 09/16/21 14:30 Colchicine 0.6 Mg Tab PO 09/16/21 14:16 1.8 mg ONETIME ONE Administration Departure - Departure Time of Disposition: 14:22 Disposition: Home, Self-Care 01 Clinical Impression: Cellulitis Qualifiers: Site of cellulitis: extremity Site of cellulitis of extremity: lower extremity Laterality: right Qualified Code(s): L03.115 - Cellulitis of right lower limb Gout attack Qualifiers: Gout site: toe Gout etiology: unspecified cause Laterality: right Qualified Code(s): M10.9 - Gout, unspecified - Discharge Information Prescriptions: cephALEXin [Keflex] 500 mg PO TID 5 Days #15 cap allopurinoL [Zyloprim] 100 mg PO DAILY #30 tab Instructions: Cellulitis, Adult, [id number] Referrals: PCP,None [Primary Care Provider] - Forms: ED Department Discharge Additional Instructions: The following information is given to patients seen in the emergency department who are being discharged to home. This information is to outline your options for follow-up care. We provide all patients seen in our emergency department with a follow-up referral. The need for follow-up, as well as the timing and circumstances, are variable depending upon the specifics of your emergency department visit. If you don't have a primary care physician on staff, we will provide you with a referral. We always advise you to contact your personal physician following an emergency department visit to inform them of the circumstance of the visit and for follow-up with them and/or the need for any referrals to a consulting specialist. The emergency department will also refer you to a specialist when appropriate. This referral assures that you have the opportunity for follow-up care with a specialist. All of these measure are taken in an effort to provide you with optimal care, which includes your follow-up. Under all circumstances we always encourage you to contact your private physician who remains a resource for coordinating your care. When calling for follow-up care, please make the office aware that this follow-up is from your recent emergency room visit. If for any reason you are refused follow-up, please contact the [facility] Emergency Department at and asked to speak to the emergency department charge nurse. [facility] [address] [place] [id number] [facility] [address] [place] [address] Thank you for choosing the [facility] emergency department in [place] for your medical needs today. It was a pleasure caring for you. Today you were seen in the emergency department for gout/skin infection Your prescription was electronically sent to: [facility]. You were evaluated today on an emergent basis. Your skin appears to have an infection. Please continue to monitor closely. Take the antibiotic as directed. If your redness, swelling, pain worsens - you need to return for further care and possible IV antibiotics. 2. You can alternate Tylenol and ibuprofen as needed for pain and fever management. 3. We encourage you to follow up with your primary care provider and/or recommended specialist in the next few days for re-evaluation and further care/management. 4. If your symptoms should worsen, new symptoms develop or any of the signs and symptoms we discussed should arise please return to the emergency room or call 911 (if needed). Sepsis Event Note (ED) - Evaluation Sepsis Screening Result: No Definite Risk - Focused Exam Vital Signs: Vital Signs Temp Pulse Resp BP Pulse Ox 09/16/21 13:48 98.1 F 94 18 155/90 H 96
== END 2021-09-16 14:48 | disposition home or self-care (01) ==
LOC: MW.ED 13:26
DX: L03.115 Cellulitis of right lower limb (principal); M10.9 Gout, unspecified; E78.00 Pure hypercholesterolemia, unspecified; I10 Essential (primary) hypertension; J44.9 Chronic obstructive pulmonary disease, unspecified; E11.40 Type 2 diabetes mellitus with diabetic neuropathy, unspecified; E66.9 Obesity, unspecified; Z68.35 Body mass index [BMI] 35.0-35.9, adult; Z88.8 Allergy status to other drugs, medicaments and biological substances; Z79.82 Long term (current) use of aspirin; Z79.899 Other long term (current) drug therapy
CPT/HCPCS: 99283; A9270

== ENCOUNTER 2021-09-16 20:33 | Emergency (ER) | payer OTHER, MEDICARE ==
--- NOTE | 2021-09-16 20:44 | EDM.PDOC ---
ED HPI GENERAL MEDICAL PROBLEM - General Chief Complaint: General Stated Complaint: EMS ARRIVAL Time Seen by Provider: 09/16/21 20:35 Source of Information: Reports: Patient, EMS History Limitations: Reports: No Limitations - History of Present Illness INITIAL COMMENTS - FREE TEXT/NARRATIVE: 71-year-old male presents for follow-up. History from EMS and patient. Patient was seen in the emergency department earlier today due to cellulitis right lower extremity. Patient is not on any blood thinning medications. He tripped in his house and fell although he denies hitting his head or LOC. He did endorse some nausea after the fall and did have one episode of emesis. He denies any pain currently. He was unable to get up on his own. - Related Data Allergies Allergy/AdvReac Type Severity Reaction Status Date / Time colestipol Allergy Other Verified 09/16/21 20:49 fluvastatin Allergy Other Verified 09/16/21 20:49 ibuprofen Allergy Other Verified 09/16/21 20:49 lovastatin Allergy Other Verified 09/16/21 20:49 simvastatin Allergy Other Verified 09/16/21 20:49 Home Meds: Home Meds Insulin Glargine,Hum.Rec.Anlog [Lantus Solostar] 30 unit SQ BEDTIME 02/20/16 [History] Metoprolol Tartrate [Lopressor] 50 mg PO BID 12/07/17 [History] Potassium Chloride [Klor-Con 10] 10 meq PO DAILY 12/07/17 [History] calcitrioL [Calcitriol] 0.25 mcg PO MOWEFR@0900 12/07/17 [History] Aspirin 81 mg PO BID 01/16/19 [History] Torsemide 20 - 40 mg PO DAILY 01/16/19 [History] Pravastatin Sodium 5 mg PO Q2D 01/06/20 [History] Diclofenac Sodium [Voltaren 1% Gel] 4 gm TOP QID PRN 01/19/21 [History] Ezetimibe [Zetia] 10 mg PO DAILY 01/19/21 [History] Gabapentin [Neurontin] 800 mg PO BEDTIME 01/19/21 [History] Pantoprazole [ProTONIX] 40 mg PO DAILY 01/19/21 [History] Semaglutide [Ozempic] 0.5 mg SQ WEEKLY 01/19/21 [History] Colchicine 0.6 mg PO Q1H PRN #12 capsule 07/19/21 [Rx] allopurinoL [Zyloprim] 100 mg PO DAILY #30 tab 09/16/21 [Rx] cephALEXin [Keflex] 500 mg PO TID 5 Days #15 cap 09/16/21 [Rx] Past Medical History HEENT History: Reports: Impaired Vision Cardiovascular History: Reports: High Cholesterol, Hypertension Respiratory History: Reports: COPD, Sleep Apnea Gastrointestinal History: Reports: None Genitourinary History: Reports: Renal Disease Other Genitourinary History: Renal insufficiency Musculoskeletal History: Reports: Arthritis Neurological History: Reports: Neuropathy, Diabetic Psychiatric History: Reports: None Endocrine/Metabolic History: Reports: Diabetes, Type II, Obesity/BMI 30+ Hematologic History: Reports: None Immunologic History: Reports: None Oncologic (Cancer) History: Reports: None Dermatologic History: Reports: Cellulitis - Infectious Disease History Infectious Disease History: Reports: Chicken Pox, Measles, Mumps - Past Surgical History Head Surgeries/Procedures: Reports: None HEENT Surgical History: Reports: None Cardiovascular Surgical History: Reports: None Respiratory Surgical History: Reports: None GI Surgical History: Reports: None Male Surgical History: Reports: None Neurological Surgical History: Reports: None Musculoskeletal Surgical History: Reports: Carpal Tunnel, Hip Replacement Oncologic Surgical History: Reports: None Dermatological Surgical History: Reports: None Social & Family History - Family History Family Medical History: No Pertinent Family History - Caffeine Use Caffeine Use: Reports: None ED ROS GENERAL - Review of Systems Review Of Systems: Comprehensive ROS is negative, except as noted in HPI. ED EXAM, GENERAL - Physical Exam Exam: See Below Exam Limited By: No Limitations General Appearance: Alert, WD/WN, No Apparent Distress Eye Exam: Bilateral Eye: EOMI, PERRL Ears: Hearing Grossly Normal Throat/Mouth: Normal Voice, No Airway Compromise Head: Atraumatic, Normocephalic Neck: Normal Inspection, Non-Tender Respiratory/Chest: No Respiratory Distress, Lungs Clear, Normal Breath Sounds, No Accessory Muscle Use Cardiovascular: Normal Peripheral Pulses, Regular Rate, Rhythm GI/Abdominal: Soft, Non-Tender Back Exam: Normal Inspection Extremities: Normal Inspection, Non-Tender Neurological: Alert, Oriented Psychiatric: Normal Affect, Normal Mood Skin Exam: Warm, Dry, Intact, Normal Color Course - Vital Signs Last Recorded V/S: Last Vital Signs Temp 98.2 F 09/16/21 20:33 Pulse 91 09/16/21 20:52 Resp 19 09/16/21 20:33 BP 141/115 H 09/16/21 20:52 Pulse Ox 92 L 09/16/21 20:52 - Orders/Labs/Meds Meds: Medications Discontinued Medications Generic Name Dose Route Start Last Admin Trade Name Rosalie PRN Reason Stop Dose Admin Ondansetron HCl 4 mg 09/16/21 21:18 09/16/21 21:24 Ondansetron 4 Mg Tab.Dis PO 09/16/21 21:19 4 mg ONETIME ONE Administration - Re-Assessments/Exams Free Text/Narrative Re-Assessment/Exam: 09/16/21 20:[address] C-spine CT. Will ambulate patient if results are negative. 09/16/21 21:[address] and C-spine are normal. Will ambulate patient and anticipate discharge home. Departure - Departure Time of Disposition: 21:54 Disposition: Home, Self-Care 01 Condition: Good Clinical Impression: Fall Qualifiers: Encounter type: initial encounter Qualified Code(s): W19.XXXA - Unspecified fall, initial encounter - Discharge Information Instructions: Fall Prevention in the Home, Adult, [id number] Forms: ED Department Discharge Additional Instructions: Your CT scans are normal. Please continue your antibiotics as prescribed. The following information is given to patients seen in the emergency department who are being discharged to home. This information is to outline your options for follow-up care. We provide all patients seen in our emergency department with a follow-up referral. The need for follow-up, as well as the timing and circumstances, are variable depending upon the specifics of your emergency department visit. If you don't have a primary care physician on staff, we will provide you with a referral. We always advise you to contact your personal physician following an emergency department visit to inform them of the circumstance of the visit and for follow-up with them and/or the need for any referrals to a consulting specialist. The emergency department will also refer you to a specialist when appropriate. This referral assures that you have the opportunity for follow-up care with a specialist. All of these measure are taken in an effort to provide you with opti mal care, which includes your follow-up. Under all circumstances we always encourage you to contact your private physician who remains a resource for coordinating your care. When calling for follow-up care, please make the office aware that this follow-up is from your recent emergency room visit. If for any reason you are refused follow-up, please contact the [facility] Emergency Department at and asked to speak to the emergency department charge nurse. Please follow up with your primary care physician. If you do not have a primary care physician, see below: [facility] [address] [place] [id number] [facility] [address] [place] [address] [facility] [address] [place] [id number] Sepsis Event Note (ED) - Focused Exam Vital Signs: Vital Signs Temp Pulse Resp BP Pulse Ox 09/16/21 20:52 91 141/115 H 92 L 09/16/21 20:33 98.2 F 92 19 141/115 H 95
[2021-09-16] MEDS ORDERED: Ondansetron 4 MG Tab.DIS PO ONE (21:18)
--- NOTE | 2021-09-16 21:47 | CT ---
INDICATION: Pain after fall. COMPARISON: CT of the head from 12/06/2017. TECHNIQUE: CT examination of the head was performed with 3 mm thick axial sections without intravenous contrast. Images were obtained from the vertex of the skull through the skull base, and I examined the images with the brain and bone windows. Please note that all CT scans at this facility use dose modulation, iterative reconstruction, and/or weight-based dosing when appropriate to reduce radiation dose to as low as reasonably achievable. FINDINGS: There is no change in the 10 millimeter rounded dural calcification located along the right high posterior falx consistent with a small meningioma. This produces no mass effect upon the adjacent brain. It is unlikely to be of clinical significance. The brain is otherwise normal in appearance for the patient`s age on today`s study, with no sign of mass lesion, mass effect, hemorrhage, or edema. There is mild dilatation of the ventricles and sulci representing mild, age-appropriate atrophy. The visualized portions of the orbits are normal in appearance. The visualized paranasal sinuses and mastoids are clear. The previously seen air-fluid levels in the maxillary sinuses and the right sphenoid sinus have resolved. The previously seen moderate mucosal thickening in the ethmoids and mild mucosal thickening in the maxillary sinuses have resolved. The osseous structures are normal in their appearance with no sign of abnormality in the skull base or calvarium. IMPRESSION: No sign of closed head injury. 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 Stable mild, age-appropriate atrophy. Resolution of previously seen acute bilateral maxillary and right sphenoid sinusitis, with resolution of chronic sinusitis elsewhere. Please note that all CT scans at this facility use dose modulation, iterative reconstruction, and/or weight-based dosing when appropriate to reduce radiation dose to as low as reasonably achievable. Dictated by Tiago Cooper MD @ 09/16/2021 9:45:56 PM (Electronically Signed)
--- NOTE | 2021-09-16 21:49 | CT ---
INDICATION: Status post fall with neck pain. COMPARISON: COMPARISON DATE TECHNIQUE: CT examination of the cervical spine is performed without contrast using spiral technique. 2 mm thick axial, sagittal and coronal reconstructions were made. Please note that all CT scans at this facility use dose modulation, iterative reconstruction, and/or weight-based dosing when appropriate to reduce radiation dose to as low as reasonably achievable. FINDINGS: : There is no sign of fracture or subluxation. The cervical vertebral bodies and intervertebral discs are normal in height and are in anatomic alignment. There is no sign of prevertebral soft tissue swelling. There is mild right C3-4 facet arthropathy. The airway structures are normal in appearance. The visualized skull base is normal in appearance. The visualized inferior brain is normal in appearance for the patient`s age. The small portion of the visualized right apex is clear. The left apex is not included on today`s study. IMPRESSION: No sign of acute injury to the cervical spine. Nearly normal CT of the cervical spine with no sign of acute injury. Mild right C3-4 facet arthropathy. Please note that all CT scans at this facility use dose modulation, iterative reconstruction, and/or weight-based dosing when appropriate to reduce radiation dose to as low as reasonably achievable. Dictated by Tiago Cooper MD @ 09/16/2021 9:48:49 PM (Electronically Signed)
[2021-09-16 23:38] VITALS: BP 144/77; PULSE 95
== END 2021-09-16 23:40 | disposition home or self-care (01) ==
LOC: MW.ED 20:33
DX: R11.2 Nausea with vomiting, unspecified (principal); L03.115 Cellulitis of right lower limb; I10 Essential (primary) hypertension; J44.9 Chronic obstructive pulmonary disease, unspecified; M19.90 Unspecified osteoarthritis, unspecified site; E11.40 Type 2 diabetes mellitus with diabetic neuropathy, unspecified; E66.9 Obesity, unspecified; Z68.35 Body mass index [BMI] 35.0-35.9, adult; Z88.8 Allergy status to other drugs, medicaments and biological substances; Z88.6 Allergy status to analgesic agent; Z79.4 Long term (current) use of insulin; Z79.82 Long term (current) use of aspirin; Z79.899 Other long term (current) drug therapy; W01.0XXA Fall on same level from slipping, tripping and stumbling without subsequent striking against object, initial encounter; Y92.009 Unspecified place in unspecified non-institutional (private) residence as the place of occurrence of the external cause
CPT/HCPCS: 70450; 72125; 99283; A9270

== ENCOUNTER 2021-10-08 12:52 | Emergency (ER) | payer OTHER, MEDICARE ==
--- NOTE | 2021-10-08 13:23 | EDM.PDOC ---
ED HPI GENERAL MEDICAL PROBLEM - General Chief Complaint: Lower Extremity Injury/Pain Stated Complaint: FOOT PAIN Time Seen by Provider: 10/08/21 12:56 Source of Information: Reports: Patient History Limitations: Reports: No Limitations - History of Present Illness INITIAL COMMENTS - FREE TEXT/NARRATIVE: HISTORY AND PHYSICAL: History of present illness: Patient is a 71-year-old male, with a history of type 2 diabetes, who presents emergency room today with concern of cellulitis of his left foot starting last night. Patient states that he has had frequent cellulitis of his feet and states he also has a history of gout. Patient states starting last night, he noticed some increased pain of his left dorsum of the foot and states that this happened however many times that he has had cellulitis. Patient states that this does not feel like gout but feels more typical of his early cellulitis and states that he came here to the emergency room knowing that he is at a higher risk for infections given his diabetes. Patient states that he does have a forensic manager but states that he has not followed up in quite some time in order to receive further foot care. Patient states he has not taken anything for his symptoms and denies any trauma or injury. Patient denies fever, chills, chest pain, shortness of breath, or cough. Denies headache, neck stiff ness, change in vision, syncope, or near syncope. Denies nausea, vomiting, abdominal pain, diarrhea, constipation, or dysuria. Has not noted any blood in urine or stool. Patient has been eating and drinking appropriately. Review of systems: As per history of present illness and below otherwise all systems reviewed and negative. Past medical history: As per history of present illness and as reviewed below otherwise non contributory. Surgical history: As per history of present illness and as reviewed below otherwise noncontributory. Social history: See social history for further information Family history: As per history of present illness and as reviewed below otherwise noncontributory. Physical exam: General: Patient is alert, oriented, and in no acute distress. Patient sitting comfortably on exam table. Vitals will stable and reviewed by me. HEENT: Atraumatic, normocephalic, pupils equal and reactive bilaterally, negative for conjunctival pallor or scleral icterus, mucous membranes moist, throat clear, neck supple, nontender, trachea midline. No drooling or trismus noted. No meningeal signs. No hot potato voice noted. Lungs: Clear to auscultation, breath sounds equal bilaterally, chest nontender. Heart: S1S2, regular rate and rhythm without overt murmur Abdomen: Soft, nondistended, nontender. Negative for masses or hepatosplenomegaly. Negative for costovertebral tenderness. Pelvis: Stable nontender. Genitourinary: Deferred. Rectal: Deferred. Skin: Intact, warm, dry. No lesions or rashes noted. Extremities: Mild edema/erythema consistent with early cellulitis noted of the left dorsum of the foot with pain to palpation and mild increase in warmth compared to the remainder of the extremity. Patient does have full range of motion of complete bilateral lower extremities without pain or difficulty. Dorsalis pedis and posterior tibial pulses are grossly intact bilaterally with capillary refill less than 2 seconds. Intact sensation to light and deep touch of complete bilateral lower extremities. All compartments soft. Otherwise, atraumatic, negative for cords or calf pain. Neurovascular unremarkable. Neuro: Awake, alert, oriented. Cranial nerves II through XII unremarkable. Cerebellum unremarkable. Motor and sensory unremarkable throughout. Exam nonfocal. Medical Decision Making: Signs and symptoms that were prompt return to the ED thoroughly discussed with patient. Discussed importance for follow-up with a primary care provider/forensic manager. Voices understanding and is agreeable to plan of care. Denies any further questions or concerns at this time. Diagnostics: Did offer basic lab work and foot x-ray, however, patient declines. All risks versus benefits discussed with patient and expresses understanding. Therapeutics: None Prescription: Keflex (Bactrim does have a severe interaction with his home medications) Impression: Cellulitis, mild, left foot Plan: 1. Take medication as prescribed. Your medication has been sent to [facility] pharmacy. 2. You can alternate ibuprofen and Tylenol as directed for pain and discomfort. 3. Follow-up with the forensic manager and your primary care provider as discussed. Return to the ED as needed and as discussed. Definitive disposition and diagnosis as appropriate pending reevaluation and review of above. Bilateral Feet Pain Score (Numeric/FACES): 10 - Related Data Allergies Allergy/AdvReac Type Severity Reaction Status Date / Time colestipol Allergy Other Verified 10/08/21 13:05 fluvastatin Allergy Other Verified 10/08/21 13:05 ibuprofen Allergy Other Verified 10/08/21 13:05 lovastatin Allergy Other Verified 10/08/21 13:05 simvastatin Allergy Other Verified 10/08/21 13:05 Home Meds: Home Meds Insulin Glargine,Hum.Rec.Anlog [Lantus Solostar] 30 unit SQ BEDTIME 02/20/16 [History] Metoprolol Tartrate [Lopressor] 50 mg PO BID 12/07/17 [History] Potassium Chloride [Klor-Con 10] 10 meq PO DAILY 12/07/17 [History] calcitrioL [Calcitriol] 0.25 mcg PO MOWEFR@0900 12/07/17 [History] Aspirin 81 mg PO BID 01/16/19 [History] Torsemide 20 - 40 mg PO DAILY 01/16/19 [History] Pravastatin Sodium 5 mg PO Q2D 01/06/20 [History] Diclofenac Sodium [Voltaren 1% Gel] 4 gm TOP QID PRN 01/19/21 [History] Ezetimibe [Zetia] 10 mg PO DAILY 01/19/21 [History] Gabapentin [Neurontin] 800 mg PO BEDTIME 01/19/21 [History] Pantoprazole [ProTONIX] 40 mg PO DAILY 01/19/21 [History] Semaglutide [Ozempic] 0.5 mg SQ WEEKLY 01/19/21 [History] Colchicine 0.6 mg PO Q1H PRN #12 capsule 05/31/21 [Rx] Acetaminophen/oxyCODONE [Percocet 325-5 MG] 1 each PO Q4H PRN #18 tab 09/16/21 [Rx] allopurinoL [Zyloprim] 100 mg PO DAILY #30 tab 09/16/21 [Rx] cephALEXin [Keflex] 500 mg PO Q8H 10 Days #30 cap 10/08/21 [Rx] Past Medical History HEENT History: Reports: Impaired Vision Cardiovascular History: Reports: High Cholesterol, Hypertension Respiratory History: Reports: COPD, Sleep Apnea Gastrointestinal History: Reports: None Genitourinary History: Reports: Renal Disease Other Genitourinary History: Renal insufficiency Musculoskeletal History: Reports: Arthritis Neurological History: Reports: Neuropathy, Diabetic Psychiatric History: Reports: None Endocrine/Metabolic History: Reports: Diabetes, Type II, Obesity/BMI 30+ Hematologic History: Reports: None Immunologic History: Reports: None Oncologic (Cancer) History: Reports: None Dermatologic History: Reports: Cellulitis - Infectious Disease History Infectious Disease History: Reports: Chicken Pox, Measles, Mumps - Past Surgical History Head Surgeries/Procedures: Reports: None HEENT Surgical History: Reports: None Cardiovascular Surgical History: Reports: None Respiratory Surgical History: Reports: None GI Surgical History: Reports: None Male Surgical History: Reports: None Neurological Surgical History: Reports: None Musculoskeletal Surgical History: Reports: Carpal Tunnel, Hip Replacement Oncologic Surgical History: Reports: None Dermatological Surgical History: Reports: None Social & Family History - Family History Family Medical History: No Pertinent Family History - Tobacco Use Tobacco Use Status *Q: Never Tobacco User Second Hand Smoke Exposure: No - Caffeine Use Caffeine Use: Reports: None - Recreational Drug Use Recreational Drug Use: No Review of Systems - Review of Systems Review Of Systems: Comprehensive ROS is negative, except as noted in HPI. ED EXAM, GENERAL - Physical Exam Exam: See Below (See dictation) Course - Vital Signs Last Recorded V/S: Last Vital Signs Temp 97.2 F 10/08/21 13:39 Pulse 98 10/08/21 13:39 Resp 18 10/08/21 13:39 BP 126/70 10/08/21 13:39 Pulse Ox 99 10/08/21 13:39 Departure - Departure Time of Disposition: 13:22 Disposition: Home, Self-Care 01 Clinical Impression: Cellulitis - Discharge Information Prescriptions: cephALEXin [Keflex] 500 mg PO Q8H 10 Days #30 cap Instructions: Cellulitis, Adult, [id number] Referrals: PCP,Not In Area [Ordering Only Provider] - Forms: ED Department Discharge Additional Instructions: The following information is given to patients seen in the emergency department who are being discharged to home. This information is to outline your options for follow-up care. We provide all patients seen in our emergency department with a follow-up referral. The need for follow-up, as well as the timing and circumstances, are variable depending upon the specifics of your emergency department visit. If you don't have a primary care physician on staff, we will provide you with a referral. We always advise you to contact your personal physician following an emergency department visit to inform them of the circumstance of the visit and for follow-up with them and/or the need for any referrals to a consulting specialist. The emergency department will also refer you to a specialist when appropriate. This referral assures that you have the opportunity for follow-up care with a specialist. All of these measure are taken in an effort to provide you with optimal care, which includes your follow-up. Under all circumstances we always encourage you to contact your private physician who remains a resource for coordinating your care. When calling for follow-up care, please make the office aware that this follow-up is from your recent emergency room visit. If for any reason you are refused follow-up, please contact the [facility] Emergency Department at and asked to speak to the emergency department charge nurse. [facility] [address] [place] [id number] [facility] [address] [place] [id number] [facility], Dr. Russell, Podiatry [address] [place] [id number] 1. Take medication as prescribed. Your medication has been sent to [facility] pharmacy. 2. You can alternate ibuprofen and Tylenol as directed for pain and discomfort. 3. Follow-up with the forensic manager and your primary care provider as discussed. Return to the ED as needed and as discussed. Sepsis Event Note (ED) - Evaluation Sepsis Screening Result: No Definite Risk - Focused Exam Vital Signs: Vital Signs Temp Pulse Resp BP Pulse Ox 10/08/21 13:39 97.2 F 98 18 126/70 99 10/08/21 13:06 97.8 F 105 H 20 142/71 H 100
[2021-10-08 13:40] VITALS: BP 126/70; PULSE 98
== END 2021-10-08 13:41 | disposition home or self-care (01) ==
LOC: MW.ED 12:52
DX: L03.116 Cellulitis of left lower limb (principal); E78.00 Pure hypercholesterolemia, unspecified; I10 Essential (primary) hypertension; J44.9 Chronic obstructive pulmonary disease, unspecified; E11.9 Type 2 diabetes mellitus without complications; E66.9 Obesity, unspecified; Z68.35 Body mass index [BMI] 35.0-35.9, adult; Z79.82 Long term (current) use of aspirin; Z79.4 Long term (current) use of insulin; Z79.899 Other long term (current) drug therapy
CPT/HCPCS: 99283

== ENCOUNTER 2021-11-16 11:44 | Emergency (ER) | payer OTHER, MEDICARE ==
--- NOTE | 2021-11-16 12:51 | EDM.PDOC ---
ED HPI GENERAL MEDICAL PROBLEM - General Chief Complaint: Medication Administration Stated Complaint: GOUT Time Seen by Provider: 11/16/21 12:21 Source of Information: Reports: Patient History Limitations: Reports: No Limitations - History of Present Illness INITIAL COMMENTS - FREE TEXT/NARRATIVE: Presents reporting a gout flare. The patient states he has a longstanding history of gout which primarily affects his left foot and ankle joints. He actually came into the ER today because he is out of his colchicine. He is a longstanding patient of the [place] in [facility]. He called for his [place] yesterday at the [place] dispensary in [facility]. He was told that it may be a couple of days to several weeks before his medication arrives and today he is having an acute gout flare. He would like enough colchicine for this flare. He reports typical flare symptoms with mild swelling and tenderness about the ankle joint. He reports that he sees a bit sander every 6 months and that his kidney function is currently "almost normal". He reports his other chronic medical problems are well controlled. He does take allopurinol 100 mg on a daily basis. He did talk to his primary provider yesterday who told him he needed to take the colchicine. Left Ankle Pain Score (Numeric/FACES): 8 - Related Data Allergies Allergy/AdvReac Type Severity Reaction Status Date / Time colestipol Allergy Other Verified 11/16/21 12:09 fluvastatin Allergy Other Verified 11/16/21 12:09 ibuprofen Allergy Other Verified 11/16/21 12:09 lovastatin Allergy Other Verified 11/16/21 12:09 simvastatin Allergy Other Verified 11/16/21 12:09 Home Meds: Home Meds Metoprolol Tartrate [Lopressor] 50 mg PO BID 12/07/17 [History] Potassium Chloride [Klor-Con 10] 10 meq PO DAILY 12/07/17 [History] calcitrioL [Calcitriol] 0.25 mcg PO MOWEFR@0900 12/07/17 [History] Aspirin 81 mg PO BID 01/16/19 [History] Torsemide 20 - 40 mg PO DAILY 01/16/19 [History] Pravastatin Sodium 5 mg PO Q2D 01/06/20 [History] Diclofenac Sodium [Voltaren 1% Gel] 4 gm TOP QID PRN 01/19/21 [History] Ezetimibe [Zetia] 10 mg PO DAILY 01/19/21 [History] Gabapentin [Neurontin] 800 mg PO BEDTIME 01/19/21 [History] Pantoprazole [ProTONIX] 40 mg PO DAILY 01/19/21 [History] Semaglutide [Ozempic] 0.5 mg SQ WEEKLY 01/19/21 [History] Colchicine 0.6 mg PO Q1H PRN #12 capsule 05/31/21 [Rx] Acetaminophen/oxyCODONE [Percocet 325-5 MG] 1 each PO Q4H PRN #18 tab 09/16/21 [Rx] allopurinoL [Zyloprim] 100 mg PO DAILY #30 tab 09/16/21 [Rx] cephALEXin [Keflex] 500 mg PO Q8H 10 Days #30 cap 10/08/21 [Rx] Past Medical History HEENT History: Reports: Impaired Vision Cardiovascular History: Reports: CAD, High Cholesterol, Hypertension, [place] Respiratory History: Reports: COPD, Sleep Apnea Gastrointestinal History: Reports: None, Hiatal Hernia Genitourinary History: Reports: Renal Disease Other Genitourinary History: Renal insufficiency Musculoskeletal History: Reports: Arthritis Neurological History: Reports: Neuropathy, Diabetic Psychiatric History: Reports: Addiction Endocrine/Metabolic History: Reports: Diabetes, Type II, Obesity/BMI 30+ Hematologic History: Reports: None Immunologic History: Reports: None Oncologic (Cancer) History: Reports: None Dermatologic History: Reports: Cellulitis - Infectious Disease History Infectious Disease History: Reports: Chicken Pox, Measles, Mumps - Past Surgical History Head Surgeries/Procedures: Reports: None HEENT Surgical History: Reports: None Cardiovascular Surgical History: Reports: None Respiratory Surgical History: Reports: None GI Surgical History: Reports: Other (See Below) Other GI Surgeries/Procedures: cyst removal from esophagus/lung/stomach Male Surgical History: Reports: None Neurological Surgical History: Reports: None Musculoskeletal Surgical History: Reports: Carpal Tunnel, Hip Replacement Oncologic Surgical History: Reports: None Dermatological Surgical History: Reports: None Social & Family History - Family History Family Medical History: No Pertinent Family History - Tobacco Use Tobacco Use Status *Q: Never Tobacco User - Caffeine Use Caffeine Use: Reports: None - Recreational Drug Use Recreational Drug Use: No ED ROS GENERAL - Review of Systems Review Of Systems: Comprehensive ROS is negative, except as noted in HPI. ED EXAM, GENERAL - Physical Exam Exam: See Below Exam Limited By: No Limitations General Appearance: Alert, No Apparent Distress Ears: Normal External Exam Nose: Normal Inspection Throat/Mouth: Normal Inspection Head: Atraumatic, Normocephalic Neck: Normal Inspection Respiratory/Chest: No Respiratory Distress, Lungs Clear, Normal Breath Sounds Cardiovascular: Normal Peripheral Pulses, Regular Rate, Rhythm Extremities: Other (Left ankle slight light dorsal swelling, quite tender, no erythema. Range of motion moderately limited by pain.) Neurological: Alert, Oriented Psychiatric: Normal Affect, Normal Mood Skin Exam: Warm, Dry, Intact, Normal Color, No Rash Lymphatic: No Adenopathy Course - Vital Signs Last Recorded V/S: Last Vital Signs Temp 36.6 C 11/16/21 12:12 Pulse 99 11/16/21 12:12 Resp 20 11/16/21 12:12 BP 132/70 11/16/21 12:12 Pulse Ox 99 11/16/21 12:12 Departure - Departure Time of Disposition: 12:53 Disposition: Home, Self-Care 01 Condition: Good Clinical Impression: Gout attack Qualifiers: Gout site: toe Gout etiology: unspecified cause Laterality: right Qualified Code(s): M10.9 - Gout, unspecified - Discharge Information Referrals: Donovan Doran MD [Primary Care Provider] - Additional Instructions: The following information is given to patients seen in the emergency department who are being discharged to home. This information is to outline your options for follow-up care. We provide all patients seen in our emergency department with a follow-up referral. The need for follow-up, as well as the timing and circumstances, are variable depending upon the specifics of your emergency department visit. If you don't have a primary care physician on staff, we will provide you with a referral. We always advise you to contact your personal physician following an emergency department visit to inform them of the circumstance of the visit and for follow-up with them and/or the need for any referrals to a consulting specialist. The emergency department will also refer you to a specialist when appropriate. This referral assures that you have the opportunity for follow-up care with a specialist. All of these measure are taken in an effort to provide you with optimal care, which includes your follow-up. Under all circumstances we always encourage you to contact your private physician who remains a resource for coordinating your care. When calling for f ollow-up care, please make the office aware that this follow-up is from your recent emergency room visit. If for any reason you are refused follow-up, please contact the [facility] Emergency Department at and asked to speak to the emergency department charge nurse. 1. Take your colchicine as prescribed. 2. Prednisone for acute flare. 3. Follow up with your primary provider. Sepsis Event Note (ED) - Evaluation Sepsis Screening Result: No Definite Risk - Focused Exam Vital Signs: Vital Signs Temp Pulse Resp BP Pulse Ox 11/16/21 12:12 36.6 C 99 20 132/70 99
[2021-11-16 14:13] VITALS: BP 124/57; PULSE 84
== END 2021-11-16 13:09 | disposition home or self-care (01) ==
LOC: MW.ED 11:44
DX: M10.9 Gout, unspecified (principal); I10 Essential (primary) hypertension; E78.00 Pure hypercholesterolemia, unspecified; I25.2 Old myocardial infarction; J44.9 Chronic obstructive pulmonary disease, unspecified; E11.9 Type 2 diabetes mellitus without complications; E66.9 Obesity, unspecified; Z79.899 Other long term (current) drug therapy; Z79.82 Long term (current) use of aspirin; Z88.1 Allergy status to other antibiotic agents; Z88.5 Allergy status to narcotic agent
CPT/HCPCS: 99283

== ENCOUNTER 2022-02-21 20:25 | Emergency (ER) | payer OTHER, MEDICARE ==
[2022-02-21] MEDS ORDERED: Clindamycin Palmitate Solution 75 MG/5 ML 100 ML Bottle PO STA (21:45)
[2022-02-21] MEDS ORDERED: Clindamycin HCl 150 MG Cap ONE (21:54)
[2022-02-21] MEDS ORDERED: Clindamycin HCl 150 MG Cap PO STA (22:07)
[2022-02-21 22:13] VITALS: BP 119/61; PULSE 85
== END 2022-02-21 22:08 | disposition home or self-care (01) ==
LOC: MW.ED 20:25
DX: L03.114 Cellulitis of left upper limb (principal); I10 Essential (primary) hypertension; E78.00 Pure hypercholesterolemia, unspecified; J44.9 Chronic obstructive pulmonary disease, unspecified; E11.9 Type 2 diabetes mellitus without complications; E66.9 Obesity, unspecified; Z68.33 Body mass index [BMI] 33.0-33.9, adult; Z79.82 Long term (current) use of aspirin; Z79.899 Other long term (current) drug therapy; Z88.8 Allergy status to other drugs, medicaments and biological substances
CPT/HCPCS: 73130; 99283; A9270; 99284

== ENCOUNTER 2022-03-18 18:26 | Observation (INO) | payer OTHER, MEDICARE ==
[2022-03-18] MEDS ORDERED: Sodium Chloride 0.9% 2.5 ML Syringe FLUSH PRN (19:01)
[2022-03-18] MEDS ORDERED: Ondansetron 4 MG/2 ML SDV IVPUSH ONE ×2 (19:01→21:47)
[2022-03-18] MEDS ORDERED: Sodium Chloride 0.9% 10 ML Syringe FLUSH PRN (19:01)
[2022-03-18] MEDS ORDERED: HYDROmorphone 1 MG/ML Syringe IVPUSH STA (19:04)
[2022-03-18 19:50] LABS: CARBON DIOXIDE,CO2 27.8 mmol/L (21.0-32.0); POTASSIUM,K 3.1 mmol/L (3.5-5.1)
[2022-03-18] MEDS ORDERED: Sodium Chloride 0.9% 1,000 ML IV ONE (20:00)
[2022-03-18] MEDS ORDERED: Potassium Chloride Riders 20 MEQ in Premix Bag 1 BAG IV ONE ×2 (20:00→21:48)
[2022-03-18] MEDS ORDERED: HYDROmorphone 1 MG/ML Syringe IVPUSH ONE (21:47)
[2022-03-18] MEDS ORDERED: Pantoprazole 80 MG in Sodium Chloride 0.9% 10 ML IVPUSH ONE (21:48)
[2022-03-18] MEDS ORDERED: Ondansetron 4 MG/2 ML SDV IVPUSH PRN (23:01)
[2022-03-18] MEDS ORDERED: Albuterol/Ipratropium 3.0-0.5 MG/3 ML Neb Soln NEB PRN (23:01)
[2022-03-19] MEDS ORDERED: Loperamide 2 MG Cap PO ONE (00:07)
[2022-03-19] MEDS: HYDROmorphone 2 MG/ML Syringe IVPUSH PRN ×2 (02:05→08:28)
[2022-03-19] MEDS: Lactated Ringers 1,000 ML IV SCH ×3 (02:08→20:17)
[2022-03-19 07:27] LABS: CARBON DIOXIDE,CO2 25.6 mmol/L (21.0-32.0); POTASSIUM,K 3.2 mmol/L (3.5-5.1)
[2022-03-19] MEDS: Heparin Sodium 5,000 Units/ML Vial SUBCUT SCH ×2 (08:29→15:32)
[2022-03-19] MEDS ORDERED: Pantoprazole 40 MG in Sodium Chloride 0.9% 10 ML IVPUSH SCH (09:00)
[2022-03-19] MEDS ORDERED: Morphine 2 MG/ML SYRINGE IVPUSH PRN (09:10)
[2022-03-19] MEDS: Acetaminophen 325 MG Tab PO PRN ×2 (09:47→16:16)
[2022-03-19] MEDS: Piperacillin/Tazobactam 3.375 GM in Sodium Chloride 0.9% 50 ML IV SCH ×3 (09:51→20:47)
[2022-03-19] MEDS ORDERED: Lactated Ringers 1,000 ML IV ONE ×2 (10:00→14:04)
[2022-03-19] MEDS ORDERED: Azithromycin 500 MG in Sodium Chloride 0.9% 250 ML IV SCH (13:30)
[2022-03-19] MEDS ORDERED: Potassium Chloride 20 MEQ Tab.ER PO ONE (13:30)
[2022-03-19] MEDS ORDERED: Lactated Ringers 1,000 ML IV SCH ×2 (15:05→19:00)
[2022-03-19] MEDS ORDERED: Iopamidol 755 MG/ML 500 ML Multipack Bottle IVPUSH ONE (17:55)
[2022-03-19 19:22] VITALS: BP 106/50; PULSE 97
== END 2022-03-19 21:30 ==
LOC: MW.ED 18:26 → MW.MS 22:19
PROVIDERS: ADMIT Student in an Organized Health Care Education/Training Program; ATTEND Student in an Organized Health Care Education/Training Program
DX: K81.9 Cholecystitis, unspecified (principal); J18.9 Pneumonia, unspecified organism; I25.10 Atherosclerotic heart disease of native coronary artery without angina pectoris; E78.00 Pure hypercholesterolemia, unspecified; I10 Essential (primary) hypertension; I25.2 Old myocardial infarction; J44.9 Chronic obstructive pulmonary disease, unspecified; G47.30 Sleep apnea, unspecified; E11.9 Type 2 diabetes mellitus without complications; E66.9 Obesity, unspecified; A04.9 Bacterial intestinal infection, unspecified; N17.9 Acute kidney failure, unspecified; E87.6 Hypokalemia; Z20.822 Contact with and (suspected) exposure to COVID-19; Z88.8 Allergy status to other drugs, medicaments and biological substances; Z79.899 Other long term (current) drug therapy; Z79.82 Long term (current) use of aspirin; Z98.890 Other specified postprocedural states
CPT/HCPCS: 36415; 71045; 74174; 74176; 76705; 80053; 81001; 82947; 83605; 83690; 83735; 84100; 84132; 85025; 87040; 87635; 96365; 96366; 96367; 96372; 96375; 96376; 99285; A9270; C9113; G0378; J0456; J1170; J1644; J2405; J2543; J3480; J3490; J7030; J7050; J7120; Q9967; U0002

== ENCOUNTER 2022-10-09 02:01 | Emergency (ER) | payer OTHER, MEDICARE ==
[2022-10-09] MEDS ORDERED: Ondansetron 4 MG/2 ML SDV IVPUSH ONE (03:01)
[2022-10-09] MEDS ORDERED: Lactated Ringers 1,000 ML IV ONE ×2 (03:01→05:15)
[2022-10-09] MEDS ORDERED: Morphine 4 MG/ML Syringe IVPUSH ONE ×2 (03:02→04:23)
[2022-10-09 03:21] LABS: POTASSIUM,K 3.6 mmol/L (3.5-5.1)
[2022-10-09] MEDS ORDERED: HYDROmorphone 1 MG/ML Syringe IVPUSH ONE (04:53)
[2022-10-09 05:31] LABS: CORONAVIRUS COVID-19 NAA NEGATIVE (NEGATIVE); INFLUENZA A NAA NEGATIVE (NEGATIVE); INFLUENZA B NAA NEGATIVE (NEGATIVE); RESPIRATORY SYNCYTIAL VIR NAA NEGATIVE (NEGATIVE)
[2022-10-09] MEDS ORDERED: HYDROmorphone 2 MG/ML Syringe IVPUSH ONE (06:43)
[2022-10-09] MEDS ORDERED: Lidocaine 2% Viscous Solution 15 ML UD PO ONE (07:59)
[2022-10-09 12:27] VITALS: BP 124/73; PULSE 115
== END 2022-10-09 12:24 | disposition home or self-care (01) ==
LOC: MW.ED 02:01
DX: K56.609 Unspecified intestinal obstruction, unspecified as to partial versus complete obstruction (principal); E11.40 Type 2 diabetes mellitus with diabetic neuropathy, unspecified; E11.22 Type 2 diabetes mellitus with diabetic chronic kidney disease; I25.10 Atherosclerotic heart disease of native coronary artery without angina pectoris; E78.00 Pure hypercholesterolemia, unspecified; I12.9 Hypertensive chronic kidney disease with stage 1 through stage 4 chronic kidney disease, or unspecified chronic kidney disease; N18.9 Chronic kidney disease, unspecified; I25.2 Old myocardial infarction; J44.9 Chronic obstructive pulmonary disease, unspecified; E66.9 Obesity, unspecified; Z68.31 Body mass index [BMI] 31.0-31.9, adult; Z88.8 Allergy status to other drugs, medicaments and biological substances; Z79.82 Long term (current) use of aspirin; Z79.899 Other long term (current) drug therapy; Z20.822 Contact with and (suspected) exposure to COVID-19
CPT/HCPCS: 0241U; 36415; 74018; 74177; 80053; 83605; 83690; 85025; 85610; 93005; 96361; 96374; 96375; 96376; 99284; A9270; J1170; J2270; J2405; J7120

== ENCOUNTER 2022-10-10 13:16 | Emergency (ER) | payer OTHER, MEDICARE ==
[2022-10-10] MEDS ORDERED: Sodium Chloride 0.9% 1,000 ML IV ONE ×2 (13:48→14:56)
[2022-10-10 14:19] LABS: CARBON DIOXIDE,CO2 24.1 mmol/L (21.0-32.0); POTASSIUM,K 4.7 mmol/L (3.5-5.1)
[2022-10-10] MEDS ORDERED: Piperacillin/Tazobactam 3.375 GM in Sodium Chloride 0.9% 50 ML IV ONE (14:54)
[2022-10-10] MEDS ORDERED: Enoxaparin 100 MG/1 ML Syringe SUBCUT ONE (15:58)
[2022-10-10 17:48] VITALS: BP 143/88; PULSE 125
== END 2022-10-10 18:15 ==
LOC: MW.ED 13:16
DX: A41.9 Sepsis, unspecified organism (principal); R65.20 Severe sepsis without septic shock; K56.609 Unspecified intestinal obstruction, unspecified as to partial versus complete obstruction; K43.6 Other and unspecified ventral hernia with obstruction, without gangrene; E11.40 Type 2 diabetes mellitus with diabetic neuropathy, unspecified; I25.10 Atherosclerotic heart disease of native coronary artery without angina pectoris; E78.00 Pure hypercholesterolemia, unspecified; I10 Essential (primary) hypertension; I25.2 Old myocardial infarction; N17.9 Acute kidney failure, unspecified; N28.9 Disorder of kidney and ureter, unspecified; R79.89 Other specified abnormal findings of blood chemistry; E66.9 Obesity, unspecified; Z88.8 Allergy status to other drugs, medicaments and biological substances; Z79.899 Other long term (current) drug therapy; Z68.31 Body mass index [BMI] 31.0-31.9, adult
CPT/HCPCS: 36415; 70450; 71045; 74018; 74176; 80053; 81003; 82947; 83605; 84484; 85025; 85379; 87040; 93005; 96361; 96365; 96372; 99285; J1650; J2543; J7030

== ENCOUNTER 2024-11-22 13:09 | Emergency (ER) | payer OTHER, MEDICARE ==
[2024-11-22] MEDS: cefTRIAXone 1 GM Vial IV ONE (14:53)
[2024-11-22 14:54] LABS: HEMATOCRIT 20.5 % (42.0-52.0); HEMOGLOBIN 6.3 g/dL (14.0-18.0); MEAN CORPUSCULAR HEMOGLOBIN 21.9 pg (28.0-32.0); MEAN CORPUSCULAR HGB CONC 30.7 g/dL (32.0-36.0); MEAN CORPUSCULAR VOLUME 71.2 fL (83.0-99.0); PLATELET COUNT,PLT 58 K/uL (150-400); RED BLOOD CELL COUNT 2.88 M/uL (4.52-5.90)
[2024-11-22] MEDS: Sodium Chloride 0.9% 2.5 ML Syringe FLUSH PRN (14:57)
[2024-11-22] MEDS: Sodium Chloride 0.9% 500 ML IV SCH (14:57)
[2024-11-22] MEDS: cefTRIAXone 2 GM in Sodium Chloride 0.9% 50 ML IV ONE (14:57)
[2024-11-22] MEDS: Sodium Chloride 0.9% 10 ML Syringe FLUSH PRN (14:57)
[2024-11-22 15:05] LABS: APPEARANCE,URINE CLEAR; BILIRUBIN,URINE NEGATIVE (NEGATIVE); COLOR,URINE YELLOW; GLUCOSE,URINE NEGATIVE (NEGATIVE); KETONES,URINE NEGATIVE (NEGATIVE); LEUKOCYTE ESTERASE,URINE NEGATIVE (NEGATIVE); NITRITE,URINE NEGATIVE (NEGATIVE); OCCULT BLOOD,URINE TRACE-INTACT (NEGATIVE); PROTEIN,URINE NEGATIVE (NEGATIVE); UROBILINOGEN,URINE 0.2 EU/dL (<2.0)
[2024-11-22 15:16] LABS: A/G RATIO 0.8 (0.9-1.6); ALBUMIN 2.8 g/dL (3.4-5.0); BILIRUBIN TOTAL 0.2 mg/dL (0.2-1.0); CALCIUM 8.7 mg/dL (8.5-10.1); CARBON DIOXIDE,CO2 28.4 mmol/L (21.0-32.0); CREATININE 1.9 mg/dL (0.8-1.3); EST CRCL DRUG DOSING (CG) 29.85 mL/min; PROTEIN TOTAL,TP 6.3 g/dL (6.4-8.2)
[2024-11-22 15:17] LABS: LACTIC ACID 1.4 mmol/L (0.4-2.0)
[2024-11-22 15:22] LABS: RBC,URINE 0-2 (0-2/HPF)
[2024-11-22 15:23] LABS: BACTERIA,URINE FEW (NEGATIVE); EPITHELIAL CELLS,URINE RARE (NONE-FEW); WBC,URINE 0-2 (0-5/HPF)
[2024-11-22 15:24] LABS: WHITE BLOOD CELL COUNT,WBC 0.93 K/uL (3.9-11.3)
[2024-11-22 15:46] LABS: SEG NEUTROPHILS ABSOLUTE MAN 0.08 K/uL (1.80-7.70); SEG NEUTROPHILS PERCENT MAN 9 % (41-71)
[2024-11-22 15:47] LABS: LYMPHOCYTES ABSOLUTE MAN 0.56 K/uL (1.00-4.80); LYMPHOCYTES PERCENT MAN 60 % (24-44); MONOCYTES ABSOLUTE MAN 0.29 K/uL (0.00-0.80); MONOCYTES PERCENT MAN 31 % (0-8)
[2024-11-22 16:48] LABS: INR 1.1 (0.86-1.11); PTT,PARTIAL THROMBOPLSTIN TIME 33.8 SEC (23.9-30.7)
[2024-11-22] MEDS: Acetaminophen 500 MG Tab PO STA (18:41)
[2024-11-22] MEDS: Iopamidol 755 MG/ML 500 ML Multipack Bottle IVPUSH ONE (20:52)
[2024-11-22 23:38] VITALS: BP 133/54; PULSE 78
== END 2024-11-23 00:45 | disposition other institution (70) ==
LOC: MW.ED 13:09
DX: U07.1 COVID-19 (principal); D61.818 Other pancytopenia; I10 Essential (primary) hypertension; I25.10 Atherosclerotic heart disease of native coronary artery without angina pectoris; I25.2 Old myocardial infarction; E78.00 Pure hypercholesterolemia, unspecified; J44.9 Chronic obstructive pulmonary disease, unspecified; E11.40 Type 2 diabetes mellitus with diabetic neuropathy, unspecified; E66.9 Obesity, unspecified; Z68.42 Body mass index [BMI] 45.0-49.9, adult; Z79.82 Long term (current) use of aspirin; Z79.899 Other long term (current) drug therapy; Z88.8 Allergy status to other drugs, medicaments and biological substances; Z88.6 Allergy status to analgesic agent
CPT/HCPCS: 36415; 36430; 71045; 71275; 74177; 80053; 81001; 83605; 84145; 84484; 85025; 85610; 85730; 86850; 86900; 86901; 86920; 87040; 87428; 93005; 96374; 99285; A9270; J0696; J3490; J7040; P9016; Q9967; 93010; 99284

== ENCOUNTER 2024-11-29 20:17 | Inpatient (IN) | payer MEDICARE, OTHER ==
[2024-11-29 21:16] LABS: HEMATOCRIT 26.8 % (42.0-52.0); HEMOGLOBIN 8.5 g/dL (14.0-18.0); MEAN CORPUSCULAR HEMOGLOBIN 23.3 pg (28.0-32.0); MEAN CORPUSCULAR HGB CONC 31.7 g/dL (32.0-36.0); MEAN CORPUSCULAR VOLUME 73.4 fL (83.0-99.0); PLATELET COUNT,PLT 87 K/uL (150-400); RED BLOOD CELL COUNT 3.65 M/uL (4.52-5.90); WHITE BLOOD CELL COUNT,WBC 6.88 K/uL (3.9-11.3)
[2024-11-29 21:38] LABS: EOSINOPHILS ABSOLUTE MAN 0.07 K/uL (0.00-0.45); EOSINOPHILS PERCENT MAN 1 % (0-6); LYMPHOCYTES ABSOLUTE MAN 0.69 K/uL (1.00-4.80); LYMPHOCYTES PERCENT MAN 10 % (24-44); MONOCYTES ABSOLUTE MAN 1.72 K/uL (0.00-0.80); MONOCYTES PERCENT MAN 25 % (0-8); SEG NEUTROPHILS PERCENT MAN 64 % (41-71)
[2024-11-29 21:49] LABS: A/G RATIO 0.6 (0.9-1.6); ALBUMIN 2.3 g/dL (3.4-5.0); BILIRUBIN TOTAL 0.4 mg/dL (0.2-1.0); CALCIUM 8.2 mg/dL (8.5-10.1); CARBON DIOXIDE,CO2 25.3 mmol/L (21.0-32.0); CREATININE 2.1 mg/dL (0.8-1.3); EST CRCL DRUG DOSING (CG) 28.95 mL/min; POTASSIUM,K 3.5 mmol/L (3.5-5.1)
[2024-11-29] MEDS: Acetaminophen 500 MG Tab PO ONE (22:06)
[2024-11-29] MEDS: Iopamidol 755 MG/ML 500 ML Multipack Bottle IVPUSH ONE (22:35)
[2024-11-29 22:46] LABS: APPEARANCE,URINE CLEAR; BILIRUBIN,URINE NEGATIVE (NEGATIVE); COLOR,URINE YELLOW; GLUCOSE,URINE NEGATIVE (NEGATIVE); KETONES,URINE NEGATIVE (NEGATIVE); LEUKOCYTE ESTERASE,URINE NEGATIVE (NEGATIVE); NITRITE,URINE NEGATIVE (NEGATIVE); OCCULT BLOOD,URINE NEGATIVE (NEGATIVE); PH,URINE 5.5 (5.0-8.0); PROTEIN,URINE NEGATIVE (NEGATIVE); UROBILINOGEN,URINE 0.2 EU/dL (<2.0)
[2024-11-30] MEDS: Furosemide 40 MG/4 ML VIAL IVPUSH ONE (00:33)
[2024-11-30] MEDS: Lidocaine 4% 1 each Patch TOP ONE (00:33)
[2024-11-30] MEDS: oxyCODONE 5 MG Tab PO ONE (01:51)
[2024-11-30] MEDS ORDERED: Glucagon,Human Recombinant 1 MG Vial IM PRN (05:30)
[2024-11-30] MEDS ORDERED: 50% Dextrose in Water 50 ML Syringe IVPUSH PRN (05:30)
[2024-11-30] MEDS ORDERED: Colchicine 0.6 MG Tab PO PRN (09:40)
[2024-11-30] MEDS ORDERED: Aspirin 81 MG Tab.Chew PO SCH (09:45)
[2024-11-30] MEDS: Insulin Aspart 100 Units/ML 3 ML Pen SUBCUT SCH (10:13)
[2024-11-30] MEDS: Allopurinol 100 MG Tab PO SCH (10:14)
[2024-11-30] MEDS: Acetaminophen/oxyCODONE 325-5 MG Tab PO PRN (10:14)
[2024-11-30] MEDS: Heparin Sodium 5,000 Units/ML Vial SUBCUT SCH (12:21)
[2024-11-30] MEDS: Furosemide 40 MG/4 ML VIAL IVPUSH SCH (12:22)
[2024-11-30] MEDS: Morphine 2 MG/ML SYRINGE IVPUSH PRN (20:46)
[2024-11-30] MEDS: Gabapentin 800 MG Tab PO PRN (20:47)
[2024-12-01] MEDS: HYDROmorphone 1 MG/ML Syringe IVPUSH PRN (01:38)
[2024-12-01 06:34] LABS: HEMATOCRIT 25.7 % (42.0-52.0); HEMOGLOBIN 7.9 g/dL (14.0-18.0); MEAN CORPUSCULAR HEMOGLOBIN 22.7 pg (28.0-32.0); MEAN CORPUSCULAR HGB CONC 30.7 g/dL (32.0-36.0); MEAN CORPUSCULAR VOLUME 73.9 fL (83.0-99.0); PLATELET COUNT,PLT 85 K/uL (150-400); RED BLOOD CELL COUNT 3.48 M/uL (4.52-5.90); WHITE BLOOD CELL COUNT,WBC 6.15 K/uL (3.9-11.3)
[2024-12-01] MEDS ORDERED: Sennosides/Docusate Sodium 50-8.6 MG Tab PO PRN (06:55)
[2024-12-01] MEDS ORDERED: Ondansetron 4 MG Tab.DIS PO PRN (06:55)
[2024-12-01] MEDS ORDERED: Polyethylene Glycol 3350 Powder 17 GM Packet PO PRN (06:55)
[2024-12-01 07:00] LABS: A/G RATIO 0.5 (0.9-1.6); ALBUMIN 1.9 g/dL (3.4-5.0); BILIRUBIN TOTAL 0.3 mg/dL (0.2-1.0); CARBON DIOXIDE,CO2 26.7 mmol/L (21.0-32.0); EST CRCL DRUG DOSING (CG) 30.4 mL/min; POTASSIUM,K 2.6 mmol/L (3.5-5.1); PROTEIN TOTAL,TP 5.7 g/dL (6.4-8.2)
[2024-12-01 07:14] LABS: LYMPHOCYTES ABSOLUTE MAN 1.11 K/uL (1.00-4.80); LYMPHOCYTES PERCENT MAN 18 % (24-44); MONOCYTES ABSOLUTE MAN 2.09 K/uL (0.00-0.80); MONOCYTES PERCENT MAN 34 % (0-8); SEG NEUTROPHILS ABSOLUTE MAN 2.95 K/uL (1.80-7.70); SEG NEUTROPHILS PERCENT MAN 48 % (41-71)
[2024-12-01] MEDS: Acetaminophen 325 MG Tab PO SCH (07:47)
[2024-12-01] MEDS: Potassium Chloride 20 MEQ Tab.ER PO ONE ×3 (07:47→13:12)
[2024-12-01] MEDS: Pantoprazole 40 MG Tab.CR PO SCH (09:01)
[2024-12-01 12:24] LABS: CALCIUM 8.5 mg/dL (8.5-10.1); CARBON DIOXIDE,CO2 26.7 mmol/L (21.0-32.0); CREATININE 1.8 mg/dL (0.8-1.3); EST CRCL DRUG DOSING (CG) 33.78 mL/min; POTASSIUM,K 3.2 mmol/L (3.5-5.1)
[2024-12-01] MEDS: Furosemide 40 MG/4 ML VIAL IVPUSH SCH (13:13)
[2024-12-01] MEDS: Enoxaparin 40 MG/0.4 ML Syringe SUBCUT SCH (21:49)
[2024-12-01] MEDS: Heparin Sodium 5,000 Units/ML Vial IVPUSH SCH (21:50)
[2024-12-02 06:35] LABS: HEMATOCRIT 25.3 % (42.0-52.0); HEMOGLOBIN 7.6 g/dL (14.0-18.0); MEAN CORPUSCULAR HEMOGLOBIN 22.5 pg (28.0-32.0); MEAN CORPUSCULAR VOLUME 74.9 fL (83.0-99.0); PLATELET COUNT,PLT 92 K/uL (150-400); RED BLOOD CELL COUNT 3.38 M/uL (4.52-5.90); WHITE BLOOD CELL COUNT,WBC 6.84 K/uL (3.9-11.3)
[2024-12-02 07:05] LABS: LYMPHOCYTES ABSOLUTE MAN 1.16 K/uL (1.00-4.80); LYMPHOCYTES PERCENT MAN 17 % (24-44); MONOCYTES ABSOLUTE MAN 2.12 K/uL (0.00-0.80); MONOCYTES PERCENT MAN 31 % (0-8); SEG NEUTROPHILS ABSOLUTE MAN 3.56 K/uL (1.80-7.70); SEG NEUTROPHILS PERCENT MAN 52 % (41-71)
[2024-12-02 07:11] LABS: A/G RATIO 0.4 (0.9-1.6); ALBUMIN 1.6 g/dL (3.4-5.0); BILIRUBIN TOTAL 0.3 mg/dL (0.2-1.0); CALCIUM 8.2 mg/dL (8.5-10.1); CARBON DIOXIDE,CO2 27.2 mmol/L (21.0-32.0); CREATININE 1.9 mg/dL (0.8-1.3); POTASSIUM,K 3.7 mmol/L (3.5-5.1); PROTEIN TOTAL,TP 5.5 g/dL (6.4-8.2)
[2024-12-02] MEDS ORDERED: Albuterol/Ipratropium 3.0-0.5 MG/3 ML Neb Soln NEB PRN (07:31)
[2024-12-02] MEDS: Metoprolol Tartrate 50 MG Tab PO SCH (08:06)
[2024-12-02] MEDS: Ezetimibe 10 MG Tab PO SCH (08:07)
[2024-12-02] MEDS: Furosemide 40 MG/4 ML VIAL IVPUSH SCH (10:00)
[2024-12-02] MEDS: Nirmatrelvir/Ritonavir 150 MG/100 MG Dose Pack (Renal Dose) PO SCH (13:24)
[2024-12-02] MEDS: cefTRIAXone 1 GM in Sodium Chloride 0.9% 50 ML IV SCH (20:40)
[2024-12-02] MEDS: Azithromycin 500 MG in Sodium Chloride 0.9% 250 ML IV SCH (21:49)
[2024-12-02 23:40] LABS: APPEARANCE,URINE CLEAR; BILIRUBIN,URINE NEGATIVE (NEGATIVE); COLOR,URINE YELLOW; GLUCOSE,URINE NEGATIVE (NEGATIVE); KETONES,URINE NEGATIVE (NEGATIVE); LEUKOCYTE ESTERASE,URINE NEGATIVE (NEGATIVE); NITRITE,URINE NEGATIVE (NEGATIVE); OCCULT BLOOD,URINE TRACE-INTACT (NEGATIVE); PROTEIN,URINE NEGATIVE (NEGATIVE); UROBILINOGEN,URINE 0.2 EU/dL (<2.0)
[2024-12-02 23:56] LABS: BACTERIA,URINE RARE (NEGATIVE); EPITHELIAL CELLS,URINE RARE (NONE-FEW); RBC,URINE 0-2 (0-2/HPF); WBC,URINE NONE SEEN (0-5/HPF)
[2024-12-03] MEDS: Levothyroxine 25 MCG Tab PO SCH (06:14)
[2024-12-03 06:31] LABS: HEMATOCRIT 25.7 % (42.0-52.0); HEMOGLOBIN 7.9 g/dL (14.0-18.0); MEAN CORPUSCULAR HEMOGLOBIN 22.5 pg (28.0-32.0); MEAN CORPUSCULAR HGB CONC 30.7 g/dL (32.0-36.0); MEAN CORPUSCULAR VOLUME 73.2 fL (83.0-99.0); PLATELET COUNT,PLT 103 K/uL (150-400); RED BLOOD CELL COUNT 3.51 M/uL (4.52-5.90); WHITE BLOOD CELL COUNT,WBC 6.85 K/uL (3.9-11.3)
[2024-12-03 06:56] LABS: A/G RATIO 0.4 (0.9-1.6); ALBUMIN 1.6 g/dL (3.4-5.0); BILIRUBIN TOTAL 0.3 mg/dL (0.2-1.0); CALCIUM 8.3 mg/dL (8.5-10.1); CARBON DIOXIDE,CO2 28.6 mmol/L (21.0-32.0); CREATININE 1.7 mg/dL (0.8-1.3); EST CRCL DRUG DOSING (CG) 35.76 mL/min; LYMPHOCYTES PERCENT MAN 19 % (24-44); MONOCYTES ABSOLUTE MAN 2.12 K/uL (0.00-0.80); MONOCYTES PERCENT MAN 31 % (0-8); POTASSIUM,K 3.4 mmol/L (3.5-5.1); PROTEIN TOTAL,TP 5.7 g/dL (6.4-8.2); SEG NEUTROPHILS ABSOLUTE MAN 3.43 K/uL (1.80-7.70); SEG NEUTROPHILS PERCENT MAN 50 % (41-71)
[2024-12-03] MEDS: Potassium Chloride 20 MEQ Tab.ER PO ONE (08:58)
[2024-12-03] MEDS: Furosemide 40 MG/4 ML VIAL IVPUSH SCH (08:59)
[2024-12-03] MEDS: VANCOmycin 1.75 GM/350 ML 350 ML IV ONE (20:32)
[2024-12-03] MEDS: cefTRIAXone 1 GM in Sodium Chloride 0.9% 50 ML IV SCH (22:04)
[2024-12-03] MEDS: Melatonin 3 MG Tab PO PRN (22:55)
[2024-12-04 05:49] LABS: HEMATOCRIT 24.4 % (42.0-52.0); HEMOGLOBIN 7.5 g/dL (14.0-18.0); MEAN CORPUSCULAR HEMOGLOBIN 22.7 pg (28.0-32.0); MEAN CORPUSCULAR HGB CONC 30.7 g/dL (32.0-36.0); MEAN CORPUSCULAR VOLUME 73.9 fL (83.0-99.0); PLATELET COUNT,PLT 136 K/uL (150-400); WHITE BLOOD CELL COUNT,WBC 6.24 K/uL (3.9-11.3)
[2024-12-04 06:38] LABS: A/G RATIO 0.4 (0.9-1.6); ALBUMIN 1.5 g/dL (3.4-5.0); BILIRUBIN TOTAL 0.3 mg/dL (0.2-1.0); CALCIUM 8.3 mg/dL (8.5-10.1); CARBON DIOXIDE,CO2 24.1 mmol/L (21.0-32.0); CREATININE 1.6 mg/dL (0.8-1.3); POTASSIUM,K 3.6 mmol/L (3.5-5.1); PROTEIN TOTAL,TP 5.8 g/dL (6.4-8.2)
[2024-12-04 06:44] LABS: LYMPHOCYTES ABSOLUTE MAN 0.81 K/uL (1.00-4.80); LYMPHOCYTES PERCENT MAN 13 % (24-44); MONOCYTES ABSOLUTE MAN 1.68 K/uL (0.00-0.80); MONOCYTES PERCENT MAN 27 % (0-8); SEG NEUTROPHILS ABSOLUTE MAN 3.74 K/uL (1.80-7.70); SEG NEUTROPHILS PERCENT MAN 60 % (41-71)
[2024-12-04 11:25] VITALS: BP 130/60; PULSE 58
[2024-12-04] MEDS ORDERED: VANCOmycin 1.25 GM in Sodium Chloride 0.9% 250 ML IV SCH (20:30)
[2024-12-04] MEDS ORDERED: cefTRIAXone 2 GM in Sodium Chloride 0.9% 100 ML IV SCH (23:00)
== END 2024-12-04 15:05 | DRG 551 ==
LOC: MW.ED 20:17 → MW.MS 11-30 02:12 → OBSVTOIN 12-01 12:24 → MW.MS 12-01 12:25
PROVIDERS: ADMIT Internal Medicine; ATTEND Internal Medicine
DX: M54.50 Low back pain, unspecified (principal); J18.9 Pneumonia, unspecified organism; I10 Essential (primary) hypertension; I13.0 Hypertensive heart and chronic kidney disease with heart failure and stage 1 through stage 4 chronic kidney disease, or unspecified chronic kidney disease; G89.29 Other chronic pain; I50.9 Heart failure, unspecified; I25.10 Atherosclerotic heart disease of native coronary artery without angina pectoris; E11.9 Type 2 diabetes mellitus without complications; E78.00 Pure hypercholesterolemia, unspecified; J44.9 Chronic obstructive pulmonary disease, unspecified; E66.9 Obesity, unspecified; M19.90 Unspecified osteoarthritis, unspecified site; Z68.31 Body mass index [BMI] 31.0-31.9, adult; E11.40 Type 2 diabetes mellitus with diabetic neuropathy, unspecified; Z96.649 Presence of unspecified artificial hip joint; R26.2 Difficulty in walking, not elsewhere classified; R60.1 Generalized edema; E11.22 Type 2 diabetes mellitus with diabetic chronic kidney disease; N18.9 Chronic kidney disease, unspecified; R26.89 Other abnormalities of gait and mobility; Z88.6 Allergy status to analgesic agent; Z88.8 Allergy status to other drugs, medicaments and biological substances; Z79.899 Other long term (current) drug therapy; Z79.82 Long term (current) use of aspirin; Z79.1 Long term (current) use of non-steroidal anti-inflammatories (NSAID); I25.2 Old myocardial infarction; Z68.30 Body mass index [BMI] 30.0-30.9, adult; Z98.890 Other specified postprocedural states; Z79.2 Long term (current) use of antibiotics; Z79.51 Long term (current) use of inhaled steroids
CPT/HCPCS: 36415; 51702; 51798; 70450; 70450-26; 71045; 71045-26; 71260; 71260-26; 72146; 72146-26; 72148; 72148-26; 74177; 74177-26; 80048; 80053; 80202; 81001; 81003; 82947; 83605; 83880; 84484; 85025; 87040; 87077; 87186; 87428-QW; 93005; 93306; 96372; 96374; 96375; 96376; 97110-GP; 97161-GP; 97530-GP; 99222; 99232; 99239; 99283; 99285-25; A9270-GY; G0378; J0456; J0696; J1171; J1644; J1815-GY; J1940; J2270; J3372; J3490; J7050; Q9967; U0002

== ENCOUNTER 2025-06-06 14:40 | Emergency (ER) | payer MEDICARE, OTHER ==
[2025-06-06 15:38] LABS: MEAN PLATELET VOLUME 12.3 fL (9.4-12.4); NRBC ABSOLUTE 0.00 K/uL (0.00-0.02); NRBC PERCENT 0.0 /100WBC (0.0-0.2); PLATELET COUNT,PLT 107 K/uL (150-400); RED BLOOD CELL COUNT 2.74 M/uL (4.52-5.90); WHITE BLOOD CELL COUNT,WBC 1.89 K/uL (3.9-11.3)
[2025-06-06 15:57] LABS: INR 0.98 (0.86-1.11)
[2025-06-06 16:13] LABS: A/G RATIO 0.9 (0.9-1.6); ALANINE AMINOTRANSFERASE,ALT 15 IU/L (14-63); ASPARTATE AMNIOTRANSFERASE,AST 16 IU/L (15-37); BILIRUBIN TOTAL 0.2 mg/dL (0.2-1.0); BLOOD UREA NITROGEN,BUN 60 mg/dL (7.0-18.0); CARBON DIOXIDE,CO2 24.5 mmol/L (21.0-32.0); CHLORIDE,CL 107 mmol/L (98-107); CREATININE 2.0 mg/dL (0.8-1.3); EST CRCL DRUG DOSING (CG) 33.26 mL/min; ETHANOL BLOOD MEDICAL <3 mg/dL; GLUCOSE RANDOM 135 mg/dL (74-106); POTASSIUM,K 4.4 mmol/L (3.5-5.1); PROTEIN TOTAL,TP 5.6 g/dL (6.4-8.2); SODIUM,NA 141 mmol/L (136-148)
[2025-06-06 16:14] LABS: ESTIMATED GFR 34 mL/min (>60)
[2025-06-06 16:26] LABS: BAND ABSOLUTE MAN 0.04; BAND PERCENT MAN 2 %; BASOPHILS ABSOLUTE MAN 0.06 K/uL (0.00-0.20); BASOPHILS PERCENT MAN 3 % (0-1); EOSINOPHILS ABSOLUTE MAN 0.13 K/uL (0.00-0.45); EOSINOPHILS PERCENT MAN 7 % (0-6); LYMPHOCYTES ABSOLUTE MAN 0.62 K/uL (1.00-4.80); LYMPHOCYTES PERCENT MAN 33 % (24-44); MONOCYTES ABSOLUTE MAN 0.55 K/uL (0.00-0.80); MONOCYTES PERCENT MAN 29 % (0-8); SEG NEUTROPHILS ABSOLUTE MAN 0.49 K/uL (1.80-7.70); SEG NEUTROPHILS PERCENT MAN 26 % (41-71)
[2025-06-06 17:29] LABS: APPEARANCE,URINE CLEAR; GLUCOSE,URINE NEGATIVE (NEGATIVE); OCCULT BLOOD,URINE NEGATIVE (NEGATIVE)
[2025-06-06 17:39] LABS: AMPHETAMINES SCREEN, URINE NEGATIVE (CUTOFF=500); BUPRENORPHINE SCREEN,URINE NEGATIVE (CUTOFF=10); METHADONE SCREEN, URINE NEGATIVE (CUTOFF=200); METHAMPHETAMINES SCREEN, URINE NEGATIVE (CUTOFF=500); OXYCODONE SCREEN,URINE NEGATIVE (CUT0FF=100); PCP SCREEN,URINE NEGATIVE (CUTOFF=25); THC SCREEN,URINE 20 NG/ML NEGATIVE (CUTOFF=50)
[2025-06-06 19:35] VITALS: BP 120/51; PULSE 62
== END 2025-06-06 20:49 | disposition home or self-care (01) ==
LOC: MW.ED 14:40
DX: S29.8XXA Other specified injuries of thorax, initial encounter (principal); S39.92XA Unspecified injury of lower back, initial encounter; S19.9XXA Unspecified injury of neck, initial encounter; Z79.891 Long term (current) use of opiate analgesic; M25.551 Pain in right hip; R07.89 Other chest pain; D32.1 Benign neoplasm of spinal meninges; Z98.890 Other specified postprocedural states; D61.818 Other pancytopenia; G89.29 Other chronic pain; I11.0 Hypertensive heart disease with heart failure; I50.9 Heart failure, unspecified; E78.00 Pure hypercholesterolemia, unspecified; E66.9 Obesity, unspecified; E11.9 Type 2 diabetes mellitus without complications; Z68.23 Body mass index [BMI] 23.0-23.9, adult; Z88.8 Allergy status to other drugs, medicaments and biological substances; Z79.899 Other long term (current) drug therapy; W19.XXXA Unspecified fall, initial encounter
CPT/HCPCS: 36415; 70450; 70450-26; 71045; 71045-26; 72125; 72125-26; 72128; 72128-26; 72131; 72131-26; 73502-26-RT; 73502-RT; 80053; 80305; 80307; 81003; 83690; 85025; 85610; 85652; 86140; 86850; 86900; 86901; 87040; 87154; 99284

== ENCOUNTER 2025-08-20 18:55 | Inpatient (IN) | payer OTHER ==
[2025-08-20 20:47] LABS: MEAN PLATELET VOLUME 11.4 fL (9.4-12.4); NRBC ABSOLUTE 0.00 K/uL (0.00-0.02); NRBC PERCENT 0.0 /100WBC (0.0-0.2); PLATELET COUNT,PLT 89 K/uL (150-400); RED BLOOD CELL COUNT 3.83 M/uL (4.52-5.90); WHITE BLOOD CELL COUNT,WBC 3.52 K/uL (3.9-11.3)
[2025-08-20 21:27] LABS: LYMPHOCYTES ABSOLUTE MAN 0.70 K/uL (1.00-4.80); LYMPHOCYTES PERCENT MAN 20 % (24-44); MONOCYTES ABSOLUTE MAN 0.77 K/uL (0.00-0.80); MONOCYTES PERCENT MAN 22 % (0-8); SEG NEUTROPHILS ABSOLUTE MAN 2.04 K/uL (1.80-7.70); SEG NEUTROPHILS PERCENT MAN 58 % (41-71)
[2025-08-20 21:28] LABS: LACTIC ACID 0.5 mmol/L (0.4-2.0)
[2025-08-20 21:32] LABS: A/G RATIO 0.8 (0.9-1.6); ALANINE AMINOTRANSFERASE,ALT 26 IU/L (14-63); ASPARTATE AMNIOTRANSFERASE,AST 26 IU/L (15-37); BILIRUBIN TOTAL 0.2 mg/dL (0.2-1.0); BLOOD UREA NITROGEN,BUN 55 mg/dL (7.0-18.0); CARBON DIOXIDE,CO2 21.3 mmol/L (21.0-32.0); CHLORIDE,CL 111 mmol/L (98-107); CREATININE 1.6 mg/dL (0.8-1.3); GLUCOSE RANDOM 141 mg/dL (74-106); POTASSIUM,K 4.0 mmol/L (3.5-5.1); PRO B-TYPE NATRIUR PEPT,BNPPRO 3977 pg/mL (0-450); PROTEIN TOTAL,TP 5.8 g/dL (6.4-8.2); SODIUM,NA 142 mmol/L (136-148); TSH ULTRASENSITIVE 5.83 uIU/mL (0.36-3.74)
[2025-08-20 21:35] LABS: ESTIMATED GFR 44 mL/min (>60)
[2025-08-21 03:05] LABS: GLUCOSE,URINE NEGATIVE (NEGATIVE); OCCULT BLOOD,URINE SMALL (NEGATIVE)
[2025-08-21 03:07] LABS: APPEARANCE,URINE HAZY
[2025-08-21 03:11] LABS: EPITHELIAL CELLS,URINE RARE (NONE-FEW)
[2025-08-21] MEDS ORDERED: Sodium Chloride 0.9% 10 ML Syringe FLUSH PRN (09:34)
[2025-08-21] MEDS ORDERED: Sodium Chloride 0.9% 2.5 ML Syringe FLUSH PRN (09:34)
[2025-08-22 06:08] LABS: MEAN PLATELET VOLUME 12.4 fL (9.4-12.4); NRBC ABSOLUTE 0.00 K/uL (0.00-0.02); NRBC PERCENT 0.0 /100WBC (0.0-0.2); PLATELET COUNT,PLT 75 K/uL (150-400); RED BLOOD CELL COUNT 3.62 M/uL (4.52-5.90); WHITE BLOOD CELL COUNT,WBC 2.58 K/uL (3.9-11.3)
[2025-08-22 06:35] LABS: BLOOD UREA NITROGEN,BUN 50.0 mg/dL (7.0-18.0); CARBON DIOXIDE,CO2 18.2 mmol/L (21.0-32.0); CHLORIDE,CL 112.0 mmol/L (98-107); CREATININE 1.6 mg/dL (0.8-1.3); EST CRCL DRUG DOSING (CG) 41.18 mL/min; GLUCOSE RANDOM 127.0 mg/dL (74-106); POTASSIUM,K 4.1 mmol/L (3.5-5.1); SODIUM,NA 143.0 mmol/L (136-148)
[2025-08-22 06:36] LABS: ESTIMATED GFR 44.0 mL/min (>60)
[2025-08-22 06:49] LABS: LYMPHOCYTES ABSOLUTE MAN 0.67 K/uL (1.00-4.80); LYMPHOCYTES PERCENT MAN 26 % (24-44); SEG NEUTROPHILS ABSOLUTE MAN 1.01 K/uL (1.80-7.70); SEG NEUTROPHILS PERCENT MAN 39 % (41-71)
[2025-08-22 06:50] LABS: MONOCYTES ABSOLUTE MAN 0.90 K/uL (0.00-0.80); MONOCYTES PERCENT MAN 35 % (0-8)
[2025-08-22 11:55] LABS: IRON,FE 21.0 ug/dL (50-175); PERCENT FE SATURATION 10.19 % (20-55)
[2025-08-22] MEDS: Sodium Ferric Gluconate Cmplex 125 MG in Sodium Chloride 0.9% 100 ML IV SCH (16:30)
[2025-08-23 06:23] LABS: MEAN PLATELET VOLUME 12.1 fL (9.4-12.4); NRBC ABSOLUTE 0.00 K/uL (0.00-0.02); NRBC PERCENT 0.0 /100WBC (0.0-0.2); PLATELET COUNT,PLT 75 K/uL (150-400); RED BLOOD CELL COUNT 3.34 M/uL (4.52-5.90); WHITE BLOOD CELL COUNT,WBC 2.97 K/uL (3.9-11.3)
[2025-08-23 06:31] LABS: BLOOD UREA NITROGEN,BUN 50.0 mg/dL (7.0-18.0); CARBON DIOXIDE,CO2 19.2 mmol/L (21.0-32.0); CHLORIDE,CL 112.0 mmol/L (98-107); CREATININE 1.6 mg/dL (0.8-1.3); EST CRCL DRUG DOSING (CG) 41.18 mL/min; GLUCOSE RANDOM 118.0 mg/dL (74-106); POTASSIUM,K 4.2 mmol/L (3.5-5.1); SODIUM,NA 143.0 mmol/L (136-148)
[2025-08-23 06:32] LABS: ESTIMATED GFR 44.0 mL/min (>60)
[2025-08-23 07:05] LABS: MONOCYTES ABSOLUTE MAN 0.56 K/uL (0.00-0.80); MONOCYTES PERCENT MAN 19 % (0-8)
[2025-08-23 07:06] LABS: LYMPHOCYTES ABSOLUTE MAN 0.89 K/uL (1.00-4.80); LYMPHOCYTES PERCENT MAN 30 % (24-44); SEG NEUTROPHILS ABSOLUTE MAN 1.51 K/uL (1.80-7.70); SEG NEUTROPHILS PERCENT MAN 51 % (41-71)
[2025-08-23] MEDS: Ondansetron 4 MG/2 ML SDV IVPUSH PRN (12:26)
[2025-08-25 05:50] LABS: MEAN PLATELET VOLUME 12.4 fL (9.4-12.4); NRBC ABSOLUTE 0.00 K/uL (0.00-0.02); NRBC PERCENT 0.0 /100WBC (0.0-0.2); PLATELET COUNT,PLT 74 K/uL (150-400); RED BLOOD CELL COUNT 3.53 M/uL (4.52-5.90); WHITE BLOOD CELL COUNT,WBC 2.20 K/uL (3.9-11.3)
[2025-08-25 06:06] LABS: BLOOD UREA NITROGEN,BUN 40.0 mg/dL (7.0-18.0); CARBON DIOXIDE,CO2 18.2 mmol/L (21.0-32.0); CHLORIDE,CL 113.0 mmol/L (98-107); CREATININE 1.4 mg/dL (0.8-1.3); EST CRCL DRUG DOSING (CG) 47.06 mL/min; GLUCOSE RANDOM 105.0 mg/dL (74-106); POTASSIUM,K 4.3 mmol/L (3.5-5.1); SODIUM,NA 142.0 mmol/L (136-148)
[2025-08-25 06:19] LABS: ESTIMATED GFR 52.0 mL/min (>60)
[2025-08-25 06:37] LABS: LYMPHOCYTES ABSOLUTE MAN 1.03 K/uL (1.00-4.80); LYMPHOCYTES PERCENT MAN 47 % (24-44); MONOCYTES ABSOLUTE MAN 0.48 K/uL (0.00-0.80); MONOCYTES PERCENT MAN 22 % (0-8); SEG NEUTROPHILS ABSOLUTE MAN 0.68 K/uL (1.80-7.70); SEG NEUTROPHILS PERCENT MAN 31 % (41-71)
[2025-08-26 05:55] LABS: MEAN PLATELET VOLUME 11.8 fL (9.4-12.4); NRBC ABSOLUTE 0.00 K/uL (0.00-0.02); NRBC PERCENT 0.0 /100WBC (0.0-0.2); PLATELET COUNT,PLT 83 K/uL (150-400); RED BLOOD CELL COUNT 3.46 M/uL (4.52-5.90); WHITE BLOOD CELL COUNT,WBC 2.03 K/uL (3.9-11.3)
[2025-08-26 06:33] LABS: BLOOD UREA NITROGEN,BUN 41.0 mg/dL (7.0-18.0); CARBON DIOXIDE,CO2 20.5 mmol/L (21.0-32.0); CHLORIDE,CL 112.0 mmol/L (98-107); CREATININE 1.5 mg/dL (0.8-1.3); EST CRCL DRUG DOSING (CG) 43.93 mL/min; GLUCOSE RANDOM 101.0 mg/dL (74-106); PHOSPHORUS 3.9 mg/dL (2.6-4.7); POTASSIUM,K 4.6 mmol/L (3.5-5.1); SODIUM,NA 142.0 mmol/L (136-148)
[2025-08-26 06:36] LABS: ESTIMATED GFR 48.0 mL/min (>60)
[2025-08-26 06:57] LABS: LYMPHOCYTES ABSOLUTE MAN 1.28 K/uL (1.00-4.80); LYMPHOCYTES PERCENT MAN 63 % (24-44); MONOCYTES ABSOLUTE MAN 0.18 K/uL (0.00-0.80); MONOCYTES PERCENT MAN 9 % (0-8); SEG NEUTROPHILS ABSOLUTE MAN 0.55 K/uL (1.80-7.70); SEG NEUTROPHILS PERCENT MAN 27 % (41-71)
[2025-08-27 05:56] LABS: MEAN PLATELET VOLUME 12.3 fL (9.4-12.4); NRBC ABSOLUTE 0.00 K/uL (0.00-0.02); NRBC PERCENT 0.0 /100WBC (0.0-0.2); PLATELET COUNT,PLT 79 K/uL (150-400); RED BLOOD CELL COUNT 3.55 M/uL (4.52-5.90); WHITE BLOOD CELL COUNT,WBC 2.15 K/uL (3.9-11.3)
[2025-08-27 06:18] LABS: BLOOD UREA NITROGEN,BUN 40.0 mg/dL (7.0-18.0); CARBON DIOXIDE,CO2 21.4 mmol/L (21.0-32.0); CHLORIDE,CL 111.0 mmol/L (98-107); CREATININE 1.5 mg/dL (0.8-1.3); EST CRCL DRUG DOSING (CG) 43.93 mL/min; GLUCOSE RANDOM 107.0 mg/dL (74-106); POTASSIUM,K 4.3 mmol/L (3.5-5.1); SODIUM,NA 144.0 mmol/L (136-148)
[2025-08-27 06:21] LABS: ESTIMATED GFR 48.0 mL/min (>60)
[2025-08-27 06:53] LABS: LYMPHOCYTES ABSOLUTE MAN 1.29 K/uL (1.00-4.80); LYMPHOCYTES PERCENT MAN 60 % (24-44); MONOCYTES ABSOLUTE MAN 0.22 K/uL (0.00-0.80); MONOCYTES PERCENT MAN 10 % (0-8); SEG NEUTROPHILS ABSOLUTE MAN 0.65 K/uL (1.80-7.70); SEG NEUTROPHILS PERCENT MAN 30 % (41-71)
[2025-08-29 05:47] LABS: MEAN PLATELET VOLUME 12.1 fL (9.4-12.4); NRBC ABSOLUTE 0.00 K/uL (0.00-0.02); NRBC PERCENT 0.0 /100WBC (0.0-0.2); PLATELET COUNT,PLT 80 K/uL (150-400); RED BLOOD CELL COUNT 3.30 M/uL (4.52-5.90); WHITE BLOOD CELL COUNT,WBC 2.09 K/uL (3.9-11.3)
[2025-08-29 06:18] LABS: A/G RATIO 0.8 (0.9-1.6); ALANINE AMINOTRANSFERASE,ALT 26.0 IU/L (14-63); ASPARTATE AMNIOTRANSFERASE,AST 24.0 IU/L (15-37); BILIRUBIN TOTAL 0.1 mg/dL (0.2-1.0); BLOOD UREA NITROGEN,BUN 49.0 mg/dL (7.0-18.0); CARBON DIOXIDE,CO2 22.7 mmol/L (21.0-32.0); CHLORIDE,CL 108.0 mmol/L (98-107); CREATININE 1.7 mg/dL (0.8-1.3); EST CRCL DRUG DOSING (CG) 38.34 mL/min; GLUCOSE RANDOM 103.0 mg/dL (74-106); POTASSIUM,K 4.4 mmol/L (3.5-5.1); PROTEIN TOTAL,TP 5.3 g/dL (6.4-8.2); SODIUM,NA 140.0 mmol/L (136-148)
[2025-08-29 06:20] LABS: LYMPHOCYTES ABSOLUTE MAN 1.25 K/uL (1.00-4.80); LYMPHOCYTES PERCENT MAN 60 % (24-44); MONOCYTES ABSOLUTE MAN 0.19 K/uL (0.00-0.80); MONOCYTES PERCENT MAN 9 % (0-8); SEG NEUTROPHILS ABSOLUTE MAN 0.65 K/uL (1.80-7.70); SEG NEUTROPHILS PERCENT MAN 31 % (41-71)
[2025-08-29 06:21] LABS: ESTIMATED GFR 41.0 mL/min (>60)
[2025-08-29] MEDS: Magnesium Sulfate 2 GM/50 mL 2 GM in Premix Bag 1 BAG IV ONE (10:55)
[2025-08-30 06:03] LABS: MEAN PLATELET VOLUME 12.2 fL (9.4-12.4); NRBC ABSOLUTE 0.00 K/uL (0.00-0.02); NRBC PERCENT 0.0 /100WBC (0.0-0.2); PLATELET COUNT,PLT 82 K/uL (150-400); RED BLOOD CELL COUNT 3.36 M/uL (4.52-5.90); WHITE BLOOD CELL COUNT,WBC 1.82 K/uL (3.9-11.3)
[2025-08-30 06:27] LABS: A/G RATIO 0.8 (0.9-1.6); ALANINE AMINOTRANSFERASE,ALT 23.0 IU/L (14-63); ASPARTATE AMNIOTRANSFERASE,AST 20.0 IU/L (15-37); BILIRUBIN TOTAL 0.1 mg/dL (0.2-1.0); BLOOD UREA NITROGEN,BUN 58.0 mg/dL (7.0-18.0); CARBON DIOXIDE,CO2 21.9 mmol/L (21.0-32.0); CHLORIDE,CL 108.0 mmol/L (98-107); CREATININE 2.0 mg/dL (0.8-1.3); EST CRCL DRUG DOSING (CG) 27.52 mL/min; GLUCOSE RANDOM 124.0 mg/dL (74-106); POTASSIUM,K 4.9 mmol/L (3.5-5.1); PROTEIN TOTAL,TP 5.6 g/dL (6.4-8.2); SODIUM,NA 140.0 mmol/L (136-148)
[2025-08-30 06:35] LABS: ESTIMATED GFR 34.0 mL/min (>60)
[2025-08-30 07:22] LABS: SEG NEUTROPHILS ABSOLUTE MAN 0.38 K/uL (1.80-7.70); SEG NEUTROPHILS PERCENT MAN 21 % (41-71)
[2025-08-30 07:23] LABS: EOSINOPHILS ABSOLUTE MAN 0.02 K/uL (0.00-0.45); EOSINOPHILS PERCENT MAN 1 % (0-6); LYMPHOCYTES ABSOLUTE MAN 1.11 K/uL (1.00-4.80); LYMPHOCYTES PERCENT MAN 61 % (24-44); MONOCYTES ABSOLUTE MAN 0.31 K/uL (0.00-0.80); MONOCYTES PERCENT MAN 17 % (0-8)
[2025-08-31 05:57] LABS: MEAN PLATELET VOLUME 11.7 fL (9.4-12.4); NRBC ABSOLUTE 0.00 K/uL (0.00-0.02); NRBC PERCENT 0.0 /100WBC (0.0-0.2); PLATELET COUNT,PLT 78 K/uL (150-400); RED BLOOD CELL COUNT 3.17 M/uL (4.52-5.90); WHITE BLOOD CELL COUNT,WBC 2.28 K/uL (3.9-11.3)
[2025-08-31 06:13] LABS: A/G RATIO 0.9 (0.9-1.6); ALANINE AMINOTRANSFERASE,ALT 24.0 IU/L (14-63); ASPARTATE AMNIOTRANSFERASE,AST 19.0 IU/L (15-37); BILIRUBIN TOTAL 0.2 mg/dL (0.2-1.0); BLOOD UREA NITROGEN,BUN 60.0 mg/dL (7.0-18.0); CARBON DIOXIDE,CO2 24.3 mmol/L (21.0-32.0); CHLORIDE,CL 108.0 mmol/L (98-107); CREATININE 2.0 mg/dL (0.8-1.3); GLUCOSE RANDOM 104.0 mg/dL (74-106); POTASSIUM,K 4.8 mmol/L (3.5-5.1); PROTEIN TOTAL,TP 5.4 g/dL (6.4-8.2); SODIUM,NA 140.0 mmol/L (136-148)
[2025-08-31 06:26] LABS: EST CRCL DRUG DOSING (CG) 27.56 mL/min; ESTIMATED GFR 34.0 mL/min (>60)
[2025-08-31 06:39] LABS: BAND ABSOLUTE MAN 0.02; BAND PERCENT MAN 1 %; EOSINOPHILS ABSOLUTE MAN 0.05 K/uL (0.00-0.45); EOSINOPHILS PERCENT MAN 2 % (0-6); LYMPHOCYTES ABSOLUTE MAN 1.07 K/uL (1.00-4.80); LYMPHOCYTES PERCENT MAN 47 % (24-44); MONOCYTES ABSOLUTE MAN 0.34 K/uL (0.00-0.80); MONOCYTES PERCENT MAN 15 % (0-8); SEG NEUTROPHILS ABSOLUTE MAN 0.80 K/uL (1.80-7.70); SEG NEUTROPHILS PERCENT MAN 35 % (41-71)
[2025-09-01 05:54] LABS: NRBC ABSOLUTE 0.00 K/uL (0.00-0.02); NRBC PERCENT 0.0 /100WBC (0.0-0.2); PLATELET COUNT,PLT 76 K/uL (150-400); RED BLOOD CELL COUNT 3.05 M/uL (4.52-5.90); WHITE BLOOD CELL COUNT,WBC 2.29 K/uL (3.9-11.3)
[2025-09-01 06:13] LABS: BLOOD UREA NITROGEN,BUN 66.0 mg/dL (7.0-18.0); CARBON DIOXIDE,CO2 23.3 mmol/L (21.0-32.0); CHLORIDE,CL 107.0 mmol/L (98-107); CREATININE 1.9 mg/dL (0.8-1.3); EST CRCL DRUG DOSING (CG) 34.08 mL/min; GLUCOSE RANDOM 107.0 mg/dL (74-106); POTASSIUM,K 4.8 mmol/L (3.5-5.1); SODIUM,NA 139.0 mmol/L (136-148)
[2025-09-01 06:15] LABS: ESTIMATED GFR 36.0 mL/min (>60)
[2025-09-01 07:00] LABS: SEG NEUTROPHILS ABSOLUTE MAN 0.66 K/uL (1.80-7.70); SEG NEUTROPHILS PERCENT MAN 29 % (41-71)
[2025-09-01 07:01] LABS: LYMPHOCYTES ABSOLUTE MAN 1.21 K/uL (1.00-4.80); LYMPHOCYTES PERCENT MAN 53 % (24-44); MONOCYTES ABSOLUTE MAN 0.41 K/uL (0.00-0.80); MONOCYTES PERCENT MAN 18 % (0-8)
[2025-09-02 06:31] LABS: MEAN PLATELET VOLUME 11.6 fL (9.4-12.4); NRBC ABSOLUTE 0.00 K/uL (0.00-0.02); NRBC PERCENT 0.0 /100WBC (0.0-0.2); PLATELET COUNT,PLT 69 K/uL (150-400); RED BLOOD CELL COUNT 3.12 M/uL (4.52-5.90); WHITE BLOOD CELL COUNT,WBC 2.30 K/uL (3.9-11.3)
[2025-09-02 07:05] LABS: BLOOD UREA NITROGEN,BUN 61.0 mg/dL (7.0-18.0); CARBON DIOXIDE,CO2 22.7 mmol/L (21.0-32.0); CHLORIDE,CL 108.0 mmol/L (98-107); CREATININE 1.8 mg/dL (0.8-1.3); EST CRCL DRUG DOSING (CG) 35.97 mL/min; GLUCOSE RANDOM 105.0 mg/dL (74-106); POTASSIUM,K 4.8 mmol/L (3.5-5.1); SODIUM,NA 139.0 mmol/L (136-148)
[2025-09-02 07:09] LABS: ESTIMATED GFR 38.0 mL/min (>60)
[2025-09-02 08:29] LABS: BAND ABSOLUTE MAN 0.02; BAND PERCENT MAN 1 %; LYMPHOCYTES ABSOLUTE MAN 1.20 K/uL (1.00-4.80); LYMPHOCYTES PERCENT MAN 52 % (24-44); MONOCYTES ABSOLUTE MAN 0.25 K/uL (0.00-0.80); MONOCYTES PERCENT MAN 11 % (0-8); SEG NEUTROPHILS ABSOLUTE MAN 0.83 K/uL (1.80-7.70); SEG NEUTROPHILS PERCENT MAN 36 % (41-71)
[2025-09-02 08:30] LABS: ELLIPTOCYTES 1+ SLIGHT; PLATELET COUNT ESTIMATE DECREASED
[2025-09-03 13:27] VITALS: BP 131/65; PULSE 81
== END 2025-09-03 14:10 | disposition home health service (06) | DRG 539 ==
LOC: MW.ED 18:55 → MW.MS 08-21 08:25
PROVIDERS: ADMIT Internal Medicine; ATTEND Internal Medicine
DX: M46.36 Infection of intervertebral disc (pyogenic), lumbar region (principal); N18.9 Chronic kidney disease, unspecified; I21.4 Non-ST elevation (NSTEMI) myocardial infarction; D64.9 Anemia, unspecified; K43.6 Other and unspecified ventral hernia with obstruction, without gangrene; I13.0 Hypertensive heart and chronic kidney disease with heart failure and stage 1 through stage 4 chronic kidney disease, or unspecified chronic kidney disease; N17.9 Acute kidney failure, unspecified; M46.46 Discitis, unspecified, lumbar region; M46.26 Osteomyelitis of vertebra, lumbar region; E11.69 Type 2 diabetes mellitus with other specified complication; W19.XXXA Unspecified fall, initial encounter; D63.1 Anemia in chronic kidney disease; N18.32 Chronic kidney disease, stage 3b; E11.22 Type 2 diabetes mellitus with diabetic chronic kidney disease; R79.89 Other specified abnormal findings of blood chemistry; M10.9 Gout, unspecified; D69.6 Thrombocytopenia, unspecified; I50.9 Heart failure, unspecified; H54.7 Unspecified visual loss; I25.10 Atherosclerotic heart disease of native coronary artery without angina pectoris; E78.00 Pure hypercholesterolemia, unspecified; R53.81 Other malaise; J44.9 Chronic obstructive pulmonary disease, unspecified; G47.30 Sleep apnea, unspecified; M19.90 Unspecified osteoarthritis, unspecified site; E11.40 Type 2 diabetes mellitus with diabetic neuropathy, unspecified; E66.9 Obesity, unspecified; Z96.649 Presence of unspecified artificial hip joint; I25.2 Old myocardial infarction; Z68.21 Body mass index [BMI] 21.0-21.9, adult; Z88.8 Allergy status to other drugs, medicaments and biological substances; Z79.899 Other long term (current) drug therapy; Z98.890 Other specified postprocedural states; Z79.4 Long term (current) use of insulin
CPT/HCPCS: 36415; 71045; 71275; 72128; 72131; 80053; 81001; 83605; 83880; 84443; 84484; 85025; 85379; 87040; 93005; 96360; 99285; J7040; 80048; 83550; 83735; 84100; 84550; 93010; 97110-GO; 97110-GP; 97116-GP; 97162-GP; 97165-GO; 97530-GP; 99223; 99231; 99232; 99238; 99284; A9270-GY; J2405; J2916; J3475

== ENCOUNTER 2025-09-25 03:36 | Emergency (ER) | payer MEDICARE, OTHER ==
[2025-09-25 03:56] LABS: NRBC ABSOLUTE 0.00 K/uL (0.00-0.02); NRBC PERCENT 0.0 /100WBC (0.0-0.2); PLATELET COUNT,PLT 48 K/uL (150-400); RED BLOOD CELL COUNT 2.57 M/uL (4.52-5.90); WHITE BLOOD CELL COUNT,WBC 2.52 K/uL (3.9-11.3)
[2025-09-25 04:26] LABS: A/G RATIO 1.2 (0.9-1.6); ALANINE AMINOTRANSFERASE,ALT 19 IU/L (14-63); ASPARTATE AMNIOTRANSFERASE,AST 19 IU/L (15-37); BILIRUBIN TOTAL 0.2 mg/dL (0.2-1.0); BLOOD UREA NITROGEN,BUN 66 mg/dL (7.0-18.0); CARBON DIOXIDE,CO2 22.8 mmol/L (21.0-32.0); CHLORIDE,CL 107 mmol/L (98-107); CREATININE 2.1 mg/dL (0.8-1.3); GLUCOSE RANDOM 126 mg/dL (74-106); POTASSIUM,K 4.8 mmol/L (3.5-5.1); PRO B-TYPE NATRIUR PEPT,BNPPRO 1475 pg/mL (0-450); PROTEIN TOTAL,TP 5.5 g/dL (6.4-8.2); SODIUM,NA 138 mmol/L (136-148)
[2025-09-25 04:27] LABS: ESTIMATED GFR 32 mL/min (>60)
[2025-09-25 04:33] LABS: LYMPHOCYTES ABSOLUTE MAN 0.86 K/uL (1.00-4.80); LYMPHOCYTES PERCENT MAN 34 % (24-44); SEG NEUTROPHILS ABSOLUTE MAN 1.21 K/uL (1.80-7.70); SEG NEUTROPHILS PERCENT MAN 48 % (41-71)
[2025-09-25 04:34] LABS: MONOCYTES ABSOLUTE MAN 0.45 K/uL (0.00-0.80); MONOCYTES PERCENT MAN 18 % (0-8)
[2025-09-25 05:08] LABS: INR 0.99 (0.86-1.11); PTT,PARTIAL THROMBOPLSTIN TIME 25.9 SEC (23.9-30.7)
[2025-09-25 05:23] VITALS: BP 112/50
[2025-09-25] MEDS: Iopamidol 755 MG/ML 500 ML Multipack Bottle IVPUSH STA (05:33)
[2025-09-25] MEDS: Heparin Sodium 5,000 Units/ML Vial IVPUSH ONE (05:36)
[2025-09-25] MEDS: Heparin Sodium/0.45% NaCl 25,000 UNITS/250 ML BAG IV SCH (05:36)
[2025-09-25 05:51] VITALS: PULSE 71
== END 2025-09-25 05:58 ==
LOC: MW.ED 03:36
DX: I21.4 Non-ST elevation (NSTEMI) myocardial infarction (principal); R79.89 Other specified abnormal findings of blood chemistry; I11.0 Hypertensive heart disease with heart failure; I50.9 Heart failure, unspecified; I25.10 Atherosclerotic heart disease of native coronary artery without angina pectoris; I25.2 Old myocardial infarction; E11.40 Type 2 diabetes mellitus with diabetic neuropathy, unspecified; J44.9 Chronic obstructive pulmonary disease, unspecified; Z79.899 Other long term (current) drug therapy; Z79.82 Long term (current) use of aspirin
CPT/HCPCS: 36415; 71045; 71275; 80053; 83735; 83880; 84484; 85025; 85610; 85730; 87428; 93005; 96365; 99285; J1644; J7030; Q9967; 99284